=== PATIENT | male | born 1960 | race Caucasian/White ===

== ENCOUNTER 2017-02-12 08:51 | Inpatient (IN) | payer MEDICAID ==
[~2017-02-12] VITALS: Ht 175.3 cm; Wt 56.6 kg
[~2017-02-12 08:51] MED LIST: FOLI-49 PO; MAGN400T28 PO; METF-382 PO; MULTI PO; PANT40TA4 PO; PROP10TA6 PO; THIA100T56 PO
[2017-02-12] MEDS ORDERED: ONDANSETRON 4 MG INJ IV STA ×2 (09:42→11:31)
[2017-02-12] MEDS ORDERED: SOD CHLORIDE 0.9% 1,000 ML IV STA ×2 (09:42→11:31)
[2017-02-12] MEDS ORDERED: LORAZEPAM 2 MG INJ IV ONE (10:00)
[2017-02-12] MEDS ORDERED: morphine 4 MG/ML VIAL IV STA (11:31)
[2017-02-12 12:01] LABS: ADD SCAN DIFF NO
[2017-02-12 12:15] LABS: ABNORMAL IP MESSAGE 1; HEMATOCRIT 43.2 % (42.0-52.0); HEMOGLOBIN 15.9 g/dl (14.0-18.0); MEAN CORPUSCULAR HEMOGLOBIN 35.2 pg (29.0-33.0); MEAN CORPUSCULAR HGB CONC 36.8 g/dl (32.0-37.0); MEAN CORPUSCULAR VOLUME 95.6 fl (82.0-101.0); MEAN PLATELET VOLUME 9.8 fl (7.4-10.4); PLATELET COUNT 69 10^3/UL (140-415); RED BLOOD COUNT 4.52 10^6/ul (4.70-6.10); RED CELL DISTRIBUTION WIDTH 13.2 % (11.5-14.5)
[2017-02-12 12:19] LABS: ALBUMIN 4.8 g/dl (3.3-4.9)
[2017-02-12 12:20] LABS: POTASSIUM 4.5 mmol/L (3.5-5.1)
[2017-02-12 12:22] LABS: ALBUMIN/GLOBULIN RATIO 1.33; BILIRUBIN,INDIRECT 1.4 mg/dl (0-1.1); BILIRUBIN,TOTAL 1.4 mg/dl (0.2-1.3); CREATININE 0.48 mg/dl (0.61-1.24); TOTAL PROTEIN 8.4 g/dl (6.1-8.1)
[2017-02-12 12:23] LABS: CALCIUM 10.1 mg/dl (8.4-10.2)
[2017-02-12] MEDS ORDERED: SOD CHLORIDE 0.9% 100 ML ONE (12:58)
[2017-02-12] MEDS ORDERED: IODIXANOL LOCM 100 ML BTL ONE (12:58)
[2017-02-12 13:16] LABS: BASOPHIL # 0.1 10^3/ul (0.0-0.1); EOSINOPHILS # 0.1 10^3/ul (0.0-0.5); LYMPHOCYTES # 0.7 10^3/ul (0.8-2.9); MONOCYTE # 0.6 10^3/ul (0.3-0.9); NEUTROPHIL # 6.9 10^3/ul (1.6-7.5)
[2017-02-12 13:17] LABS: HYPOCHROMASIA 1+; PLATELET ESTIMATE PLT APPEAR DECREASED; POLYCHROMASIA RARE
--- NOTE | 2017-02-12 13:49 | RADRPT ---
PROCEDURE: CT Abdomen and pelvis with contrast. CLINICAL INDICATION: History of pancreatitis and abdominal pain. TECHNIQUE: CT scan of the abdomen and pelvis with contrast was performed on a multidetector high-r esolution CT scan. The patient was scanned following the uncomplicated intravenous administration o f 99 ml Visipaque 320. Coronal and sagittal reformatted images were obtained from the axial source images. Standard CT of the abdomen pelvis with contrast protocols were performed. The total exam CTDI equals 7.59 mGy and the total exam DLP equals 436.46 mGy-cm. One or more of the following dose reduction techniques were used: - Automated exposure control. - Adjustment of the mA and/or kV according to patient size. Use of iterative reconstruction technique. COMPARISON: CT abdomen and pelvis 09/22/2013 FINDINGS: There are multiple punctate calcifications involving the pancreatic head and uncinate process consis tent with chronic calcific pancreatitis. There are no other definite focal pancreatic lesions demon strated. There is moderate herminio pancreatic fluid extending into the left and right anterior pararen al spaces more so on the left consistent with pancreatitis. There is mild diffuse dilatation of the pancreatic duct. A stone within the proximal pancreatic duct cannot be excluded. There is no evid ence of cholelithiasis or gallbladder wall thickening. The extra panic biliary ductal system is poo rly demonstrated but does not appear dilated. The distal common bile duct stone cannot be excluded though not clearly demonstrated. A biliary ultrasound or MRCP is suggested if clinically indicated. Additional mild right perihepatic and pericolic ascites and mild free fluid in the pouch of Jorge . No localized fluid collection to suggest abscess. No intra-abdominal free air. There is hepatic fatty infiltration. There is a punctate calcification within the right lobe of the liver consistent with old granulomatous disease. There are no other focal hepatic lesions. The sp mahad is normal in size without evidence of focal splenic lesions. The adrenal glands and kidneys ar e normal in size configuration without focal lesions. Negative for hydronephrosis bilaterally. The u rinary bladder is unremarkable. The prostate gland is unremarkable. There is atherosclerotic vascular disease of the abdominal aorta but no evidence of aneurysm. There is minimal dependent atelectasis more so at the left base. No evidence of basilar pleural effusion s. There is degenerative changes lower thoracic and lumbar spine. There are no acute osseous findi ngs. No osteoblastic or osteolytic lesions. IMPRESSION: 1. Chronic calcific pancreatitis involving the pancreatic head and uncinate process as well as acut e pancreatitis with peripancreatic fluid as well as fluid extending into the right left anterior par arenal spaces. In addition there is mild dilatation of the pancreatic duct and a stone in the most proximal aspect of the pancreatic duct cannot be excluded. The extrahepatic biliary ductal system i s poorly demonstrated but does not appear dilated. The distal common bile duct stone cannot be excl uded. A biliary ultrasound or MRCP is suggested if clinically indicated. 2. Mild right perihepatic, pericolic and pouch of Jorge ascites. No intra-abdominal abscess or f ree air. 3. Hepatic fatty infiltration. No visceral masses demonstrated. RPTAT:AAJJ Physician Carter Date Time Electronically viewed and signed by Physician Carter on 02/12/2017 13:48 /
--- NOTE | 2017-02-12 14:25 | ERA ---
ER Documentation Chief Complaint Date/Time DATE: 02/12/17 TIME: 14:22 Chief Complaint ap with nausea since yesterday, last etoh yesterday HPI This is a 56-year-old alcoholic whose last drink was 2 days ago is here because of having epigastric pain radiating to his back. The patient's had similar episodes before after drinking but has not sought medical attention. He is having some nausea vomiting but nonbilious and nonbloody. No diarrhea no fever no chest pain or shortness of breath. No overt signs of withdrawal with shaking tremors or seizure. Pain is described as dull and constant with radiation to the back nothing makes the pain worse or better. ROS All systems reviewed and are negative except as per history of present illness. Medications Home Meds Discontinued Scripts Metformin Hcl* (Metformin Hcl*) 500 Mg Tablet, 500 MG PO WITH BREAKFAST, #30 TAB Prov:GAYATHRI HUNTER MD 09/03/16 Magnesium Oxide* (Magnesium Oxide*) 400 Mg Tablet, 400 MG PO DAILY for 30 Days, TAB Prov:GAYATHRI HUNTER MD 09/03/16 Thiamine* (Vitamin B-1*) 100 Mg Tablet, 100 MG PO DAILY for 30 Days, #30 TAB Prov:GAYATHRI HUNTER MD 09/03/16 Propranolol Hcl* (Propranolol Hcl*) 10 Mg Tablet, 10 MG PO TID for 30 Days, #90 TAB Prov:GAYATHRI HUNTER MD 09/03/16 Pantoprazole* (Pantoprazole*) 40 Mg Tablet.dr, 40 MG PO DAILY@06 for 30 Days, # 30 Prov:GAYATHRI HUNTER MD 09/03/16 Multivitamins* (Theragran*) 1 Tab Tab, 1 TAB PO DAILY for 30 Days, #30 TAB Prov:GAYATHRI HUNTER MD 09/03/16 Folic Acid* (Folic Acid*) 1 Mg Tablet, 1 MG PO DAILY for 30 Days, #30 TAB Prov:GAYATHRI HUNTER MD 09/03/16 Allergies Allergies: Coded Allergies: No Known Drug Allergy (Verified Allergy, Unknown, 02/12/17) PMhx/Soc Medical and Surgical Hx: pt denies Surgical Hx History of Surgery: Yes (see notes) Anesthesia Reaction: No Hx Neurological Disorder: No Hx Respiratory Disorders: No Hx Cardiac Disorders: Yes (HTN) Hx Psychiatric Problems: No Hx Miscellaneous Medical Probl: No Hx Alcohol Use: Yes (> 35 years.) Hx Substance Use: Yes (6 beers daily. last day of use was day before admission) Hx Tobacco Use: No Smoking Status: Former smoker FmHx Family History: No coronary disease Physical Exam Vitals Vital Signs Date Time Temp Pulse Resp B/P Pulse Ox O2 Delivery O2 Flow Rate FiO2 02/12/17 13:28 98.6 109 20 166/94 100 Room Air 02/12/17 08:55 98.1 124 20 194/95 99 Physical Exam Const: Well-developed, well-nourished Head: Atraumatic, normocephalic Eyes: Normal Conjunctiva, PERRLA, EOMI, normal sclera, no nystagmus ENT: Normal External Ears, Nose and Mouth, moist mucus membranes. Neck: Full range of motion. No meningismus, no lymphadenopathy. Resp: Clear to auscultation bilaterally, no wheezing, rhonchi, rales Cardio: Regular rate and rhythm, no murmurs, S1 S2 present Abd: Soft, mid abdominal tenderness that is moderate in nature, non distended. Normal bowel sounds, no guarding or rebound, no pulsitile abdominal masses or bruits Skin: No petechiae or rashes, no ecchymosis , no maculopapular rash Back: No midline or flank tenderness Ext: No cyanosis, or edema, FROM x 4, normal inspection, neurovascularly intact x 4 Neur: Awake and alert, STR 5/5 x 4, sensation intact x 4, no focal findings, cerebellum intact Psych: Normal Mood and Affect Result Diagram: 02/12/17 1130 02/12/17 1130 Results 24 hrs Laboratory Tests Test 02/12/17 11:30 White Blood Count 9.010^3/ul Red Blood Count 4.5210^6/ul Hemoglobin 15.9g/dl Hematocrit 43.2% Mean Corpuscular Volume 95.6fl Mean Corpuscular Hemoglobin 35.2pg Mean Corpuscular Hemoglobin Concent 36.8g/dl Red Cell Distribution Width 13.2% Platelet Count 6910^3/UL Mean Platelet Volume 9.8fl Neutrophils % 77.0% Band Neutrophils % 5.0% Lymphocytes % 8.0% Monocytes % 7.0% Eosinophils % 1.0% Basophils % 1.0% Metamyelocytes % 1.0% Neutrophils # 6.910^3/ul Lymphocytes # 0.710^3/ul Monocytes # 0.610^3/ul Eosinophils # 0.110^3/ul Basophils # 0.110^3/ul Metamyelocytes # 0.1 Differential Comment MANUAL DIFF Platelet Estimate PLT APPEAR DECREASED Polychromasia RARE Hypochromasia 1+ Macrocytosis 1+ Sodium Level 139mmol/L Potassium Level 4.5mmol/L Chloride Level 92mmol/L Carbon Dioxide Level 20mmol/L Anion Gap 32 Blood Urea Nitrogen 10mg/dl Creatinine 0.48mg/dl Glucose Level 362mg/dl Calcium Level 10.1mg/dl Total Bilirubin 1.4mg/dl Direct Bilirubin 0.00mg/dl Indirect Bilirubin 1.4mg/dl Aspartate Amino Transf (AST/SGOT) 102IU/L Alanine Aminotransferase (ALT/SGPT) 55IU/L Alkaline Phosphatase 298IU/L Total Protein 8.4g/dl Albumin 4.8g/dl Globulin 3.60g/dl Albumin/Globulin Ratio 1.33 Lipase 35612U/L Current Medications Medications (Trade) Dose Ordered Sig/Sariah Route PRN Reason Start Time Stop Time Status Last Admin Dose Admin Sodium Chloride (NS) 1,000 ml @ 1,000 mls/hr Q1H STAT IV 02/12/17 09:42 02/12/17 10:41 Cancel Ondansetron HCl (Zofran Inj) 4 mg ONCE STAT IV 02/12/17 09:42 02/12/17 09:43 Cancel Lorazepam 0.5 mg 0.5 mg ONCE ONCE IV 02/12/17 10:00 02/12/17 10:01 DC 02/12/17 11:50 Sodium Chloride (NS) 1,000 ml @ 1,000 mls/hr Q1H STAT IV 02/12/17 11:31 02/12/17 12:30 DC 02/12/17 11:58 Morphine Sulfate (morphine) 4 mg ONCE STAT IV 02/12/17 11:31 02/12/17 11:32 DC 02/12/17 11:50 Ondansetron HCl (Zofran Inj) 4 mg ONCE STAT IV 02/12/17 11:31 02/12/17 11:32 DC 02/12/17 11:50 IV Flush 10 ml 10 ml STK-MED ONCE .ROUTE 02/12/17 12:58 02/12/17 12:59 DC 02/12/17 13:16 Sodium Chloride (NS) 100 ml @ ud STK-MED ONCE .ROUTE 02/12/17 12:58 02/12/17 12:59 DC 02/12/17 13:16 Iodixanol 100 ml 100 ml STK-MED ONCE .ROUTE 02/12/17 12:58 02/12/17 12:59 DC 02/12/17 13:16 Sodium Chloride (NS) 1,000 ml @ 1,000 mls/hr Q1H ONCE IV 02/12/17 14:30 02/12/17 15:29 Procedures/MDM PROCEDURE: CT Abdomen and pelvis with contrast. CLINICAL INDICATION: History of pancreatitis and abdominal pain. TECHNIQUE: CT scan of the abdomen and pelvis with contrast was performed on a multidetector high-resolution CT scan. The patient was scanned following the uncomplicated intravenous administration of 99 ml Visipaque 320. Coronal and sagittal reformatted images were obtained from the axial source images. Standard CT of the abdomen pelvis with contrast protocols were performed. The total exam CTDI equals 7.59 mGy and the total exam DLP equals 436.46 mGy- cm. One or more of the following dose reduction techniques were used: - Automated exposure control. - Adjustment of the mA and/or kV according to patient size. Use of iterative reconstruction technique. COMPARISON: CT abdomen and pelvis 09/22/2013 FINDINGS: There are multiple punctate calcifications involving the pancreatic head and uncinate process consistent with chronic calcific pancreatitis. There are no other definite focal pancreatic lesions demonstrated. There is moderate herminio pancreatic fluid extending into the left and right anterior pararenal spaces more so on the left consistent with pancreatitis. There is mild diffuse dilatation of the pancreatic duct. A stone within the proximal pancreatic duct cannot be excluded. There is no evidence of cholelithiasis or gallbladder wall thickening. The extra panic biliary ductal system is poorly demonstrated but does not appear dilated. The distal common bile duct stone cannot be excluded though not clearly demonstrated. A biliary ultrasound or MRCP is suggested if clinically indicated. Additional mild right perihepatic and pericolic ascites and mild free fluid in the pouch of Jorge. No localized fluid collection to suggest abscess. No intra-abdominal free air. There is hepatic fatty infiltration. There is a punctate calcification within the right lobe of the liver consistent with old granulomatous disease. There are no other focal hepatic lesions. The spleen is normal in size without evidence of focal splenic lesions. The adrenal glands and kidneys are normal in size configuration without focal lesions. Negative for hydronephrosis bilaterally. The urinary bladder is unremarkable. The prostate gland is unremarkable. There is atherosclerotic vascular disease of the abdominal aorta but no evidence of aneurysm. There is minimal dependent atelectasis more so at the left base. No evidence of basilar pleural effusions. There is degenerative changes lower thoracic and lumbar spine. There are no acute osseous findings. No osteoblastic or osteolytic lesions. IMPRESSION: 1. Chronic calcific pancreatitis involving the pancreatic head and uncinate process as well as acute pancreatitis with peripancreatic fluid as well as fluid extending into the right left anterior pararenal spaces. In addition there is mild dilatation of the pancreatic duct and a stone in the most proximal aspect of the pancreatic duct cannot be excluded. The extrahepatic biliary ductal system is poorly demonstrated but does not appear dilated. The distal common bile duct stone cannot be excluded. A biliary ultrasound or MRCP is suggested if clinically indicated. 2. Mild right perihepatic, pericolic and pouch of Jorge ascites. No intra- abdominal abscess or free air. 3. Hepatic fatty infiltration. No visceral masses demonstrated. RPTAT:AAJJ Physician Carter Date Time Electronically viewed and signed by Physician Carter on 02/12/2017 13:48 BM/ CC: DINA PILLAI DO Patient has marked elevation of his lipase consistent with pancreatitis. There is a question of a stone in his pancreatic duct and will obtain an MRCP We will admit to hospital for bowel rest, pain medication and fluid resuscitation Departure Diagnosis: Primary Impression: Pancreatitis Qualified Code: K85.20 - Alcohol-induced acute pancreatitis, unspecified complication status Condition: Stable DINA PILLAI DO Feb 12, 2017 14:24
[2017-02-12] MEDS ORDERED: SOD CHLORIDE 0.9% 1,000 ML IV ONE (14:30)
[2017-02-12] MEDS ORDERED: SOD CHLORIDE 0.9% 1,000 ML IV SCH (15:02)
[2017-02-12] MEDS ORDERED: ACETAMINOPHEN 325 MG TAB PO PRN ×2 (15:30→18:00)
[2017-02-12] MEDS ORDERED: ONDANSETRON 4 MG INJ IV PRN ×2 (15:30→18:00)
[2017-02-12] MEDS ORDERED: DOCUSATE SODIUM 100 MG CAP PO PRN (18:00)
[2017-02-12] MEDS ORDERED: HYDROmorphONE 1 MG/ML SYG IV PRN (18:00)
[2017-02-12] MEDS ORDERED: NACL 0.9% 3 ML SYG IV SCH (18:00)
[2017-02-12 18:08] VITALS: TEMP 98.9
[2017-02-12] MEDS ORDERED: LORAZEPAM 2 MG INJ IV PRN (18:30)
[2017-02-12] MEDS ORDERED: GLUCOSE GEL 15 GRAM TUBE BUCCAL PRN (18:30)
[2017-02-12] MEDS ORDERED: GLUCAGON 1 MG INJ IM PRN (18:30)
[2017-02-12] MEDS ORDERED: DEXTROSE 50% 50 ML SYRINGE IV PRN ×2 (18:30)
[2017-02-12] MEDS ORDERED: GLUCOSE GEL 15 GRAM TUBE PO PRN ×2 (18:30)
--- NOTE | 2017-02-12 18:56 | HP ---
DATE OF ADMISSION: 02/12/2017 REASON FOR ADMISSION: Acute pancreatitis, abdominal pain. 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 The patient was in usual state of health up until 2 days prior to admission when he had been experiencing increasing abdominal consuelo n. Patient does admit to drinking alcohol regularly, despite being advised to stop. The patient pr esented to the ER for evaluation of his abdominal pain. Initial vital signs showed temperature 98.1 , pulse 124, respirations 20, blood pressure was elevated to 194/95, O2 saturation was 99%. The pat ient underwent laboratory workup. CBC shows a normal white count of 9 with bands of 5%. Chemistry unfortunately shows glucose of 362, alkaline phosphatase 298, AST 102, ALT 55, lipase of 18,049 acuna ggestive of pancreatitis. The patient had an imaging test of the abdomen and pelvis which shows chr onic calcific pancreatitis involving the pancreatic head and uncinate process as well as acute pancr eatitis with herminio pancreatic fluid as well as fluid extending to the left anterior pararenal spaces. In addition, there is mild dilatation of the pancreatic duct and a stone in the most proximal aspe ct of the pancreatic duct cannot be excluded. The extrahepatic biliary duct system is poorly demons trated but does not appear dilated. The distal common bile duct stones cannot be excluded. A bilia ry ultrasound or MRCP is suggested if clinically indicated. Mild right perihepatic pericolic and po uch of ____ascites. No intra-abdominal abscess or free air, hepatic fatty infiltration, no visceral masses are demonstrated. The patient received fluids, pain medications and is to be admitted to [facility] medical/surgical floor for further care. Upon evaluation, the patient states he has been experien cing increasing abdominal pain for 2 days with 1 episode of vomiting. Denies any confusion. The pa tieshruti is slightly tremulous in the ER. is present at bedside. PHYSICAL EXAMINATION: VITAL SIGNS: Temperature 98.9, pulse 88, respirations 16, blood pressure elevated at 177/80, satura tion is 100% on room air. GENERAL: The patient is in no acute distress, thin looking. HEENT: Temporal wasting. The patient is pale. NECK: No JVD. CARDIOVASCULAR: S1 and S2, regular rate. LUNGS: Clear. ABDOMEN: Soft, mild pain in the mid epigastric area. No guarding. The patient did receive pain me dication earlier. EXTREMITIES: There is no clubbing, cyanosis, or edema. The patient has slight tremor of the hands, not severe, just mild. LABORATORY DATA: White count is 9, hemoglobin 15.9, hematocrit 43, platelet count is low at 69, hernandez trophils 77%, bands 5%, lymphocytes 8%. Chemistry: Sodium is 139, potassium 4.5, chloride 92, bica rbonate 20, BUN is 10, creatinine 0.4, glucose is elevated at 362, total bilirubin 1.4, AST 102, ALT 55, alkaline phosphatase 298, total protein 8.4, globulin 3.6, lipase is high at 18,049. Urine alex dies were not obtained. CT scan of the abdomen and pelvis as above. ASSESSMENT AND PLAN: This is an unfortunate 56-year-old male who is alcoholic, likely salma y liver cirrhosis, diabetes mellitus, hypertension who presented with increased abdominal pain, was found to have acute pancreatitis. 1. Acute pancreatitis. The patient will be hydrated with IV fluids. Pain medications will be prov ided. We will follow up with lipase levels. The patient will be kept n.p.o. We will consult GI as well. 2. Possible pancreatic duct stone or biliary stone, as patient does have elevated alkaline phosphat ase. Would proceed with a liver biliary ultrasound and an MRCP. 3. Hold antibiotics unless there is evidence of infection. If there is worsening leukocytosis or f adry, we will follow. 4. The patient will be placed on Protonix for GI prophylaxis. 5. The patient with thrombocytopenia. Observe. No active bleeding. 6. Diabetes mellitus. 7. Accu-Cheks before meals and at bedtime will be checked. The patient will be placed on insulin sliding scale for now. 8. Tremor. Ativan p.r.n. for withdrawal will be provided. 9. Hypertension. May benefit from beta blockers such as propranolol as it was prescribed before. 10. Also may benefit from a banana bag as patient clinically appears to be malnourished. We can pl kelly him on multivitamin and folic acid. Case discussed with at bedside. 11. Alcohol cessation was discussed. We will follow. Dictated By: GAYATHRI ROBERT/BOBBI Conf#: [id number] [facility]#: [id number]
--- NOTE | 2017-02-12 19:01 | RADRPT ---
PROCEDURE: Right upper quadrant ultrasound. CLINICAL INDICATION: Pancreatitis, elevated liver enzymes. TECHNIQUE: Multiple real-time longitudinal and transverse images of the right upper quadrant of th e abdomen were acquired utilizing a curved array transducer. Images were reviewed on a high-resoluti on PACS workstation. COMPARISON: None. FINDINGS: The pancreas head and body are heterogeneous. The pancreas tail is not well seen. The hepatic echotexture is slightly coarsened. The liver measures 14.5 cm in length. No hepatic les ion or intrahepatic biliary ductal dilatation is seen. The portal vein is patent with hepatopetal f low. No gallstones or sludge are seen within the gallbladder lumen. The gallbladder wall is not thickene d. There is no pericholecystic fluid. The common bile duct measures 3 mm in diameter, not dilated. The right kidney measures 9.3 cm in length. Renal echogenicity is normal. There is no hydronephros is, urinary calculus, or renal mass. The visualized portions of the aorta and IVC are unremarkable. IMPRESSION: 1. Heterogeneous appearance of the pancreas head and body, nonspecific but possibly reflecting panc reatitis. 2. Slightly coarsened hepatic echotexture, nonspecific but possibly related to hepatitis or cirrhos is. 3. Normal appearance of the gallbladder and bile ducts. RPTAT: HTAR .Antoine Ozuna MD, MD Date Time Electronically viewed and signed by .Antoine Ozuna MD, on 02/12/2017 19:01 .R/
[2017-02-12 20:06] VITALS: Ht 175.3 cm; Wt 56.6 kg
[2017-02-12 20:26] VITALS: BP 164/82; RESP 17
[2017-02-12] MEDS: SOD CHLORIDE 0.9% 1,000 ML IV SCH (20:27)
[2017-02-12] MEDS: PROPRANOLOL 20 MG TAB PO SCH (20:58)
[2017-02-12] MEDS: INSULIN ASPART [NOVOLOG] 3 ML PEN SC SCH (21:00)
[2017-02-13 00:05] VITALS: BP 150/70
[2017-02-13] MEDS ORDERED: **FLU VACCINE PREVIOUSLY DISPENSED XX PRN (00:30)
[2017-02-13] MEDS: SOD CHLORIDE 0.9% 1,000 ML IV SCH ×3 (03:58→23:54)
[2017-02-13 05:05] LABS: ADD SCAN DIFF NO
[2017-02-13 05:14] LABS: ABNORMAL IP MESSAGE 1; BASOPHILS % 0.3 % (0.0-2.0); EOSINOPHILS # 0.1 10^3/ul (0.0-0.5); EOSINOPHILS % 1.8 % (0.0-7.0); HEMATOCRIT 38.8 % (42.0-52.0); HEMOGLOBIN 13.3 g/dl (14.0-18.0); LYMPHOCYTES # 1.8 10^3/ul (0.8-2.9); MEAN CORPUSCULAR HEMOGLOBIN 32.9 pg (29.0-33.0); MEAN CORPUSCULAR HGB CONC 34.3 g/dl (32.0-37.0); MONOCYTE # 1.1 10^3/ul (0.3-0.9); MONOCYTES % 14.3 % (0.0-11.0); NEUTROPHIL # 4.4 10^3/ul (1.6-7.5); NEUTROPHILS % 59.2 % (39.0-77.0); PLATELET COUNT 61 10^3/UL (140-415); RED BLOOD COUNT 4.04 10^6/ul (4.70-6.10); RED CELL DISTRIBUTION WIDTH 13.3 % (11.5-14.5); WHITE BLOOD COUNT 7.4 10^3/ul (4.8-10.8)
[2017-02-13] MEDS: PANTOPRAZOLE 40 MG INJ IV SCH (05:43)
[2017-02-13 05:45] LABS: ALBUMIN 3.5 g/dl (3.3-4.9); POTASSIUM 3.7 mmol/L (3.5-5.1)
[2017-02-13 05:47] LABS: CREATININE 0.43 mg/dl (0.61-1.24)
[2017-02-13 05:48] LABS: ALBUMIN/GLOBULIN RATIO 1.16; BILIRUBIN,INDIRECT 1.3 mg/dl (0-1.1); BILIRUBIN,TOTAL 1.3 mg/dl (0.2-1.3); CALCIUM 9.3 mg/dl (8.4-10.2); TOTAL PROTEIN 6.5 g/dl (6.1-8.1)
--- NOTE | 2017-02-13 06:31 | RADRPT ---
PROCEDURE: MR Abdomen. CLINICAL INDICATION: Acute on chronic pancreatitis. TECHNIQUE: Multiplanar multi sequence imaging of the abdomen without contrast. COMPARISON: CT from 02/12 FINDINGS: MRI Abdomen: No pleural effusion is seen. The gallbladder is mildly distended. No stones are seen. The spleen, adrenals, and kidneys are unremarkable in appearance. Again seen are changes of acute pancreatitis with most severe involvement of the pancreatic body and tail. Surrounding peripancreatic fluid is seen without focal loculated collection. Mild upper abdominal ascites is seen. The pancreatic duct is again seen to be top normal in diameter, measuring up to 3 mm in diameter. There is no evidence for pancreas divisum. The pancreatic duct is poorly seen in the area of the pancreatic head and un cinate were multiple calcifications were seen on CT. A small stone within the distal pancreatic kobi t cannot be excluded. There is no evidence for biliary ductal dilatation or choledocholithiasis. T iny cystic lesion of the distal pancreatic tail is seen and there is also a small 5 mm cystic lesion of the more proximal pancreatic tail (series 4 image 17). IMPRESSION: Acute on chronic pancreatitis. No definite focal loculated collection. Pancreatic necrosis and grissom creatic mass cannot be assessed without intravenous contrast. The distal pancreatic duct is not wel l seen and this is the area where multiple calcifications were evident on CT. A small stone within the distal pancreatic duct cannot be excluded. No choledocholithiasis, however. No biliary ductal dilatation. Pancreatic duct is top normal.. RPTAT: HLBE Physician Dario Date Time Electronically viewed and signed by Sylwia Morris Physician on 02/13/2017 06:31 LIBAN/
[2017-02-13 07:06] LABS: THYROID STIMULATING HORMONE 2.1 MIU/L (0.465-4.680)
[2017-02-13 07:10] VITALS: BP_SYST 123; BP_SYST 162; BP_DIAS 65; BP_DIAS 79; RESP 18
[2017-02-13] MEDS: PROPRANOLOL 20 MG TAB PO SCH ×3 (08:31→23:12)
[2017-02-13] MEDS: INSULIN ASPART [NOVOLOG] 3 ML PEN SC SCH ×4 (08:33→23:15)
[2017-02-13 08:54] LABS: INR 1.32; PROTIME 16.5 Sec (12.2-14.2); PT RATIO 1.3
[2017-02-13] MEDS: BENAZEPRIL 10 MG TAB PO SCH (19:02)
--- NOTE | 2017-02-13 19:29 | PN ---
DATE: 02/13/2017 SUBJECTIVE: The patient is seen. The patient is feeling much better today, currently denies any pa in. The patient has been n.p.o. since admission, and the patient is feeling better. The patient is not tachycardic anymore. Noted increase glucose level, as patient unfortunately his hemoglobin A1c is high at 11.7. Lipase also went down nicely. PHYSICAL EXAMINATION: VITAL SIGNS: Temperature is 98.9, pulse 75, respiration 18, blood pressure elevated at 162/79, satu ration 96%. GENERAL: The patient is in no acute distress, thin looking, pale. CARDIOVASCULAR: S1, S2, regular rate. LUNGS: Clear. ABDOMEN: Soft, nontender. EXTREMITIES: No clubbing, cyanosis, or edema. LABORATORY DATA: Sodium 140, potassium 3.7, chloride 99, bicarbonate 24, BUN is 11, creatinine 0.43 , glucose of 216, hemoglobin A1c is 11.7. AST 69; improved, ALT 47, alkaline phosphatase 175; much better too, albumin 3.5. TSH: 2.1. Alpha fetoprotein: 2.59. Lipase went down to 6750. Last glu cose levels 169, 202, and 208. INR was 1.3. MEDICATIONS: 1. Protonix 40 IV daily. 2. Insulin aspart per sliding scale. 3. Inderal 20 mg t.i.d. 4. Ativan 2 mg IV q.4h. p.r.n. 5. Hypoglycemia protocol as directed. 6. Zofran p.r.n. 7. Tylenol p.r.n. 8. Dilaudid p.r.n. 9. Colace p.r.n. 10. Normal saline at 100 mL an hour. ASSESSMENT AND PLAN: This is a 56-year-old male with alcoholic liver cirrhosis, diabetes m ellitus, hypertension, presenting with decreased abdominal pain, and was found to have acute pancrea titis. 1. Acute pancreatitis, likely related to alcohol. Much better with hydration, IV pain meds. The p atient is pain free. We will advance diet to clear liquid as tolerated. 2. Abnormal LFTs. Status post MRI and ultrasound. MRCP showed [id number] pancreatitis, no d efinite focal loculated collection. Pancreatic necrosis and pancreatic mass cannot be assessed with out intravenous contrast. The distal pancreatic duct is not well seen, and this is the area where kia howardtiple calcifications were evident on CT. A small stone within the distal pancreatic duct cannot b e excluded. No choledocholithiasis; however, no biliary ductal dilatation. Pancreatic duct is top normal, but overall clinically is doing well. Labs improved. I will just continue with the same ca re. Again, also ultrasound of the liver revealed heterogeneous appearance of the pancreas head and body, nonspecific or possibly reflecting pancreatitis, slightly coarse hepatic echotexture, nonspeci fic, but possibly related to hepatitis or cirrhosis. Normal appearance of the gallbladder and bile duct. Again, will continue with supportive care. 3. Diabetes mellitus. Start the patient on Lantus 8 units at night. Observe advanced diet and inc rease insulin as needed. 4. Start the patient on multivitamin, folic acid, thiamine. 5. Possible withdrawal. Continue p.r.n. Ativan, currently not withdrawing, and the patient is aler t and oriented x3; overall, improving. Advance diet again as noted. If able to tolerate and no consuelo n, the patient possibly can be discharged tomorrow. Dictated By: GAYATHRI ROBERT/BOBBI Conf#: [id number] DID#: [id number]
[2017-02-13 22:07] VITALS: BP 166/77; RESP 19
[2017-02-13 23:00] VITALS: BP 148/72; PULSE 69
[2017-02-13] MEDS: INSULIN GLARGINE [LANtus] 3 ML PEN SC SCH (23:14)
[2017-02-14] MEDS: PANTOPRAZOLE 40 MG INJ IV SCH (05:19)
[2017-02-14 07:14] LABS: ADD SCAN DIFF NO
[2017-02-14 07:22] LABS: ABNORMAL IP MESSAGE 1; BASOPHILS % 0.5 % (0.0-2.0); EOSINOPHILS # 0.2 10^3/ul (0.0-0.5); EOSINOPHILS % 3.1 % (0.0-7.0); HEMATOCRIT 40.5 % (42.0-52.0); HEMOGLOBIN 13.7 g/dl (14.0-18.0); LYMPHOCYTES # 2.3 10^3/ul (0.8-2.9); LYMPHOCYTES % 29.5 % (15.0-51.0); MEAN CORPUSCULAR HEMOGLOBIN 32.9 pg (29.0-33.0); MEAN CORPUSCULAR HGB CONC 33.8 g/dl (32.0-37.0); MEAN CORPUSCULAR VOLUME 97.1 fl (82.0-101.0); MEAN PLATELET VOLUME 10.5 fl (7.4-10.4); MONOCYTES % 13.3 % (0.0-11.0); NEUTROPHIL # 4.1 10^3/ul (1.6-7.5); NEUTROPHILS % 53.2 % (39.0-77.0); PLATELET COUNT 77 10^3/UL (140-415); RED BLOOD COUNT 4.17 10^6/ul (4.70-6.10); RED CELL DISTRIBUTION WIDTH 13.3 % (11.5-14.5); WHITE BLOOD COUNT 7.8 10^3/ul (4.8-10.8)
[2017-02-14 07:41] LABS: PHOSPHORUS 3.9 mg/dl (2.5-4.9)
[2017-02-14 07:42] LABS: ALBUMIN 3.4 g/dl (3.3-4.9); MAGNESIUM 1.3 mg/dl (1.7-2.5)
[2017-02-14 07:43] LABS: POTASSIUM 3.1 mmol/L (3.5-5.1)
[2017-02-14 07:45] LABS: CREATININE 0.43 mg/dl (0.61-1.24)
[2017-02-14 07:46] LABS: ALBUMIN/GLOBULIN RATIO 1.13; BILIRUBIN,INDIRECT 1.6 mg/dl (0-1.1); BILIRUBIN,TOTAL 1.6 mg/dl (0.2-1.3); TOTAL PROTEIN 6.4 g/dl (6.1-8.1)
[2017-02-14] MEDS: THIAMINE 100 MG TAB PO SCH (08:24)
[2017-02-14] MEDS: FOLIC ACID 1 MG TAB PO SCH (08:24)
[2017-02-14] MEDS: MULTIVITAMINS THERAPEUTIC TAB PO SCH (08:24)
[2017-02-14] MEDS: BENAZEPRIL 10 MG TAB PO SCH (08:25)
[2017-02-14] MEDS: PROPRANOLOL 20 MG TAB PO SCH ×3 (08:25→20:21)
[2017-02-14] MEDS: INSULIN ASPART [NOVOLOG] 3 ML PEN SC SCH ×4 (08:28→20:23)
[2017-02-14 08:37] VITALS: BP 153/76; RESP 16
[2017-02-14] MEDS ORDERED: POTASSIUM CHLORIDE (SR) 20 MEQ TAB PO STA (09:44)
[2017-02-14] MEDS: SOD CHLORIDE 0.9% 1,000 ML IV SCH ×2 (10:28→21:24)
[2017-02-14] MEDS ORDERED: MAGNESIUM SULFATE 3 GM in SOD CHLORIDE 0.9% 100 ML IVPB ONE (11:00)
--- NOTE | 2017-02-14 16:17 | PDOCDIS ---
Discharge Instructions CONDITION Patient Condition: Stable HOME CARE INSTRUCTIONS: Diet Instructions: Low Fat /CholesterolSpecial Diet: clear liquid ACTIVITY: Activity Restrictions: Slowly Increase Activity FOLLOW UP/APPOINTMENTS Appointments follow up with PMD within a week, NO ALCOHOL. see prescriptions GAYATHRI HUNTER MD Feb 14, 2017 16:16
[2017-02-14] MEDS ORDERED: Thiamine PO (16:22)
[2017-02-14] MEDS ORDERED: METF-382 PO (16:22)
[2017-02-14] MEDS ORDERED: MULTI PO (16:22)
[2017-02-14] MEDS ORDERED: BENA10TA48 PO (16:22)
[2017-02-14] MEDS ORDERED: FOLI-49 PO (16:22)
[2017-02-14] MEDS ORDERED: PROP20TA4 PO (16:22)
[2017-02-14] MEDS ORDERED: LANT3I SC (16:22)
[2017-02-14] MEDS ORDERED: OMEP40CA6 PO (16:25)
--- NOTE | 2017-02-14 17:10 | PN ---
DATE: SUBJECTIVE: I decided to keep him another day as I noted he had a low-grade temperature of 99.7. S till, he is on insulin, and he was not on insulin before. ____ still elevated. I definitely would like to keep him on it one more day. I also have been replacing his electrolytes. OBJECTIVE: VITAL SIGNS: Temperature 98.7, pulse 62, respirations 16, blood pressure 152/76, saturation 97%. GENERAL: No acute distress. The patient is pale and thin. CARDIOVASCULAR: S1, S2, regular rate. LUNGS: Clear. ABDOMEN: Soft, nontender. EXTREMITIES: No clubbing, cyanosis, or edema. LABORATORY DATA: All reviewed. Sodium 149, potassium 3.1, chloride 99, bicarbonate 27, BUN is 11, creatinine 0.53, glucose of 153. Last glucose level 214 and 150. Magnesium was low at 1.3. Lipase 5734. White count normal at 7.8. MEDICATIONS: Reviewed. ASSESSMENT AND PLAN: This is a 56-year-old male with history of alcoholic liver cirrhosis and chronic pancreatitis who continues to drink and presented with abdominal pain. He was found to have acute pancreatitis. 1. Acute pancreatitis, clinically better. We will continue with gentle hydration, pain medication as needed. Currently, he is pain-free. Monitor lipase. We will keep still on clear liquid diet an other day. 2. Diabetes mellitus. Continue insulin, increase it by 2 units. Observe. Upon discharge, we will add metformin. 3. Alcohol abuse. No evidence of withdrawal, but Ativan p.r.n. for withdrawals is given. 4. Hypertension. Continue propranolol and benazepril. Case discussed with family. The patient has moderate to severe protein malnutrition with a BMI of 1 8.4. The patient may benefit from Ensure at home. Again, alcohol cessation was discussed again. DISPOSITION: Soon. We will monitor fevers. He had a low-grade temperature of 99.7. Dictated By: GAYATHRI ROBERT/BOBBI Conf#: [id number] DID#: [id number]
--- NOTE | 2017-02-14 17:15 | DS ---
DATE OF ADMISSION: 02/12/2017 DATE OF DISCHARGE: 02/14/2017 REASON FOR ADMISSION: Acute pancreatitis. HOSPITAL COURSE: The patient is a 56-year-old male with history of alcohol abuse and diabe leroy mellitus and early liver cirrhosis. He presented with increased abdominal pain. Patient was fo und to have pancreatitis with increased lipase. The patient underwent a CT scan of the abdomen and pelvis which unfortunately shows a chronic calcific pancreatitis involving the pancreatic head and u ncinate process as well at the acute pancreatitis with pancreatic fluid as well as fluid extending i nto the right/left anterior pararenal spaces. In addition, there was mild dilatation of the pancre atic duct. Subsequently, the more proximal aspect of the pancreatic duct cannot be excluded. The l eft hepatic biliary duct system is poorly demonstrated but does not appear to be dilated. The dista l common bile duct stone cannot be excluded. The biliary ultrasound and MRCP suggested if clinicall y indicated. We will proceed with MRCP which showed acute on chronic pancreatitis, no definite foca l loculated collection. The pancreatic necrosis and pancreatic mass cannot be assessed without IV c ontrast. The distal pancreatic duct is not well seen in the area with multiple calcifications were evident on CT. Small stones within the distal pancreatic duct cannot be excluded. There is no chol edocholithiasis; however, no biliary duct dilatation and pancreatic duct is top normal. Liver ultra sound shows heterogeneous appearance of the pancreas head and body, nonspecific, but possibly reflec ting pancreatitis. There is slightly coarse hepatic echotexture, nonspecific, but possibly related to hepatitis or cirrhosis. Normal appearance of the gallbladder and bile duct. Because of these fi ndings, basically most likely the patient does have pancreatitis related to alcohol use. The patie nt was kept n.p.o. and received IV fluids and pain medication with good results. Lipase was trendin g down and the patient's pain resolved. Diet was advanced to clear liquid diet and he has been able to tolerate it well with no more pain. The patient has been afebrile. Temperature T-max 99.7 yest erday which may be related to his pancreatitis but currently I do not see the need for antibiotics. If the patient is doing well, he can be discharged. DISCHARGE MEDICATIONS: Patient will be discharged with the following medications: 1. Ativan 2 mg q.4 p.r.n. for withdrawal. 2. Lantus 8 units at bedtime. 3. Metformin 500 b.i.d. 4. Multivitamin 1 tab daily. 5. Folic acid 1 mg daily. 6. Benazepril 10 mg daily. 7. Propranolol 20 t.i.d. 8. Thiamine 100 mg daily. 9. Omeprazole 20 mg daily. FINAL DIAGNOSIS: 1. Acute pancreatitis. 2. Abdominal pain. 3. Alcoholic liver cirrhosis. 4. Thrombocytopenia. 5. Malnutrition secondary to alcohol use. 6. Case discussed with family. DIET: Continue with clear liquid diet for now for a few days and then advance slowly, but would chato id fatty foods, avoid alcohol at all costs. Dictated By: GAYATHRI ROBERT/BOBBI Conf#: [id number] DID#: [id number]
[2017-02-14] MEDS: INSULIN GLARGINE [LANtus] 3 ML PEN SC SCH (20:22)
[2017-02-14 20:39] VITALS: BP 155/72; RESP 18
[2017-02-15] MEDS: SOD CHLORIDE 0.9% 1,000 ML IV SCH (02:24)
[2017-02-15] MEDS: PANTOPRAZOLE 40 MG INJ IV SCH (05:18)
[2017-02-15 06:28] LABS: ADD SCAN DIFF NO
[2017-02-15 06:32] LABS: ABNORMAL IP MESSAGE 1; BASOPHILS % 0.6 % (0.0-2.0); EOSINOPHILS # 0.2 10^3/ul (0.0-0.5); EOSINOPHILS % 4.5 % (0.0-7.0); HEMATOCRIT 36.8 % (42.0-52.0); HEMOGLOBIN 12.9 g/dl (14.0-18.0); LYMPHOCYTES % 38.4 % (15.0-51.0); MEAN CORPUSCULAR HEMOGLOBIN 33.7 pg (29.0-33.0); MEAN CORPUSCULAR HGB CONC 35.1 g/dl (32.0-37.0); MEAN CORPUSCULAR VOLUME 96.1 fl (82.0-101.0); MEAN PLATELET VOLUME 10.2 fl (7.4-10.4); MONOCYTE # 0.7 10^3/ul (0.3-0.9); MONOCYTES % 13.4 % (0.0-11.0); NEUTROPHIL # 2.2 10^3/ul (1.6-7.5); NEUTROPHILS % 42.9 % (39.0-77.0); PLATELET COUNT 77 10^3/UL (140-415); RED BLOOD COUNT 3.83 10^6/ul (4.70-6.10); RED CELL DISTRIBUTION WIDTH 12.9 % (11.5-14.5); WHITE BLOOD COUNT 5.2 10^3/ul (4.8-10.8)
[2017-02-15 06:46] LABS: ALBUMIN 3.2 g/dl (3.3-4.9)
[2017-02-15 06:47] LABS: POTASSIUM 3.1 mmol/L (3.5-5.1)
[2017-02-15 06:49] LABS: CREATININE 0.43 mg/dl (0.61-1.24); MAGNESIUM 1.5 mg/dl (1.7-2.5)
[2017-02-15 06:50] LABS: ALBUMIN/GLOBULIN RATIO 1.03; BILIRUBIN,INDIRECT 1.9 mg/dl (0-1.1); BILIRUBIN,TOTAL 1.9 mg/dl (0.2-1.3); CALCIUM 8.7 mg/dl (8.4-10.2); TOTAL PROTEIN 6.3 g/dl (6.1-8.1)
[2017-02-15 07:26] VITALS: BP 152/82; RESP 16
[2017-02-15] MEDS: INSULIN ASPART [NOVOLOG] 3 ML PEN SC SCH ×3 (08:18→17:11)
[2017-02-15] MEDS: FOLIC ACID 1 MG TAB PO SCH (08:19)
[2017-02-15] MEDS: THIAMINE 100 MG TAB PO SCH (08:20)
[2017-02-15] MEDS: BENAZEPRIL 10 MG TAB PO SCH (08:20)
[2017-02-15] MEDS: MULTIVITAMINS THERAPEUTIC TAB PO SCH (08:20)
[2017-02-15] MEDS: PROPRANOLOL 20 MG TAB PO SCH ×2 (08:20→12:00)
[2017-02-15] MEDS ORDERED: POTASSIUM CHLORIDE (SR) 20 MEQ TAB PO STA (10:45)
[2017-02-15] MEDS ORDERED: MAGNESIUM SULFATE 3 GM in SOD CHLORIDE 0.9% 100 ML IVPB ONE (12:30)
--- NOTE | 2017-02-15 12:36 | DS ---
DATE OF ADMISSION: 02/12/2017 DATE OF DISCHARGE: 02/15/2017 REASON FOR ADMISSION: Acute pancreatitis. HOSPITAL COURSE: Patient is a 56-year-old man with history of alcohol abuse, diabetes dania itus secondary to chronic pancreatitis who previously admitted under my care for alcohol intoxicatio n, thrombocytopenia and pancreatitis. Now he presents to the ER complaining of 2 days of worsening abdominal pain. In the ER, patient was found to have elevated lipase at 18,000 and CAT scan suggest s acute on chronic pancreatitis, see report. During his stay, he initially was kept n.p.o., placed on pain medication and IV fluids. Patient clinically improved. Diet was advanced to clear liquid d iet and this morning to full liquid diet. Patient has been tolerating diet well and his pain is cur rently pain free. He also was started on insulin, his sugar levels were going to the 200s. The pat ient responded well. Patient's hemoglobin A1c is remarkably high at 11.7. Alpha fetoprotein 2.59. TSH 2.1. During his stay, he received potassium and magnesium supplements, and he appeared malnour ished. The patient was encouraged to stop drinking. I had a long conversation with him and his wif e about the need to stop drinking. If he does not, his prognosis is poor. During his stay, he unde rwent also an MRI or MRCP which showed acute on chronic pancreatitis, no definite loculated collecti on. Pancreatic necrosis or pancreatic mass cannot be assessed without IV contrast. Overall, his li benson enzymes improved as well. Clinically, he is much improved. He can be discharged with the [facility] medications: 1. Ativan 2 mg at bedtime p.r.n. for withdrawal. 2. Lantus 8 units at bedtime daily. 3. Metformin 500 b.i.d. 4. Multivitamin 1 tab daily. 5. Folic acid 1 mg daily. 6. Benazepril 10 mg daily. 7. Propranolol 20 mg t.i.d. 8. Thiamine 100 mg daily. 9. Omeprazole 40 mg daily. FINAL DIAGNOSES: 1. Acute pancreatitis secondary to alcohol use. 2. Alcohol abuse. 3. Abdominal pain. 4. Diabetes mellitus. 5. Thrombocytopenia. 6. Moderate protein malnutrition. 7. Hypokalemia. 8. Hypomagnesemia. 9. Transaminitis. 10. Hypertension. I started him on Inderal and benazepril. Long-term prognosis depends on if he continues to drink. Again, alcohol cessation was advised. Diet was advanced slowly, but avoid fatt y foods for now, as he has pancreatitis. If there are any worsening symptoms, to call 911 or go to nearest emergency department. I instructed him to come to my office within the next few days. Dictated By: GAYATHRI ROBERT/BOBBI Conf#: [id number] DID#: [id number]
== END 2017-02-15 17:21 | disposition home or self-care (01) | DRG 439 ==
LOC: E/R 08:51 → PP2 15:03
PROVIDERS: ADMIT Internal Medicine; ATTEND Internal Medicine
DX: K85.20 Alcohol induced acute pancreatitis without necrosis or infection (principal); F10.239 Alcohol dependence with withdrawal, unspecified; D69.6 Thrombocytopenia, unspecified; E44.0 Moderate protein-calorie malnutrition; E83.42 Hypomagnesemia; K70.30 Alcoholic cirrhosis of liver without ascites; Z68.1 Body mass index [BMI] 19.9 or less, adult; E87.6 Hypokalemia; E08.9 Diabetes mellitus due to underlying condition without complications; I10 Essential (primary) hypertension; K86.89 Other specified diseases of pancreas; K86.0 Alcohol-induced chronic pancreatitis; R74.0 Nonspecific elevation of levels of transaminase and lactic acid dehydrogenase [LDH]
CPT/HCPCS: 36415; 74177; 74181; 76705; 80053; 82105; 82962; 83036; 83690; 83735; 84100; 84443; 85025; 85610; 96374; 96375; C9113; J1815; J2060; J2270; J2405; J3475; J7030; Q9967

== ENCOUNTER 2018-02-15 06:45 | Inpatient (IN) | END 2018-02-18 18:48 | disposition home health service (06) | DRG 438 ==

== ENCOUNTER 2018-06-22 11:16 | Emergency (ER) | END 2018-06-22 13:51 | disposition home or self-care (01) ==

== ENCOUNTER 2018-11-13 22:30 | Inpatient (IN) | payer MEDICAID ==
[~2018-11-13] VITALS: Ht 175.3 cm; Wt 52.6 kg
[~2018-11-13 22:30] MED LIST changes: +FAMO-96 PO; -FOLI-49 PO; -MAGN400T28 PO; -METF-382 PO; -MULTI PO; -PANT40TA4 PO; -PROP10TA6 PO; -THIA100T56 PO
[2018-11-13] MEDS ORDERED: SOD CHLORIDE 0.9% 1,000 ML IV STA (22:47)
[2018-11-13] MEDS ORDERED: FAMOTIDINE 20 MG INJ IV STA (22:47)
[2018-11-13] MEDS ORDERED: BELLADONNA/PHENOBARBITAL TAB PO STA (22:47)
[2018-11-13] MEDS ORDERED: ONDANSETRON 4 MG INJ IV STA (22:47)
[2018-11-13] MEDS ORDERED: LIDOCAINE/MYLANTA 40 ML BTL PO STA (22:47)
--- NOTE | 2018-11-13 23:21 | ERD ---
ER Documentation Chief Complaint Chief Complaint epigastric pain w/vomiting x 2 days;hx ETOH&DM,uncompliant w/meds HPI This is a 58-year-old male with a past medical history of hypertension, hyperlipidemia, diabetes, alcohol abuse who is presenting with epigastric pain. The patient does have a history of chronic epigastric pain, exacerbated by his drinking. He describes it as a burning sensation that radiates into his throat. The patient also endorses a cough, nausea and a few episodes of nonbilious nonbloody vomiting. The patient denies any other abdominal pain. He denies any changes to bowel movements or urination. He denies any dysuria or hematuria or urgency or frequency. He denies any black or bloody or tarry stools. He denies any constipation or diarrhea. The patient does endorse an aching in his chest, mild to moderate, midsternal, nonradiating, present only when he coughs. He does endorse mild shortness of breath as well. Since the patient has not been feeling well, he has not had any alcohol in 2-3 days. The patient does endorse increased nausea, but he does not feel anxious. He denies any tremors. He denies diaphoresis. He does occasionally feel palpitations, but he does not have palpitations at this time. He does not feel like he is going through withdrawal. The patient denies fever or chills. The patient has had no headache or vision changes. The patient does not endorse neck or back pain. The patient denies lightheadedness or dizziness. The patient has had no focal deficits. The patient has had no weakness or numbness or tingling to the face or extremities. The patient's family reports that he drinks approximately five 24 ounce cans of beer daily. He also reports noncompliance with his blood pressure and diabetes medications. ROS All systems reviewed and are negative except as per history of present illness. Medications Home Meds Active Scripts Famotidine* (Pepcid*) 20 Mg Tablet, 20 MG PO BID for 14 Days, TAB Prov:STEPHON BROWN MD 06/22/18 Allergies Allergies: Coded Allergies: No Known Drug Allergy (Verified Allergy, Unknown, 06/22/18) PMhx/Soc History of Surgery: No Anesthesia Reaction: No Hx Neurological Disorder: No Hx Respiratory Disorders: No Hx Cardiac Disorders: Yes (Hypertension, hyperlipidemia, diabetes) Hx Psychiatric Problems: No Hx Miscellaneous Medical Probl: No Hx Alcohol Use: Yes Hx Substance Use: No Hx Tobacco Use: No FmHx Family History: diabetes Physical Exam Vitals Vital Signs Date Temp Pulse Resp B/P (MAP) Pulse Ox O2 O2 Flow FiO2 Time Delivery Rate 11/14/18 115 25 124/74 92 Nasal 5.0 03:18 (91) Cannula 11/14/18 98.0 113 17 110/70 93 Nasal 5.0 03:00 (83) Cannula 11/14/18 110 18 98/58 (71) 94 Nasal 5.0 01:15 Cannula 11/13/18 112 16 106/66 94 Nasal 5.0 22:50 (79) Cannula 11/13/18 99.1 140 22 118/76 86 22:32 (90) 11/13/18 99.1 140 22 118/76 86 22:32 (90) Physical Exam Const: No apparent distress, well-developed. Cachectic in appearance. Head: Normocephalic, Atraumatic Eyes: Normal Conjunctiva. Extraocular movements intact. Pupils equal, round and reactive to light ENT: Normal External Ears, Nose and Mouth. Neck: Full range of motion. No meningismus. Resp: Clear to auscultation bilaterally, No wheezes, rales or rhonchi Cardio: Regular rhythm. Tachycardia. No murmurs, rubs or gallops Abd: Soft, non tender, non distended. Normal bowel sounds Skin: No petechiae or rashes Back: No midline tenderness. No CVA tenderness Ext: No cyanosis, or edema Neur: Awake and alert, oriented 4. Cranial nerves intact. No facial droop. Normal strength, sensation and coordination. Psych: Normal Mood and Affect Result Diagram: 11/13/18234911/13/182349 Results 24 hrs Laboratory Tests Test 11/13/18 23:50 11/14/18 01:48 11/14/18 02:58 11/14/18 04:18 White Blood 3.8 10^3/ul Count Red Blood Count 4.05 10^6/ul Hemoglobin 13.2 g/dl Hematocrit 37.8 % Mean Corpuscular 93.3 fl Volume Mean Corpuscular 32.6 pg Hemoglobin Mean Corpuscular 34.9 g/dl Hemoglobin Navya nt Red Cell 13.0 % Distribution Width Platelet Count 54 10^3/UL Mean Platelet 10.3 fl Volume Immature 0.000 % Granulocytes % Neutrophils % % Segmented 21 % Neutrophils % (Manual) Band Neutrophils 35 % % (Manual) Lymphocytes % % Lymphocytes % 28 % (Manual) Monocytes % % Monocytes % 6 % (Manual) Eosinophils % % Basophils % % Basophils % 1 % (Manual) Metamyelocytes % 7 % (manual) Myelocytes % 1 % (Manual) Nucleated Red 1 % Blood Cells % Immature 0.000 10^3/ul Granulocytes # Neutrophils # 10^3/ul Neutrophils # 0.8 10^3/ul (Manual) Band Neutrophils 1.3 10^3/ul # Lymphocytes 1.0 10^3/ul (Manual) Lymphocytes # 10^3/ul Monocytes # 10^3/ul Monocytes # 0.2 10^3/ul (Manual) Eosinophils # 10^3/ul Basophils # 10^3/ul Basophils # 0.0 10^3/ul (Manual) Metamyelocytes # 0.2 10^3/ul Myelocytes # 0.0 10^3/ul Nucleated Red 10^3/ul Blood Cells # Platelet DECREASED Estimate Sodium Level 132 mmol/L Potassium Level 3.7 mmol/L Chloride Level 85 mmol/L Carbon Dioxide 31 mmol/L Level Anion Gap 16 Blood Urea 18 mg/dl Nitrogen Creatinine 0.67 mg/dl Est Glomerular > 60 mL/min Filtrat Rate mL/min Glucose Level 517 mg/dl Calcium Level 9.1 mg/dl Total Bilirubin 1.7 mg/dl Direct Bilirubin 0.50 mg/dl Indirect 1.2 mg/dl Bilirubin Aspartate Amino 151 IU/L Transf (AST/SGOT ) Alanine 75 IU/L Aminotransferase (ALT/SGPT) Alkaline 206 IU/L Phosphatase Total Protein 6.4 g/dl Albumin 3.8 g/dl Globulin 2.60 g/dl Albumin/Globulin 1.46 Ratio Lipase 227 U/L Urine Opiates Negative Screen Urine Negative Barbiturates Urine Negative Amphetamines Screen Urine Negative Benzodiazepines Screen Urine Cocaine Negative Screen Urine Negative Cannabinoids Ethyl Alcohol < 10.0 mg/dl Level Bedside Glucose 411 mg/dL 468 mg/dL 202 mg/dL Current Medications Medications Dose Sig/Sariah Start Time Status Last (Trade) Ordered Route PRN Stop Time Admin Dose Reason Admin Sodium 1,000 ml @ Q1H STAT 11/13/18 DC 11/13/18 Chloride 1,000 mls/hr IV 22:47 23:55 11/13/18 23:46 Ondansetron 4 mg ONCE STAT 11/13/18 DC 11/13/18 HCl (Zofran IV 22:47 23:55 Inj) 11/13/18 22:51 Famotidine 20 mg ONCE STAT 11/13/18 DC 11/13/18 (Pepcid Iv) IV 22:47 23:55 11/13/18 22:51 40 ml ONCE STAT 11/13/18 DC 11/13/18 Miscellaneous PO 22:47 23:55 Medication 11/13/18 (Gi Cocktail 22:51 (2)) Belladonna/ 2 tab ONCE STAT 11/13/18 DC 11/13/18 Phenobarbital PO 22:47 23:55 () 11/13/18 22:51 Lorazepam 0.5 mg ONCE ONCE 11/14/18 DC 11/14/18 (Ativan) IV 00:30 00:29 11/14/18 00:31 Sodium 1,000 ml @ Q1H ONCE 11/14/18 DC 11/14/18 Chloride 1,000 mls/hr IV 01:30 01:36 11/14/18 02:29 Insulin 10 unit ONCE ONCE 11/14/18 DC 11/14/18 Human SC 01:30 01:51 Regular 11/14/18 (Humulin R) 01:31 Sodium 1,000 ml @ Q1H ONCE 11/14/18 DC 11/14/18 Chloride 1,000 mls/hr IV 03:00 03:08 11/14/18 03:59 Insulin 10 unit ONCE ONCE 11/14/18 DC 11/14/18 Human SC 03:00 03:17 Regular 11/14/18 (Humulin R) 03:01 150 ml @ ONCE ONCE 11/14/18 Levofloxacin/ 100 mls/hr IVPB 05:00 Dextrose 11/14/18 06:29 Ondansetron 4 mg ER BRIDGE 11/14/18 HCl (Zofran PRN IV 05:00 Inj) NAUSEA AND/OR 11/15/18 VOMITING 04:59 650 mg ER BRIDGE 11/14/18 Acetaminophen PRN PO MILD 05:00 (Tylenol PAIN(1-3)OR 11/15/18 Tab) ELEVATED TEMP 04:59 Procedures/MDM MDM The patient's presentation warrants further investigation. Previous medical records, if available, were reviewed. LABS The patient's laboratory testing was obtained and reviewed. No emergent treatment was required unless described below. CBC: Leukopenia with bandemia, concerning for possible systemic infection. That said, the patient also has a mild normocytic anemia and thrombocytopenia. His pancytopenia is likely related to his chronic alcohol abuse. CMP: No E/o severe acidosis or alkalosis or renal failure. Severe h yperglycemia without evidence of DKA. Mild hyponatremia, nonemergent. Hyperbilirubinemia and transaminitis with an AST:ALT ratio of approximately 2:1, correlating with alcoholic liver disease. Lipase: No E/o pancreatitis Lactate: Pending Urine: Pending EKG EKG read by me: Rate/Rhythm: Sinus tachycardia at 125 bpm. Intervals: Normal [place]: Normal Impression: No evidence of acute ischemia. Sinus tachycardia. IMAGING Imaging and Radiology interpretation reviewed. CXR 1V Interpreted by me Soft Tissue: No acute abnormalities Bones: No acute abnormalities Mediastinum/Cardiac Silhouette: Unremarkable. No widened mediastinum. Lungs: No acute abnormalities. Normal pulmonary vasculature. No pneumothorax. No pulmonary edema. Clear costal diaphragmatic angles. No pleural effusions. No opacity or consolidations concerning for pneumonia. TREATMENT/DISPOSITION The patient primary complaint was epigastric burning with nausea and vomiting. The patient has a long-standing history of alcoholism and alcoholic gastritis per with symptoms concerning for gastritis versus PUD. He was given IV fluids, Zofran, Pepcid and a GI cocktail. This did seem to improve his epigastric discomfort and nausea. The patient does not have any evidence of peritonitis. The patient does not have clinical symptoms concerning for mesenteric ischemia or ischemic colitis. The patient does not have right upper quadrant tenderness, and I have low suspicion for gallstones, cholecystitis or biliary colic. The patient does not have any epigastric pain. I have low suspicion for gastritis, PUD or GERD. The patient does not have left upper quadrant tenderness. I have low suspicion for pancreatitis. The patient does not have any right lower quadrant tenderness, or periumbilical tenderness. I have low suspicion for appendicitis. The patient does not have suprapubic tenderness. I have decreased suspicion for cystitis. The patient does not have any left lower quadrant tenderness, and I have low suspicion for diverticulosis or diverticulitis. The patient does not have any flank tenderness. The patient does not have gross hematuria. I have decreased suspicion for nephrolithiasis or renal colic. The patient does not have any palpable pulsatile mass or severe abdominal pain radiating to the back. I have low suspicion for aortic aneurysm, dissection or rupture. Patient also reports intermittent waxing and waning chest aching and soreness with a cough. The patient was found to be hypoxic in triage. The patient's chest x-ray is concerning for multilobar pneumonia, which could also be the etiology of many of his symptoms including his hyperglycemia. The patient is tachycardic and leukopenic as well. A sepsis workup was ultimately ordered. The patient had already been given greater than a 30 mL/kg bolus. The patient's chest xray does not reveal pneumothorax or pleural effusions or pulmonary edema. She does not have a widened mediastinum and does not have signs or symptoms concerning for thoracic aortic aneurysm or dissection. The patient does not have pneumomediastinum or signs concerning for esophageal tear or rupture. The patient has no clinical or radiographic signs of pericardial effusion or tamponade. The patient does not have pneumoperitoneum and I have decreased suspicion of viscus perforation as possible referred pain. The patient does not have a history of heart failure and I have low suspicion for this. The patient does not have a diagnosis of COPD and is not wheezing today. The patient is not tachypneic or hypoxic. The patient is breathing comfortably and without pleuritic pain. The patient is not on hormonal therapy. The patient has no history of clotting or bleeding disorders. The patient has no calf tenderness. The patient has had no hemoptysis. I have decreased suspicion for PE. The patient's troponin and EKG are reassuring. I have low suspicion for acute coronary syndrome. The patient has not had alcohol in 2-3 days. He is tachycardic with occasional palpitations and nausea with vomiting. While the patient does not endorse sympt oms of withdrawal, I was concerned about this as a possible etiology of his symptoms today. The patient was given a dose of Ativan in the emergency department which also helped to improve his symptoms. The patient does have sequelae of liver disease including pancytopenia, obstructive cholestatic liver disease. The patient will require counseling for alcohol cessation and resources for rehabilitation in the hospital The patient does have significant hyperglycemia. I do not see evidence of DKA. The patient was given a total of 20 units of insulin in the emergency department in addition to 3 L of normal saline which ultimately did resolve his blood sugar. However, I do feel the patient would benefit from further management to allow for improved diabetes control. SEPSIS NOTE Sepsis Criteria: Tachycardia, leukopenia Infectious source: Pneumonia End organ damage indicated by: AHRF, Sat < 92% without oxygen, Plt < 100 SEPSIS MANAGEMENT Time of recognition of sepsis: 033 Time of recognition of severe sepsis: 033 Time of recognition of septic shock: Low suspicion for septic shock. 3 HOUR BUNDLE Blood cultures x 2 before broad-spectrum antibiotics: Yes 30 ml/kg NS bolus completed Initial lactate pending Repeat lactate pending SEPTIC SHOCK ASSESSMENT: Pending lactic acid > 4.0 NO persistent hypotension (SBP < 90 or 40 mmHg drop, MAP < 65) despite 30 L/kg IV fluid bolus CRITICAL CARE Critical care time 35 minutes Emergent fluid management while maintaining close respiratory support. Provision of immediate and broad-spectrum antibiotic therapy. Simultaneous assessment for possible sources in order to direct targeted therapy. Consideration for invasive and chemical support to prevent cardiopulmonary collapse. Critical care time is independent of procedures performed. The patient will be admitted to panel in accordance with the patient's insur [facility]. The patient was accepted by Dr. Wilkins at 0453AM. Disclaimer: Inadvertent spelling and grammatical errors are likely due to EHR/dictation software use and do not reflect on the overall quality of patient care. Note that the electronic time recorded on this note does not necessarily reflect the actual time of the patient encounter. Departure Diagnosis: Primary Impression: Epigastric pain Additional Impressions: Gastritis Gastritis type: alcoholic Chronicity: chronic Gastritis bleeding: without bleeding Qualified Codes: K29.20 - Alcoholic gastritis without bleeding Nausea and vomiting Vomiting type: unspecified Vomiting Intractability: non-intractable Qualified Codes: R11.2 - Nausea with vomiting, unspecified Alcohol abuse Alcohol withdrawal Complication of substance-induced condition: uncomplicated Qualified Codes: F10.230 - Alcohol dependence with withdrawal, uncomplicated Tachycardia Palpitations Severe sepsis Multifocal pneumonia Hypoxia Leukopenia Leukopenia type: unspecified Qualified Codes: D72.819 - Decreased white blood cell count, unspecified Normocytic anemia Thrombocytopenia Pancytopenia Hyponatremia Hyperglycemia Hyperbilirubinemia Alcoholic liver disease Obstructive cholestatic liver disease Bandemia Condition: Serious CAYLA OLSON MD Nov 13, 2018 23:20
[2018-11-14] VITALS (17 sets, daily range): BP systolic 93–153; BP diastolic 60–96; PULSE 92–161; RESP 19–39; Ht 175.3 cm; Wt 52.6 kg
[2018-11-14] MEDS ORDERED: LORAZEPAM 2 MG INJ IV ONE (00:30)
[2018-11-14] MEDS ORDERED: SOD CHLORIDE 0.9% 1,000 ML IV ONE ×2 (01:30→03:00)
[2018-11-14] MEDS ORDERED: INSULIN REGULAR, HUMAN 100 UNIT/1 ML 3ML VIAL SC ONE ×2 (01:30→03:00)
[2018-11-14] MEDS ORDERED: ONDANSETRON 4 MG INJ IV PRN ×2 (05:00→07:00)
[2018-11-14] MEDS ORDERED: ACETAMINOPHEN 325 MG TAB PO PRN (05:00)
[2018-11-14] MEDS ORDERED: LEVOFLOXACIN 750MG/D5W (PMX) 150 ML IVPB ONE (05:00)
--- NOTE | 2018-11-14 06:57 | HP ---
Date/Time of Note Date/Time of Note DATE: 11/14/18 TIME: 06:53 Assessment/Plan Assessment/Plan Assessment/Plan 1. Sepsis, as evidenced by fever and tachycardia, secondary to community- acquired pneumonia -IV antibiotic, IV fluid, supplemental oxygen -Chest CT -Follow-up culture results 2. Epigastric abdominal pain, likely secondary to gastritis/PUD versus possibly from chronic pancreatitis given history. Lipase not above the upper limit of normal -Trial of PPI 3. Diabetes with severe hyperglycemia: No sign of DKA -Better controlled now. Continue insulin, adjust as needed. Check A1c 4. Hypertension: BP was in acceptable range 5. Bicytopenia with thrombocytopenia and leukopenia: Likely related to alcohol -Monitor for now HPI/ROS Admit Date/Time Admit Date/Time Hx of Present Illness This is a 58-year-old male with history of hypertension, diabetes, dyslipidemia, alcohol abuse, pancreatitis who presented to ER complaining of abdominal pain and vomiting. Pain mainly localized in the epigastric area, emesis described as nonbloody nonbilious. He also reported generalized weakness. When he presented to ER, he is found to have blood glucose greater than 500 without any sign of DKA. Chest x-ray shows finding compatible with pneumonia. He did have a fever of 100.5 in the ER and he has also been tachycardic. WBC 3.8 and platelet 54. PMH/Family/Social Past Medical History Coded Allergies: No Known Drug Allergy (Verified Allergy, Unknown, 06/22/18) Past Surgical History Past Surgical Hx: no surgical history Family History Significant Family History: no pertinent family hx Social History Smoking Status: Never smoker Exam/Review of Systems Vital Signs Vitals Vital Signs Date Temp Pulse Resp B/P (MAP) Pulse Ox O2 O2 Flow FiO2 Time Delivery Rate 11/14/18 100.5 118 146/71 06:44 (96) 11/14/18 28 90 Mask 9.0 05:42 Medications Medications Current Medications Ondansetron HCl (Zofran Inj) 4 mg ER BRIDGE PRN IV NAUSEA AND/OR VOMITING; Start 11/14/18 at 05:00; Stop 11/15/18 at 04:59 Acetaminophen (Tylenol Tab) 650 mg ER BRIDGE PRN PO MILD PAIN(1-3)OR ELEVATED TEMP Last administered on 11/14/18at 06:49; Admin Dose 650 MG; Start 11/14/18 at 05:00; Stop 11/15/18 at 04:59 IV Flush (NS 3 ml) 3 ml PER PROTOCOL IV ; Start 11/14/18 at 07:00; Status UNV Ondansetron HCl (Zofran Inj) 4 mg Q6H PRN IV NAUSEA AND/OR VOMITING; Start 11/14/18 at 07:00; Status UNV Acetaminophen (Tylenol Tab) 650 mg Q6H PRN PO PAIN LEVEL 1-3 OR FEVER; Start 11/14/18 at 07:00; Status UNV Heparin Sodium (Porcine) (Heparin (5000 Units/1ml)) 5,000 unit Q12 SC ; Start 11/14/18 at 09:00; Status UNV Miscellaneous Information (* Miscellaneous Pharmacy Order) Discontinue current oral sulfonylur... ONCE ONCE XX ; Start 11/14/18 at 07:00; Stop 11/14/18 at 07:01; Status UNV Diagnostic Test (Pha) (Accu-Chek) 1 ea 02 XX ; Start 11/15/18 at 02:00; Status UNV Insulin Detemir (Levemir) 13 units DAILY@0800 SC ; Start 11/14/18 at 08:00; St atus UNV Miscellaneous Information (* Miscellaneous Pharmacy Order) HYPOGLYCEMIA PROTOCOL w... ONCE ONCE XX ; Start 11/14/18 at 07:00; Stop 11/14/18 at 07:01; Status UNV Insulin Aspart (Novolog Insulin Pen) NOVOLOG *MODERATE* ALGORITHM WITH MEALS BEDTIME SC ; Start 11/14/18 at 08:00; Status UNV Miscellaneous Information (* Miscellaneous Pharmacy Order) Discontinue all previ... ONCE ONCE XX ; Start 11/14/18 at 07:00; Stop 11/14/18 at 07:01; Status UNV Results Result Diagram: 11/13/18 2350 11/13/18 2350 Results 24 hrs Laboratory Tests Test 11/13/18 23:50 11/14/18 01:48 11/14/18 02:58 11/14/18 04:18 White Blood 3.8 #L Count Red Blood Count 4.05 L Hemoglobin 13.2 L Hematocrit 37.8 L Mean Corpuscular 93.3 Volume Mean Corpuscular 32.6 Hemoglobin Mean Corpuscular 34.9 Hemoglobin Navya nt Red Cell 13.0 Distribution Width Platelet Count 54 #L Mean Platelet 10.3 Volume Immature 0.000 L Granulocytes % Neutrophils % Segmented 21 L Neutrophils % (Manual) Band Neutrophils 35 H % (Manual) Lymphocytes % Lymphocytes % 28 (Manual) Monocytes % Monocytes % 6 (Manual) Eosinophils % Basophils % Basophils % 1 (Manual) Metamyelocytes % 7 H (manual) Myelocytes % 1 H (Manual) Nucleated Red 1 H Blood Cells % Immature 0.000 Granulocytes # Neutrophils # Neutrophils # 0.8 L (Manual) Band Neutrophils 1.3 H # Lymphocytes 1.0 (Manual) Lymphocytes # Monocytes # Monocytes # 0.2 L (Manual) Eosinophils # Basophils # Basophils # 0.0 (Manual) Metamyelocytes # 0.2 H Myelocytes # 0.0 Nucleated Red Blood Cells # Platelet DECREASED Estimate Sodium Level 132 L Potassium Level 3.7 Chloride Level 85 L Carbon Dioxide 31 Level Anion Gap 16 H Blood Urea 18 Nitrogen Creatinine 0.67 Est Glomerular > 60 Filtrat Rate mL/min Glucose Level 517 *H Calcium Level 9.1 Total Bilirubin 1.7 H Direct Bilirubin 0.50 H Indirect 1.2 H Bilirubin Aspartate Amino 151 H Transf (AST/SGOT ) Alanine 75 H Aminotransferase (ALT/SGPT) Alkaline 206 H Phosphatase Total Protein 6.4 Albumin 3.8 Globulin 2.60 Albumin/Globulin 1.46 Ratio Lipase 227 Urine Opiates Negative Screen Urine Negative Barbiturates Urine Negative Amphetamines Screen Urine Negative Benzodiazepines Screen Urine Cocaine Negative Screen Urine Negative Cannabinoids Ethyl Alcohol < 10.0 H Level Bedside Glucose 411 *H 468 *H 202 ANA CRISTINA HILL MD Nov 14, 2018 06:57
[2018-11-14] MEDS ORDERED: NACL 0.9% 3 ML SYG IV SCH (07:00)
[2018-11-14] MEDS ORDERED: DEXTROSE 50% 50 ML SYRINGE IV PRN ×2 (07:00)
[2018-11-14] MEDS ORDERED: GLUCOSE GEL 15 GRAM TUBE BUCCAL PRN (07:00)
[2018-11-14] MEDS ORDERED: GLUCAGON 1 MG INJ IM PRN (07:00)
[2018-11-14] MEDS ORDERED: GLUCOSE GEL 15 GRAM TUBE PO PRN ×2 (07:00)
[2018-11-14] MEDS ORDERED: SOD CHLORIDE 0.9% 100 ML ONE (07:33)
[2018-11-14] MEDS ORDERED: IOHEXOL 100 ML ONE (07:33)
--- NOTE | 2018-11-14 07:45 | NUR ---
Procedure Ordered: CTA CHEST ANGIO Reason for Exam Today: COUGH EPIGASTIC PAIN Previous Exams: Allergies: Current Medications Taken: Glucophage ( ) Metformin ( ) Previous reaction to contrast media: Yes ( ) No (X ) : Yes ( ) No (X ) Asthma: Yes ( ) No (X ) Diabetes: Yes (X ) No ( ) Myeloma: Yes ( ) No (X ) Heart Disease: Yes (X ) No ( ) Cardiac Disease: Yes ( X) No ( ) Kidney Disease: Yes ( ) No (X) Vascular Disease: Yes ( ) No ( X) Patient Teaching done: Yes ( X) No ( ) Coach Driver Used: Yes ( ) No (X ) Name of Coach Driver: Language Used: As part of the test requested by your doctor, contrast media may be injected into your vein while the x-rays are being taken. Occasionally, reactions from IV contrast may occur. The physician and staff of this hospital are trained to treat these reactions. Select the type of Contrast that will be given to patient: Omnipaque 300 ( ) Omnipaque 350 (X ) Visipaque 320 ( ) Cystografin ( ) Gastrographin ( ) Redi-cat ( ) Volumen ( ) Amount of contrast to be given: 100CC IV ( X) PO ( ) Date given: 11/14/18 Lab Values: BUN: 18 Creatinine: 0.67 eGFR: >60 Reason why contrast cannot be given: Location of patient pre-procedure: ER BED 7 Location of patient post procedure:ER BED 7 Patient tolerated exam well and returned to unit.
[2018-11-14] MEDS: INSULIN ASPART [NOVOLOG] 3 ML PEN SC SCH ×4 (08:00→20:46)
[2018-11-14] MEDS ORDERED: HEPARIN 5,000 UNIT/1 ML VIAL SC SCH (09:00)
[2018-11-14] MEDS ORDERED: LEVOFLOXACIN 500MG/D5W (PMX) 100 ML IVPB SCH (09:00)
[2018-11-14] MEDS: FAMOTIDINE 20 MG TAB PO SCH ×2 (11:25→20:41)
[2018-11-14] MEDS: INSULIN DETEMIR [LEVEMIR] (100 UNITS/ML) SYG SC SCH (13:30)
--- NOTE | 2018-11-14 14:01 | NUR ---
SS Note: SS Consult SWer met w/ pt at bedside to discuss admitting presentation, informal support, d/c plan and if needed linkage to [facility] services. SWer introduced self, clarified role and stated reason for visiting, pt acknowledged. Pt's a 58 by/o male presenting w/ PNA, Hypoxia, High BS and ETOH Gastritis. Pt's A/OX4, ambulates slowly, makes own medical decisions and contracts for safety. Pt resides w/ spouse in a 2nd floor Apt, climbs 15 steps to enter residence. Pt denies having an AD, DPOA, HH, IHSS/DME's. Pt's an insulin dependent Diabetic, drinks 3 twenty four oz beers per day over the past 10 yrs, denies having ABD pain or distended ABD. Pt does not attend AA Meetings or have a sponsor, plans to return home when medically stable. DCP pending status, SWer to remain available for f/u and assistance as needed. CM aware
[2018-11-14] MEDS: SOD CHLORIDE 0.9% 1,000 ML IV SCH (14:25)
[2018-11-14] MEDS: MULTIVITAMINS THERAPEUTIC TAB PO SCH (14:28)
[2018-11-14] MEDS: FOLIC ACID 1 MG TAB PO SCH (14:28)
[2018-11-14] MEDS: THIAMINE 100 MG TAB PO SCH (14:28)
[2018-11-14] MEDS ORDERED: LORAZEPAM 4 MG/ML VIAL IV PRN (14:30)
[2018-11-14] MEDS: CEFEPIME 1GM/50 ML (PMX) 50 ML IVPB SCH ×2 (14:31→22:38)
[2018-11-14] MEDS: PANTOPRAZOLE (EC) 40 MG TAB PO SCH (14:57)
[2018-11-14] MEDS: METOCLOPRAMIDE 10 MG INJ IV SCH (18:01)
[2018-11-14] MEDS: ACETAMINOPHEN 325 MG TAB PO PRN (19:31)
--- NOTE | 2018-11-14 20:15 | NUR ---
RECEIVED CALL FROM [facility] WHO STATED THAR ON BLOOD CULTURE GROWING GRAM POSITIVE COCCI IN PAIRS AND CHAIN. DR. Laurent HUNTER INFORMED, HE ORDERED 1 GM. LYDIA CASTRO AND PHARMACY TO DOSE, DO ORDER BLOOD CULTURE TOMMONATANAEL REDD.
[2018-11-14] MEDS ORDERED: VANCOMYCIN IV PER PHARMACY XX SCH (20:30)
[2018-11-14] MEDS ORDERED: VANCOMYCIN 1 GM (PMX) 250 ML IVPB SCH (20:30)
--- NOTE | 2018-11-14 20:43 | NUR ---
VANCOMYCIN PER RX 58 yo male Allergy: NKA 59 52.6kg CC: sepsis, epigastric abdominal pain, diabetes with hyperglycemia, HTN, bicytopenia with thrombocytopenia and leukopenia Other antibiotics: Cefepime, Levaquin Labs: WBC 3.8 BUN and creatinine 18/0.67 (11/13) A/P: Vancomcyn 1gm x 1 then 500mg q12h
--- NOTE | 2018-11-14 22:20 | NUR ---
RECEIVED 3RD CALL FROM [facility] ABOUT BLOOD CULTURE 2 BOTTLES GROWING GRAM POSITIVE COCCII IN PAIRS AND CHAIN, VANCOMYCIN 1 GM. IVPB. INFUSING, NO UNTOWARD REACTION NOTED SO FAR
[2018-11-15] VITALS (24 sets, daily range): BP systolic 86–143; BP diastolic 56–85; PULSE 91–182; RESP 18–46
[2018-11-15] MEDS: ACCU-CHEK XX SCH (02:00)
--- NOTE | 2018-11-15 02:00 | NUR ---
BLOOD SUGAR 51 MG/DL, REPEATED TO LT. SIDE RESULT 49/MG/DL. PT. AOX 3. 1/ AMPOULE D50 IVP. ADMINISTERED. 0230 BLOOD SUGAR RECHECKED BY Laurent RAMOS RN. RESULT 110 MG/DL. 0300 BLOOD SUGAR RECHECKED RESULT 130. PT. UPDATED.
[2018-11-15] MEDS: SOD CHLORIDE 0.9% 1,000 ML IV SCH ×2 (03:14→21:02)
[2018-11-15] MEDS ORDERED: PANTOPRAZOLE (EC) 40 MG TAB PO SCH (06:00)
[2018-11-15] MEDS: PANTOPRAZOLE (EC) 40 MG TAB PO SCH (06:03)
--- NOTE | 2018-11-15 06:15 | NUR ---
DR. DALE BLOCKED RE: POT. RESULT ,ORDERS RECEIVED.
[2018-11-15] MEDS ORDERED: POTASSIUM CHLORIDE (SR) 20 MEQ TAB PO ONE (06:28)
[2018-11-15] MEDS: POTASSIUM CHLORIDE 100 ML IVPB SCH ×2 (06:41→08:30)
[2018-11-15] MEDS: INSULIN ASPART [NOVOLOG] 3 ML PEN SC SCH ×4 (07:35→21:09)
[2018-11-15] MEDS ORDERED: CEFEPIME 1GM/50 ML (PMX) 50 ML IVPB SCH (08:00)
[2018-11-15] MEDS: METOCLOPRAMIDE 10 MG INJ IV SCH ×3 (08:48→17:36)
[2018-11-15] MEDS: FAMOTIDINE 20 MG TAB PO SCH ×2 (08:48→21:02)
[2018-11-15] MEDS: FOLIC ACID 1 MG TAB PO SCH (08:48)
[2018-11-15] MEDS: MULTIVITAMINS THERAPEUTIC TAB PO SCH (08:48)
[2018-11-15] MEDS: THIAMINE 100 MG TAB PO SCH (08:48)
[2018-11-15] MEDS ORDERED: VANCOMYCIN 500 MG (PMX) 100 ML IVPB SCH (09:00)
--- NOTE | 2018-11-15 09:30 | HP ---
DATE OF ADMISSION: 11/14/2018 I was just informed about this patient being in the hospital about an hour ago. REASON FOR ADMISSION: Sepsis, multifocal pneumonia. HISTORY OF PRESENT ILLNESS: The patient is an unfortunate 58-year-old male, very well known to me with history of alcohol abuse, alcoholic liver disease, diabetes mellitus, poorly controlled a s patient is noncompliant with his insulin. Also, history of pancreatitis, thrombocytopenia who is w ell known to me. The patient unfortunately continues to drink about 3 beers a day and does not take his medications including insulin. Patient has been losing weight and he also developed vitiligo rec ently. The patient is noncompliant with any of my recommendations. The patient was in usual state of health up until a few days prior to admission when the patient stopped drinking as he has not been f eeling well. He has been having episodes of nausea and vomiting, cough and progressive worsening cynthia rtness of breath. He presented to the emergency department due to his worsening symptoms. In the ER , he underwent extensive workup. He was found to be hyperglycemic with a glucose level of 517. LFTs were elevated. He underwent a chest x-ray which showed a finding most suggestive of bilateral lower lobe pneumonia, worse in the left lower lobe. CT pulmonary angiogram shows no evidence of pulmonary embolism, no thoracic aortic aneurysm or dissection. There is dense bilateral lower lobe consolidat ion with nodular infiltrates, right upper lobe and right middle lobe compatible with multifocal pneum onia and large fatty liver, pancreatic calcification compatible with chronic pancreatitis. The patie nt was noted to be hypoxic. Initial vital signs showed a temperature of 99.1, pulse up to 140, respi rations 22, blood pressure 118/76, saturation was 86%. He was placed on nasal cannula and later on h igh flow oxygen. Patient received fluids. He was found to have elevated lactic acid, all suggestive of sepsis. Lactic acid was 2.9. The patient was started on antibiotics, fluids, insulin, Zofran, P epcid and a GI cocktail and then transferred to the intensive care unit for further medical managemen t. The hospitalist saw the patient in consultation and later I was informed that the patient is in h ouse. I came to see him, as he is my office patient. The case discussed with family member mary woo. PAST MEDICAL HISTORY: Includes hypertension, diabetes mellitus, alcohol abuse, vitiligo, questionabl e early liver cirrhosis, thrombocytopenia, chronic pancreatitis. SURGICAL HISTORY: None. ALLERGIES: NO DRUG ALLERGIES. FAMILY HISTORY: Noncontributory. SOCIAL HISTORY: Continues to drink heavily beer every day. No history of tobacco, IV drug use. 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 He lives at home with his family. MEDICATIONS: He is supposed to be on Insulin but he is not compliant with medication recommendations . PHYSICAL EXAMINATION: VITAL SIGNS: Temperature 100.1, pulse 122, respirations 23, blood pressure 136/85, saturation 93% hi gh flow oxygen on 80% FIO2. GENERAL: The patient is frail, pale, in no distress. HEENT: No JVD. No lymphadenopathy. CARDIOVASCULAR: S1 and S2, tachycardic. LUNGS: Decreased bilaterally. ABDOMEN: Soft. Overall, nontender. EXTREMITIES: No clubbing, cyanosis, or edema. He has extensive vitiligo throughout his body patches , multiple patches. LABORATORY DATA: White count 3.8, hemoglobin 13.2, hematocrit 38, platelet count of 54, neutrophil c ount of 21, bands 35, lymphocytes 28. Chemistry: Sodium is 132, potassium 3.7, 5, bicarbonate 31, BUN is 18, creatinine 0.67, glucose of 517. Total bilirubin 1.7, direct 0.5. AST 151, ALT 75, a lkaline phosphatase 206. Albumin 3.8. Tox screen negative. Alcohol less than 10. IMAGING TESTS: As above. EKG: EKG shows sinus tachycardia, T-wave abnormality. at 125 beats per minute. ASSESSMENT AND PLAN: This is a very unfortunate 58-year-old male with history of alcoholic liver disease. Continues to drink, diabetes mellitus, poorly controlled, weight loss, cachexia, viti ligo, who presented with progressive worsening shortness of breath, was found to have multifocal pneu monia in an immunocompromised patient. 1. Respiratory. The patient with multifocal pneumonia. Continue O2 support. No evidence of pulmon samuel embolism. The patient was started on Levaquin. We will add cefepime. Check MRSA of the nares. Continue titrating oxygen down as needed to keep saturation greater than 90. Will consult pulmonary , as well. We will follow. 2. Cardiovascular. Cannot be placed on blood thinners due to thrombocytopenia. Blood pressure is s table, observe. May benefit from beta blockers if blood pressure can tolerate. 3. Diabetes mellitus. Check hemoglobin A1c. Titrate current insulin up as needed. Patient is not in diabetic ketoacidosis. 4. Alcohol intoxication. Ativan p.r.n. will be prescribed and will start him on multivitamin, thiami ne and folic acid due to his alcoholism. 5. Try to maximize nutritional support. May add Glucerna. 6. Keep him in ICU due to high requirement of oxygen, tachycardia and immunocompromised state and mu ltifocal pneumonia. We will follow. 7. The patient will be placed on gastrointestinal prophylaxis with Protonix. 8. The patient will be hydrated gently with fluids as patient is septic. No evidence of fluid overl oad state. 9. CONDITION: Guarded, but overall the most important thing is for him to stop drinking. 10. Vitiligo. Advised him to follow up with Dermatology. We will follow. Dictated By: GAYATHRI ROBERT/NTS Conf#: [id number] DID#: [id number] CC: NIGHAT ROSALES MD; ANA CRISTINA HILL MD;*[facility]*
[2018-11-15] MEDS ORDERED: LEVOFLOXACIN 500MG/D5W (PMX) 100 ML IVPB SCH (10:00)
[2018-11-15] MEDS: INSULIN DETEMIR [LEVEMIR] (100 UNITS/ML) SYG SC SCH (12:42)
--- NOTE | 2018-11-15 13:50 | PN ---
DATE: 11/15/2018 SUBJECTIVE: The patient was seen, remains in intensive care and slightly tachycardic, remains on hig h flow oxygen. The patient's p.o. intake is not very good. We tried to convince him to eat. Unfort unately, the patient was found to have bacteremia, organism strep pneumonia. The patient is already on broad spectrum and I added vancomycin because of the above. ID was consulted for further recommen dations. Repeat blood cultures were ordered as well for this morning. The patient also with signifi cant hypokalemia. We will monitor electrolytes and supplements will be given. Case was discussed wi th family at bedside regarding plan of care. PHYSICAL EXAMINATION: VITAL SIGNS: Temperature is 99, T-max is 101.8 yesterday, pulse is 114, respirations 21 to 46, blood pressure 121/76, saturation 92% on 50% FiO2. GENERAL: The patient is frail, cachectic, vitiligo patches throughout. CARDIOVASCULAR: S1, S2, tachycardic. LUNGS: Decreased bilaterally, poor effort. ABDOMEN: Soft, nontender. EXTREMITIES: No clubbing, cyanosis or edema. Severe muscle atrophy throughout. LABORATORY DATA: White count dropped to 1.6, hemoglobin 11.4, hematocrit 33, platelet count of 49, l ow, segmental 7, bands 47. Chemistry: Sodium 136, potassium is low at 2.6, chloride 96, bicarbonate 22, BUN is 12, creatinine 0.35, glucose is 83. Last glucose level is 200. Hemoglobin A1c is 10.6. T bilirubin 1.8, AST 169, ALT 58, alkaline phosphatase 125, albumin 2.5. Urine analysis shows +2 bi lirubin. Toxicology screen was negative. Again, blood culture shows strep pneumonia, 2/2 bottles. The patient's MRSA screening is in process. MEDICATIONS: 1. Levaquin 500 IV daily. 2. Vancomycin dose per pharmacy. 3. Cefepime dose per pharmacy. 4. Reglan 5 mg IV with meals. 5. Normal saline 80 mL an hour. 6. Thiamine 100 mg daily. 7. Folic acid 1 mg daily. 8. Multivitamin 1 tab daily. 9. Ativan 0.5 q.4 p.r.n. 10. Pepcid 20 p.o. b.i.d. 11. Levemir 13 units daily. 12. Insulin aspart per sliding scale. 13. Zofran p.r.n. 14. Tylenol p.r.n. 15. Hypoglycemia protocol as directed. ASSESSMENT AND PLAN: This is an unfortunate 58-year-old male with history of alcoholic live r disease, continues to drink, diabetes mellitus, poorly controlled, weight loss, cachexia, vitiligo, who presented with progressive worsening shortness of breath, was found to have multifocal pneumonia in an immunocompromised patient. 1. Respiratory: The patient with multifocal pneumonia. Continue O2 support and treatment for pneum onia. Check methicillin-resistant Staphylococcus aureus of the nares. 2. Cardiovascular: Continue hydration. Vitals remained otherwise stable. The patient is tachycard ic. 3. Not a candidate for blood thinners due to thrombocytopenia. 4. Diabetes mellitus. Continue current regimen. Glucose levels are in the 70s to low 200s. We keven l follow. 5. Alcohol intoxication. Ativan p.r.n. for withdrawals. 6. Moderate caloric-protein malnutrition. Try to maximize nutrition support with Glucerna. Encoura ge him to eat. May consider adding Megace. 7. Renal: The patient with significant electrolyte abnormalities. Replace potassium. Check magnes ium and repeat the labs later today. 8. Infectious disease: The patient with bacteremia and pneumonia. ID will be consulted. Continue cefepime, vancomycin, Levaquin. 9. Condition remains guarded. The patient is full code. 10. Vitiligo. Follow up with hematology is advised. We will follow. Dictated By: GAYATHRI ROBERT/BOBBI Conf#: [id number] DID#: [id number] CC: ANA CRISTINA HILL MD; NIGHAT ROSALES MD;*[facility]*
[2018-11-15] MEDS ORDERED: POTASSIUM CHLORIDE (SR) 20 MEQ TAB PO STA (14:59)
--- NOTE | 2018-11-15 15:29 | CONS ---
DATE OF ADMISSION: 11/14/2018 DATE OF CONSULTATION: 11/15/2018 TYPE OF CONSULTATION: Infectious disease. REASON FOR CONSULTATION: Antibiotic management. HISTORY OF PRESENT ILLNESS: Too Orellana is a 58-year-old male patient of danelle Barker o was brought in with sepsis and multifocal pneumonia. His past problems include: 1. History of alcohol abuse. 2. Alcoholic liver disease. 3. Diabetes mellitus, poorly controlled. 4. Noncompliance. 5. History of pancreatitis and thrombocytopenia. The patient continues to drink at least 3 beers a day. He does not take his medications including in sulin. He has been losing weight and developed vitiligo recently for some reason. Two days prior to admission, he stopped drinking because he was not feeling well. He had nausea and vomiting and prog ressive shortness of breath. The patient underwent extensive workup in the emergency room, was hyper glycemic with a glucose of 517 and elevated LFTs. His x-ray showed bilateral lower lobe pneumonia, w orse in the left lobe. CT pulmonary angiogram showed no evidence of pulmonary emboli, no thoracic an eurysm or dissection. There is dense bilateral lower lobe consolidation with nodular infiltrates, ri ght upper lobe and right middle lobe compatible with multifocal pneumonia. He also has a large fatty liver of pancreatic calcifications and this is compatible with chronic pancreatitis. The patient wa s noted to be hypoxic. He had a temperature of 99.1, pulse of 140, respirations 22 and blood pressur e 118/76 in the emergency room. His saturation was 86%. He had elevated lactic acid of 2.9. He was started on IV antibiotics, fluids, insulin and a number of other medications and transferred to the intensive care unit. PAST MEDICAL HISTORY: Operations: None. FAMILY HISTORY: Noncontributory. SOCIAL HISTORY: He is a heavy beer drinker. 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 He does not smoke or use drugs . ALLERGIES: NONE TO PENICILLIN, SULFA OR FOODS. MEDICATIONS: Per chart. REVIEW OF SYSTEMS: Noncontributory. PHYSICAL EXAMINATION: GENERAL: The patient is a frail individual who is in no acute distress. VITAL SIGNS: Stable, T-max 100.1, though he is quite tachycardic. SKIN: Without generalized rash. HEENT: Within normal limits. NECK: Supple. LYMPH NODES: None palpable. CHEST: Decreased breath sounds at the bases. HEART: Without murmur or gallop. He has tachycardia. ABDOMEN: Soft, nontender, without organosplenomegaly or masses. EXTREMITIES: Without cyanosis, clubbing or edema. RECTAL AND GENITAL: Deferred. NEUROLOGIC: No focal neurological abnormalities. SKIN: He has extensive vitiligo throughout his body with multiple patches. ANCILLARY LABORATORY DATA: On admission, his white count was 3.8, H and H of 13.2 and 38, platelet c ount 54,000 with 21 polys, 35 bands. His BUN and creatinine are 18/0.67. His glucose was 517. AST at 151, ALT 75, alkaline phosphatase 206, all of which are elevated. IMPRESSION AND PLAN: The patient comes in with a history of alcohol abuse and shortness of breath an d was found to have multifocal pneumonia. The patient was started on Levaquin and cefepime was added to the regimen. Methicillin-resistant Staphylococcus aureus of the nares was checked. He is on sup plemental oxygen. His blood cultures now are positive for streptococcal pneumonia. He is on cefepim e and now vancomycin. I am not sure if he needs the Levaquin at this point. I think vancomycin and cefepime should be quite adequate, so the patient has a pneumococcal pneumonia with bacteremia. He h as multifocal pneumonia which increases his risk of morbidity and mortality. His white count today i s 1.6 with 7 polys and 47, bands, so he is not absolutely neutropenic since his absolute white count was greater than 500, but he is at significant risk with his alcoholic liver disease and streptococca l pneumonia. I am going to discontinue his Levaquin and continue on vancomycin and cefepime. I will dictate my findings to Dr. Hunter and I want to thank him for asking us to see this patient in consul tation. Dictated By: KIRILL CARROLL MD, JD/BOBBI Conf#: [id number] DID#: [id number] CC: ANA CRISTINA HILL MD; NIGHAT ROSALES MD; GAYATHRI HUNTER MD;*End*
[2018-11-15] MEDS: MEGESTROL (40 MG/ML) 10ML CUP PO SCH ×2 (15:33→21:02)
[2018-11-15] MEDS: POTASSIUM CHLORIDE 50 ML IVPB SCH ×2 (15:34→16:35)
[2018-11-15] MEDS: ACETAMINOPHEN 325 MG TAB PO PRN (15:45)
[2018-11-15] MEDS ORDERED: MAGNESIUM SULFATE 2 GM/50 ML 50 ML IVPB ONE (16:00)
[2018-11-15] MEDS: AMPICILLIN/SULB 3 GM/NS (PMX) 100 ML IVPB SCH ×2 (17:41→23:37)
[2018-11-15] MEDS: VANCOMYCIN 500 MG (PMX) 100 ML IVPB SCH (23:37)
[2018-11-16] VITALS (23 sets, daily range): BP systolic 93–138; BP diastolic 53–79; PULSE 78–152; RESP 18–43
[2018-11-16] MEDS: ACCU-CHEK XX SCH (01:25)
[2018-11-16] MEDS: SOD CHLORIDE 0.9% 1,000 ML IV SCH ×2 (03:31→16:16)
[2018-11-16] MEDS: AMPICILLIN/SULB 3 GM/NS (PMX) 100 ML IVPB SCH ×3 (05:30→17:53)
--- NOTE | 2018-11-16 06:27 | NUR ---
EOSS: no significant change of condition last night, pt. denies any pain and discomfort,no headache, no nausea and vomiting . with mild grade fever T-99.3 , cooling measures provided. tolerating well on high flow 20L , 40%. had one BM. with ongoing IVF NS at 80cc/hr infusing well at left antecubital. all needs attended.
--- NOTE | 2018-11-16 06:43 | NUR ---
nurses notes: relayed to Dr. Crum the critical potassium results with new order.
[2018-11-16] MEDS ORDERED: MAGNESIUM SULFATE 2 GM/50 ML 50 ML IVPB ONE ×2 (07:00→07:30)
[2018-11-16] MEDS: POTASSIUM CHLORIDE 100 ML IVPB SCH ×2 (07:01→09:41)
[2018-11-16] MEDS: INSULIN ASPART [NOVOLOG] 3 ML PEN SC SCH ×4 (07:35→21:00)
[2018-11-16] MEDS ORDERED: POTASSIUM CHLORIDE 20 MEQ POWDER FOR ORAL SOLN PO ONE (08:00)
[2018-11-16] MEDS: MULTIVITAMINS THERAPEUTIC TAB PO SCH (08:13)
[2018-11-16] MEDS: FAMOTIDINE 20 MG TAB PO SCH ×2 (08:13→21:39)
[2018-11-16] MEDS: FOLIC ACID 1 MG TAB PO SCH (08:13)
[2018-11-16] MEDS: METOCLOPRAMIDE 10 MG INJ IV SCH ×3 (08:13→17:17)
[2018-11-16] MEDS: THIAMINE 100 MG TAB PO SCH (08:13)
[2018-11-16] MEDS: INSULIN DETEMIR [LEVEMIR] (100 UNITS/ML) SYG SC SCH (08:21)
[2018-11-16] MEDS: MEGESTROL (40 MG/ML) 10ML CUP PO SCH ×2 (08:30→21:39)
[2018-11-16] MEDS: ACETAMINOPHEN 325 MG TAB PO PRN (08:39)
[2018-11-16] MEDS: METOPROLOL 25 MG TAB PO SCH ×2 (11:13→21:39)
[2018-11-16] MEDS ORDERED: POTASSIUM PHOSPHATE 30 MM in SOD CHLORIDE 0.9% 250 ML IVPB ONE (11:30)
[2018-11-16] MEDS: VANCOMYCIN 500 MG (PMX) 100 ML IVPB SCH (12:25)
--- NOTE | 2018-11-16 13:33 | NUR ---
TRANSFER Provided Dr. Crum with update on patient's status. Order for transfer to Telemetry received and entered. metal organ pipe maker made aware. Addendum: 11/16/18 at 1357 by NORMA WHARTON RN 1353 Provided report to Ana Rosa Osman RN. 1356 Contacted transport. Addendum: 11/16/18 at 1540 by NORMA WHARTON RN PATIENT TRANSFERRED OFF UNIT BY COMPUTER NUMERICAL CONTROL GRINDER AND TRANSPORTER. --- Patient awake and alert, and able to follow commands. Provided Tylenol for fever, temperature resolved. Rhythm as charted. NC 3L. Carb controlled diet. One bowel movement. Urine output as charted. No new development of wounds. Patient self-turns/repositions. Comfort and safety measures/ fall precautions in place. Patient updated on status, and plan of care. All of patient's needs met, and no acute distress/events.
--- NOTE | 2018-11-16 14:07 | NUR ---
NURSES NOTES: RECEIVED PHONE CALL FROM SHOPFITTERNORMA. PT WITH ORDERS TO TRANSFER TO TELEMETRY, PT ENDORSED AT THIS TIME. AWAITING FOR PATIENT TO ARRIVE UP TO [facility] TELEMETRY UNIT AT THIS TIME.
--- NOTE | 2018-11-16 14:12 | NUR ---
NURSES NOTES: PT ARRIVED BACK TO UNIT AT THIS TIME. RECEIVED BEDSIDE REPORT FROM EVI FERREIRA. PT HAD 1L REMOVED FROM RIGHT SIDE, CYTOLOGY SAMPLES SENT TO LAB. NO S/S OF RESPIRATORY DISTRESS. PT STATED "I FEEL SO MUCH BETTER NOW". WILL CONTINUE TO MONITOR AND ASSESS PT THROUGHOUT THE SHIFT. Addendum: 11/16/18 at 1414 by LINDSEY PRINGLE RN NURSE ERROR, INCORRECT PATIENT
--- NOTE | 2018-11-16 14:18 | CONS ---
Date/Time of Note Date/Time of Note DATE: 11/16/18 TIME: 14:17 Assessment/Plan Assessment/Plan Chief Complaint/Hosp Course Patient is awake in no distress on 3.5 L nasal cannula, breathing comfortably no fevers, family at bedside Temperature 98.2 pulse 100 respirations 27 blood pressure 110/73 saturation 100 BUN 10 creatinine 0.40 WBC 7.1 H&H 11.5 and 32.5 platelets 53 Microbiology: blood culture on admission grew strep pneumonia, repeat blood cultures negative, urine culture negative Chest x-ray this morning revealed bilateral basilar interstitial opacities increased compared to the prior examination Antimicrobials: Vancomycin Unasyn Physical examination: Well-developed middle-aged man who is lying comfortably in bed head atraumatic normocephalic neck is supple chest rise symmetrical breath sounds with scattered rhonchi diminished bases. Heart: S1- S2. Abdomen soft bowel sounds present. Extremities without cyanosis edema. Assessment: 1. Sepsis with bacteremia on admission 2. Strep pneumonia 3. Acute hypoxemic respiratory failure 4. Diabetes 5. Hypertension Plan: Patient is doing better, downgraded to nasal cannula, repeat blood cultures negative, we will will order 2D echo to rule out vegetations, dc Nava Hooks Consultation Date/Type/Reason Admit Date/Time Nov 14, 2018 at 04:59 Initial Consult Date Type of Consult id Exam/Review of Systems Vital Signs Vitals Vital Signs Date Temp Pulse Resp B/P (MAP) Pulse Ox O2 O2 Flow FiO2 Time Delivery Rate 11/16/18 78 37 101/71 100 Nasal 3.0 14:00 (81) Cannula 11/16/18 98.2 12:00 11/16/18 40 04:50 Intake and Output 11/15/18 11/15/18 11/16/18 1515:00 23:00 07:00 IntakeIntake Total 1040 ml 840 ml 1040 ml OutputOutput Total 600 ml 420 ml 1300 ml BalanceBalance 440 ml 420 ml -260 ml Medications Medications Current Medications IV Flush (NS 3 ml) 3 ml PER PROTOCOL IV ; Start 11/14/18 at 07:00 Ondansetron HCl (Zofran Inj) 4 mg Q6H PRN IV NAUSEA AND/OR VOMITING; Start 11/14/18 at 07:00 Acetaminophen (Tylenol Tab) 650 mg Q6H PRN PO PAIN LEVEL 1-3 OR FEVER Last administered on 11/16/18at 08:39; Admin Dose 650 MG; Start 11/14/18 at 07:00 Diagnostic Test (Pha) (Accu-Chek) 1 ea 02 XX ; Start 11/15/18 at 02:00 Insulin Detemir (Levemir) 13 units DAILY@0800 SC Last administered on 11/16/18at 08:21; Admin Dose 13 UNITS; Start 11/14/18 at 08:00 Insulin Aspart (Novolog Insulin Pen) NOVOLOG *MODERATE* ALGORITHM WITH MEALS BEDTIME SC Last administered on 11/16/18at 12:26; Admin Dose 4 UNIT; Start 11/14/18 at 08:00 Miscellaneous Information 1 ea NOTE XX ; Start 11/14/18 at 07:00 Glucose (Glutose) 15 gm Q15M PRN PO DECREASED GLUCOSE; Start 11/14/18 at 07:00 Glucose (Glutose) 22.5 gm Q15M PRN PO DECREASED GLUCOSE; Start 11/14/18 at 07:00 Dextrose (D50w Syringe) 25 ml Q15M PRN IV DECREASED GLUCOSE Last administered on 11/15/18at 02:12; Admin Dose 25 ML; Start 11/14/18 at 07:00 Dextrose (D50w Syringe) 50 ml Q15M PRN IV DECREASED GLUCOSE; Start 11/14/18 at 07:00 Glucagon (Glucagen) 1 mg Q15M PRN IM DECREASED GLUCOSE; Start 11/14/18 at 07:00 Glucose (Glutose) 15 gm Q15M PRN BUCCAL DECREASED GLUCOSE; Start 11/14/18 at 07:00 Famotidine (Pepcid) 20 mg BID PO Last administered on 11/16/18at 08:13; Admin Dose 20 MG; Start 11/14/18 at 09:00 Sodium Chloride 1,000 ml @ 80 mls/hr [id number] IV Last administered on 11/16/18at 03:31; Admin Dose 80 MLS/HR; Start 11/14/18 at 14:30 Thiamine HCl (Vitamin B1) 100 mg DAILY PO Last administered on 11/16/18at 08:13; Admin Dose 100 MG; Start 11/14/18 at 14:30 Folic Acid (Folic Acid) 1 mg DAILY PO Last administered on 11/16/18at 08:13; Admin Dose 1 MG; Start 11/14/18 at 14:30 Multivitamins Therapeutic (Theragran) 1 tab DAILY PO Last administered on 11/16/18at 08:13; Admin Dose 1 TAB; Start 11/14/18 at 14:30 Metoclopramide HCl (Reglan) 5 mg WITH MEALS IV Last administered on 11/16/18 11:13; Admin Dose 5 MG; Start 11/14/18 at 17:35 Lorazepam (Ativan) 0.5 mg Q4H PRN IV anxiety, withdrawals; Start 11/14/18 at 14:30 Vancomycin HCl (Vanco Iv Per Pharmacy) VANCOMYCIN PER PHARMACY PER PROTOCOL XX ; Start 11/14/18 at 20:30 Megestrol Acetate (Megace Susp) 400 mg BID PO Last administered on 11/16/18at 08:30; Admin Dose 400 MG; Start 11/15/18 at 13:30 Ampicillin Sodium/ Sulbactam Sodium 100 ml @ 100 mls/hr Q6 IVPB Last administered on 11/16/18at 11:13; Admin Dose 100 MLS/HR; Start 11/15/18 at 18:00 Vancomycin HCl 100 ml @ 100 mls/hr Q12H IVPB Last administered on 11/16/18 12:25; Admin Dose 100 MLS/HR; Start 11/16/18 at 00:00 Potassium Phosphate 30 mm/ Sodium Chloride 260 ml @ 65 mls/hr ONCE ONCE IVPB Last administered on 11/16/18 12:30; Admin Dose 65 MLS/HR; Start 11/16/18 at 11:30; Stop 11/16/18 at 15:29 Metoprolol Tartrate (Lopressor) 25 mg BID PO Last administered on 11/16/18at 11:13; Admin Dose 25 MG; Start 11/16/18 at 10:30 RONAK MCCULLOUGH NP Nov 16, 2018 14:18
--- NOTE | 2018-11-16 14:51 | NUR ---
TRANSFER NOTES: RECEIVED PT AT THIS TIME. PT A/OX4. PT ON 4L VIA NC SATURATING 96%. NO S/S OF RESPIRATORY DISTRESS. DENIES PAIN OR DISCOMFORT AT THIS TIME. PT WITH ALL PERSONAL BELONGINGS. PT CLEAN AND DRY. ORIENTED PT TO UNIT. FALL AND SAFETY PRECAUTIONS IMPLEMENTED CALL LIGHT WITHIN REACH ABLE TO MAKE NEEDS KNOWN BED IN LOWEST POSITION BRAKES LOCKED ROOM FREE OF CLUTTER. WILL CONTINUE TO MONITOR AND ASSESS PT THROUGHOUT THE SHIFT
--- NOTE | 2018-11-16 18:20 | PN ---
DATE: 11/16/2018 SUBJECTIVE: The patient was transferred to telemetry and is doing better. White count is 7.1. The patient also is afebrile and tachycardia has resolved. Clinically better, but chest x-ray does show worsening pneumonia, but I think the chest x-ray is lagging the patient's clinical improvement. The patient is also noted to have significant electrolyte imbalance with hypokalemia, hypomagnesemia, and hypophosphatemia. Supplements were prescribed. PHYSICAL EXAMINATION: VITAL SIGNS: Temperature 98, pulse 79, respirations 18, blood pressure 130/70, saturation 98% curren tly on about 3 liters nasal cannula. GENERAL: No acute distress. The patient is frail and cachectic. CARDIOVASCULAR: S1, S2, regular rate. LUNGS: Clear. ABDOMEN: Soft. EXTREMITIES: No clubbing, cyanosis, or edema. The patient with scattered vitiligo throughout his miko dy. LABORATORY DATA: White count 7.1, hemoglobin 11.5, hematocrit 33, platelet counts of 53, neutrophils 75, lymphocytes 19%. Chemistry: Sodium 137, potassium 2.9, chloride 100, bicarbonate 29, BUN is 10 , creatinine 0.4, glucose of 114. Last glucose level of 198. Phosphorus low 1.3. Magnesium 1.5. B lood culture did show Strep pneumoniae sensitive to vancomycin, , and cefotaxime, also to clinda mycin and erythromycin. MEDICATIONS: 1. Lopressor 25 b.i.d. 2. Vancomycin, dose per pharmacy. 3. Ampicillin sulbactam IV q.6. 4. Megace 400 b.i.d. 5. Accu-Cheks as directed. 6. Normal saline 80 mL an hour. 7. Vitamin B1 100 daily. 8. Folic acid 1 daily. 9. Multivitamin 1 tab daily. 10. Ativan p.r.n. 11. Pepcid 20 b.i.d. 12. Levemir as directed. 13. Insulin aspart as directed. 14. Hyperglycemia protocol as directed. Echocardiogram was ordered by the ID specialist. ASSESSMENT AND PLAN: This is a 58-year-old male with history of alcoholic liver disease, st ill drinks alcohol diabetes mellitus poorly controlled, weight loss, cachexia, vitiligo, who presente d with progressive worsening shortness of breath, who was found to have multifocal pneumonia. 1. Multifocal pneumonia. Continue antibiotics with Unasyn. Follow up chest x-ray. Clinically much better. 2. Cardiovascular. Continue beta blockers. 3. Generalized weakness status post pneumonia and overall cachexia. Physical therapy as tolerated. 4. Diabetes mellitus. Continue current insulin regimen. 5. Alcohol abuse. No evidence of withdrawal. 6. Moderate caloric-protein malnutrition. Continue Glucerna and current diet. Encourage him to eat . 7. Renal. Replace potassium, phosphorus, and magnesium. Monitor electrolytes. 8. ID. Continue treatment for bacteremia, Strep pneumoniae. Further antibiotic regimen per Dr. Filiberto capps. 9. Vitiligo. Follow up with Dermatology. We will follow closely. Clinically improving on telemetr y unit. Case discussed with family. Dictated By: GAYATHRI ROBERT/BOBBI Conf#: [id number] DID#: [id number]
--- NOTE | 2018-11-16 18:39 | NUR ---
EOSS: PT LAYING IN BED. NO S/S OF RESPIRATORY DISTRESS. PT DENIES PAIN OR DISCOMFORT AT THIS TIME. PT CLEAN AND DRY. REMAINS AFEBRILE. FALL AND SAFETY PRECAUTIONS IMPLEMENTED. BED ALARM ON. CALL LIGHT WITHIN REACH ABLE TO MAKE NEEDS KNOWN. BED IN LOWEST POSITION BRAKES LOCKED ROOM FREE OF CLUTTER. WILL ENDORSE PT TO PROGRAM MANAGEMENT ANALYST RN ACCORDINGLY
--- NOTE | 2018-11-16 20:45 | NUR ---
PT DESALTING O2 78% WITH SOB NOTIFIED NEW ORDERS GOPI OUT
--- NOTE | 2018-11-16 21:00 | NUR ---
CXR AND ABG DON MD ORDERS
--- NOTE | 2018-11-16 22:00 | NUR ---
ABG REPORT RESULT GIVEN TO NEW ORDER START HIGH FLOW O2 MD ORDER PT TOLERATED WELL PT O2 SAT 94%
[2018-11-17] VITALS (11 sets, daily range): BP systolic 93–110; BP diastolic 56–66; PULSE 78–110; RESP 18–22
[2018-11-17] MEDS: AMPICILLIN/SULB 3 GM/NS (PMX) 100 ML IVPB SCH ×3 (01:46→12:21)
[2018-11-17] MEDS: ACCU-CHEK XX SCH (02:00)
--- NOTE | 2018-11-17 07:15 | NUR ---
NURSES NOTES: PAGED DR. HUNTER REGARDING PTS K+ 3.0 AND MAG 1.6- SEE PHYSICIAN ORDER SHEET FOR TELEPHONE ORDERS. RECEIVED PATIENT ON HIGH FLOW 35 LPM PT WAS DESATURATING ON MANAGER BEAUTY. NO S/S OF RESPIRATORY DISTRESS. MADE DR. HUNTER AWARE OF PATIENT STATUS AT THIS TIME. WILL CONTINUE TO MONITOR AND ASSESS PT THROUGHOUT THE SHIFT
[2018-11-17] MEDS ORDERED: POTASSIUM CHLORIDE (SR) 20 MEQ TAB PO STA (07:21)
--- NOTE | 2018-11-17 07:36 | NUR ---
NURSES NOTES: NOTIFIED BY WANDA LAL PT SATURATING AT 88% ON HIGH FLOW 35 LPM. PLACED PT ON CONTINUOUS PULSE OXIMETER AND NOTIFIED RT SAVANA AT THIS TIME. ASSESSED PT- NO S/S OF RESPIRATORY DISTRESS. RT SAVANA INCREASED O2 TO 40 LMP WITH 100%. PT NOW SATURATING AT 92%. WILL CONTINUE TO MONITOR AND ASSESS PT THROUGHOUT THE SHIFT
[2018-11-17] MEDS: INSULIN ASPART [NOVOLOG] 3 ML PEN SC SCH ×4 (07:40→21:19)
[2018-11-17] MEDS: METOCLOPRAMIDE 10 MG INJ IV SCH ×3 (07:45→17:21)
[2018-11-17] MEDS: INSULIN DETEMIR [LEVEMIR] (100 UNITS/ML) SYG SC SCH (07:58)
[2018-11-17] MEDS ORDERED: MAGNESIUM SULFATE 2 GM/50 ML 50 ML IVPB ONE (08:00)
--- NOTE | 2018-11-17 08:53 | NUR ---
NURSES NOTES: CALLED PHARMACY SPOKE WITH BOBBY AND STATED THAT MAGNESIUM AND POTASSIUM ORDERS ARE COMING UP TO UNIT AT THIS TIME.
[2018-11-17] MEDS: FOLIC ACID 1 MG TAB PO SCH (09:11)
[2018-11-17] MEDS: MULTIVITAMINS THERAPEUTIC TAB PO SCH (09:11)
[2018-11-17] MEDS: THIAMINE 100 MG TAB PO SCH (09:12)
[2018-11-17] MEDS: METOPROLOL 25 MG TAB PO SCH ×2 (09:12→21:16)
[2018-11-17] MEDS: FAMOTIDINE 20 MG TAB PO SCH (09:12)
[2018-11-17] MEDS: MEGESTROL (40 MG/ML) 10ML CUP PO SCH ×2 (09:12→21:16)
--- NOTE | 2018-11-17 11:08 | RADRPT ---
Echocardiogram Report Patient Name: JAYLEEN PINK Gender: Male Date: 1960 Study Date: 17-Nov-2018 Drilling Machine Runner: Quan Valentin [facility] Location: [id number] Ref. Physician: RONAK MCCULLOUGH Quality: Technically Difficult Study Procedures: Transthoracic echocardiogram with complete 2D, M-Mode, and doppler examination. Indications: rule out vegetation. 2D/M Mode Doppler Measurement Value Normal Ranges Measurement Value Normal Ranges LVIDd 2D 4.6 3.5 - 5.6 cm AV Peak Gautam 1.3 m/sec LVIDs 2D 2.5 2.1 - 4.1 cm AV Peak PG 7.0 mmHg LVPWd 2D 1.1 0.6 - 1.1 cm LVOT Peak Gautam 1.1 m/sec IVSd 2D 1.0 0.6 - 1.1 cm LVOT Peak PG 5.0 mmHg AoR Diam 2D 2.6 2.0 - 3.7 cm MV E Peak Gautam 0.5 m/sec LA/Ao 2D 1 0 - 1 MV A Peak Gautam 0.7 m/sec LA Dimen 2D 2.5 2.3 - 4.0 cm MV E/A 0.8 MV Decel Time 151 msec Lat E` Gautam 0.1 m/sec Lateral E/E` 5.5 MV E/A 0.8 Findings Left Ventricle: Normal left ventricular systolic function. Normal left ventricular cavity size. Mild concentric left ventricular hypertrophy. Ejection fraction is visually estimated at 65 %. Right Ventricle: Normal right ventricular size. Normal right ventricular systolic function. Left Atrium: The left atrium is normal in size. Right Atrium: The right atrium is normal in size. Mitral Valve: Mitral valve is not well visualized. Mitral valve leaflets appear mildly thickened. Trace mitral regurgitation. Aortic Valve: No significant aortic stenosis or insufficiency. Aortic valve not well visualized. Tricuspid Valve: Tricuspid valve not well visualized. Unable to obtain RVSP due to minimal presence of tricuspid regurgitation. No evidence of tricuspid regurgitation. Pulmonic Valve: Pulmonic valve not well visualized. Pericardium: Normal pericardium with no significant pericardial effusion. Aorta: Normal aortic root. IVC: Normal size and normal respiratory collapse consistent with normal right atrial pressure. Conclusions Normal left ventricular systolic function. Normal left ventricular cavity size. Mild concentric left ventricular hypertrophy. Ejection fraction is visually estimated at 65 %. Mitral valve is not well visualized. Mitral valve leaflets appear mildly thickened. Trace mitral regurgitation. No significant aortic stenosis or insufficiency. Aortic valve not well visualized. Tricuspid valve not well visualized. Unable to obtain RVSP due to minimal presence of tricuspid regurgitation. No evidence of tricuspid regurgitation. Electronically Signed By: Durga Penny 17-Nov-2018 11:08:17 -0800 Patient Name: JAYLEEN PINK Study Date: 17-Nov-2018 [id number]
[2018-11-17] MEDS: POTASSIUM CHLORIDE 100 ML IVPB SCH ×2 (11:13→13:26)
--- NOTE | 2018-11-17 13:08 | PN ---
DATE: 11/17/2018 SUBJECTIVE: The patient was seen. Unfortunately chest x-ray did show persistent pneumonia. We will obtain sputum culture. The patient unfortunately was placed on high flow oxygen. Differential diag nosis for the pneumonia may be also possible PCP pneumonia. The patient is very immunocompromise. W e will check HIV status, but patient is immunocompromised. We will discuss this with ID. Again, blo od culture did show strep pneumonia. The patient is also having fever, temperature of 100. We will also add antifungal. Again, we will discuss with ID. PHYSICAL EXAMINATION: VITAL SIGNS: Temperature is 99, pulse 107, respirations 22, blood pressure 110/66, saturation 98% on 100%. HEENT: The patient is pale. CARDIOVASCULAR: S1, S2. Distant heart sounds. LUNGS: Decreased bilaterally. ABDOMEN: Soft, nontender. EXTREMITIES: No clubbing, cyanosis or edema. DIAGNOSTIC DATA: EKG done yesterday shows bilateral mid and lower lung zone for pneumonia, pulmonary edema. MEDICATIONS: 1. Lopressor 25 b.i.d. 2. Unasyn q.6. 3. Megace 400 b.i.d. 4. Reglan 5 mg IV before meals. 5. Thiamine 100 mg daily. 6. Folic acid 1 mg daily. 7. Multivitamin 1 tab daily. 8. Ativan 0.5 q.4 p.r.n. 9. Pepcid 20 mg b.i.d. 10. Levemir as directed. 11. Aspirin as directed. 12. Zofran as directed. 13. Tylenol as directed. 14. Hypoglycemia protocol as directed. ASSESSMENT AND PLAN: This is a 58-year-old male with history of alcoholic liver disease, st ill drinks alcohol, diabetes mellitus, poorly controlled, weight loss, cachexia and vitiligo, who pre sented with progressive worsening shortness of breath and found to have multifocal pneumonia. 1. Multifocal pneumonia in a patient who was hypoxic and immunocompromised. I am concerned about Pn eumocystis pneumonia. We will consult with ID. We will switch Unasyn to Zosyn and add Diflucan. We may consider again IV Bactrim. 2. Cardiovascular: Continue beta blockers If blood pressure can tolerate. 3. Generalized weakness due to pneumonia and overall cachexia. 4. Diabetes mellitus, controlled. 5. Alcohol abuse. No evidence of withdrawal. 6. Moderate caloric-protein malnutrition. Continue Glucerna. 7. Renal. Replace potassium, magnesium, phosphorus. 8. Vitiligo. Needs supportive care. Again, pulmonary consultation was requested. We will follow. Dictated By: GAYATHRI ROBERT/BOBBI Conf#: [id number] DID#: [id number] CC: ANA CRISTINA HILL MD; NIGHAT ROSALES MD;*EndCC*
[2018-11-17] MEDS: PIPER-TAZO 3.375 GM IV (PMX) 100 ML IVPB SCH ×2 (13:26→17:21)
[2018-11-17] MEDS: METHYLPREDNISOLONE 40 MG INJ IV SCH ×2 (14:01→21:15)
[2018-11-17] MEDS: FLUCONAZOLE 100 MG/50 ML (PMX) 50 ML IVPB SCH (14:30)
--- NOTE | 2018-11-17 14:35 | CONS ---
Date/Time of Note Date/Time of Note DATE: 11/17/18 TIME: 14:30 Assessment/Plan Assessment/Plan Chief Complaint/Hosp Course Patient was transferred to telemetry he is alert and looks comfortable, she is back on high flow oxygen with a T-max last night 101.60 current 99.2 pulse 82 respirations 20 blood pressure 93/56 saturation 98% WBC 12.1 H&H 11.8 and 33.7 platelets 70 bands 34 BUN 13 creatinine 0.35 Microbiology: Blood culture on admission grew strep pneumonia, repeat blood cultures negative, urine culture negative, MRSA swab negative Antimicrobials: IV Bactrim, fluconazole, Zosyn Physical examination: Well-developed middle-aged man who is lying comfortably in bed head atraumatic normocephalic neck is supple chest rise symmetrical breath sounds with scattered rhonchi diminished bases. Heart: S1- S2. Abdomen soft bowel sounds present. Extremities without cyanosis edema. Assessment: 1. Sepsis with strep bacteremia on admission==> 2D echo revealed no vegetations 2. Multifocal pneumonia 3. Acute hypoxemic respiratory failure 4. Diabetes 5. Hypertension 6. Immunocompromised 7. History of chronic alcohol abuse Plan: Patient is back on high flow oxygen status post high fever yesterday, he was started on IV Bactrim and steroids for possible PCP, we will will try to obtain sputum culture and sputum for PCP, order LDH, follow chest x-ray, consider pulmonary eval. Consultation Date/Type/Reason Admit Date/Time Nov 14, 2018 at 04:59 Initial Consult Date Type of Consult id Exam/Review of Systems Vital Signs Vitals Vital Signs Date Temp Pulse Resp B/P (MAP) Pulse Ox O2 O2 Flow FiO2 Time Delivery Rate 11/17/18 95 100 12:33 11/17/18 82 12:01 11/17/18 99.2 22 93/56 (68) High Flow 11:20 11/16/18 3.0 20:38 Intake and Output 11/16/18 11/16/18 11/17/18 1515:00 23:00 07:00 IntakeIntake Total 2572.50 ml 600 ml 300 ml OutputOutput Total 550 ml 750 ml 850 ml BalanceBalance 2021.50 ml -150 ml -550 ml Medications Medications Current Medications IV Flush (NS 3 ml) 3 ml PER PROTOCOL IV ; Start 11/14/18 at 07:00 Ondansetron HCl (Zofran Inj) 4 mg Q6H PRN IV NAUSEA AND/OR VOMITING; Start 11/14/18 at 07:00 Acetaminophen (Tylenol Tab) 650 mg Q6H PRN PO PAIN LEVEL 1-3 OR FEVER Last administered on 11/16/18at 08:39; Admin Dose 650 MG; Start 11/14/18 at 07:00 Diagnostic Test (Pha) (Accu-Chek) 1 ea 02 XX ; Start 11/15/18 at 02:00 Insulin Detemir (Levemir) 13 units DAILY@0800 SC Last administered on 11/17/18at 07:58; Admin Dose 13 UNITS; Start 11/14/18 at 08:00 Insulin Aspart (Novolog Insulin Pen) NOVOLOG *MODERATE* ALGORITHM WITH MEALS BEDTIME SC Last administered on 11/17/18at 07:40; Admin Dose 4 UNIT; Start 11/14/18 at 08:00 Miscellaneous Information 1 ea NOTE XX ; Start 11/14/18 at 07:00 Glucose (Glutose) 15 gm Q15M PRN PO DECREASED GLUCOSE; Start 11/14/18 at 07:00 Glucose (Glutose) 22.5 gm Q15M PRN PO DECREASED GLUCOSE; Start 11/14/18 at 07:00 Dextrose (D50w Syringe) 25 ml Q15M PRN IV DECREASED GLUCOSE Last administered on 11/15/18at 02:12; Admin Dose 25 ML; Start 11/14/18 at 07:00 Dextrose (D50w Syringe) 50 ml Q15M PRN IV DECREASED GLUCOSE; Start 11/14/18 at 07:00 Glucagon (Glucagen) 1 mg Q15M PRN IM DECREASED GLUCOSE; Start 11/14/18 at 07:00 Glucose (Glutose) 15 gm Q15M PRN BUCCAL DECREASED GLUCOSE; Start 11/14/18 at 07:00 Thiamine HCl (Vitamin B1) 100 mg DAILY PO Last administered on 11/17/18at 09:12; Admin Dose 100 MG; Start 11/14/18 at 14:30 Folic Acid (Folic Acid) 1 mg DAILY PO Last administered on 11/17/18at 09:11; Admin Dose 1 MG; Start 11/14/18 at 14:30 Multivitamins Therapeutic (Theragran) 1 tab DAILY PO Last administered on 1 01/18/18at 09:11; Admin Dose 1 TAB; Start 11/14/18 at 14:30 Metoclopramide HCl (Reglan) 5 mg WITH MEALS IV Last administered on 11/17/18at 12:21; Admin Dose 5 MG; Start 11/14/18 at 17:35 Lorazepam (Ativan) 0.5 mg Q4H PRN IV anxiety, withdrawals; Start 11/14/18 at 14:30 Megestrol Acetate (Megace Susp) 400 mg BID PO Last administered on 11/17/18at 09:12; Admin Dose 400 MG; Start 11/15/18 at 13:30 Metoprolol Tartrate (Lopressor) 25 mg BID PO Last administered on 11/17/18at 09:12; Admin Dose 25 MG; Start 11/16/18 at 10:30 Fluconazole/ Sodium Chloride 50 ml @ 50 mls/hr Q24H IVPB ; Start 11/17/18 at 14:00 Piperacillin Sod/ Tazobactam Sod 100 ml @ 200 mls/hr Q6 IVPB Last administered on 11/17/18at 13:26; Admin Dose 200 MLS/HR; Start 11/17/18 at 13:00 Trimethoprim/ Sulfamethoxazole 20 ml/Dextrose 520 ml @ 343.333 mls/hr Q8 IVPB ; Start 11/17/18 at 14:00 Pantoprazole (Protonix Tab) 40 mg DAILY@06 PO ; Start 11/18/18 at 06:00 Methylprednisolone Sodium Succinate (Solu-Medrol) 30 mg Q12 IV Last administe red on 11/17/18at 14:01; Admin Dose 30 MG; Start 11/17/18 at 14:00 RONAK MCCULLOUGH NP Nov 17, 2018 14:35
[2018-11-17] MEDS: TRIMETHOPRIM/SULFAMETHOXAZOLE 20 ML in DEXTROSE 5% 500 ML IVPB SCH ×2 (15:45→22:52)
--- NOTE | 2018-11-17 19:40 | NUR ---
EOSS: PT LAYING IN BED. NO S/S OF RESPIRATORY DISTRESS PT ON 90% FIO2 HIGH FLOW. PT DENIES PAIN OR DISCOMFORT AT THIS TIME. FAMILY AT BEDSIDE. PT CLEAN AND DRY. REMAINS AFEBRILE. FALL AND SAFETY PRECAUTIONS IMPLEMENTED. BED ALARM ON. CALL LIGHT WITHIN REACH ABLE TO MAKE NEEDS KNOWN. BED IN LOWEST POSITION BRAKES LOCKED ROOM FREE OF CLUTTER. WILL ENDORSE PT TO HAT MEASURER RN ACCORDINGLY
[2018-11-18] VITALS (11 sets, daily range): BP systolic 90–112; BP diastolic 52–65; PULSE 70–88; RESP 20–22
[2018-11-18] MEDS: PIPER-TAZO 3.375 GM IV (PMX) 100 ML IVPB SCH ×4 (00:58→17:39)
[2018-11-18] MEDS: ACCU-CHEK XX SCH (02:00)
[2018-11-18] MEDS: PANTOPRAZOLE (EC) 40 MG TAB PO SCH (05:54)
[2018-11-18] MEDS: TRIMETHOPRIM/SULFAMETHOXAZOLE 20 ML in DEXTROSE 5% 500 ML IVPB SCH ×3 (05:54→22:50)
[2018-11-18] MEDS: MULTIVITAMINS THERAPEUTIC TAB PO SCH (08:12)
[2018-11-18] MEDS: THIAMINE 100 MG TAB PO SCH (08:12)
[2018-11-18] MEDS: FOLIC ACID 1 MG TAB PO SCH (08:12)
[2018-11-18] MEDS: MEGESTROL (40 MG/ML) 10ML CUP PO SCH ×2 (08:13→20:28)
[2018-11-18] MEDS: METHYLPREDNISOLONE 40 MG INJ IV SCH ×2 (08:13→20:27)
[2018-11-18] MEDS: METOCLOPRAMIDE 10 MG INJ IV SCH ×3 (08:13→17:39)
[2018-11-18] MEDS: METOPROLOL 25 MG TAB PO SCH ×2 (08:14→20:25)
[2018-11-18] MEDS: INSULIN ASPART [NOVOLOG] 3 ML PEN SC SCH ×4 (08:23→22:32)
[2018-11-18] MEDS: INSULIN DETEMIR [LEVEMIR] (100 UNITS/ML) SYG SC SCH ×2 (08:28→22:32)
--- NOTE | 2018-11-18 09:40 | NUR ---
PT Note: PT orders received, chart reviewed. Pt is currently on high flow oxygen, however his saturation rate is in the mid 80s at rest. Pt is not appropriate for a physical therapy evaluation today. Will re-attempt tomorrow as medically appropriate. Respiratory therapist, RN, and pt are all in agreement.
[2018-11-18] MEDS ORDERED: POTASSIUM CHLORIDE (SR) 20 MEQ TAB PO STA (09:41)
--- NOTE | 2018-11-18 10:46 | CONS ---
Date/Time of Note Date/Time of Note DATE: 11/18/18 TIME: 10:43 Assessment/Plan Assessment/Plan Assessment/Plan CT of the chest is negative for pulmonary more than. However bilateral lower lobe consolidations are present. Chest x-ray from the of this month showing bilateral lower lobe infiltrates with significant worsening compared to admission chest x-ray. Assessment recommendations; 1. Patient admitted bilateral lower lobe community acquired pneumonia. 2. History of hypertension or diabetes. 3. Hypoxemia due to bilateral pneumonia. 4. CTA chest negative for pulmonary percent. Continue current supportive care. Add vancomycin to current antimicrobial regimen. Add Levaquin as well. Obtain follow-up chest x-ray. Result Diagram: 11/18/18 0450 11/18/18 0450 Results 24hrs Laboratory Tests Test 11/17/18 12:12 11/17/18 17:14 11/17/18 20:51 11/18/18 02:42 Bedside Glucose 129 202 335 H 354 H Test 11/18/18 04:50 11/18/18 08:09 White Blood 6.2 # Count Red Blood Count 3.44 L Hemoglobin 11.2 L Hematocrit 31.3 L Mean Corpuscular 91.0 Volume Mean Corpuscular 32.6 Hemoglobin Mean Corpuscular 35.8 Hemoglobin Navya nt Red Cell 13.0 Distribution Width Platelet Count 85 #L Mean Platelet 10.2 Volume Immature 1.800 H Granulocytes % Neutrophils % Segmented 84 H Neutrophils % (Manual) Lymphocytes % Lymphocytes % 9 L (Manual) Monocytes % Monocytes % 7 (Manual) Eosinophils % Basophils % Nucleated Red 0.0 Blood Cells % Immature 0.110 H Granulocytes # Neutrophils # Lymphocytes 0.5 L (Manual) Lymphocytes # Monocytes # Monocytes # 0.4 (Manual) Eosinophils # Basophils # Nucleated Red Blood Cells # Platelet DECREASED Estimate Giant Platelets 1 H Polychromasia 1+ Anisocytosis 1+ Macrocytosis 1+ Sodium Level 135 Potassium Level 3.1 L Chloride Level 96 L Carbon Dioxide 29 Level Anion Gap 10 Blood Urea 16 Nitrogen Creatinine 0.35 L Est Glomerular > 60 Filtrat Rate mL/min Glucose Level 292 #H Calcium Level 7.8 L Phosphorus Level 4.0 Magnesium Level 2.0 Bedside Glucose 345 H Consultation Date/Type/Reason Admit Date/Time Nov 14, 2018 at 04:59 Date of Consultation: Nov 18, 2018 Type of Consult Pulmonary Pulmonary consult requested for evaluation of pneumonia and hypoxemia. History of presenting illness; patient is a pleasant 58-year-old male who came into the hospital with a few days history of increasing shortness of breath. Patient has been diagnosed with bilateral pneumonia with strep pneumonia cultured from blood. Patient feeling somewhat better but still requiring high flow nasal cannula at 100% FiO2. Patient denies any recent high fever, chills, any body aches or myalgias to suggest any viral infection. According to him he was fine until a few days ago when the symptoms started. Past medical history; 1. History of diabetes. 2. Hypertension. Medications; reviewed. Allergies; none. Social history; never smoked. Family history; patient is , has supportive family. 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 Review of systems; denies any headache, seizures, sinus symptoms. Any chest pain. Denies any shortness of breath at rest. Denies any wheezing, complains of scant cough without any sputum production. Denies any high fever, chills, body aches myalgias. Any abdominal pain, nausea vomiting. Any edema. Any urinary symptoms. Any weight loss. General exam; middle-aged male, awake alert, currently in no distress. On high flow nasal cannula. Past Medical History Medications Current Medications IV Flush (NS 3 ml) 3 ml PER PROTOCOL IV ; Start 11/14/18 at 07:00 Ondansetron HCl (Zofran Inj) 4 mg Q6H PRN IV NAUSEA AND/OR VOMITING; Start 11/14/18 at 07:00 Acetaminophen (Tylenol Tab) 650 mg Q6H PRN PO PAIN LEVEL 1-3 OR FEVER Last administered on 11/16/18at 08:39; Admin Dose 650 MG; Start 11/14/18 at 07:00 Diagnostic Test (Pha) (Accu-Chek) 1 ea 02 XX Last administered on 11/18/18at 02:00; Admin Dose 1 EA; Start 11/15/18 at 02:00 Insulin Aspart (Novolog Insulin Pen) NOVOLOG *MODERATE* ALGORITHM WITH MEALS BEDTIME SC Last administered on 11/18/18at 08:23; Admin Dose 10 UNIT; Start 11/14/18 at 08:00 Miscellaneous Information 1 ea NOTE XX ; Start 11/14/18 at 07:00 Glucose (Glutose) 15 gm Q15M PRN PO DECREASED GLUCOSE; Start 11/14/18 at 07:00 Glucose (Glutose) 22.5 gm Q15M PRN PO DECREASED GLUCOSE; Start 11/14/18 at 07:00 Dextrose (D50w Syringe) 25 ml Q15M PRN IV DECREASED GLUCOSE Last administered on 11/15/18at 02:12; Admin Dose 25 ML; Start 11/14/18 at 07:00 Dextrose (D50w Syringe) 50 ml Q15M PRN IV DECREASED GLUCOSE; Start 11/14/18 at 07:00 Glucagon (Glucagen) 1 mg Q15M PRN IM DECREASED GLUCOSE; Start 11/14/18 at 07:00 Glucose (Glutose) 15 gm Q15M PRN BUCCAL DECREASED GLUCOSE; Start 11/14/18 at 07:00 Thiamine HCl (Vitamin B1) 100 mg DAILY PO Last administered on 11/18/18at 08:12; Admin Dose 100 MG; Start 11/14/18 at 14:30 Folic Acid (Folic Acid) 1 mg DAILY PO Last administered on 11/18/18at 08:12; Admin Dose 1 MG; Start 11/14/18 at 14:30 Multivitamins Therapeutic (Theragran) 1 tab DAILY PO Last administered on 11/18/18at 08:12; Admin Dose 1 TAB; Start 11/14/18 at 14:30 Metoclopramide HCl (Reglan) 5 mg WITH MEALS IV Last administered on 11/18/18at 08:13; Admin Dose 5 MG; Start 11/14/18 at 17:35 Lorazepam (Ativan) 0.5 mg Q4H PRN IV anxiety, withdrawals; Start 11/14/18 at 14:30 Megestrol Acetate (Megace Susp) 400 mg BID PO Last administered on 11/18/18at 08:13; Admin Dose 400 MG; Start 11/15/18 at 13:30 Metoprolol Tartrate (Lopressor) 25 mg BID PO Last administered on 11/17/18at 21:16; Admin Dose 25 MG; Start 11/16/18 at 10:30 Fluconazole/ Sodium Chloride 50 ml @ 50 mls/hr Q24H IVPB Last administered on 11/17/18at 14:30; Admin Dose 50 MLS/HR; Start 11/17/18 at 14:00 Trimethoprim/ Sulfamethoxazole 20 ml/Dextrose 520 ml @ 343.333 mls/hr Q8 IVPB Last administered on 11/18/18at 05:54; Admin Dose 343.333 MLS/HR; Start 11/17/18 at 14:00 Pantoprazole (Protonix Tab) 40 mg DAILY@06 PO Last administered on 11/18/18at 05:54; Admin Dose 40 MG; Start 11/18/18 at 06:00 Methylprednisolone Sodium Succinate (Solu-Medrol) 30 mg Q12 IV Last administered on 11/18/18at 08:13; Admin Dose 30 MG; Start 11/17/18 at 14:00 Piperacillin Sod/ Tazobactam Sod 100 ml @ 200 mls/hr Q6 IVPB Last administered on 11/18/18at 05:18; Admin Dose 200 MLS/HR; Start 11/18/18 at 00:00 Insulin Detemir (Levemir) 13 units BID SC ; Start 11/18/18 at 21:00 Allergies: Coded Allergies: No Known Drug Allergy (Verified Allergy, Unknown, 06/22/18) Past Surgical History Past Surgical Hx: no surgical history Social History Smoking Status: Never smoker Exam/Review of Systems Vital Signs Vitals Vital Signs Date Temp Pulse Resp B/P (MAP) Pulse Ox O2 O2 Flow FiO2 Time Delivery Rate 11/18/18 86 100 09:31 11/18/18 82 08:39 11/18/18 98.4 22 105/64 High Flow 07:19 (78) 11/16/18 3.0 20:38 Intake and Output 11/17/18 11/17/18 11/18/18 1414:59 22:59 06:59 IntakeIntake Total 350 ml 150 ml 300 ml OutputOutput Total 1500 ml BalanceBalance 350 ml 150 ml -1200 ml Exam HEENT exam; supple neck, no JVD. No lymphadenopathy. Midline trachea. No thyromegaly. Pharynx is clear. No neck bruits. Patient is edentulous and wears dentures. Chest exam; diminished but clear breath sounds. S1-S2 audible, no murmurs. Regular rhythm. Abdomen exam; soft, no organomegaly. Bowel sounds audible. Extremity exam; no edema or clubbing. BILLING SPECIALIST exam; no focal deficit. Medications Medications Current Medications IV Flush (NS 3 ml) 3 ml PER PROTOCOL IV ; Start 11/14/18 at 07:00 Ondansetron HCl (Zofran Inj) 4 mg Q6H PRN IV NAUSEA AND/OR VOMITING; Start 11/14/18 at 07:00 Acetaminophen (Tylenol Tab) 650 mg Q6H PRN PO PAIN LEVEL 1-3 OR FEVER Last administered on 11/16/18at 08:39; Admin Dose 650 MG; Start 11/14/18 at 07:00 Diagnostic Test (Pha) (Accu-Chek) 1 ea 02 XX Last administered on 11/18/18at 02:00; Admin Dose 1 EA; Start 11/15/18 at 02:00 Insulin Aspart (Novolog Insulin Pen) NOVOLOG *MODERATE* ALGORITHM WITH MEALS BEDTIME SC Last administered on 11/18/18at 08:23; Admin Dose 10 UNIT; Start 11/14/18 at 08:00 Miscellaneous Information 1 ea NOTE XX ; Start 11/14/18 at 07:00 Glucose (Glutose) 15 gm Q15M PRN PO DECREASED GLUCOSE; Start 11/14/18 at 07:00 Glucose (Glutose) 22.5 gm Q15M PRN PO DECREASED GLUCOSE; Start 11/14/18 at 07:00 Dextrose (D50w Syringe) 25 ml Q15M PRN IV DECREASED GLUCOSE Last administered on 11/15/18at 02:12; Admin Dose 25 ML; Start 11/14/18 at 07:00 Dextrose (D50w Syringe) 50 ml Q15M PRN IV DECREASED GLUCOSE; Start 11/14/18 at 07:00 Glucagon (Glucagen) 1 mg Q15M PRN IM DECREASED GLUCOSE; Start 11/14/18 at 07:00 Glucose (Glutose) 15 gm Q15M PRN BUCCAL DECREASED GLUCOSE; Start 11/14/18 at 07:00 Thiamine HCl (Vitamin B1) 100 mg DAILY PO Last administered on 11/18/18at 08:12; Admin Dose 100 MG; Start 11/14/18 at 14:30 Folic Acid (Folic Acid) 1 mg DAILY PO Last administered on 11/18/18at 08:12; Admin Dose 1 MG; Start 11/14/18 at 14:30 Multivitamins Therapeutic (Theragran) 1 tab DAILY PO Last administered on 11/18/18at 08:12; Admin Dose 1 TAB; Start 11/14/18 at 14:30 Metoclopramide HCl (Reglan) 5 mg WITH MEALS IV Last administered on 11/18/18 08:13; Admin Dose 5 MG; Start 11/14/18 at 17:35 Lorazepam (Ativan) 0.5 mg Q4H PRN IV anxiety, withdrawals; Start 11/14/18 at 14:30 Megestrol Acetate (Megace Susp) 400 mg BID PO Last administered on 11/18/18at 08:13; Admin Dose 400 MG; Start 11/15/18 at 13:30 Metoprolol Tartrate (Lopressor) 25 mg BID PO Last administered on 11/17/18at 21:16; Admin Dose 25 MG; Start 11/16/18 at 10:30 Fluconazole/ Sodium Chloride 50 ml @ 50 mls/hr Q24H IVPB Last administered on 11/17/18at 14:30; Admin Dose 50 MLS/HR; Start 11/17/18 at 14:00 Trimethoprim/ Sulfamethoxazole 20 ml/Dextrose 520 ml @ 343.333 mls/hr Q8 IVPB Last administered on 11/18/18at 05:54; Admin Dose 343.333 MLS/HR; Start 11/17/18 at 14:00 Pantoprazole (Protonix Tab) 40 mg DAILY@06 PO Last administered on 11/18/18at 05:54; Admin Dose 40 MG; Start 11/18/18 at 06:00 Methylprednisolone Sodium Succinate (Solu-Medrol) 30 mg Q12 IV Last administered on 11/18/18at 08:13; Admin Dose 30 MG; Start 11/17/18 at 14:00 Piperacillin Sod/ Tazobactam Sod 100 ml @ 200 mls/hr Q6 IVPB Last administered on 11/18/18at 05:18; Admin Dose 200 MLS/HR; Start 11/18/18 at 00:00 Insulin Detemir (Levemir) 13 units BID SC ; Start 11/18/18 at 21:00 NIGHAT ROSALES Nov 18, 2018 10:46
[2018-11-18] MEDS ORDERED: VANCOMYCIN IV PER PHARMACY XX SCH (11:00)
--- NOTE | 2018-11-18 11:33 | NUR ---
Notify dr. Crum for BS [id number]. Ordered to give sliding scale. Md adjusted levemir. Addendum: 11/18/18 at 1827 by BAKARI PETERS RN notify Dr. Crum for BS [id number]. Ordered 8 units extra once.
--- NOTE | 2018-11-18 13:07 | PN ---
DATE: 11/18/2018 SUBJECTIVE: Unfortunately, the patient requires more oxygen, is on 100% high flow and only saturatin g about 90 to 91% when I checked it myself. The patient overall is in no distress, lying comfortably in bed. I did request pulmonary consultation with Dr. Nam. He will see him shortly. PHYSICAL EXAMINATION: VITAL SIGNS: Temperature 98.4, pulse 82, respirations 22, blood pressure 105/64, saturation 90 to 91 % on 100% high flow oxygen. GENERAL: The patient is in no acute distress, frail, cachectic, pale, temporal wasting. CARDIOVASCULAR: S1 and S2. Distant heart sounds. LUNGS: Clear. ABDOMEN: Soft. EXTREMITIES: No clubbing, cyanosis, or edema. LABORATORY DATA: White count is 6.2, hemoglobin 11.2, hematocrit 31, platelet counts of 85%, neutrop hils 89%. Chemistry: Sodium 135, potassium 3.9, chloride 96, bicarbonate 29, BUN is 16, creatinine 0.35 and glucose of 292. Sugar went up because I started him on Solu-Medrol. Last glucose level 345 . HIV was negative. Respiratory culture preliminary shows normal respiratory culture, Gram stain is pending. MEDICATIONS: Include: 1. Levimir 13 units doubled it to b.i.d. 2. Protonix 40 mg daily. 3. Zosyn . 4. Diflucan 100 mg daily. 5. Bactrim IV q.8h. 6. Solu-Medrol 10 mg IV q. 7. Lopressor 25 b.i.d. 8. Megace 400 b.i.d. 9. Accu-Chek is with meals. 10. Thiamine 100 mg daily. 11. Folic acid 1 mg daily. 12. Multivitamin 2 daily. 13. Ativan 0.5 q.4h p.r.n. 14. Zofran p.r.n. 15. Tylenol p.r.n. 16. Hypoglycemia protocol as directed. ASSESSMENT AND PLAN: This is a 58-year-old male with history of alcoholic liver disease. S till drinks alcohol, diabetes mellitus, poorly controlled. Weight loss, cachexia with vitiligo, who presented with progressive worsening shortness of breath, was found to have multifocal pneumonia. 1. Multifocal pneumonia in the medial compartment. The patient currently being treated for pneumoni a and PCP pneumonia. I appreciate ID input. Pulmonary to follow. Continue high flow oxygen. Repea t chest x-ray. I am concerned patient will go into ARDs. 2. Cardiovascular. Beta blockers if blood pressure can tolerate. 3. Generalized weakness. 4. Diabetes mellitus increased Levimir, now on steroids, causing hyperglycemia. 5. Alcohol abuse. No evidence of withdrawals p.r.n. Ativan. 6. Moderate caloric-protein malnutrition. Continue Glucerna. 7. Renal. Monitor electrolytes. 8. Vitiligo; outpatient rheumatology consultation. 9. Replace potassium and we will follow. 10. LDH was within normal limits. We will follow. Dictated By: GAYATHRI ROBERT/BOBBI Conf#: [id number] DID#: [id number] CC: ANA CRISTINA HILL MD;*End*
[2018-11-18] MEDS: LEVOFLOXACIN 750MG/D5W (PMX) 150 ML IVPB SCH (13:23)
--- NOTE | 2018-11-18 13:40 | CONS ---
Date/Time of Note Date/Time of Note DATE: 11/18/18 TIME: 13:38 Assessment/Plan Assessment/Plan Hospital Course No acute events overnight patient remains on high flow oxygen he desaturates easily per report. He is alert awake in no distress highest temperature was yesterday morning at 100 current temperature 98.3 WBC 6.2 H&H 11.2 and 31.3 platelets 85 neutrophils 84 BUN 16 creatinine 0.3 LDH 478 Microbiology: Sputum culture growing normal respiratory anyi, blood culture on admission grew strep pneumonia Chest x-ray this morning revealed multifocal bibasilar infiltrates mildly improved Antimicrobials: IV Bactrim, fluconazole, Zosyn Physical examination: Well-developed middle-aged man who is lying comfortably in bed head atraumatic normocephalic neck is supple chest rise symmetrical breath sounds with scattered rhonchi diminished bases. Heart: S1- S2. Abdomen soft bowel sounds present. Extremities without cyanosis edema. Assessment: 1. Sepsis with strep bacteremia on admission==> 2D echo revealed no vegetations 2. Multifocal pneumonia 3. Acute hypoxemic respiratory failure 4. Diabetes 5. Hypertension 6. Immunocompromised 7. History of chronic alcohol abuse Plan: Clinically unchanged with radiographic improvement, continue present care, steroids and antibiotics Result Diagram: 11/18/18 0450 11/18/18 0450 Results 24hrs Laboratory Tests Test 11/17/18 17:14 11/17/18 20:51 11/18/18 02:42 11/18/18 04:50 Bedside Glucose 202 335 H 354 H White Blood 6.2 # Count Red Blood Count 3.44 L Hemoglobin 11.2 L Hematocrit 31.3 L Mean Corpuscular 91.0 Volume Mean Corpuscular 32.6 Hemoglobin Mean Corpuscular 35.8 Hemoglobin Navya nt Red Cell 13.0 Distribution Width Platelet Count 85 #L Mean Platelet 10.2 Volume Immature 1.800 H Granulocytes % Neutrophils % Segmented 84 H Neutrophils % (Manual) Lymphocytes % Lymphocytes % 9 L (Manual) Monocytes % Monocytes % 7 (Manual) Eosinophils % Basophils % Nucleated Red 0.0 Blood Cells % Immature 0.110 H Granulocytes # Neutrophils # Lymphocytes 0.5 L (Manual) Lymphocytes # Monocytes # Monocytes # 0.4 (Manual) Eosinophils # Basophils # Nucleated Red Blood Cells # Platelet DECREASED Estimate Giant Platelets 1 H Polychromasia 1+ Anisocytosis 1+ Macrocytosis 1+ Sodium Level 135 Potassium Level 3.1 L Chloride Level 96 L Carbon Dioxide 29 Level Anion Gap 10 Blood Urea 16 Nitrogen Creatinine 0.35 L Est Glomerular > 60 Filtrat Rate mL/min Glucose Level 292 #H Calcium Level 7.8 L Phosphorus Level 4.0 Magnesium Level 2.0 Test 11/18/18 08:09 11/18/18 11:16 Bedside Glucose 345 H 355 H Consultation Date/Type/Reason Admit Date/Time Nov 14, 2018 at 04:59 Initial Consult Date Type of Consult id Exam/Review of Systems Vital Signs Vitals Vital Signs Date Temp Pulse Resp B/P (MAP) Pulse Ox O2 O2 Flow FiO2 Time Delivery Rate 11/18/18 72 12:09 11/18/18 98.3 22 90/52 (65) 94 High Flow 11:30 11/18/18 100 09:31 11/16/18 3.0 20:38 Intake and Output 11/17/18 11/17/18 11/18/18 1515:00 23:00 07:00 IntakeIntake Total 350 ml 150 ml 300 ml OutputOutput Total 1500 ml BalanceBalance 350 ml 150 ml -1200 ml Medications Medications Current Medications IV Flush (NS 3 ml) 3 ml PER PROTOCOL IV ; Start 11/14/18 at 07:00 Ondansetron HCl (Zofran Inj) 4 mg Q6H PRN IV NAUSEA AND/OR VOMITING; Start 11/14/18 at 07:00 Acetaminophen (Tylenol Tab) 650 mg Q6H PRN PO PAIN LEVEL 1-3 OR FEVER Last a dministered on 11/16/18at 08:39; Admin Dose 650 MG; Start 11/14/18 at 07:00 Diagnostic Test (Pha) (Accu-Chek) 1 ea 02 XX Last administered on 11/18/18at 02:00; Admin Dose 1 EA; Start 11/15/18 at 02:00 Insulin Aspart (Novolog Insulin Pen) NOVOLOG *MODERATE* ALGORITHM WITH MEALS BEDTIME SC Last administered on 11/18/18at 11:25; Admin Dose 10 UNIT; Start 11/14/18 at 08:00 Miscellaneous Information 1 ea NOTE XX ; Start 11/14/18 at 07:00 Glucose (Glutose) 15 gm Q15M PRN PO DECREASED GLUCOSE; Start 11/14/18 at 07:00 Glucose (Glutose) 22.5 gm Q15M PRN PO DECREASED GLUCOSE; Start 11/14/18 at 07:00 Dextrose (D50w Syringe) 25 ml Q15M PRN IV DECREASED GLUCOSE Last administered on 11/15/18at 02:12; Admin Dose 25 ML; Start 11/14/18 at 07:00 Dextrose (D50w Syringe) 50 ml Q15M PRN IV DECREASED GLUCOSE; Start 11/14/18 at 07:00 Glucagon (Glucagen) 1 mg Q15M PRN IM DECREASED GLUCOSE; Start 11/14/18 at 07:00 Glucose (Glutose) 15 gm Q15M PRN BUCCAL DECREASED GLUCOSE; Start 11/14/18 at 0 7:00 Thiamine HCl (Vitamin B1) 100 mg DAILY PO Last administered on 11/18/18at 08:12; Admin Dose 100 MG; Start 11/14/18 at 14:30 Folic Acid (Folic Acid) 1 mg DAILY PO Last administered on 11/18/18at 08:12; Admin Dose 1 MG; Start 11/14/18 at 14:30 Multivitamins Therapeutic (Theragran) 1 tab DAILY PO Last administered on 11/18/18at 08:12; Admin Dose 1 TAB; Start 11/14/18 at 14:30 Metoclopramide HCl (Reglan) 5 mg WITH MEALS IV Last administered on 11/18/18at 11:10; Admin Dose 5 MG; Start 11/14/18 at 17:35 Lorazepam (Ativan) 0.5 mg Q4H PRN IV anxiety, withdrawals; Start 11/14/18 at 14:30 Megestrol Acetate (Megace Susp) 400 mg BID PO Last administered on 11/18/18at 08:13; Admin Dose 400 MG; Start 11/15/18 at 13:30 Metoprolol Tartrate (Lopressor) 25 mg BID PO Last administered on 11/17/18at 21:16; Admin Dose 25 MG; Start 11/16/18 at 10:30 Fluconazole/ Sodium Chloride 50 ml @ 50 mls/hr Q24H IVPB Last administered on 11/17/18at 14:30; Admin Dose 50 MLS/HR; Start 11/17/18 at 14:00 Trimethoprim/ Sulfamethoxazole 20 ml/Dextrose 520 ml @ 343.333 mls/hr Q8 IVPB Last administered on 11/18/18at 05:54; Admin Dose 343.333 MLS/HR; Start 11/17/18 at 14:00 Pantoprazole (Protonix Tab) 40 mg DAILY@06 PO Last administered on 11/18/18at 05:54; Admin Dose 40 MG; Start 11/18/18 at 06:00 Methylprednisolone Sodium Succinate (Solu-Medrol) 30 mg Q12 IV Last administered on 11/18/18at 08:13; Admin Dose 30 MG; Start 11/17/18 at 14:00 Piperacillin Sod/ Tazobactam Sod 100 ml @ 200 mls/hr Q6 IVPB Last administered on 11/18/18at 11:10; Admin Dose 200 MLS/HR; Start 11/18/18 at 00:00 Insulin Detemir (Levemir) 13 units BID SC ; Start 11/18/18 at 21:00 Levofloxacin/ Dextrose 150 ml @ 100 mls/hr Q24H IVPB Last administered on 11/18/18at 13:23; Admin Dose 100 MLS/HR; Start 11/18/18 at 12:00 RONAK MCCULLOUGH NP Nov 18, 2018 13:40
[2018-11-18] MEDS: FLUCONAZOLE 100 MG/50 ML (PMX) 50 ML IVPB SCH (15:10)
[2018-11-18] MEDS ORDERED: INSULIN ASPART [NOVOLOG] 3 ML PEN SC ONE ×2 (18:30)
--- NOTE | 2018-11-18 23:31 | NUR ---
Patient is currently on HFNC. RT at bedside. Last ABG shows pH 7.497 and elevated pO2. Per RT, titrating down FiO2. Currently know on FiO2 80%, saturating high 90%, no dyspnea or SOB noted at this time.
--- NOTE | 2018-11-18 23:33 | NUR ---
BG 336 at 2100 check. 4 units Novolog & 13 units Levemir administered per orders. MD is already aware of elevated BG, has been elevated mid 300s-400s throughout last shift. Will check at 0200 if and will notify MD if remains elevated for additional coverage. Addendum: 11/19/18 at 0256 by CARLOS MACHADO RN 0200 BG 256, sliding scale dose [address] Crum request
[2018-11-19] VITALS (10 sets, daily range): BP systolic 99–116; BP diastolic 57–63; PULSE 66–88; RESP 16–21
[2018-11-19] MEDS: PIPER-TAZO 3.375 GM IV (PMX) 100 ML IVPB SCH ×4 (00:43→17:21)
[2018-11-19] MEDS: ACCU-CHEK XX SCH (02:35)
[2018-11-19] MEDS: PANTOPRAZOLE (EC) 40 MG TAB PO SCH (05:17)
[2018-11-19] MEDS: TRIMETHOPRIM/SULFAMETHOXAZOLE 20 ML in DEXTROSE 5% 500 ML IVPB SCH ×3 (06:50→23:33)
--- NOTE | 2018-11-19 07:26 | NUR ---
EOSS N: A&Ox4 R: HFNC 40 LPM, titrated down from 100% to 80% due to alkalotic ABG. CV: NSR, ST GI: BG 336, 256, covered with Novolog sliding scale & Levemir. POC: Antibiotics continued for PNA All of patient's needs attended to. Hourly rounding. Will endorse care to oncoming nurse.
--- NOTE | 2018-11-19 08:11 | PN ---
DATE: 11/19/2018 SUBJECTIVE: The patient seen now on 80% of FIO2 from 100%. Patient overall complaining of insomnia. I appreciate ID and pulmonary consultation recommendations. Patient remains on broad spectrum anti biotics due to multifocal pneumonia and severe hypoxia. Empirically also being treated for PCP pneum onia. PHYSICAL EXAMINATION: VITAL SIGNS: Temperature 98.7, pulse 71, respirations 18, blood pressure 114/66, saturation was docu mented 100% on 80% FIO2 via high-flow oxygen. GENERAL: The patient is frail, pale. CARDIOVASCULAR: S1, S2. LUNGS: Faint rhonchi at the bases. ABDOMEN: Soft, nontender. EXTREMITIES: No clubbing, cyanosis, or edema. Patient with severe muscle atrophy, severe cachexia a nd patches of vitiligo throughout his body. LABORATORY DATA: This morning white count is 8, hemoglobin 10.4, hematocrit 29, platelet counts of 1 30, much improved, neutrophils 68, bands neutrophils 14%, lymphocytes 10%. Chemistry: Sodium 133, p otassium 3.6, chloride 97, bicarbonate 26, BUN is 17, creatinine 0.41, glucose is 155, calcium 7.9, A ST 99, ALT 48, alkaline phosphatase is high at 462, albumin is low at 2.2. HIV negative. Arterial b lood gas done yesterday shows a pH of 7.49, pCO2 of 33, bicarbonate of 25, pO2 of 108. This is on 10 0% FIO2, saturation was 98%, this is much improved. Yesterday 100% FIO2. Chest x-ray done yesterday reveals the following: multifocal bibasilar infiltrate, mildly improved. MEDICATIONS: Reviewed. 1. Levimir 13 units twice a day. 2. Levaquin 500 IV daily. 3. Protonix 40 mg daily. 4. Zosyn 3.375 IV q. 5. Diflucan IV q.24h. 6. Bactrim IV q. 7. Solu-Medrol 40 mg IV q. 8. Lopressor 25 b.i.d. 9. Megace 400 b.i.d. 10. Accu-Chek as directed. 11. Reglan 5 mg IV with meals. 12. Thiamine 100 mg daily. 13. Folic acid 1 mg daily. 14. Multivitamin 1 tablet daily. 15. Ativan p.r.n. 16. . 17. Zofran as directed. 18. Tylenol as directed. ASSESSMENT AND PLAN: This is a very unfortunate 58-year-old male with history of alcoholic liver disease. Still drinks alcohol, diabetes mellitus, poorly controlled, noncompliant with medicat ions at home. Weight loss, cachexia and vitiligo, who presented with progressive worsening shortness of breath, was found to have multifocal pneumonia. 1. Multifocal pneumonia in immunocompromised patient. 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 Continue above treatment. ID and pulmonary are following. Chest x-ray actually shows imp rovement. Titrate FIO2 further down to keep saturation greater than 90%. 2. Cardiovascular. Beta blockers if blood pressure can tolerate. 3. Diabetes mellitus on IV Solu-Medrol. Sugars are a bit high. Titrate insulin up, place him on in sulin prior to meals, routine. 4. Alcohol abuse with elevated alkaline phosphatase. Will obtain a liver ultrasound. 5. Alcohol abuse. Consultation important; delinquency prevention social worker to be consulted. 6. Renal. Monitor electrolytes and replace accordingly. 7. Vitiligo outpatient dermatology consultation is advised. 8. We currently cannot get physical therapy due to being on high flow. We will follow. 9. Anemia. No need for transfusion, monitor. This is likely due to his liver disease. 10. Moderate caloric-protein malnutrition with an albumin of 2.2. Maximum nutrition support. The kendy baca given protein supplements. Will continue to follow. Dictated By: GAYATHRI ROBERT/BOBBI Conf#: [id number] DID#: [id number] CC: ANA CRISTINA HILL MD;*EndCC*
[2018-11-19] MEDS: INSULIN ASPART [NOVOLOG] 3 ML PEN SC SCH ×7 (08:13→20:55)
[2018-11-19] MEDS: METOPROLOL 25 MG TAB PO SCH ×2 (09:00→20:48)
[2018-11-19] MEDS: INSULIN DETEMIR [LEVEMIR] (100 UNITS/ML) SYG SC SCH ×2 (09:06→20:56)
[2018-11-19] MEDS: MEGESTROL (40 MG/ML) 10ML CUP PO SCH ×2 (09:10→20:47)
[2018-11-19] MEDS: METHYLPREDNISOLONE 40 MG INJ IV SCH ×2 (09:11→20:47)
[2018-11-19] MEDS: METOCLOPRAMIDE 10 MG INJ IV SCH ×3 (09:11→17:21)
[2018-11-19] MEDS: MULTIVITAMINS THERAPEUTIC TAB PO SCH (09:11)
[2018-11-19] MEDS: THIAMINE 100 MG TAB PO SCH (09:11)
[2018-11-19] MEDS: FOLIC ACID 1 MG TAB PO SCH (09:11)
--- NOTE | 2018-11-19 10:36 | NUR ---
PT EVALUATION , Therapy day number 1 Evaluation Start Time 10:05 Evaluation Total Time 0 min Subjective Denies pain Pain Scale NUMERIC Pain Intensity 0 (0-10) Patient Stated Goal for Pain Relief 0 (0-10) Pain Level Comment N/A Pre Treatment Vital Signs Stable Yes - BP:139/80 HR:70 02 SAT N40LPM , 80% O2 , TEM.37C Exercise Assessment Label Bilat Lower Extremity Exercise Type Active ROM Additional Exercise Comments AP, KNEE FLEX, EXT, SAQ . Supine to Sit Contact Guard Assist Transfer Sit to Stand Ability Contact Guard Assist Bed Mobility Sit to Supine Contact Guard Assist Sitting Tolerance 15 min Patient uses wheelchair Not Applicable Gait Assist Levels Contact Guard Assist Assistive Devices Front Wheel Walker Additional Gait Comments 5 STEPS C3 , INCLUDING SIDE STEPS . Weight Bearing Assessment Label Bilat Lower Extremity Weight Bearing Status Full Weight Bearing Static Sitting Balance Good Dynamic Sitting Balance Good Standing Static Balance Good Dynamic Standing Balance Fair plus Additional Balance Assessments Comments W/FWW Safety Judgement Good Equipment Present A pump Alvarado Catheter IV pump Additional Equipment Present ON 80% FIO2 FROM 100%. Post Treatment Pain Intensity 0 0-10 Quality Indicators Weak Cough Additional Post Treatment Comment P/S SEE PT NOTE . PT Technical Record Comment PT EVALUATION , S: RN CLEARED , PATIENT AGREEABLE .PATIENT IS [place] SPEAKING , STAFF PRESENT TO ASSIST WITH TRANSLATION , ALSO PATIENT ABLE TO FOLLOW ONE STEP COMMAND IN DANISH . O: PATIENT IS A 58 Y/O MALE WITH PMH: ALCOHOLIC LIVER DISEASE, DM , WEIGHT LOSS , CACHEXIA AND VITILIGO ADMITTED TO [facility] WITH PROGRESSIVE WORSENING SOB FOUND TO HAVE MULTIFOCAL PNEUMONIA . PATIENT FOUND IN BED COOPERATIVE AND MOTIVATED , INSTRUCTED HIM IN SAFETY FALL PRECAUTION , AND A/KENA BLE'S , P/S SEE PT NOTE FOR PATIENT'S FUNCTIONAL STATUS , GAIT TR W/FWW PERFORMED 5 STEPS X3 WITH CGA , REQUIRES VC'S FOR SEQUENCING , NO C/O SOB OR DIZZINESS DURING PT SESSION , RETURNED BACK TO BED WITH CGA , BP: 139/80 HR: 70 , NOW AFTER PT SESSION 80% OF FIO2 FROM 100%.RN NOTIFIED PATIENT'S FUNCTIONAL STATUS . A: PATIENT LIVES WITH IN A SECOND FLOOR APARTMENT WITH NO ELEVATOR ACCESS , PLAN TO RETURN HOME ONCE CLEARED BY MD .MAY NEED AD. P: PT DAILY X6 , ( THERA EXE'S BLE'S / ROM BLE'S , TRANSFER TR, GAIT TR WITH AD AND PROGRESS TO SUAD, PATIENT EDUCATION , TRAINING .
--- NOTE | 2018-11-19 11:11 | CONS ---
Date/Time of Note Date/Time of Note DATE: 11/19/18 TIME: 11:08 Assessment/Plan Assessment/Plan Assessment/Plan Chest x-ray was reviewed from yesterday afternoon which is showing significant improvement in bilateral basilar pneumonia. Assessment recommendations; 1. Patient admitted with bilateral lower lobe community acquired pneumonia with significant clinical and radiological improvement. 2. Negative HIV test. 3. Leukopenia on admission possibly related to pneumonia. 4. Currently there is no indication to suggest PCP pneumonia. Continue current supportive care. Consider stopping Bactrim. Result Diagram: 11/19/18 0505 11/19/18 0505 Results 24hrs Laboratory Tests Test 11/18/18 11:16 11/18/18 17:26 11/18/18 20:23 11/18/18 21:40 Bedside Glucose 355 H 474 *H 336 H Blood Gas Blood arterial Specimen Source Arterial Blood 11/18/2018 9:40 Date Drawn :37 PM Arterial Blood 7.497 H pH (Temp corrected ) Arterial Blood 32.9 L pCO2 (Temp correct) Arterial Blood 107.8 H pO2 (Temp corrected ) Arterial Blood 24.9 HCO3 Arterial Blood 2.0 Base Excess Arterial Blood 97.7 Oxygen Saturati on Abhijit Test ACCEPTAB Arterial Blood Right Radial Gas Puncture Site Arterial 0.4 Blood Carboxyhe moglobin Arterial Blood 0.3 Methemoglobin Blood Gas A-a 572.3 H O2 Differential Oxyhemoglobin 97.0 Percent Blood Gas 37.0 Temperature Blood Gas 22 Actual Respiration Rat e Blood Gas HFNC Modality FiO2 100.0 Blood Gas [place] Notified Whom Blood Gas 11/18/2018 9:53 Notified Time :12 PM Test 11/19/18 02:11 11/19/18 05:05 11/19/18 08:09 Bedside Glucose 256 H 226 H White Blood 8.0 # Count Red Blood Count 3.19 L Hemoglobin 10.4 L Hematocrit 29.3 L Mean 91.8 Corpuscular Volume Mean 32.6 Corpuscular Hemoglobin Mean 35.5 Corpuscular Hemoglobin Conc ent Red Cell 12.8 Distribution Width Platelet Count 130 #L Mean Platelet 10.1 Volume Immature 1.700 H Granulocytes % Neutrophils % Segmented 68 Neutrophils % (Manual) Band 14 H Neutrophils % (Manual) Lymphocytes % Lymphocytes % 10 L (Manual) Reactive 1 H Lymphocytes % (Manual) Monocytes % Monocytes % 6 (Manual) Eosinophils % Basophils % Basophils % 1 (Manual) Nucleated Red 0.0 Blood Cells % Immature 0.140 H Granulocytes # Neutrophils # Neutrophils # 5.5 (Manual) Band 1.1 H Neutrophils # Lymphocytes 0.8 (Manual) Lymphocytes # Reactive 0.0 Lymphocytes # Monocytes # Monocytes # 0.4 (Manual) Eosinophils # Basophils # Basophils # 0.0 (Manual) Nucleated Red Blood Cells # Toxic 1+ Granulation Platelet DECREASED Estimate Giant Platelets 1 H Polychromasia 1+ Anisocytosis 2+ Macrocytosis 2+ Target Cells 1+ Sodium Level 133 L Potassium Level 3.6 Chloride Level 97 Carbon Dioxide 26 Level Anion Gap 10 Blood Urea 17 Nitrogen Creatinine 0.41 L Est Glomerular > 60 Filtrat Rate mL/min Glucose Level 155 # Calcium Level 7.9 L Phosphorus 2.9 Level Magnesium Level 2.0 Total Bilirubin 0.7 Direct 0.00 Bilirubin Indirect 0.7 Bilirubin Aspartate Amino 99 H Transf (AST/SGO T) Alanine 48 Aminotransferas e (ALT/SGPT) Alkaline 462 H Phosphatase Total Protein 4.6 L Albumin 2.2 L Globulin 2.40 Albumin/Globuli 0.91 n Ratio Consultation Date/Type/Reason Admit Date/Time Nov 14, 2018 at 04:59 Initial Consult Date 11/18/18 Type of Consult Pulmonary Pulmonary consult requested for evaluation of pneumonia and hypoxemia. History of presenting illness; patient is a pleasant 58-year-old male who came into the hospital with a few days history of increasing shortness of breath. Patient has been diagnosed with bilateral pneumonia with strep pneumonia cultured from blood. Patient feeling somewhat better but still requiring high flow nasal cannula at 100% FiO2. Patient denies any recent high fever, chills, any body aches or myalgias to suggest any viral infection. According to him he was fine until a few days ago when the symptoms started. Past medical history; 1. History of diabetes. 2. Hypertension. Medications; reviewed. Allergies; none. Social history; never smoked. Family history; patient is , has supportive family. 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 Review of systems; denies any headache, seizures, sinus symptoms. Any chest pain. Denies any shortness of breath at rest. Denies any wheezing, complains of scant cough without any sputum production. Denies any high fever, chills, b warren aches myalgias. Any abdominal pain, nausea vomiting. Any edema. Any urinary symptoms. Any weight loss. General exam; middle-aged male, awake alert, currently in no distress. On high flow nasal cannula. 24 HR Interval Summary Free Text/Dictation Patient's condition is gradually improving. Denies any shortness of breath at rest. Any fever or chills. Any wheezing or sputum production. General exam; middle-aged male, awake alert, currently no distress. Exam/Review of Systems Vital Signs Vitals Vital Signs Date Temp Pulse Resp B/P (MAP) Pulse Ox O2 O2 Flow FiO2 Time Delivery Rate 11/19/18 89 80 08:55 11/19/18 68 08:31 11/19/18 98.6 16 101/58 Room Air 07:43 (72) 11/16/18 3.0 20:38 Intake and Output 11/18/18 11/18/18 11/19/18 1515:00 23:00 07:00 IntakeIntake Total 720 ml 720 ml OutputOutput Total 1100 ml BalanceBalance -380 ml 720 ml Exam H HEENT exam; supple neck, no JVD. No lymphadenopathy. Midline trachea. No thyromegaly. Pharynx is clear. Patient has fair dentition. No neck masses. Chest exam; diminished but clear breath sounds. S1-S2 audible, no murmurs. Regular rhythm. Abdomen exam; soft, no organomegaly. Bowel sounds audible. Extremity exam; no peripheral edema or clubbing. VP & GENERAL COUNSEL exam; no focal deficit. Medications Medications Current Medications IV Flush (NS 3 ml) 3 ml PER PROTOCOL IV ; Start 11/14/18 at 07:00 Ondansetron HCl (Zofran Inj) 4 mg Q6H PRN IV NAUSEA AND/OR VOMITING; Start 11/14/18 at 07:00 Acetaminophen (Tylenol Tab) 650 mg Q6H PRN PO PAIN LEVEL 1-3 OR FEVER Last administered on 11/16/18at 08:39; Admin Dose 650 MG; Start 11/14/18 at 07:00 Diagnostic Test (Pha) (Accu-Chek) 1 ea 02 XX Last administered on 11/19/18at 02:35; Admin Dose 1 EA; Start 11/15/18 at 02:00 Insulin Aspart (Novolog Insulin Pen) NOVOLOG *MODERATE* ALGORITHM WITH MEALS BEDTIME SC Last administered on 11/19/18at 08:13; Admin Dose 6 UNIT; Start 11/14/18 at 08:00 Miscellaneous Information 1 ea NOTE XX ; Start 11/14/18 at 07:00 Glucose (Glutose) 15 gm Q15M PRN PO DECREASED GLUCOSE; Start 11/14/18 at 07:00 Glucose (Glutose) 22.5 gm Q15M PRN PO DECREASED GLUCOSE; Start 11/14/18 at 07:00 Dextrose (D50w Syringe) 25 ml Q15M PRN IV DECREASED GLUCOSE Last administered on 11/15/18at 02:12; Admin Dose 25 ML; Start 11/14/18 at 07:00 Dextrose (D50w Syringe) 50 ml Q15M PRN IV DECREASED GLUCOSE; Start 11/14/18 at 07:00 Glucagon (Glucagen) 1 mg Q15M PRN IM DECREASED GLUCOSE; Start 11/14/18 at 07:00 Glucose (Glutose) 15 gm Q15M PRN BUCCAL DECREASED GLUCOSE; Start 11/14/18 at 07:00 Thiamine HCl (Vitamin B1) 100 mg DAILY PO Last administered on 11/19/18at 09:11; Admin Dose 100 MG; Start 11/14/18 at 14:30 Folic Acid (Folic Acid) 1 mg DAILY PO Last administered on 11/19/18at 09:11; Admin Dose 1 MG; Start 11/14/18 at 14:30 Multivitamins Therapeutic (Theragran) 1 tab DAILY PO Last administered on 10/25 06/10at 09:11; Admin Dose 1 TAB; Start 11/14/18 at 14:30 Metoclopramide HCl (Reglan) 5 mg WITH MEALS IV Last administered on 11/19/18at 09:11; Admin Dose 5 MG; Start 11/14/18 at 17:35 Lorazepam (Ativan) 0.5 mg Q4H PRN IV anxiety, withdrawals; Start 11/14/18 at 14:30 Megestrol Acetate (Megace Susp) 400 mg BID PO Last administered on 11/19/18at 09:10; Admin Dose 400 MG; Start 11/15/18 at 13:30 Metoprolol Tartrate (Lopressor) 25 mg BID PO Last administered on 11/17/18at 21:16; Admin Dose 25 MG; Start 11/16/18 at 10:30 Fluconazole/ Sodium Chloride 50 ml @ 50 mls/hr Q24H IVPB Last administered on 11/18/18 15:10; Admin Dose 50 MLS/HR; Start 11/17/18 at 14:00 Trimethoprim/ Sulfamethoxazole 20 ml/Dextrose 520 ml @ 343.333 mls/hr Q8 IVPB Last administered on 11/19/18 06:50; Admin Dose 343.333 MLS/HR; Start 11/17/18 at 14:00 Pantoprazole (Protonix Tab) 40 mg DAILY@06 PO Last administered on 11/19/18 05:17; Admin Dose 40 MG; Start 11/18/18 at 06:00 Methylprednisolone Sodium Succinate (Solu-Medrol) 30 mg Q12 IV Last administered on 11/19/18 09:11; Admin Dose 30 MG; Start 11/17/18 at 14:00 Piperacillin Sod/ Tazobactam Sod 100 ml @ 200 mls/hr Q6 IVPB Last administered on 11/19/18at 05:18; Admin Dose 200 MLS/HR; Start 11/18/18 at 00:00 Insulin Detemir (Levemir) 13 units BID SC Last administered on 11/19/18 09:06; Admin Dose 13 UNITS; Start 11/18/18 at 21:00 Levofloxacin/ Dextrose 150 ml @ 100 mls/hr Q24H IVPB Last administered on 11/18/18at 13:23; Admin Dose 100 MLS/HR; Start 11/18/18 at 12:00 Zolpidem Tartrate (Ambien) 5 mg HS PRN PO INSOMNIA; Start 11/19/18 at 21:00 Insulin Aspart (Novolog Insulin Pen) 6 unit WITH MEALS SC Last administered on 11/19/18at 09:07; Admin Dose 6 UNIT; Start 11/19/18 at 09:30 NIGHAT ROSALES Nov 19, 2018 11:11
[2018-11-19] MEDS: LEVOFLOXACIN 750MG/D5W (PMX) 150 ML IVPB SCH (12:22)
--- NOTE | 2018-11-19 14:12 | NUR ---
SW: ETOH CONSULT SW was consulted to meet with this patient regarding alcohol abuse. Patient states he currently lives at home with his and adult children [address], [place] [address]. 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 States he is . States he is Jehovahs witness, and states no blood. Patient denied having an AHCD, and he verbally designated his daughter Rae Orellana ([phone]) as his surrogate spokesperson, and his son Yash Orellana ([phone]) as secondary surrogate spokesperson. Substance use: Patient states he currently drinks about 3 beers daily. States that he used to drink a lot more, but he cut it down two three beers a day, about 15 days ago. States he has gone to rehab in the past, but states he did not like it. Patient declined any/ all resources, stating that he does not want to go to rehab. Patient states that he does not plan to drink again because he promised his that he would stay sober. States he has been studying the bible and plans to stay sober. Patient denies any questions/ concerns at this time. Declined any/ all resources at this time. SW remains available as needed throughout patient's treatment process.
--- NOTE | 2018-11-19 14:40 | CONS ---
Date/Time of Note Date/Time of Note DATE: 11/19/18 TIME: 14:39 Assessment/Plan Assessment/Plan Hospital Course No acute changes overnight patient remains on high flow oxygen looks comfortable no fevers WBC 8 platelets 130 neutrophils 68 bands 14 BUN 17 creatinine 0.41 Antimicrobials: Levaquin Zosyn fluconazole Bactrim Physical examination: Well-developed middle-aged man who is lying comfortably in bed head atraumatic normocephalic neck is supple chest rise symmetrical breath sounds with scattered rhonchi diminished bases. Heart: S1- S2. Abdomen soft bowel sounds present. Extremities without cyanosis edema. Assessment: 1. Sepsis with strep bacteremia on admission==> 2D echo revealed no vegetations 2. Multifocal pneumonia 3. Acute hypoxemic respiratory failure 4. Diabetes 5. Hypertension 6. Immunocompromised 7. History of chronic alcohol abuse Plan: Clinically unchanged, continue present care, steroids and antibiotics, pulmonary recommendations noted patient was started on Levaquin Result Diagram: 11/19/18 0505 11/19/18 0505 Results 24hrs Laboratory Tests Test 11/18/18 17:26 11/18/18 20:23 11/18/18 21:40 11/19/18 02:11 Bedside Glucose 474 *H 336 H 256 H Blood Gas Blood arterial Specimen Source Arterial Blood 11/18/2018 9:40 Date Drawn :37 PM Arterial Blood 7.497 H pH (Temp corrected ) Arterial Blood 32.9 L pCO2 (Temp correct) Arterial Blood 107.8 H pO2 (Temp corrected ) Arterial Blood 24.9 HCO3 Arterial Blood 2.0 Base Excess Arterial Blood 97.7 Oxygen Saturati on Abhijit Test ACCEPTAB Arterial Blood Right Radial Gas Puncture Site Arterial 0.4 Blood Carboxyhe moglobin Arterial Blood 0.3 Methemoglobin Blood Gas A-a 572.3 H O2 Differential Oxyhemoglobin 97.0 Percent Blood Gas 37.0 Temperature Blood Gas 22 Actual Respiration Rat e Blood Gas HFNC Modality FiO2 100.0 Blood Gas [place] Notified Whom Blood Gas 11/18/2018 9:53 Notified Time :12 PM Test 11/19/18 05:05 11/19/18 08:09 11/19/18 12:18 White Blood 8.0 # Count Red Blood Count 3.19 L Hemoglobin 10.4 L Hematocrit 29.3 L Mean 91.8 Corpuscular Volume Mean 32.6 Corpuscular Hemoglobin Mean 35.5 Corpuscular Hemoglobin Conc ent Red Cell 12.8 Distribution Width Platelet Count 130 #L Mean Platelet 10.1 Volume Immature 1.700 H Granulocytes % Neutrophils % Segmented 68 Neutrophils % (Manual) Band 14 H Neutrophils % (Manual) Lymphocytes % Lymphocytes % 10 L (Manual) Reactive 1 H Lymphocytes % (Manual) Monocytes % Monocytes % 6 (Manual) Eosinophils % Basophils % Basophils % 1 (Manual) Nucleated Red 0.0 Blood Cells % Immature 0.140 H Granulocytes # Neutrophils # Neutrophils # 5.5 (Manual) Band 1.1 H Neutrophils # Lymphocytes 0.8 (Manual) Lymphocytes # Reactive 0.0 Lymphocytes # Monocytes # Monocytes # 0.4 (Manual) Eosinophils # Basophils # Basophils # 0.0 (Manual) Nucleated Red Blood Cells # Toxic 1+ Granulation Platelet DECREASED Estimate Giant Platelets 1 H Polychromasia 1+ Anisocytosis 2+ Macrocytosis 2+ Target Cells 1+ Sodium Level 133 L Potassium Level 3.6 Chloride Level 97 Carbon Dioxide 26 Level Anion Gap 10 Blood Urea 17 Nitrogen Creatinine 0.41 L Est Glomerular > 60 Filtrat Rate mL/min Glucose Level 155 # Calcium Level 7.9 L Phosphorus 2.9 Level Magnesium Level 2.0 Total Bilirubin 0.7 Direct 0.00 Bilirubin Indirect 0.7 Bilirubin Aspartate Amino 99 H Transf (AST/SGO T) Alanine 48 Aminotransferas e (ALT/SGPT) Alkaline 462 H Phosphatase Total Protein 4.6 L Albumin 2.2 L Globulin 2.40 Albumin/Globuli 0.91 n Ratio Bedside Glucose 226 H 283 H Consultation Date/Type/Reason Admit Date/Time Nov 14, 2018 at 04:59 Initial Consult Date Type of Consult id Exam/Review of Systems Vital Signs Vitals Vital Signs Date Temp Pulse Resp B/P (MAP) Pulse Ox O2 O2 Flow FiO2 Time Delivery Rate 11/19/18 68 13:31 11/19/18 98.4 21 107/62 92 11:36 (77) 11/19/18 80 11:08 11/19/18 Room Air 07:43 11/16/18 3.0 20:38 Intake and Output 11/18/18 11/18/18 11/19/18 1515:00 23:00 07:00 IntakeIntake Total 720 ml 720 ml OutputOutput Total 1100 ml BalanceBalance -380 ml 720 ml Medications Medications Current Medications IV Flush (NS 3 ml) 3 ml PER PROTOCOL IV ; Start 11/14/18 at 07:00 Ondansetron HCl (Zofran Inj) 4 mg Q6H PRN IV NAUSEA AND/OR VOMITING; Start 11/14/18 at 07:00 Acetaminophen (Tylenol Tab) 650 mg Q6H PRN PO PAIN LEVEL 1-3 OR FEVER Last administered on 11/16/18at 08:39; Admin Dose 650 MG; Start 11/14/18 at 07:00 Diagnostic Test (Pha) (Accu-Chek) 1 ea 02 XX Last administered on 11/19/18at 02:35; Admin Dose 1 EA; Start 11/15/18 at 02:00 Insulin Aspart (Novolog Insulin Pen) NOVOLOG *MODERATE* ALGORITHM WITH MEALS BEDTIME SC Last administered on 11/19/18at 12:26; Admin Dose 8 UNIT; Start 11/14/18 at 08:00 Miscellaneous Information 1 ea NOTE XX ; Start 11/14/18 at 07:00 Glucose (Glutose) 15 gm Q15M PRN PO DECREASED GLUCOSE; Start 11/14/18 at 07:00 Glucose (Glutose) 22.5 gm Q15M PRN PO DECREASED GLUCOSE; Start 11/14/18 at 07:00 Dextrose (D50w Syringe) 25 ml Q15M PRN IV DECREASED GLUCOSE Last administered on 11/15/18at 02:12; Admin Dose 25 ML; Start 11/14/18 at 07:00 Dextrose (D50w Syringe) 50 ml Q15M PRN IV DECREASED GLUCOSE; Start 11/14/18 at 07:00 Glucagon (Glucagen) 1 mg Q15M PRN IM DECREASED GLUCOSE; Start 11/14/18 at 07:00 Glucose (Glutose) 15 gm Q15M PRN BUCCAL DECREASED GLUCOSE; Start 11/14/18 at 07:00 Thiamine HCl (Vitamin B1) 100 mg DAILY PO Last administered on 11/19/18at 09:11; Admin Dose 100 MG; Start 11/14/18 at 14:30 Folic Acid (Folic Acid) 1 mg DAILY PO Last administered on 11/19/18at 09:11; Admin Dose 1 MG; Start 11/14/18 at 14:30 Multivitamins Therapeutic (Theragran) 1 tab DAILY PO Last administered on 11/19/18at 09:11; Admin Dose 1 TAB; Start 11/14/18 at 14:30 Metoclopramide HCl (Reglan) 5 mg WITH MEALS IV Last administered on 11/19/18 12:22; Admin Dose 5 MG; Start 11/14/18 at 17:35 Lorazepam (Ativan) 0.5 mg Q4H PRN IV anxiety, withdrawals; Start 11/14/18 at 14:30 Megestrol Acetate (Megace Susp) 400 mg BID PO Last administered on 11/19/18at 09:10; Admin Dose 400 MG; Start 11/15/18 at 13:30 Metoprolol Tartrate (Lopressor) 25 mg BID PO Last administered on 11/17/18 21:16; Admin Dose 25 MG; Start 11/16/18 at 10:30 Fluconazole/ Sodium Chloride 50 ml @ 50 mls/hr Q24H IVPB Last administered on 11/18/18at 15:10; Admin Dose 50 MLS/HR; Start 11/17/18 at 14:00 Trimethoprim/ Sulfamethoxazole 20 ml/Dextrose 520 ml @ 343.333 mls/hr Q8 IVPB Last administered on 11/19/18at 06:50; Admin Dose 343.333 MLS/HR; Start 11/17/18 at 14:00 Pantoprazole (Protonix Tab) 40 mg DAILY@06 PO Last administered on 11/19/18at 05:17; Admin Dose 40 MG; Start 11/18/18 at 06:00 Methylprednisolone Sodium Succinate (Solu-Medrol) 30 mg Q12 IV Last administered on 11/19/18at 09:11; Admin Dose 30 MG; Start 11/17/18 at 14:00 Piperacillin Sod/ Tazobactam Sod 100 ml @ 200 mls/hr Q6 IVPB Last administered on 11/19/18 12:22; Admin Dose 200 MLS/HR; Start 11/18/18 at 00:00 Insulin Detemir (Levemir) 13 units BID SC Last administered on 11/19/18 09:06; Admin Dose 13 UNITS; Start 11/18/18 at 21:00 Levofloxacin/ Dextrose 150 ml @ 100 mls/hr Q24H IVPB Last administered on 11/19/18at 12:22; Admin Dose 100 MLS/HR; Start 11/18/18 at 12:00 Zolpidem Tartrate (Ambien) 5 mg HS PRN PO INSOMNIA; Start 11/19/18 at 21:00 Insulin Aspart (Novolog Insulin Pen) 6 unit WITH MEALS SC Last administered on 11/19/18at 12:25; Admin Dose 6 UNIT; Start 11/19/18 at 09:30 RONAK MCCULLOUGH NP Nov 19, 2018 14:40
[2018-11-19] MEDS: FLUCONAZOLE 100 MG/50 ML (PMX) 50 ML IVPB SCH (14:59)
[2018-11-19] MEDS ORDERED: ZOLPIDEM 5 MG TAB PO PRN (21:00)
[2018-11-20] VITALS (10 sets, daily range): BP systolic 93–132; BP diastolic 53–72; PULSE 60–89; RESP 18–20
[2018-11-20] MEDS: PIPER-TAZO 3.375 GM IV (PMX) 100 ML IVPB SCH ×4 (00:38→17:37)
[2018-11-20] MEDS: ACCU-CHEK XX SCH (01:24)
[2018-11-20] MEDS: TRIMETHOPRIM/SULFAMETHOXAZOLE 20 ML in DEXTROSE 5% 500 ML IVPB SCH ×3 (06:57→22:51)
[2018-11-20] MEDS: PANTOPRAZOLE (EC) 40 MG TAB PO SCH (06:57)
[2018-11-20] MEDS: MEGESTROL (40 MG/ML) 10ML CUP PO SCH ×2 (08:20→20:17)
[2018-11-20] MEDS: MULTIVITAMINS THERAPEUTIC TAB PO SCH (08:20)
[2018-11-20] MEDS: METOCLOPRAMIDE 10 MG INJ IV SCH ×3 (08:20→17:37)
[2018-11-20] MEDS: FOLIC ACID 1 MG TAB PO SCH (08:20)
[2018-11-20] MEDS: METHYLPREDNISOLONE 40 MG INJ IV SCH ×2 (08:20→20:17)
[2018-11-20] MEDS: THIAMINE 100 MG TAB PO SCH (08:21)
[2018-11-20] MEDS: INSULIN DETEMIR [LEVEMIR] (100 UNITS/ML) SYG SC SCH ×2 (08:24→20:59)
[2018-11-20] MEDS: INSULIN ASPART [NOVOLOG] 3 ML PEN SC SCH ×7 (08:25→20:59)
[2018-11-20] MEDS: METOPROLOL 25 MG TAB PO SCH ×2 (09:00→20:18)
--- NOTE | 2018-11-20 10:29 | NUR ---
PT NOTE , Therapy day number 2 Subjective Denies pain Pain Scale NUMERIC Pain Intensity 0 (0-10) Patient Stated Goal for Pain Relief 0 (0-10) Pain Level Comment N/A Pre Treatment Vital Signs Stable Yes Exercise Assessment Label Bilat Lower Extremity Exercise Type Active ROM Additional Exercise Comments AP, KNEE FLEX, EXT, SAQ , ISOMETRIC EXE'S BLE'S , Exercise Start Time 09:00 Exercise End Time 09:28 Total Exercise Time 28 min (8-127) Supine to Sit Stand by Assist Transfer Sit to Stand Ability Stand by Assist Bed Mobility Sit to Supine Stand by Assist Sitting Tolerance 20 min Patient uses wheelchair Not Applicable Gait Training Start Time 09:28 Gait Assist Levels Contact Guard Assist Assistive Devices Front Wheel Walker Additional Gait Comments 5 STEPS X4 WITH 02 . Gait Training End Time 09:40 Total Gait Training Treatment Time 12 min (8-127) Weight Bearing Assessment Label Bilat Lower Extremity Weight Bearing Status Full Weight Bearing Static Sitting Balance Good Dynamic Sitting Balance Fair minus Standing Static Balance Good Dynamic Standing Balance Fair plus Additional Balance Assessments Comments W/FWW Safety Judgement Good Activity Tolerance Poor Equipment Present A pump IV pump Additional Equipment Present ON HIGH FLOW OW 40 LPM, 100% TEM.37 DEGREE Post Treatment Pain Intensity 0 0-10 Quality Indicators Weak Cough Additional Post Treatment Comment P/S SEE PT NOTE . Total Treament Time 40 min (8-127) Total Minutes 40 Total Units 3 PT Technical Record Comment PT EVALUATION , RN CLEARED , PATIENT AGREEABLE , RN IN ROOM DURING PT SESSION , PATIENT SEEN WITH HIGH FLOW 02 40LPM , 100% TEM.37 DEGREE, 02 SAT IN SUPINE POSITION 95%, AT EOB 92% , DURING STANDING AND GAIT TR 02 SAT FLUCTUATES BETWEEN 89% TO 94% , NO C/O DIZZINESS AND NO SON NOTED DURING LIGHT ACTIVITIES , GAIT TR W/FWW PERFORMED 5 STEPS X4 ( WITH 4 SITTING RESTING PERIODS), VS STABLE BP:100/55 HR:75 POST PT SESSION , PATIENT RETURNED BACK TO BED BED ALARM ACTIVATED . A: DC PLANNING PENDING PATIENT'S PROGRESS . P: CONTINUE WITH POC , WILL MONITOR O2 SAT WHILE IN BED / EOB AND GAIT TR . PER MD RECOMMENDATION WOULD LIKE TO KEEP O2 SAT ABOVE 90%..
--- NOTE | 2018-11-20 11:04 | NUR ---
EOSS: PATIENT A/O X3-4, SR ON MONITOR, VSS, ON HIGH FLOW, NO C/O CP OR SOB, NO ACUTE EVENTS OVER NIGHT. PATIENT IS CLEAN AND DRY, HAS CALL LIGHT IN REACH, BED IN LOWEST POSITION, BED ALARM ON, ROOM IS CLUTTER FREE. CONTINUE POC; WILL ENDORSE TO RN.
--- NOTE | 2018-11-20 12:19 | PN ---
DATE: 11/20/2018 SUBJECTIVE: The patient was stable overnight, currently on high flow oxygen. No hemoptysis, hematem esis or hematochezia. OBJECTIVE: VITAL SIGNS: Blood pressure is 99/58, respiration 18, pulse 75, temperature 98.1. HEENT: Head is normocephalic. NECK: Supple. HEART: Regular rate. LUNGS: Show diminished breath sounds at the base. ABDOMEN: Soft, nontender to palpation without rebound or guarding. EXTREMITIES: Negative for clubbing, cyanosis, no edema. DERMATOLOGIC: The patient is noted. NEUROLOGIC: No focal deficits. MEDICATIONS: Reviewed. LABORATORY DATA: Shows white count 7.3, hemoglobin 9.8, platelet count is 162. Sodium 137, potassiu m 3.6, BUN 15, creatinine 0.42, glucose is 287. ASSESSMENT AND PLAN: 1. Acute hypoxemic respiratory failure secondary to multifocal pneumonia. Continue high flow oxygen . Continue antibiotic therapy. Will follow up with pulmonary for further recommendations. 2. Sepsis secondary to multifocal pneumonia in immunocompromised patient. The patient is currently on broad spectrum antibiotics, antifungal therapy. The patient is also being treated for possible PC P with Bactrim. Continue current medical management. Follow up infectious disease. 3. Diabetes. Continue current insulin regimen, adjust as needed. 4. History of ETOH abuse. Continue to monitor. 5. Anemia. Monitor hemoglobin and hematocrit levels. 6. History of hypertension. Continue to monitor. 7. Vitiligo. Continue to monitor. 8. Gastrointestinal and deep vein thrombosis prophylaxis. 9. General debility. Dictated By: JIM SCHULTE/BOBBI Conf#: [id number] DID#: [id number] CC: ANA CRISTINA HILL MD;*EndCC*
--- NOTE | 2018-11-20 13:05 | CONS ---
Date/Time of Note Date/Time of Note DATE: 11/20/18 TIME: 13:03 Assessment/Plan Assessment/Plan Hospital Course Patient is alert eating lunch, comfortable on high flow, no fevers overnight WBC 7.3 H&H 9.8 and 27 platelet count 162 BUN 15 creatinine 0.42 Microbiology: Sputum culture growing Margarita albicans Antimicrobials: Levaquin Zosyn fluconazole Bactrim Physical examination: Well-developed middle-aged man who is lying comfortably in bed head atraumatic normocephalic neck is supple chest rise symmetrical breath sounds with scattered rhonchi diminished bases. Heart: S1- S2. Abdomen soft bowel sounds present. Extremities without cyanosis edema. Assessment: 1. Sepsis with strep bacteremia on admission==> 2D echo revealed no vegetations 2. Multifocal pneumonia 3. Acute hypoxemic respiratory failure 4. Diabetes 5. Hypertension 6. Immunocompromised 7. History of chronic alcohol abuse Plan: Clinically stable, continue present care, steroids and antibiotics, f/u pulmonary recommendations Result Diagram: 11/20/18 0447 11/20/18 0447 Results 24hrs Laboratory Tests Test 11/19/18 17:04 11/19/18 20:45 11/20/18 01:23 11/20/18 04:47 Bedside Glucose 275 H 191 274 H White Blood 7.3 Count Red Blood Count 3.02 L Hemoglobin 9.8 L Hematocrit 27.8 L Mean Corpuscular 92.1 Volume Mean Corpuscular 32.5 Hemoglobin Mean Corpuscular 35.3 Hemoglobin Navya nt Red Cell 13.0 Distribution Width Platelet Count 162 # Mean Platelet 9.9 Volume Immature 1.800 H Granulocytes % Neutrophils % Segmented 90 H Neutrophils % (Manual) Lymphocytes % Lymphocytes % 4 L (Manual) Reactive 3 H Lymphocytes % (Manual) Monocytes % Monocytes % 3 (Manual) Eosinophils % Basophils % Nucleated Red 1 H Blood Cells % Immature 0.130 H Granulocytes # Neutrophils # Lymphocytes 0.2 L (Manual) Lymphocytes # Reactive 0.2 H Lymphocytes # Monocytes # Monocytes # 0.2 L (Manual) Eosinophils # Basophils # Nucleated Red Blood Cells # Platelet NORMAL Estimate Giant Platelets 2 H Polychromasia 1+ Anisocytosis 1+ Macrocytosis 1+ Target Cells 1+ Sodium Level 137 Potassium Level 3.6 Chloride Level 99 Carbon Dioxide 27 Level Anion Gap 11 Blood Urea 15 Nitrogen Creatinine 0.42 L Est Glomerular > 60 Filtrat Rate mL/min Glucose Level 220 Calcium Level 8.2 L Phosphorus Level 3.6 Magnesium Level 1.9 Total Bilirubin 0.6 Direct Bilirubin 0.00 Indirect 0.6 Bilirubin Aspartate Amino 69 H Transf (AST/SGOT ) Alanine 47 Aminotransferase (ALT/SGPT) Alkaline 376 H Phosphatase Total Protein 4.8 L Albumin 2.2 L Globulin 2.60 Albumin/Globulin 0.84 Ratio Test 11/20/18 08:18 11/20/18 12:29 Bedside Glucose 287 H 272 H Consultation Date/Type/Reason Admit Date/Time Nov 14, 2018 at 04:59 Initial Consult Date Type of Consult id Exam/Review of Systems Vital Signs Vitals Vital Signs Date Temp Pulse Resp B/P (MAP) Pulse Ox O2 O2 Flow FiO2 Time Delivery Rate 11/20/18 89 12:00 11/20/18 98.5 18 100/55 94 11:18 (70) 11/20/18 70 09:05 11/19/18 Nasal 20:23 Cannula 11/16/18 3.0 20:38 Intake and Output 11/19/18 11/19/18 11/20/18 1515:00 23:00 07:00 IntakeIntake Total 200 ml 1300 ml 1120 ml OutputOutput Total 500 ml 1600 ml 2500 ml BalanceBalance -300 ml -300 ml -1380 ml Medications Medications Current Medications IV Flush (NS 3 ml) 3 ml PER PROTOCOL IV ; Start 11/14/18 at 07:00 Ondansetron HCl (Zofran Inj) 4 mg Q6H PRN IV NAUSEA AND/OR VOMITING; Start 11/14/18 at 07:00 Acetaminophen (Tylenol Tab) 650 mg Q6H PRN PO PAIN LEVEL 1-3 OR FEVER Last administered on 11/16/18at 08:39; Admin Dose 650 MG; Start 11/14/18 at 07:00 Diagnostic Test (Pha) (Accu-Chek) 1 ea 02 XX Last administered on 11/20/18at 01:24; Admin Dose 1 EA; Start 11/15/18 at 02:00 Insulin Aspart (Novolog Insulin Pen) NOVOLOG *MODERATE* ALGORITHM WITH MEALS BEDTIME SC Last administered on 11/20/18at 12:34; Admin Dose 8 UNIT; Start 11/14/18 at 08:00 Miscellaneous Information 1 ea NOTE XX ; Start 11/14/18 at 07:00 Glucose (Glutose) 15 gm Q15M PRN PO DECREASED GLUCOSE; Start 11/14/18 at 07:00 Glucose (Glutose) 22.5 gm Q15M PRN PO DECREASED GLUCOSE; Start 11/14/18 at 07:00 Dextrose (D50w Syringe) 25 ml Q15M PRN IV DECREASED GLUCOSE Last administered on 11/15/18at 02:12; Admin Dose 25 ML; Start 11/14/18 at 07:00 Dextrose (D50w Syringe) 50 ml Q15M PRN IV DECREASED GLUCOSE; Start 11/14/18 at 07:00 Glucagon (Glucagen) 1 mg Q15M PRN IM DECREASED GLUCOSE; Start 11/14/18 at 07:00 Glucose (Glutose) 15 gm Q15M PRN BUCCAL DECREASED GLUCOSE; Start 11/14/18 at 07:00 Thiamine HCl (Vitamin B1) 100 mg DAILY PO Last administered on 11/20/18at 08:21; Admin Dose 100 MG; Start 11/14/18 at 14:30 Folic Acid (Folic Acid) 1 mg DAILY PO Last administered on 11/20/18at 08:20; Admin Dose 1 MG; Start 11/14/18 at 14:30 Multivitamins Therapeutic (Theragran) 1 tab DAILY PO Last administered on 11/20/18at 08:20; Admin Dose 1 TAB; Start 11/14/18 at 14:30 Metoclopramide HCl (Reglan) 5 mg WITH MEALS IV Last administered on 11/20/18at 08:20; Admin Dose 5 MG; Start 11/14/18 at 17:35 Lorazepam (Ativan) 0.5 mg Q4H PRN IV anxiety, withdrawals; Start 11/14/18 at 14:30 Megestrol Acetate (Megace Susp) 400 mg BID PO Last administered on 11/20/18at 08:20; Admin Dose 400 MG; Start 11/15/18 at 13:30 Metoprolol Tartrate (Lopressor) 25 mg BID PO Last administered on 11/19/18at 20:48; Admin Dose 25 MG; Start 11/16/18 at 10:30 Fluconazole/ Sodium Chloride 50 ml @ 50 mls/hr Q24H IVPB Last administered on 11/19/18at 14:59; Admin Dose 50 MLS/HR; Start 11/17/18 at 14:00 Trimethoprim/ Sulfamethoxazole 20 ml/Dextrose 520 ml @ 343.333 mls/hr Q8 IVPB Last administered on 11/20/18 06:57; Admin Dose 343.333 MLS/HR; Start 11/17/18 at 14:00 Pantoprazole (Protonix Tab) 40 mg DAILY@06 PO Last administered on 11/20/18at 06:57; Admin Dose 40 MG; Start 11/18/18 at 06:00 Methylprednisolone Sodium Succinate (Solu-Medrol) 30 mg Q12 IV Last administered on 11/20/18at 08:20; Admin Dose 30 MG; Start 11/17/18 at 14:00 Piperacillin Sod/ Tazobactam Sod 100 ml @ 200 mls/hr Q6 IVPB Last administered on 11/20/18at 05:10; Admin Dose 200 MLS/HR; Start 11/18/18 at 00:00 Insulin Detemir (Levemir) 13 units BID SC Last administered on 11/20/18 08:24; Admin Dose 13 UNITS; Start 11/18/18 at 21:00 Levofloxacin/ Dextrose 150 ml @ 100 mls/hr Q24H IVPB Last administered on 11/19/18at 12:22; Admin Dose 100 MLS/HR; Start 11/18/18 at 12:00 Zolpidem Tartrate (Ambien) 5 mg HS PRN PO INSOMNIA; Start 11/19/18 at 21:00 Insulin Aspart (Novolog Insulin Pen) 6 unit WITH MEALS SC Last administered on 11/20/18at 12:34; Admin Dose 6 UNIT; Start 11/19/18 at 09:30 RONAK MCCULLOUGH NP Nov 20, 2018 13:05
--- NOTE | 2018-11-20 13:19 | CONS ---
Date/Time of Note Date/Time of Note DATE: 11/20/18 TIME: 13:17 Consult Date/Type/Reason Admit Date/Time Nov 14, 2018 at 04:59 Initial Consult Date 11/18/18 Type of Consultation: Pulmonary ICU Subjective continues high flow O2 at 40 L/min 100% FiO2. Awake alert and oriented. Objective Vital Signs Date Temp Pulse Resp B/P (MAP) Pulse Ox O2 O2 Flow FiO2 Time Delivery Rate 11/20/18 92 100 12:50 11/20/18 89 12:00 11/20/18 98.5 18 100/55 11:18 (70) 11/19/18 Nasal 20:23 Cannula 11/16/18 3.0 20:38 Intake and Output 11/19/18 11/19/18 11/20/18 1515:00 23:00 07:00 IntakeIntake Total 200 ml 1300 ml 1120 ml OutputOutput Total 500 ml 1600 ml 2500 ml BalanceBalance -300 ml -300 ml -1380 ml Exam GENERAL: Frail older than age appearing gentleman VITAL SIGNS: per chart NECK: Supple. No JVD or lymphadenopathy. CARDIAC EXAM: S1, S2. No added sounds or murmurs. CHEST: Diminished air entry bilaterally ABDOMEN: Soft, nontender. No guarding or rebound. EXTREMITIES: No cyanosis, clubbing or edema. NEUROLOGIC: Generalized weakness. No focal deficits. Results/Medications Result Diagram: 11/20/18 0447 11/20/18 0447 Results 24 hrs Laboratory Tests Test 11/19/18 17:04 11/19/18 20:45 11/20/18 01:23 11/20/18 04:47 Bedside Glucose 275 H 191 274 H White Blood 7.3 Count Red Blood Count 3.02 L Hemoglobin 9.8 L Hematocrit 27.8 L Mean Corpuscular 92.1 Volume Mean Corpuscular 32.5 Hemoglobin Mean Corpuscular 35.3 Hemoglobin Navya nt Red Cell 13.0 Distribution Width Platelet Count 162 # Mean Platelet 9.9 Volume Immature 1.800 H Granulocytes % Neutrophils % Segmented 90 H Neutrophils % (Manual) Lymphocytes % Lymphocytes % 4 L (Manual) Reactive 3 H Lymphocytes % (Manual) Monocytes % Monocytes % 3 (Manual) Eosinophils % Basophils % Nucleated Red 1 H Blood Cells % Immature 0.130 H Granulocytes # Neutrophils # Lymphocytes 0.2 L (Manual) Lymphocytes # Reactive 0.2 H Lymphocytes # Monocytes # Monocytes # 0.2 L (Manual) Eosinophils # Basophils # Nucleated Red Blood Cells # Platelet NORMAL Estimate Giant Platelets 2 H Polychromasia 1+ Anisocytosis 1+ Macrocytosis 1+ Target Cells 1+ Sodium Level 137 Potassium Level 3.6 Chloride Level 99 Carbon Dioxide 27 Level Anion Gap 11 Blood Urea 15 Nitrogen Creatinine 0.42 L Est Glomerular > 60 Filtrat Rate mL/min Glucose Level 220 Calcium Level 8.2 L Phosphorus Level 3.6 Magnesium Level 1.9 Total Bilirubin 0.6 Direct Bilirubin 0.00 Indirect 0.6 Bilirubin Aspartate Amino 69 H Transf (AST/SGOT ) Alanine 47 Aminotransferase (ALT/SGPT) Alkaline 376 H Phosphatase Total Protein 4.8 L Albumin 2.2 L Globulin 2.60 Albumin/Globulin 0.84 Ratio Test 11/20/18 08:18 11/20/18 12:29 Bedside Glucose 287 H 272 H Medications Current Medications IV Flush (NS 3 ml) 3 ml PER PROTOCOL IV ; Start 11/14/18 at 07:00 Ondansetron HCl (Zofran Inj) 4 mg Q6H PRN IV NAUSEA AND/OR VOMITING; Start 11/14/18 at 07:00 Acetaminophen (Tylenol Tab) 650 mg Q6H PRN PO PAIN LEVEL 1-3 OR FEVER Last administered on 11/16/18at 08:39; Admin Dose 650 MG; Start 11/14/18 at 07:00 Diagnostic Test (Pha) (Accu-Chek) 1 ea 02 XX Last administered on 11/20/18at 01:24; Admin Dose 1 EA; Start 11/15/18 at 02:00 Insulin Aspart (Novolog Insulin Pen) NOVOLOG *MODERATE* ALGORITHM WITH MEALS BEDTIME SC Last administered on 11/20/18at 12:34; Admin Dose 8 UNIT; Start 11/14/18 at 08:00 Miscellaneous Information 1 ea NOTE XX ; Start 11/14/18 at 07:00 Glucose (Glutose) 15 gm Q15M PRN PO DECREASED GLUCOSE; Start 11/14/18 at 07:00 Glucose (Glutose) 22.5 gm Q15M PRN PO DECREASED GLUCOSE; Start 11/14/18 at 07:00 Dextrose (D50w Syringe) 25 ml Q15M PRN IV DECREASED GLUCOSE Last administered on 11/15/18at 02:12; Admin Dose 25 ML; Start 11/14/18 at 07:00 Dextrose (D50w Syringe) 50 ml Q15M PRN IV DECREASED GLUCOSE; Start 11/14/18 at 07:00 Glucagon (Glucagen) 1 mg Q15M PRN IM DECREASED GLUCOSE; Start 11/14/18 at 07:00 Glucose (Glutose) 15 gm Q15M PRN BUCCAL DECREASED GLUCOSE; Start 11/14/18 at 07:00 Thiamine HCl (Vitamin B1) 100 mg DAILY PO Last administered on 11/20/18at 08:21; Admin Dose 100 MG; Start 11/14/18 at 14:30 Folic Acid (Folic Acid) 1 mg DAILY PO Last administered on 11/20/18 08:20; Admin Dose 1 MG; Start 11/14/18 at 14:30 Multivitamins Therapeutic (Theragran) 1 tab DAILY PO Last administered on 11/20/18 08:20; Admin Dose 1 TAB; Start 11/14/18 at 14:30 Metoclopramide HCl (Reglan) 5 mg WITH MEALS IV Last administered on 11/20/18at 08:20; Admin Dose 5 MG; Start 11/14/18 at 17:35 Lorazepam (Ativan) 0.5 mg Q4H PRN IV anxiety, withdrawals; Start 11/14/18 at 14:30 Megestrol Acetate (Megace Susp) 400 mg BID PO Last administered on 11/20/18at 08:20; Admin Dose 400 MG; Start 11/15/18 at 13:30 Metoprolol Tartrate (Lopressor) 25 mg BID PO Last administered on 11/19/18at 20:48; Admin Dose 25 MG; Start 11/16/18 at 10:30 Fluconazole/ Sodium Chloride 50 ml @ 50 mls/hr Q24H IVPB Last administered on 11/19/18at 14:59; Admin Dose 50 MLS/HR; Start 11/17/18 at 14:00 Trimethoprim/ Sulfamethoxazole 20 ml/Dextrose 520 ml @ 343.333 mls/hr Q8 IVPB Last administered on 11/20/18at 06:57; Admin Dose 343.333 MLS/HR; Start 11/17/18 at 14:00 Pantoprazole (Protonix Tab) 40 mg DAILY@06 PO Last administered on 11/20/18at 06:57; Admin Dose 40 MG; Start 11/18/18 at 06:00 Methylprednisolone Sodium Succinate (Solu-Medrol) 30 mg Q12 IV Last administered on 11/20/18at 08:20; Admin Dose 30 MG; Start 11/17/18 at 14:00 Piperacillin Sod/ Tazobactam Sod 100 ml @ 200 mls/hr Q6 IVPB Last administered on 11/20/18at 05:10; Admin Dose 200 MLS/HR; Start 11/18/18 at 00:00 Insulin Detemir (Levemir) 13 units BID SC Last administered on 11/20/18at 08:24; Admin Dose 13 UNITS; Start 11/18/18 at 21:00 Levofloxacin/ Dextrose 150 ml @ 100 mls/hr Q24H IVPB Last administered on 11/19/18at 12:22; Admin Dose 100 MLS/HR; Start 11/18/18 at 12:00 Zolpidem Tartrate (Ambien) 5 mg HS PRN PO INSOMNIA; Start 11/19/18 at 21:00 Insulin Aspart (Novolog Insulin Pen) 6 unit WITH MEALS SC Last administered on 11/20/18at 12:34; Admin Dose 6 UNIT; Start 11/19/18 at 09:30 Assessment/Plan Chief Complaint/Hosp Course Assessment 1. Acute hypoxemic respiratory failure with significant bibasilar infiltrates 2. Negative HIV test 3. Significant cachexia and failure to thrive Plan 1. Repeat chest x-ray and ABG 2. Continues broad-spectrum antibiotics 3. Currently not stable for bronchoscopy this would require intubation and mechanical ventilation. SANDY CATALAN MD, [facility] Nov 20, 2018 13:19
[2018-11-20] MEDS: LEVOFLOXACIN 750MG/D5W (PMX) 150 ML IVPB SCH (13:36)
[2018-11-20] MEDS: FLUCONAZOLE 100 MG/50 ML (PMX) 50 ML IVPB SCH (14:38)
--- NOTE | 2018-11-20 18:00 | NUR ---
At 1100- Took over care from Kayla STEVE. Denies shortness of breath. On high flow O2 40 L, FIO2 100%. Continue with plan of care. Needs attended.
[2018-11-20 21:28] LABS: PNEUMOCYSTIS JIROVECCI DFA NOT DETECTED
[2018-11-21] VITALS (14 sets, daily range): BP systolic 88–117; BP diastolic 52–63; PULSE 61–89; RESP 18–19
[2018-11-21] MEDS: PIPER-TAZO 3.375 GM IV (PMX) 100 ML IVPB SCH ×5 (00:21→23:27)
[2018-11-21] MEDS: ACCU-CHEK XX SCH (01:46)
[2018-11-21] MEDS: PANTOPRAZOLE (EC) 40 MG TAB PO SCH (05:47)
--- NOTE | 2018-11-21 06:37 | NUR ---
end of shift note: pt status unchanged, still on high flow with 40 LPM with 80 Fi02, blood sugar in the 200s, VS stable overnight, no acute distress, continue to monitor pt
[2018-11-21] MEDS: TRIMETHOPRIM/SULFAMETHOXAZOLE 20 ML in DEXTROSE 5% 500 ML IVPB SCH ×3 (06:49→22:03)
[2018-11-21] MEDS: INSULIN ASPART [NOVOLOG] 3 ML PEN SC SCH ×7 (07:56→21:04)
[2018-11-21] MEDS: METHYLPREDNISOLONE 40 MG INJ IV SCH ×2 (08:06→20:51)
[2018-11-21] MEDS: MULTIVITAMINS THERAPEUTIC TAB PO SCH (08:06)
[2018-11-21] MEDS: MEGESTROL (40 MG/ML) 10ML CUP PO SCH ×2 (08:06→20:51)
[2018-11-21] MEDS: METOCLOPRAMIDE 10 MG INJ IV SCH ×3 (08:06→17:34)
[2018-11-21] MEDS: FOLIC ACID 1 MG TAB PO SCH (08:06)
[2018-11-21] MEDS: THIAMINE 100 MG TAB PO SCH (08:06)
[2018-11-21] MEDS: INSULIN DETEMIR [LEVEMIR] (100 UNITS/ML) SYG SC SCH ×2 (08:10→21:05)
--- NOTE | 2018-11-21 08:18 | PN ---
Date/Time of Note Date/Time of Note DATE: 11/21/18 TIME: 08:10 Assessment/Plan VTE Prophylaxis Risk score (from Nsg)>0 risk: 3 SCD applied (from Nsg): Yes Pharmacological prophylaxis: other Lines/Catheters IV Catheter Type (from Nrsg): Peripheral IV Urinary Cath still in place: No Assessment/Plan Hospital Course SUBJECTIVE: The patient was stable overnight, currently on high flow oxygen. No hemoptysis, hematemesis or hematochezia. OBJECTIVE: HEENT: Head is normocephalic. NECK: Supple. HEART: Regular rate. LUNGS: Show diminished breath sounds at the base. ABDOMEN: Soft, nontender to palpation without rebound or guarding. EXTREMITIES: Negative for clubbing, cyanosis, no edema. DERMATOLOGIC: The patient is noted. NEUROLOGIC: No focal deficits. MEDICATIONS: Reviewed. ASSESSMENT AND PLAN: 1. Acute hypoxemic respiratory failure secondary to multifocal pneumonia. Continue high flow oxygen. Continue antibiotic therapy. Will follow up with pulmonary for further recommendations. 2. Sepsis secondary to multifocal pneumonia in immunocompromised patient. The patient is currently on broad spectrum antibiotics, antifungal therapy. The patient is also being treated for possible PCP with Bactrim. Continue current medical management. Follow up infectious disease. 3. Diabetes. Continue current insulin regimen, adjust as needed. 4. History of ETOH abuse. Continue to monitor. 5. Anemia. Monitor hemoglobin and hematocrit levels. 6. History of hypertension. Continue to monitor. 7. Vitiligo. Continue to monitor. 8. Gastrointestinal and deep vein thrombosis prophylaxis. 9. General debility. Result Diagram: 11/21/18 0509 11/21/18 0509 Results 24hrs Laboratory Tests Test 11/20/18 08:18 11/20/18 12:29 11/20/18 17:35 11/20/18 20:14 Bedside Glucose 287 H 272 H 393 H 259 H Test 11/21/18 01:42 11/21/18 01:45 11/21/18 05:09 11/21/18 07:48 Bedside Glucose 323 H 252 H 329 H White Blood 8.9 # Count Red Blood Count 3.05 L Hemoglobin 9.8 L Hematocrit 27.8 L Mean Corpuscular 91.1 Volume Mean Corpuscular 32.1 Hemoglobin Mean Corpuscular 35.3 Hemoglobin Navya nt Red Cell 13.0 Distribution Width Platelet Count 214 # Mean Platelet 9.9 Volume Immature 1.600 H Granulocytes % Neutrophils % Lymphocytes % Monocytes % Eosinophils % Basophils % Nucleated Red 0.0 Blood Cells % Immature 0.140 H Granulocytes # Neutrophils # Lymphocytes # Monocytes # Eosinophils # Basophils # Nucleated Red Blood Cells # Sodium Level 134 L Potassium Level 3.9 Chloride Level 99 Carbon Dioxide 26 Level Anion Gap 9 Blood Urea 16 Nitrogen Creatinine 0.45 L Est Glomerular > 60 Filtrat Rate mL/min Glucose Level 232 H Calcium Level 8.4 Phosphorus Level 4.2 Magnesium Level 1.9 Exam/Review of Systems Vital Signs Vitals Vital Signs Date Temp Pulse Resp B/P (MAP) Pulse Ox O2 O2 Flow FiO2 Time Delivery Rate 11/21/18 98.8 62 18 99/57 (71) 95 Nasal 07:29 Cannula 11/21/18 80 05:35 Intake and Output 11/20/18 11/20/18 11/21/18 1515:00 23:00 07:00 IntakeIntake Total 920 ml 1700 ml 1220 ml OutputOutput Total 750 ml 1350 ml 1500 ml BalanceBalance 170 ml 350 ml -280 ml Medications Medications Current Medications IV Flush (NS 3 ml) 3 ml PER PROTOCOL IV ; Start 11/14/18 at 07:00 Ondansetron HCl (Zofran Inj) 4 mg Q6H PRN IV NAUSEA AND/OR VOMITING; Start 11/14/18 at 07:00 Acetaminophen (Tylenol Tab) 650 mg Q6H PRN PO PAIN LEVEL 1-3 OR FEVER Last administered on 11/16/18at 08:39; Admin Dose 650 MG; Start 11/14/18 at 07:00 Diagnostic Test (Pha) (Accu-Chek) 1 ea 02 XX Last administered on 11/21/18at 01:46; Admin Dose 1 EA; Start 11/15/18 at 02:00 Insulin Aspart (Novolog Insulin Pen) NOVOLOG *MODERATE* ALGORITHM WITH MEALS BEDTIME SC Last administered on 11/21/18at 07:56; Admin Dose 10 UNIT; Start 11/14/18 at 08:00 Miscellaneous Information 1 ea NOTE XX ; Start 11/14/18 at 07:00 Glucose (Glutose) 15 gm Q15M PRN PO DECREASED GLUCOSE; Start 11/14/18 at 07:00 Glucose (Glutose) 22.5 gm Q15M PRN PO DECREASED GLUCOSE; Start 11/14/18 at 07:00 Dextrose (D50w Syringe) 25 ml Q15M PRN IV DECREASED GLUCOSE Last administered on 11/15/18at 02:12; Admin Dose 25 ML; Start 11/14/18 at 07:00 Dextrose (D50w Syringe) 50 ml Q15M PRN IV DECREASED GLUCOSE; Start 11/14/18 at 07:00 Glucagon (Glucagen) 1 mg Q15M PRN IM DECREASED GLUCOSE; Start 11/14/18 at 07:00 Glucose (Glutose) 15 gm Q15M PRN BUCCAL DECREASED GLUCOSE; Start 11/14/18 at 07:00 Thiamine HCl (Vitamin B1) 100 mg DAILY PO Last administered on 11/20/18 08:21; Admin Dose 100 MG; Start 11/14/18 at 14:30 Folic Acid (Folic Acid) 1 mg DAILY PO Last administered on 11/20/18 08:20; Admin Dose 1 MG; Start 11/14/18 at 14:30 Multivitamins Therapeutic (Theragran) 1 tab DAILY PO Last administered on 11/20/18 08:20; Admin Dose 1 TAB; Start 11/14/18 at 14:30 Metoclopramide HCl (Reglan) 5 mg WITH MEALS IV Last administered on 11/20/18 17:37; Admin Dose 5 MG; Start 11/14/18 at 17:35 Lorazepam (Ativan) 0.5 mg Q4H PRN IV anxiety, withdrawals; Start 11/14/18 at 14:30 Megestrol Acetate (Megace Susp) 400 mg BID PO Last administered on 11/20/18at 20:17; Admin Dose 400 MG; Start 11/15/18 at 13:30 Metoprolol Tartrate (Lopressor) 25 mg BID PO Last administered on 11/20/18 20:18; Admin Dose 25 MG; Start 11/16/18 at 10:30 Fluconazole/ Sodium Chloride 50 ml @ 50 mls/hr Q24H IVPB Last administered on 11/20/18at 14:38; Admin Dose 50 MLS/HR; Start 11/17/18 at 14:00 Trimethoprim/ Sulfamethoxazole 20 ml/Dextrose 520 ml @ 343.333 mls/hr Q8 IVPB Last administered on 11/21/18at 06:49; Admin Dose 343.333 MLS/HR; Start 11/17/18 at 14:00 Pantoprazole (Protonix Tab) 40 mg DAILY@06 PO Last administered on 11/21/18 05:47; Admin Dose 40 MG; Start 11/18/18 at 06:00 Methylprednisolone Sodium Succinate (Solu-Medrol) 30 mg Q12 IV Last administered on 11/20/18at 20:17; Admin Dose 30 MG; Start 11/17/18 at 14:00 Piperacillin Sod/ Tazobactam Sod 100 ml @ 200 mls/hr Q6 IVPB Last administered on 11/21/18 05:47; Admin Dose 200 MLS/HR; Start 11/18/18 at 00:00 Insulin Detemir (Levemir) 13 units BID SC Last administered on 11/20/18at 20:59; Admin Dose 13 UNITS; Start 11/18/18 at 21:00 Levofloxacin/ Dextrose 150 ml @ 100 mls/hr Q24H IVPB Last administered on 11/20/18at 13:36; Admin Dose 100 MLS/HR; Start 11/18/18 at 12:00 Zolpidem Tartrate (Ambien) 5 mg HS PRN PO INSOMNIA; Start 11/19/18 at 21:00 Insulin Aspart (Novolog Insulin Pen) 6 unit WITH MEALS SC Last administered on 11/21/18 07:56; Admin Dose 6 UNIT; Start 11/19/18 at 09:30 JOSE LAWRENCE DO Nov 21, 2018 08:18
[2018-11-21] MEDS: METOPROLOL 25 MG TAB PO SCH ×2 (08:51→20:51)
--- NOTE | 2018-11-21 09:10 | NUR ---
PT NOTE [facility] Patient: Too Orellana : 1960 Age/Sex: 58/M Unit#: [id number] Room/Bed: 6/A User: Anne Marie Rodgers PTA Date: 11/21/18 08:45 Type: PT Technical Record Therapy day number 3 Subjective Denies pain Pain Scale NUMERIC Pain Intensity 0 (0-10) Patient Stated Goal for Pain Relief 0 (0-10) Pain Level Comment denied pain Pre Treatment Vital Signs Stable Yes - 117/63 mmhg, 76 bpm, 94% o2 sat on 40L/min high flow Exercise Assessment Label Bilat Lower Extremity Exercise Type Active ROM Additional Exercise Comments seated HRs, SAQs, marching; standing HRs, marching Exercise Start Time 08:45 Exercise End Time 09:00 Total Exercise Time 15 min (8-127) Supine to Sit Supervised Transfer Sit to Stand Ability Stand by Assist Bed Mobility Sit to Supine Supervised Patient uses wheelchair Not Applicable Gait Training Start Time 09:01 Gait Assist Levels Stand by Assist Assistive Devices Front Wheel Walker Ambulation Distance 4 feet Additional Gait Comments 4' fwd/bkwd x4 with FWW, no sitting break, reciprocal, poor posture Gait Training End Time 09:10 Total Gait Training Treatment Time 9 min (8-127) Weight Bearing Assessment Label Bilat Lower Extremity Weight Bearing Status Full Weight Bearing Static Sitting Balance Good Dynamic Sitting Balance Good Standing Static Balance Fair plus Dynamic Standing Balance Fair plus Additional Balance Assessments Comments with FWW Safety Judgement Good Activity Tolerance Fair Equipment Present A pump IV pump Additional Equipment Present High Flow 40L/min, 80% O2, 37 deg C Post Treatment Pain Intensity 0 0-10 Additional Post Treatment Comment see PT note Total Treament Time 24 min (8-127) Total Minutes 24 Total Units 2 PT Technical Record Comment PT NOTE S: Pt denied any pain. Agreed to skilled PT. Cleared by EVI Cantu. O: Received awake in semi-sweeney with RN at bedside. Pre tx vitals WNLs. O2 sat 94%. See tech record for assist levels. Transfered to EOB. Performed seated theres. STS with FWW. Gait training with FWW, reciprocal gait, poor posture with downward gaze, steady, no LOB. Ambulated 4' x4 fwd/bkwd. Seated break following gait training. Then completed standing exercises. Returned back to supine d/t fatigue. Positioned in semi-sweeney, call light and all necessities within reach, SCDs on, [employer] at bedside. A: Pt alistair tx well. O2 sat ranged from 90%-95% throughout tx. P: Continue with POC. MD ORDERS: O2 SAT MUST STAY ABOVE 90%.
--- NOTE | 2018-11-21 11:21 | CONS ---
Date/Time of Note Date/Time of Note DATE: 11/21/18 TIME: 11:20 Assessment/Plan Assessment/Plan Hospital Course ID PROGRESS NOTE CURRENT ABX: DAY # 7=>Bactrim + Zosyn + Levaquin + Diflucan 11/21/18 0509 11/21/18 0509 24H INTERVAL SUMMARY * Awake, alert, watching TV, tells me his breathing is getting better, he is on supplemental O2 via NC * Spouse present, no new issues, no complaints * Microbiology: Sputum culture growing Margarita albicans * 11/21/18 CXR: IMPRESSION: Persistent to slightly improved multifocal bibasilar infiltrates. MICRO * (+)BLood Cx: BLOOD CULTURE Final Organism 1 STREPTOCOCCUS PNEUMONIAE PHYSICAL EXAMINATION: GENERAL: Afebrile, VSS, cachectic M VSS, NAD HEENT: AT, NC, anicteric = NECK: Supple, trach CHEST: Equal chest rise bilaterally -- supplemental O2 HEART: Pulse RRR ABDOMEN: Soft / NT EXTREMITIES: Warm, dry, SKIN: No rash, no diaphoresis ID ASSESSMENT 58 yo M admit with: 1. Sepsis with strep bacteremia on admission==> 2D echo revealed no vegetations 2. Multifocal pneumonia 3. Acute hypoxemic respiratory failure 4. Diabetes 5. Hypertension 6. Immunocompromised 7. History of chronic alcohol abuse (-)MRSA Nares ABX ALLERGIES: NKDA INVASIVES: PI CURRENT ABX: DAY #7 =Bactrim + Zosyn + Levaquin + Diflucan ID RECOMMENDATIONS/PLAN: Continue current ABX == CXR has improved = anticipate 14 days total ABX * Zosyn for Step Bacteremia/Strep PNA * Levaquin for atypical PNA coverage * Bactrim due to immunocompromised host status * Diflucan due to oral candidiasis opportunistic yeast . . Result Diagram: 11/21/18 0509 11/21/18 0509 Results 24hrs Laboratory Tests Test 11/20/18 12:29 11/20/18 17:35 11/20/18 20:14 11/21/18 01:42 Bedside Glucose 272 H 393 H 259 H 323 H Test 11/21/18 01:45 11/21/18 05:09 11/21/18 07:00 11/21/18 07:48 Bedside Glucose 252 H 329 H White Blood 8.9 # Count Red Blood Count 3.05 L Hemoglobin 9.8 L Hematocrit 27.8 L Mean 91.1 Corpuscular Volume Mean 32.1 Corpuscular Hemoglobin Mean 35.3 Corpuscular Hemoglobin Conc ent Red Cell 13.0 Distribution Width Platelet Count 214 # Mean Platelet 9.9 Volume Immature 1.600 H Granulocytes % Neutrophils % Segmented 84 H Neutrophils % (Manual) Lymphocytes % Lymphocytes % 8 L (Manual) Reactive 2 H Lymphocytes % (Manual) Monocytes % Monocytes % 4 (Manual) Eosinophils % Basophils % Basophils % 1 (Manual) Plasma Cells % 2 (manual) Nucleated Red 0.0 Blood Cells % Immature 0.140 H Granulocytes # Neutrophils # Lymphocytes 0.7 L (Manual) Lymphocytes # Reactive 0.1 H Lymphocytes # Monocytes # Monocytes # 0.3 (Manual) Eosinophils # Basophils # Basophils # 0.0 (Manual) Plasma Cells # 0.1 H (manual) Nucleated Red Blood Cells # Platelet NORMAL Estimate Polychromasia 1+ Anisocytosis 1+ Target Cells 1+ Sodium Level 134 L Potassium Level 3.9 Chloride Level 99 Carbon Dioxide 26 Level Anion Gap 9 Blood Urea 16 Nitrogen Creatinine 0.45 L Est Glomerular > 60 Filtrat Rate mL/min Glucose Level 232 H Calcium Level 8.4 Phosphorus 4.2 Level Magnesium Level 1.9 Blood Gas Blood arterial Specimen Source Arterial Blood 11/21/2018 10:3 Date Drawn 0:35 AM Arterial Blood 7.481 H pH (Temp corrected ) Arterial Blood 28.3 L pCO2 (Temp correct) Arterial Blood 103.4 H pO2 (Temp corrected ) Arterial Blood 20.7 L HCO3 Arterial Blood -1.9 Base Excess Arterial Blood 96.5 Oxygen Saturati on Abhijit Test ACCEPTAB Arterial Blood Right Radial Gas Puncture Site Arterial 0.6 Blood Carboxyhe moglobin Arterial Blood 0.3 Methemoglobin Blood Gas A-a 437.3 H O2 Differential Oxyhemoglobin 95.6 Percent Blood Gas 37.0 Temperature Blood Gas HFNC Modality FiO2 80.0 Blood Gas dt Notified Whom Blood Gas 11/21/2018 10:4 Notified Time 6:49 AM Consultation Date/Type/Reason Admit Date/Time Nov 14, 2018 at 04:59 Initial Consult Date 11/18/18 Exam/Review of Systems Vital Signs Vitals Vital Signs Date Temp Pulse Resp B/P (MAP) Pulse Ox O2 O2 Flow FiO2 Time Delivery Rate 11/21/18 81 09:00 11/21/18 117/63 08:50 (81) 11/21/18 Vapotherm 08:15 11/21/18 98.8 18 95 07:29 11/21/18 80 05:35 Intake and Output 11/20/18 11/20/18 11/21/18 1515:00 23:00 07:00 IntakeIntake Total 920 ml 1700 ml 1220 ml OutputOutput Total 750 ml 1350 ml 1500 ml BalanceBalance 170 ml 350 ml -280 ml Medications Medications Current Medications IV Flush (NS 3 ml) 3 ml PER PROTOCOL IV ; Start 11/14/18 at 07:00 Ondansetron HCl (Zofran Inj) 4 mg Q6H PRN IV NAUSEA AND/OR VOMITING; Start 11/14/18 at 07:00 Acetaminophen (Tylenol Tab) 650 mg Q6H PRN PO PAIN LEVEL 1-3 OR FEVER Last administered on 11/16/18at 08:39; Admin Dose 650 MG; Start 11/14/18 at 07:00 Diagnostic Test (Pha) (Accu-Chek) 1 ea 02 XX Last administered on 11/21/18at 01:46; Admin Dose 1 EA; Start 11/15/18 at 02:00 Insulin Aspart (Novolog Insulin Pen) NOVOLOG *MODERATE* ALGORITHM WITH MEALS BEDTIME SC Last administered on 11/21/18at 07:56; Admin Dose 10 UNIT; Start 11/14/18 at 08:00 Miscellaneous Information 1 ea NOTE XX ; Start 11/14/18 at 07:00 Glucose (Glutose) 15 gm Q15M PRN PO DECREASED GLUCOSE; Start 11/14/18 at 07:00 Glucose (Glutose) 22.5 gm Q15M PRN PO DECREASED GLUCOSE; Start 11/14/18 at 07:00 Dextrose (D50w Syringe) 25 ml Q15M PRN IV DECREASED GLUCOSE Last administered on 11/15/18at 02:12; Admin Dose 25 ML; Start 11/14/18 at 07:00 Dextrose (D50w Syringe) 50 ml Q15M PRN IV DECREASED GLUCOSE; Start 11/14/18 at 07:00 Glucagon (Glucagen) 1 mg Q15M PRN IM DECREASED GLUCOSE; Start 11/14/18 at 07:00 Glucose (Glutose) 15 gm Q15M PRN BUCCAL DECREASED GLUCOSE; Start 11/14/18 at 07:00 Thiamine HCl (Vitamin B1) 100 mg DAILY PO Last administered on 11/21/18 08:06; Admin Dose 100 MG; Start 11/14/18 at 14:30 Folic Acid (Folic Acid) 1 mg DAILY PO Last administered on 11/21/18 08:06; Admin Dose 1 MG; Start 11/14/18 at 14:30 Multivitamins Therapeutic (Theragran) 1 tab DAILY PO Last administered on 11/21/18 08:06; Admin Dose 1 TAB; Start 11/14/18 at 14:30 Metoclopramide HCl (Reglan) 5 mg WITH MEALS IV Last administered on 11/21/18 08:06; Admin Dose 5 MG; Start 11/14/18 at 17:35 Lorazepam (Ativan) 0.5 mg Q4H PRN IV anxiety, withdrawals; Start 11/14/18 at 14:30 Megestrol Acetate (Megace Susp) 400 mg BID PO Last administered on 11/21/18 08:06; Admin Dose 400 MG; Start 11/15/18 at 13:30 Metoprolol Tartrate (Lopressor) 25 mg BID PO Last administered on 11/21/18 08:51; Admin Dose 25 MG; Start 11/16/18 at 10:30 Fluconazole/ Sodium Chloride 50 ml @ 50 mls/hr Q24H IVPB Last administered on 11/20/18 14:38; Admin Dose 50 MLS/HR; Start 11/17/18 at 14:00 Trimethoprim/ Sulfamethoxazole 20 ml/Dextrose 520 ml @ 343.333 mls/hr Q8 IVPB Last administered on 11/21/18 06:49; Admin Dose 343.333 MLS/HR; Start 11/17/18 at 14:00 Pantoprazole (Protonix Tab) 40 mg DAILY@06 PO Last administered on 11/21/18 05:47; Admin Dose 40 MG; Start 11/18/18 at 06:00 Methylprednisolone Sodium Succinate (Solu-Medrol) 30 mg Q12 IV Last administered on 11/21/18 08:06; Admin Dose 30 MG; Start 11/17/18 at 14:00 Piperacillin Sod/ Tazobactam Sod 100 ml @ 200 mls/hr Q6 IVPB Last administered on 11/21/18 05:47; Admin Dose 200 MLS/HR; Start 11/18/18 at 00:00 Insulin Detemir (Levemir) 13 units BID SC Last administered on 11/21/18at 08:10; Admin Dose 13 UNITS; Start 11/18/18 at 21:00 Levofloxacin/ Dextrose 150 ml @ 100 mls/hr Q24H IVPB Last administered on 11/20/18at 13:36; Admin Dose 100 MLS/HR; Start 11/18/18 at 12:00 Zolpidem Tartrate (Ambien) 5 mg HS PRN PO INSOMNIA; Start 11/19/18 at 21:00 Insulin Aspart (Novolog Insulin Pen) 6 unit WITH MEALS SC Last administered on 11/21/18at 07:56; Admin Dose 6 UNIT; Start 11/19/18 at 09:30 BRENNA IBARRA NP Nov 21, 2018 11:21
[2018-11-21] MEDS: LEVOFLOXACIN 750MG/D5W (PMX) 150 ML IVPB SCH (12:05)
[2018-11-21] MEDS: FLUCONAZOLE 100 MG/50 ML (PMX) 50 ML IVPB SCH (14:04)
--- NOTE | 2018-11-21 15:07 | CONS ---
Date/Time of Note Date/Time of Note DATE: 11/21/18 TIME: 15:05 Consult Date/Type/Reason Admit Date/Time Nov 14, 2018 at 04:59 Initial Consult Date 11/18/18 Type of Consultation: Pulmonary ICU Subjective Remains on high-flow NC. Objective Vital Signs Date Temp Pulse Resp B/P (MAP) Pulse Ox O2 O2 Flow FiO2 Time Delivery Rate 11/21/18 76 12:56 11/21/18 98.9 18 97/55 (69) 96 Nasal 11:33 Cannula 11/21/18 80 11:20 Intake and Output 11/20/18 11/20/18 11/21/18 1515:00 23:00 07:00 IntakeIntake Total 920 ml 1700 ml 1220 ml OutputOutput Total 750 ml 1350 ml 1500 ml BalanceBalance 170 ml 350 ml -280 ml Exam HEENT: Neck supple; no JVD; no LAD CVS: RRR, S1 and S2 CHEST: Bibasilar rales ABD: Soft, NT, + BS EXT: No c/c/e Results/Medications Result Diagram: 11/21/18 0509 11/21/18 0509 Results 24 hrs Laboratory Tests Test 11/20/18 17:35 11/20/18 20:14 11/21/18 01:42 11/21/18 01:45 Bedside Glucose 393 H 259 H 323 H 252 H Test 11/21/18 05:09 11/21/18 07:00 11/21/18 07:48 11/21/18 11:51 White Blood 8.9 # Count Red Blood Count 3.05 L Hemoglobin 9.8 L Hematocrit 27.8 L Mean 91.1 Corpuscular Volume Mean 32.1 Corpuscular Hemoglobin Mean 35.3 Corpuscular Hemoglobin Conc ent Red Cell 13.0 Distribution Width Platelet Count 214 # Mean Platelet 9.9 Volume Immature 1.600 H Granulocytes % Neutrophils % Segmented 84 H Neutrophils % (Manual) Lymphocytes % Lymphocytes % 8 L (Manual) Reactive 2 H Lymphocytes % (Manual) Monocytes % Monocytes % 4 (Manual) Eosinophils % Basophils % Basophils % 1 (Manual) Plasma Cells % 2 (manual) Nucleated Red 0.0 Blood Cells % Immature 0.140 H Granulocytes # Neutrophils # Lymphocytes 0.7 L (Manual) Lymphocytes # Reactive 0.1 H Lymphocytes # Monocytes # Monocytes # 0.3 (Manual) Eosinophils # Basophils # Basophils # 0.0 (Manual) Plasma Cells # 0.1 H (manual) Nucleated Red Blood Cells # Platelet NORMAL Estimate Polychromasia 1+ Anisocytosis 1+ Target Cells 1+ Sodium Level 134 L Potassium Level 3.9 Chloride Level 99 Carbon Dioxide 26 Level Anion Gap 9 Blood Urea 16 Nitrogen Creatinine 0.45 L Est Glomerular > 60 Filtrat Rate mL/min Glucose Level 232 H Calcium Level 8.4 Phosphorus 4.2 Level Magnesium Level 1.9 Blood Gas Blood arterial Specimen Source Arterial Blood 11/21/2018 10:3 Date Drawn 0:35 AM Arterial Blood 7.481 H pH (Temp corrected ) Arterial Blood 28.3 L pCO2 (Temp correct) Arterial Blood 103.4 H pO2 (Temp corrected ) Arterial Blood 20.7 L HCO3 Arterial Blood -1.9 Base Excess Arterial Blood 96.5 Oxygen Saturati on Abhijit Test ACCEPTAB Arterial Blood Right Radial Gas Puncture Site Arterial 0.6 Blood Carboxyhe moglobin Arterial Blood 0.3 Methemoglobin Blood Gas A-a 437.3 H O2 Differential Oxyhemoglobin 95.6 Percent Blood Gas 37.0 Temperature Blood Gas HFNC Modality FiO2 80.0 Blood Gas dt Notified Whom Blood Gas 11/21/2018 10:4 Notified Time 6:49 AM Bedside Glucose 329 H 257 H Medications Current Medications IV Flush (NS 3 ml) 3 ml PER PROTOCOL IV ; Start 11/14/18 at 07:00 Ondansetron HCl (Zofran Inj) 4 mg Q6H PRN IV NAUSEA AND/OR VOMITING; Start at 07:00 Acetaminophen (Tylenol Tab) 650 mg Q6H PRN PO PAIN LEVEL 1-3 OR FEVER Last administered on 11/16/18at 08:39; Admin Dose 650 MG; Start 11/14/18 at 07:00 Diagnostic Test (Pha) (Accu-Chek) 1 ea 02 XX Last administered on 11/21/18at 01:46; Admin Dose 1 EA; Start 11/15/18 at 02:00 Insulin Aspart (Novolog Insulin Pen) NOVOLOG *MODERATE* ALGORITHM WITH MEALS BEDTIME SC Last administered on 11/21/18at 11:58; Admin Dose 6 UNIT; Start 11/14/18 at 08:00 Miscellaneous Information 1 ea NOTE XX ; Start 11/14/18 at 07:00 Glucose (Glutose) 15 gm Q15M PRN PO DECREASED GLUCOSE; Start 11/14/18 at 07:00 Glucose (Glutose) 22.5 gm Q15M PRN PO DECREASED GLUCOSE; Start 11/14/18 at 07:00 Dextrose (D50w Syringe) 25 ml Q15M PRN IV DECREASED GLUCOSE Last administered on 11/15/18at 02:12; Admin Dose 25 ML; Start 11/14/18 at 07:00 Dextrose (D50w Syringe) 50 ml Q15M PRN IV DECREASED GLUCOSE; Start 11/14/18 at 07:00 Glucagon (Glucagen) 1 mg Q15M PRN IM DECREASED GLUCOSE; Start 11/14/18 at 07:00 Glucose (Glutose) 15 gm Q15M PRN BUCCAL DECREASED GLUCOSE; Start 11/14/18 at 07:00 Thiamine HCl (Vitamin B1) 100 mg DAILY PO Last administered on 11/21/18at 08:06; Admin Dose 100 MG; Start 11/14/18 at 14:30 Folic Acid (Folic Acid) 1 mg DAILY PO Last administered on 11/21/18at 08:06; Admin Dose 1 MG; Start 11/14/18 at 14:30 Multivitamins Therapeutic (Theragran) 1 tab DAILY PO Last administered on 11/21/18at 08:06; Admin Dose 1 TAB; Start 11/14/18 at 14:30 Metoclopramide HCl (Reglan) 5 mg WITH MEALS IV Last administered on 11/21/18at 12:05; Admin Dose 5 MG; Start 11/14/18 at 17:35 Lorazepam (Ativan) 0.5 mg Q4H PRN IV anxiety, withdrawals; Start 11/14/18 at 14:30 Megestrol Acetate (Megace Susp) 400 mg BID PO Last administered on 11/21/18at 08:06; Admin Dose 400 MG; Start 11/15/18 at 13:30 Metoprolol Tartrate (Lopressor) 25 mg BID PO Last administered on 11/21/18at 08:51; Admin Dose 25 MG; Start 11/16/18 at 10:30 Fluconazole/ Sodium Chloride 50 ml @ 50 mls/hr Q24H IVPB Last administered on 11/21/18at 14:04; Admin Dose 50 MLS/HR; Start 11/17/18 at 14:00 Trimethoprim/ Sulfamethoxazole 20 ml/Dextrose 520 ml @ 343.333 mls/hr Q8 IVPB Last administered on 11/21/18at 14:04; Admin Dose 343.333 MLS/HR; Start 11/17/18 at 14:00 Pantoprazole (Protonix Tab) 40 mg DAILY@06 PO Last administered on 11/21/18at 05:47; Admin Dose 40 MG; Start 11/18/18 at 06:00 Methylprednisolone Sodium Succinate (Solu-Medrol) 30 mg Q12 IV Last administered on 11/21/18at 08:06; Admin Dose 30 MG; Start 11/17/18 at 14:00 Piperacillin Sod/ Tazobactam Sod 100 ml @ 200 mls/hr Q6 IVPB Last administered on 11/21/18at 12:05; Admin Dose 200 MLS/HR; Start 11/18/18 at 00:00 Insulin Detemir (Levemir) 13 units BID SC Last administered on 11/21/18at 08:10; Admin Dose 13 UNITS; Start 11/18/18 at 21:00 Levofloxacin/ Dextrose 150 ml @ 100 mls/hr Q24H IVPB Last administered on 11/21/18at 12:05; Admin Dose 100 MLS/HR; Start 11/18/18 at 12:00 Zolpidem Tartrate (Ambien) 5 mg HS PRN PO INSOMNIA; Start 11/19/18 at 21:00 Insulin Aspart (Novolog Insulin Pen) 6 unit WITH MEALS SC Last administered on 11/21/18at 11:57; Admin Dose 6 UNIT; Start 11/19/18 at 09:30 Assessment/Plan Additional Assessment/Plan IMP: 1. Acute hypoxemic respiratory failure 2. Pneumococcal pneumonia 3. Anemia RECS: 1. Abx per ID 2. Continue high-flow NC 3. CXR in 2-3 days TRESA BLANCA MD Nov 21, 2018 15:07
--- NOTE | 2018-11-21 18:30 | NUR ---
Pt remains on high flow oxygen 40 L , FiO2 80% sats 96%. Out of bed with PT, tolerated fairly. Continue with plan of care. Needs attended.
--- NOTE | 2018-11-21 21:20 | NUR ---
Nurse Note Pt BG elevated, Dr Manish Crum's office called, transferred to Dr Salcedo, message left, awaiting call back.
[2018-11-22] VITALS (9 sets, daily range): BP systolic 94–114; BP diastolic 53–59; PULSE 60–90; RESP 17–18
[2018-11-22] MEDS: ACCU-CHEK XX SCH (01:49)
--- NOTE | 2018-11-22 01:56 | NUR ---
Nurse Note No call back received for 2100 BG level. O200 BG 313. applications engineering manager Dr Perez notified. States "thats fine, don't call for blood sugars."
[2018-11-22] MEDS: PIPER-TAZO 3.375 GM IV (PMX) 100 ML IVPB SCH ×3 (05:54→17:50)
[2018-11-22] MEDS: PANTOPRAZOLE (EC) 40 MG TAB PO SCH (05:54)
[2018-11-22] MEDS: TRIMETHOPRIM/SULFAMETHOXAZOLE 20 ML in DEXTROSE 5% 500 ML IVPB SCH ×3 (06:38→22:26)
--- NOTE | 2018-11-22 06:50 | NUR ---
EOSS Hourly rounding performed, vitals remained stable through night, no complaints of pain, antibiotics administered, pt currently resting in bed, bed alarm on, call light within reach. Addendum: 11/22/18 at 0716 by MAXIMO MANDEL RN Pt with elevated BG through night, aware.
--- NOTE | 2018-11-22 07:22 | PN ---
Date/Time of Note Date/Time of Note DATE: 11/22/18 TIME: 07:21 Assessment/Plan VTE Prophylaxis Risk score (from Nsg)>0 risk: 3 SCD applied (from Nsg): Yes Pharmacological prophylaxis: other Lines/Catheters IV Catheter Type (from Nrsg): Peripheral IV Urinary Cath still in place: No Assessment/Plan Hospital Course SUBJECTIVE: The patient was stable overnight, currently on high flow oxygen. No hemoptysis, hematemesis or hematochezia. OBJECTIVE: HEENT: Head is normocephalic. NECK: Supple. HEART: Regular rate. LUNGS: Show diminished breath sounds at the base. ABDOMEN: Soft, nontender to palpation without rebound or guarding. EXTREMITIES: Negative for clubbing, cyanosis, no edema. DERMATOLOGIC: The patient is noted. NEUROLOGIC: No focal deficits. MEDICATIONS: Reviewed. ASSESSMENT AND PLAN: 1. Acute hypoxemic respiratory failure secondary to multifocal pneumonia. Continue high flow oxygen. Continue antibiotic therapy. Will follow up with pulmonary for further recommendations. 2. Sepsis secondary to multifocal pneumonia in immunocompromised patient. The patient is currently on broad spectrum antibiotics, antifungal therapy. The patient is also being treated for possible PCP with Bactrim. Continue current medical management. Follow up infectious disease. 3. Diabetes. Continue current insulin regimen, adjust as needed. 4. History of ETOH abuse. Continue to monitor. 5. Anemia. Monitor hemoglobin and hematocrit levels. 6. History of hypertension. Continue to monitor. 7. Vitiligo. Continue to monitor. 8. Gastrointestinal and deep vein thrombosis prophylaxis. 9. General debility. Result Diagram: 11/21/18 0509 11/21/18 0509 Results 24hrs Laboratory Tests Test 11/21/18 07:48 11/21/18 11:51 11/21/18 17:10 11/21/18 20:18 Bedside Glucose 329 H 257 H 332 H 303 H Test 11/22/18 01:42 Bedside Glucose 313 H Exam/Review of Systems Vital Signs Vitals Vital Signs Date Temp Pulse Resp B/P (MAP) Pulse Ox O2 O2 Flow FiO2 Time Delivery Rate 11/22/18 97 75 06:17 11/22/18 98.9 70 18 94/56 (69) 04:39 11/21/18 Vapotherm 20:00 Intake and Output 11/21/18 11/21/18 11/22/18 1515:00 23:00 07:00 IntakeIntake Total 100 ml 1620 ml 1120 ml OutputOutput Total 2350 ml 3500 ml BalanceBalance 100 ml -730 ml -2380 ml Medications Medications Current Medications IV Flush (NS 3 ml) 3 ml PER PROTOCOL IV ; Start 11/14/18 at 07:00 Ondansetron HCl (Zofran Inj) 4 mg Q6H PRN IV NAUSEA AND/OR VOMITING; Start 11/14/18 at 07:00 Acetaminophen (Tylenol Tab) 650 mg Q6H PRN PO PAIN LEVEL 1-3 OR FEVER Last administered on 11/16/18at 08:39; Admin Dose 650 MG; Start 11/14/18 at 07:00 Diagnostic Test (Pha) (Accu-Chek) 1 ea 02 XX Last administered on 11/22/18at 01:49; Admin Dose 1 EA; Start 11/15/18 at 02:00 Insulin Aspart (Novolog Insulin Pen) NOVOLOG *MODERATE* ALGORITHM WITH MEALS BEDTIME SC Last administered on 11/21/18at 21:04; Admin Dose 4 UNIT; Start 11/14/18 at 08:00 Miscellaneous Information 1 ea NOTE XX ; Start 11/14/18 at 07:00 Glucose (Glutose) 15 gm Q15M PRN PO DECREASED GLUCOSE; Start 11/14/18 at 07:00 Glucose (Glutose) 22.5 gm Q15M PRN PO DECREASED GLUCOSE; Start 11/14/18 at 07:00 Dextrose (D50w Syringe) 25 ml Q15M PRN IV DECREASED GLUCOSE Last administered on 11/15/18at 02:12; Admin Dose 25 ML; Start 11/14/18 at 07:00 Dextrose (D50w Syringe) 50 ml Q15M PRN IV DECREASED GLUCOSE; Start 11/14/18 at 07:00 Glucagon (Glucagen) 1 mg Q15M PRN IM DECREASED GLUCOSE; Start 11/14/18 at 07:00 Glucose (Glutose) 15 gm Q15M PRN BUCCAL DECREASED GLUCOSE; Start 11/14/18 at 07:00 Thiamine HCl (Vitamin B1) 100 mg DAILY PO Last administered on 11/21/18at 08:06; Admin Dose 100 MG; Start 11/14/18 at 14:30 Folic Acid (Folic Acid) 1 mg DAILY PO Last administered on 11/21/18at 08:06; Admin Dose 1 MG; Start 11/14/18 at 14:30 Multivitamins Therapeutic (Theragran) 1 tab DAILY PO Last administered on 11/21/18 08:06; Admin Dose 1 TAB; Start 11/14/18 at 14:30 Metoclopramide HCl (Reglan) 5 mg WITH MEALS IV Last administered on 11/21/18 17:34; Admin Dose 5 MG; Start 11/14/18 at 17:35 Lorazepam (Ativan) 0.5 mg Q4H PRN IV anxiety, withdrawals; Start 11/14/18 at 14:30 Megestrol Acetate (Megace Susp) 400 mg BID PO Last administered on 11/21/18 20:51; Admin Dose 400 MG; Start 11/15/18 at 13:30 Metoprolol Tartrate (Lopressor) 25 mg BID PO Last administered on 11/21/18 08:51; Admin Dose 25 MG; Start 11/16/18 at 10:30 Fluconazole/ Sodium Chloride 50 ml @ 50 mls/hr Q24H IVPB Last administered on 11/21/18 14:04; Admin Dose 50 MLS/HR; Start 11/17/18 at 14:00 Trimethoprim/ Sulfamethoxazole 20 ml/Dextrose 520 ml @ 343.333 mls/hr Q8 IVPB Last administered on 11/22/18 06:38; Admin Dose 343.333 MLS/HR; Start 11/17/18 at 14:00 Pantoprazole (Protonix Tab) 40 mg DAILY@06 PO Last administered on 11/22/18 05:54; Admin Dose 40 MG; Start 11/18/18 at 06:00 Methylprednisolone Sodium Succinate (Solu-Medrol) 30 mg Q12 IV Last administered on 11/21/18 20:51; Admin Dose 30 MG; Start 11/17/18 at 14:00 Piperacillin Sod/ Tazobactam Sod 100 ml @ 200 mls/hr Q6 IVPB Last administered on 11/22/18 05:54; Admin Dose 200 MLS/HR; Start 11/18/18 at 00:00 Insulin Detemir (Levemir) 13 units BID SC Last administered on 11/21/18 21:05; Admin Dose 13 UNITS; Start 11/18/18 at 21:00 Levofloxacin/ Dextrose 150 ml @ 100 mls/hr Q24H IVPB Last administered on at 12:05; Admin Dose 100 MLS/HR; Start 11/18/18 at 12:00 Zolpidem Tartrate (Ambien) 5 mg HS PRN PO INSOMNIA; Start 11/19/18 at 21:00 Insulin Aspart (Novolog Insulin Pen) 6 unit WITH MEALS SC Last administered on 11/21/18at 17:15; Admin Dose 6 UNIT; Start 11/19/18 at 09:30 JOSE LAWRENCE DO Nov 22, 2018 07:22
[2018-11-22] MEDS: INSULIN ASPART [NOVOLOG] 3 ML PEN SC SCH ×7 (08:18→21:25)
[2018-11-22] MEDS: METOPROLOL 25 MG TAB PO SCH ×2 (09:00→21:00)
[2018-11-22] MEDS: FOLIC ACID 1 MG TAB PO SCH (09:34)
[2018-11-22] MEDS: MULTIVITAMINS THERAPEUTIC TAB PO SCH (09:34)
[2018-11-22] MEDS: MEGESTROL (40 MG/ML) 10ML CUP PO SCH ×2 (09:34→21:03)
[2018-11-22] MEDS: THIAMINE 100 MG TAB PO SCH (09:34)
[2018-11-22] MEDS: METOCLOPRAMIDE 10 MG INJ IV SCH ×3 (09:35→17:50)
[2018-11-22] MEDS: METHYLPREDNISOLONE 40 MG INJ IV SCH ×2 (09:35→21:03)
[2018-11-22] MEDS: INSULIN DETEMIR [LEVEMIR] (100 UNITS/ML) SYG SC SCH ×2 (09:51→21:25)
[2018-11-22] MEDS: LEVOFLOXACIN 750MG/D5W (PMX) 150 ML IVPB SCH (12:26)
--- NOTE | 2018-11-22 13:53 | CONS ---
Date/Time of Note Date/Time of Note DATE: 11/22/18 TIME: 13:52 Consult Date/Type/Reason Admit Date/Time Nov 14, 2018 at 04:59 Initial Consult Date 11/18/18 Type of Consultation: Pulmonary ICU Subjective No events. No c/o. Remains on high flow fiO2. Objective Vital Signs Date Temp Pulse Resp B/P (MAP) Pulse Ox O2 O2 Flow FiO2 Time Delivery Rate 11/22/18 104 20 93 70 12:30 11/22/18 98.2 95/53 (67) 11:35 11/22/18 Vapotherm 08:14 Intake and Output 11/21/18 11/21/18 11/22/18 1515:00 23:00 07:00 IntakeIntake Total 100 ml 1620 ml 1120 ml OutputOutput Total 2350 ml 3500 ml BalanceBalance 100 ml -730 ml -2380 ml Exam HEENT: Neck supple; no JVD; no LAD CVS: RRR, S1 and S2 CHEST: Bibasilar rales ABD: Soft, NT, + BS EXT: No c/c/e Results/Medications Result Diagram: 11/21/18 0509 11/21/18 0509 Results 24 hrs Laboratory Tests Test 11/21/18 17:10 11/21/18 20:18 11/22/18 01:42 11/22/18 08:07 Bedside Glucose 332 H 303 H 313 H 356 H Test 11/22/18 08:40 11/22/18 12:13 Lab Scanned REFERENCE LAB Report Bedside Glucose 352 H Medications Current Medications IV Flush (NS 3 ml) 3 ml PER PROTOCOL IV ; Start 11/14/18 at 07:00 Ondansetron HCl (Zofran Inj) 4 mg Q6H PRN IV NAUSEA AND/OR VOMITING; Start 11/14/18 at 07:00 Acetaminophen (Tylenol Tab) 650 mg Q6H PRN PO PAIN LEVEL 1-3 OR FEVER Last administered on 11/16/18at 08:39; Admin Dose 650 MG; Start 11/14/18 at 07:00 Diagnostic Test (Pha) (Accu-Chek) 1 ea 02 XX Last administered on 11/22/18at 01:49; Admin Dose 1 EA; Start 11/15/18 at 02:00 Insulin Aspart (Novolog Insulin Pen) NOVOLOG *MODERATE* ALGORITHM WITH MEALS BEDTIME SC Last administered on 11/22/18at 12:23; Admin Dose 10 UNIT; Start 11/14/18 at 08:00 Miscellaneous Information 1 ea NOTE XX ; Start 11/14/18 at 07:00 Glucose (Glutose) 15 gm Q15M PRN PO DECREASED GLUCOSE; Start 11/14/18 at 07:00 Glucose (Glutose) 22.5 gm Q15M PRN PO DECREASED GLUCOSE; Start 11/14/18 at 07:00 Dextrose (D50w Syringe) 25 ml Q15M PRN IV DECREASED GLUCOSE Last administered on 11/15/18at 02:12; Admin Dose 25 ML; Start 11/14/18 at 07:00 Dextrose (D50w Syringe) 50 ml Q15M PRN IV DECREASED GLUCOSE; Start 11/14/18 at 07:00 Glucagon (Glucagen) 1 mg Q15M PRN IM DECREASED GLUCOSE; Start 11/14/18 at 07:00 Glucose (Glutose) 15 gm Q15M PRN BUCCAL DECREASED GLUCOSE; Start 11/14/18 at 07:00 Thiamine HCl (Vitamin B1) 100 mg DAILY PO Last administered on 11/22/18at 09:34; Admin Dose 100 MG; Start 11/14/18 at 14:30 Folic Acid (Folic Acid) 1 mg DAILY PO Last administered on 11/22/18at 09:34; Admin Dose 1 MG; Start 11/14/18 at 14:30 Multivitamins Therapeutic (Theragran) 1 tab DAILY PO Last administered on 11/22/18at 09:34; Admin Dose 1 TAB; Start 11/14/18 at 14:30 Metoclopramide HCl (Reglan) 5 mg WITH MEALS IV Last administered on 11/22/18at 12:26; Admin Dose 5 MG; Start 11/14/18 at 17:35 Lorazepam (Ativan) 0.5 mg Q4H PRN IV anxiety, withdrawals; Start 11/14/18 at 14:30 Megestrol Acetate (Megace Susp) 400 mg BID PO Last administered on 11/22/18at 09:34; Admin Dose 400 MG; Start 11/15/18 at 13:30 Metoprolol Tartrate (Lopressor) 25 mg BID PO Last administered on 11/21/18at 08:51; Admin Dose 25 MG; Start 11/16/18 at 10:30 Fluconazole/ Sodium Chloride 50 ml @ 50 mls/hr Q24H IVPB Last administered on 11/21/18 14:04; Admin Dose 50 MLS/HR; Start 11/17/18 at 14:00 Trimethoprim/ Sulfamethoxazole 20 ml/Dextrose 520 ml @ 343.333 mls/hr Q8 IVPB Last administered on 11/22/18 06:38; Admin Dose 343.333 MLS/HR; Start 11/17/18 at 14:00 Pantoprazole (Protonix Tab) 40 mg DAILY@06 PO Last administered on 11/22/18 05:54; Admin Dose 40 MG; Start 11/18/18 at 06:00 Methylprednisolone Sodium Succinate (Solu-Medrol) 30 mg Q12 IV Last administered on 11/22/18 09:35; Admin Dose 30 MG; Start 11/17/18 at 14:00 Piperacillin Sod/ Tazobactam Sod 100 ml @ 200 mls/hr Q6 IVPB Last administered on 11/22/18 12:26; Admin Dose 200 MLS/HR; Start 11/18/18 at 00:00 Insulin Detemir (Levemir) 13 units BID SC Last administered on 11/22/18 09:51; Admin Dose 13 UNITS; Start 11/18/18 at 21:00 Levofloxacin/ Dextrose 150 ml @ 100 mls/hr Q24H IVPB Last administered on 11/22/18 12:26; Admin Dose 100 MLS/HR; Start 11/18/18 at 12:00 Zolpidem Tartrate (Ambien) 5 mg HS PRN PO INSOMNIA; Start 11/19/18 at 21:00 Insulin Aspart (Novolog Insulin Pen) 6 unit WITH MEALS SC Last administered on 11/22/18 12:24; Admin Dose 6 UNIT; Start 11/19/18 at 09:30 Assessment/Plan Additional Assessment/Plan IMP: 1. Acute hypoxemic respiratory failure 2. Pneumococcal pneumonia 3. Anemia RECS: 1. Abx per ID 2. Continue high-flow NC 3. CXR in TRESA Short MD Nov 22, 2018 13:53
[2018-11-22] MEDS: FLUCONAZOLE 100 MG/50 ML (PMX) 50 ML IVPB SCH (14:55)
[2018-11-22] MEDS ORDERED: INSULIN ASPART [NOVOLOG] 3 ML PEN SC ONE ×2 (18:30→23:30)
--- NOTE | 2018-11-22 19:35 | NUR ---
EOSS Pt remained A/O x 4, denied pain all shift. No respiratory distress, on High Flow Oxygen, Titrate by resp therapist. Blood sugars remained elevated, highest 595mg/dl. Dr. Crum made aware. Extra 14 units of Novolog ordered. Report Given to EVI Garza to recheck Blood sugars. Glucose lab draw also ordered.
--- NOTE | 2018-11-22 20:18 | CONS ---
Date/Time of Note Date/Time of Note DATE: 11/22/18 TIME: 20:16 Assessment/Plan Assessment/Plan Hospital Course ID PROGRESS NOTE CURRENT ABX: DAY # 8=>Bactrim + Zosyn + Levaquin + Diflucan 24H INTERVAL SUMMARY * Still requiring high flow fiO2 -- awake, responsive, no fevers, VSS, offers no complaints * Spouse present, no new issues, no complaints * Microbiology: Sputum culture growing Margarita albicans * 11/21/18 CXR: IMPRESSION: Persistent to slightly improved multifocal bibasilar infiltrates. MICRO * (+)BLood Cx: BLOOD CULTURE Final Organism 1 STREPTOCOCCUS PNEUMONIAE PHYSICAL EXAMINATION: GENERAL: Afebrile, VSS, cachectic M VSS, NAD HEENT: AT, NC, anicteric = NECK: Supple, trach CHEST: Equal chest rise bilaterally -- supplemental O2 HEART: Pulse RRR ABDOMEN: Soft / NT EXTREMITIES: Warm, dry, SKIN: No rash, no diaphoresis ID ASSESSMENT 58 yo M admit with: 1. Sepsis with strep bacteremia on admission==> 2D echo revealed no vegetations 2. Multifocal pneumonia 3. Acute hypoxemic respiratory failure 4. Diabetes 5. Hypertension 6. Immunocompromised 7. History of chronic alcohol abuse (-)MRSA Nares ABX ALLERGIES: NKDA INVASIVES: PI CURRENT ABX: DAY #8 =Bactrim + Zosyn + Levaquin + Diflucan ID RECOMMENDATIONS/PLAN: Continue current ABX == CXR has improved = anticipate 14 days total ABX * Zosyn for Step Bacteremia/Strep PNA * Levaquin for atypical PNA coverage * Bactrim due to immunocompromised host status * Diflucan due to oral candidiasis opportunistic yeast . . Result Diagram: 11/21/18 0509 11/22/18 1857 Results 24hrs Laboratory Tests Test 11/21/18 20:18 11/22/18 01:42 11/22/18 08:07 11/22/18 08:40 Bedside Glucose 303 H 313 H 356 H Lab Scanned REFERENCE LAB Report Test 11/22/18 12:13 11/22/18 17:54 11/22/18 18:57 Bedside Glucose 352 H > 595 *H Glucose Level 597 #*H Consultation Date/Type/Reason Admit Date/Time Nov 14, 2018 at 04:59 Initial Consult Date 11/18/18 Exam/Review of Systems Vital Signs Vitals Vital Signs Date Temp Pulse Resp B/P (MAP) Pulse Ox O2 O2 Flow FiO2 Time Delivery Rate 11/22/18 101 16 99 65 17:15 11/22/18 98.5 114/59 15:29 (77) 11/22/18 Vapotherm 08:14 Intake and Output 11/21/18 11/21/18 11/22/18 1515:00 23:00 07:00 IntakeIntake Total 100 ml 1620 ml 1120 ml OutputOutput Total 2350 ml 3500 ml BalanceBalance 100 ml -730 ml -2380 ml Medications Medications Current Medications IV Flush (NS 3 ml) 3 ml PER PROTOCOL IV ; Start 11/14/18 at 07:00 Ondansetron HCl (Zofran Inj) 4 mg Q6H PRN IV NAUSEA AND/OR VOMITING; Start 11/14/18 at 07:00 Acetaminophen (Tylenol Tab) 650 mg Q6H PRN PO PAIN LEVEL 1-3 OR FEVER Last administered on 11/16/18at 08:39; Admin Dose 650 MG; Start 11/14/18 at 07:00 Diagnostic Test (Pha) (Accu-Chek) 1 ea 02 XX Last administered on 11/22/18at 01:49; Admin Dose 1 EA; Start 11/15/18 at 02:00 Insulin Aspart (Novolog Insulin Pen) NOVOLOG *MODERATE* ALGORITHM WITH MEALS BEDTIME SC Last administered on 11/22/18at 18:12; Admin Dose 10 UNIT; Start 11/14/18 at 08:00 Miscellaneous Information 1 ea NOTE XX ; Start 11/14/18 at 07:00 Glucose (Glutose) 15 gm Q15M PRN PO DECREASED GLUCOSE; Start 11/14/18 at 07:00 Glucose (Glutose) 22.5 gm Q15M PRN PO DECREASED GLUCOSE; Start 11/14/18 at 07:00 Dextrose (D50w Syringe) 25 ml Q15M PRN IV DECREASED GLUCOSE Last administered on 11/15/18at 02:12; Admin Dose 25 ML; Start 11/14/18 at 07:00 Dextrose (D50w Syringe) 50 ml Q15M PRN IV DECREASED GLUCOSE; Start 11/14/18 at 07:00 Glucagon (Glucagen) 1 mg Q15M PRN IM DECREASED GLUCOSE; Start 11/14/18 at 07:00 Glucose (Glutose) 15 gm Q15M PRN BUCCAL DECREASED GLUCOSE; Start 11/14/18 at 07:00 Thiamine HCl (Vitamin B1) 100 mg DAILY PO Last administered on 11/22/18 09:34; Admin Dose 100 MG; Start 11/14/18 at 14:30 Folic Acid (Folic Acid) 1 mg DAILY PO Last administered on 11/22/18 09:34; Admin Dose 1 MG; Start 11/14/18 at 14:30 Multivitamins Therapeutic (Theragran) 1 tab DAILY PO Last administered on 1 09:34; Admin Dose 1 TAB; Start 11/14/18 at 14:30 Metoclopramide HCl (Reglan) 5 mg WITH MEALS IV Last administered on 11/22/18 17:50; Admin Dose 5 MG; Start 11/14/18 at 17:35 Lorazepam (Ativan) 0.5 mg Q4H PRN IV anxiety, withdrawals; Start 11/14/18 at 14:30 Megestrol Acetate (Megace Susp) 400 mg BID PO Last administered on 11/22/18 09:34; Admin Dose 400 MG; Start 11/15/18 at 13:30 Metoprolol Tartrate (Lopressor) 25 mg BID PO Last administered on 11/21/18 08:51; Admin Dose 25 MG; Start 11/16/18 at 10:30 Fluconazole/ Sodium Chloride 50 ml @ 50 mls/hr Q24H IVPB Last administered on 11/22/18 14:55; Admin Dose 50 MLS/HR; Start 11/17/18 at 14:00 Trimethoprim/ Sulfamethoxazole 20 ml/Dextrose 520 ml @ 343.333 mls/hr Q8 IVPB Last administered on 11/22/18 14:55; Admin Dose 343.333 MLS/HR; Start 11/17/18 at 14:00 Pantoprazole (Protonix Tab) 40 mg DAILY@06 PO Last administered on 11/22/18 05:54; Admin Dose 40 MG; Start 11/18/18 at 06:00 Methylprednisolone Sodium Succinate (Solu-Medrol) 30 mg Q12 IV Last administered on 11/22/18 09:35; Admin Dose 30 MG; Start 11/17/18 at 14:00 Piperacillin Sod/ Tazobactam Sod 100 ml @ 200 mls/hr Q6 IVPB Last administered on 11/22/18 17:50; Admin Dose 200 MLS/HR; Start 11/18/18 at 00:00 Insulin Detemir (Levemir) 13 units BID SC Last administered on 11/22/18 09:51; Admin Dose 13 UNITS; Start 11/18/18 at 21:00 Levofloxacin/ Dextrose 150 ml @ 100 mls/hr Q24H IVPB Last administered on 11/22/18 12:26; Admin Dose 100 MLS/HR; Start 11/18/18 at 12:00 Zolpidem Tartrate (Ambien) 5 mg HS PRN PO INSOMNIA; Start 11/19/18 at 21:00 Insulin Aspart (Novolog Insulin Pen) 6 unit WITH MEALS SC Last administered on 11/22/18 18:11; Admin Dose 6 UNIT; Start 11/19/18 at 09:30 BRENNA IBARRA NP Nov 22, 2018 20:18
[2018-11-22] MEDS ORDERED: INSULIN GLARGINE [LANTus] (100 UNITS/ML) SYG SC ONE (23:30)
[2018-11-23] VITALS (13 sets, daily range): BP systolic 86–139; BP diastolic 51–74; PULSE 67–192; RESP 15–19
[2018-11-23] MEDS: PIPER-TAZO 3.375 GM IV (PMX) 100 ML IVPB SCH ×4 (00:14→17:25)
--- NOTE | 2018-11-23 00:50 | NUR ---
NURSES NOTE: PATIENT CRITICAL BS 597 @2000, CALLED Brandon LITTLEJOHN FOR CRITICAL RESULTS. BS 424 BEDSIDE GLUCOSE CHECK @ [address] LAWRENCE AGAIN WITHOUT CALL BACK. STAT RANDOM GLUCOSE DRAWN PER PROTOCOL WITH BS RESULT OF 465 AFTER ADMINISTRATION OF KOURTNEY MEDICATIONS. CALLED DR. LAWRENCE @ 2319 WITH CALL BACK @ 2321 AND RECEIVED NEW ORDERS FOR INSULIN, 10 UNITS OF LANTUS AND 10 UNITS OF NOVOLOG, MD ALSO INFOMED RN THAT HE SHOULD NOT BE CALLED BACK FOR BS RESULTS LESS THAN 700, ONLY TO BE CALLED IF RESULTS ARE ABOVE 700; ORDERS READ BACK AND VERIFIED WITH MD. WILL CONTINUE TO MONITOR PATIENT
[2018-11-23] MEDS: ACCU-CHEK XX SCH (02:29)
[2018-11-23] MEDS: PANTOPRAZOLE (EC) 40 MG TAB PO SCH (05:20)
[2018-11-23] MEDS: TRIMETHOPRIM/SULFAMETHOXAZOLE 20 ML in DEXTROSE 5% 500 ML IVPB SCH ×3 (05:20→20:44)
--- NOTE | 2018-11-23 07:24 | NUR ---
EOSS: PATIENT IS A/O X3, ON HIGH FLOW 40/60%, SR ON THE MONITOR, NO C/O SOB OR CP, NO ACUTE EVENTS OVER NIGHT. PATIENT IS CLEAN AND DRY, HAS CALL LIGHT IN REACH, BED IN LOWEST POSITION, BED ALARM ON, ROOM IS CLUTTER FREE. CONTINUE POC; WILL ENDORSE TO DAY SHIFT RN.
[2018-11-23] MEDS: INSULIN ASPART [NOVOLOG] 3 ML PEN SC SCH ×7 (07:43→20:43)
[2018-11-23] MEDS: METOCLOPRAMIDE 10 MG INJ IV SCH ×3 (07:50→17:24)
[2018-11-23] MEDS: MULTIVITAMINS THERAPEUTIC TAB PO SCH (08:26)
[2018-11-23] MEDS: FOLIC ACID 1 MG TAB PO SCH (08:26)
[2018-11-23] MEDS: THIAMINE 100 MG TAB PO SCH (08:27)
[2018-11-23] MEDS: METOPROLOL 25 MG TAB PO SCH ×2 (08:27→20:43)
[2018-11-23] MEDS: MEGESTROL (40 MG/ML) 10ML CUP PO SCH ×2 (08:27→20:24)
[2018-11-23] MEDS: INSULIN DETEMIR [LEVEMIR] (100 UNITS/ML) SYG SC SCH ×2 (08:31→20:42)
[2018-11-23] MEDS: METHYLPREDNISOLONE 40 MG INJ IV SCH (08:50)
--- NOTE | 2018-11-23 10:25 | PN ---
DATE: 11/14/2018 Thank you for the coverage from Dr. Egdar Perez and Dr. Addi Salcedo. The patient is seen. Overa ll the patient is improving on a 60% FIO2. The patient is feeling comfortable with no specific compl aints. The patient's appetite also is improving. PHYSICAL EXAMINATION: VITAL SIGNS: Blood pressure is 108/62, pulse 74, respirations 16, temperature 98.2, saturations 100% and 60% FIO2. GENERAL: The patient is in no acute distress, cachectic, frail. CARDIOVASCULAR: S1, S2, regular rate. LUNGS: Clear. ABDOMEN: Soft, nontender. EXTREMITIES: No clubbing, cyanosis, or edema. There is scattered vitiligo throughout. LABORATORY DATA: White count 8.9, hemoglobin 9.8. No new labs today. This is from 11/21/2018. Las t glucose levels 322, 236, and 321. Respiratory culture did show normal respiratory anyi and Candid a albicans and blood cultures on admission did show strep pneumonia on 11/14/2018 and repeat blood cu ltures on 11/15/2018 were negative. The patient is clinically improving. MEDICATIONS: 1. Ambien 5 mg at bedtime p.r.n. 2. Aspart 6 units with meals. 3. Levemir 13 units twice a day. 4. Levaquin daily. 5. Protonix 20 mg daily. 6. Zosyn 3.375 IV every 6 hours. 7. Diflucan q.24h. 8. Bactrim IV every 8 hours. 9. Solu-Medrol 30 mg IV every 12 hours. 10. Lopressor 25mg b.i.d. 11. Megace 400 mg b.i.d. 12. Accu-Chek q.a.c. and at bedtime. 13. Reglan 5 mg IV t.i.d. meals. 14. Thiamine 100 mg daily. 15. Folic acid 1 mg daily. 16. Multivitamin 1 tablet daily. 17. Ativan p.r.n. 18. Zofran p.r.n. 19. Tylenol p.r.n. 20. Hypoglycemia protocol as directed. ASSESSMENT AND PLAN: This is an unfortunate 58-year-old male with history of alcoholic live r disease, active drinker, diabetes mellitus, poorly controlled. This patient is noncompliant with m edications. Also, weight loss, cachexia and vitiligo presented with worsening shortness of breath, w as found to have multifocal pneumonia and pneumococcal bacteremia. 1. Multifocal pneumonia due to strep pneumonia also positive contreras. Continue antibacterial and an tifungal. Chest x-ray done today this morning shows the following; similar right middle and lower elissa ng zone airspace interstitial opacification, mild improvement in the left lower lung zone airspace di sease. Overall, there is improvement. The patient is requiring less oxygen. Continue titrating it down to keep saturation greater than 90%. I appreciate pulmonary input. 2. Infectious disease. The patient remains on broad spectrum antibiotics due to patient's immunocom promised state and extensive multifocal pneumonia, may deescalate antibiotics soon and taper down toby roids. 3. Diabetes mellitus. Titrate down steroids and continue with an insulin regimen. 4. Alcohol abuse, abdominal ultrasound shows fatty metamorphosis of the liver. Again, alcohol cessa tion is a must. If he continues to drink then his prognosis is poor. 5. Moderate caloric-protein malnutrition. Try to maximize patient nutritional support. Serology fo r PCP was negative. 6. Generalized weakness in bed due to her being on high flow oxygen. Physical therapy hopefully can be initiated soon as he will be on less oxygen. 7. Renal. Monitor electrolytes and replace accordingly. 8. Vitiligo outpatient Dermatology consultation. 9. Anemia, stable. No need for transfusion. Follow up labs in the morning. Overall, clinically im proving. We will follow. Dictated By: GAYATHRI ROBERT/BOBBI Conf#: [id number] DID#: [id number] CC: GAYATHRI HUNTER MD; NIGHAT ROSALES MD; ANA CRISTINA HILL MD;*[facility]*
--- NOTE | 2018-11-23 11:05 | NUR ---
PT NOTE Therapy day number 4 Subjective Denies pain Pain Scale NUMERIC Pain Intensity 0 (0-10) Patient Stated Goal for Pain Relief 0 (0-10) Pain Level Comment denies Pre Treatment Vital Signs Stable No - cleared for PT in bed only 2/2 low BP per RN Jovan Exercise Assessment Label Bilat Lower Extremity Exercise Type Active ROM Additional Exercise Comments semifowl: SLR, SAQ, Hip ab/ad, AP, mini-bridg; BUE GHJ flex, tricep ext Exercise Start Time 11:05 Exercise End Time 11:28 Total Exercise Time 23 min (8-127) Additional Mobility Comments Cleared for PT in bed only per RN 2/2 decreased BP Post Treatment Pain Intensity 0 0-10 Additional Post Treatment Comment See Below Total Treament Time 23 min (8-127) Total Minutes 23 Total Units 2 PT Technical Record Comment PT NOTE S: Pt has no c/o pain or dizziness pre-tx, agreeable to PT. Cleared for PT in bed only per Pritesh Aldana O: Pt received semifolwer in bed in no apparent distress, on HiFlow O2. Performed thera ex per tech record above. Pt positioned for comfort post-tx with call ight and need sin reach, bed alarm armed, Pt in no apparent distress, RN informed re Pt status A: Pt alistair limited tx well with no SOB or c/o fatigue, SpO2 and HR monitored and stable throughout tx P: Cont POC, monitor vitals
--- NOTE | 2018-11-23 11:48 | CONS ---
Date/Time of Note Date/Time of Note DATE: 11/23/18 TIME: 11:47 Consult Date/Type/Reason Admit Date/Time Nov 14, 2018 at 04:59 Initial Consult Date 11/18/18 Type of Consultation: Pulmonary ICU Subjective Patient continues high flow O2. Remains on 40 L/min 60% FiO2 chest x-ray shows ongoing pulmonary edema versus infiltrates Objective Vital Signs Date Temp Pulse Resp B/P (MAP) Pulse Ox O2 O2 Flow FiO2 Time Delivery Rate 11/23/18 69 90/51 (64) 11:41 11/23/18 98.7 15 99 11:15 11/23/18 60 08:19 11/23/18 Vapotherm 07:50 Intake and Output 11/22/18 11/22/18 11/23/18 1515:00 23:00 07:00 IntakeIntake Total 1000 ml 1240 ml OutputOutput Total 2700 ml BalanceBalance -1700 ml 1240 ml Exam GENERAL: Frail gentleman comfortable at rest no acute distress VITAL SIGNS: per chart NECK: Supple. No JVD or lymphadenopathy. CARDIAC EXAM: S1, S2. No added sounds or murmurs. CHEST: clear bilaterally, No added sounds, rales or wheezes ABDOMEN: Soft, nontender. No guarding or rebound. EXTREMITIES: No cyanosis, clubbing or edema. NEUROLOGIC: Generalized weakness. No focal deficits. Results/Medications Result Diagram: 11/21/18 0509 11/23/18 0104 Results 24 hrs Laboratory Tests Test 11/22/18 12:13 11/22/18 17:54 11/22/18 18:57 11/22/18 21:01 Bedside Glucose 352 H > 595 *H 424 *H Glucose Level 597 #*H Test 11/22/18 21:56 11/23/18 01:04 11/23/18 02:21 11/23/18 07:39 Glucose Level 465 *H 321 H Bedside Glucose 236 H 322 H Medications Current Medications IV Flush (NS 3 ml) 3 ml PER PROTOCOL IV ; Start 11/14/18 at 07:00 Ondansetron HCl (Zofran Inj) 4 mg Q6H PRN IV NAUSEA AND/OR VOMITING; Start 1 01/15/18 at 07:00 Acetaminophen (Tylenol Tab) 650 mg Q6H PRN PO PAIN LEVEL 1-3 OR FEVER Last administered on 11/16/18at 08:39; Admin Dose 650 MG; Start 11/14/18 at 07:00 Diagnostic Test (Pha) (Accu-Chek) 1 ea 02 XX Last administered on 11/23/18at 02:29; Admin Dose 1 EA; Start 11/15/18 at 02:00 Insulin Aspart (Novolog Insulin Pen) NOVOLOG *MODERATE* ALGORITHM WITH MEALS BEDTIME SC Last administered on 11/23/18at 11:39; Admin Dose 6 UNIT; Start 11/14/18 at 08:00 Miscellaneous Information 1 ea NOTE XX ; Start 11/14/18 at 07:00 Glucose (Glutose) 15 gm Q15M PRN PO DECREASED GLUCOSE; Start 11/14/18 at 07:00 Glucose (Glutose) 22.5 gm Q15M PRN PO DECREASED GLUCOSE; Start 11/14/18 at 07:00 Dextrose (D50w Syringe) 25 ml Q15M PRN IV DECREASED GLUCOSE Last administered on 11/15/18at 02:12; Admin Dose 25 ML; Start 11/14/18 at 07:00 Dextrose (D50w Syringe) 50 ml Q15M PRN IV DECREASED GLUCOSE; Start 11/14/18 at 07:00 Glucagon (Glucagen) 1 mg Q15M PRN IM DECREASED GLUCOSE; Start 11/14/18 at 07:00 Glucose (Glutose) 15 gm Q15M PRN BUCCAL DECREASED GLUCOSE; Start 11/14/18 at 07:00 Thiamine HCl (Vitamin B1) 100 mg DAILY PO Last administered on 11/23/18at 08:27; Admin Dose 100 MG; Start 11/14/18 at 14:30 Folic Acid (Folic Acid) 1 mg DAILY PO Last administered on 11/23/18at 08:26; Admin Dose 1 MG; Start 11/14/18 at 14:30 Multivitamins Therapeutic (Theragran) 1 tab DAILY PO Last administered on 11/23/18 08:26; Admin Dose 1 TAB; Start 11/14/18 at 14:30 Metoclopramide HCl (Reglan) 5 mg WITH MEALS IV Last administered on 11/23/18at 07:50; Admin Dose 5 MG; Start 11/14/18 at 17:35 Lorazepam (Ativan) 0.5 mg Q4H PRN IV anxiety, withdrawals; Start 11/14/18 at 14:30 Megestrol Acetate (Megace Susp) 400 mg BID PO Last administered on 11/23/18at 08:27; Admin Dose 400 MG; Start 11/15/18 at 13:30 Metoprolol Tartrate (Lopressor) 25 mg BID PO Last administered on 11/23/18at 08:27; Admin Dose 25 MG; Start 11/16/18 at 10:30 Fluconazole/ Sodium Chloride 50 ml @ 50 mls/hr Q24H IVPB Last administered on 11/22/18at 14:55; Admin Dose 50 MLS/HR; Start 11/17/18 at 14:00 Trimethoprim/ Sulfamethoxazole 20 ml/Dextrose 520 ml @ 343.333 mls/hr Q8 IVPB Last administered on 11/23/18at 05:20; Admin Dose 343.333 MLS/HR; Start 11/17/18 at 14:00 Pantoprazole (Protonix Tab) 40 mg DAILY@06 PO Last administered on 11/23/18at 05:20; Admin Dose 40 MG; Start 11/18/18 at 06:00 Piperacillin Sod/ Tazobactam Sod 100 ml @ 200 mls/hr Q6 IVPB Last administered on 11/23/18at 05:20; Admin Dose 200 MLS/HR; Start 11/18/18 at 00:00 Insulin Detemir (Levemir) 13 units BID SC Last administered on 11/23/18at 08:31; Admin Dose 13 UNITS; Start 11/18/18 at 21:00 Levofloxacin/ Dextrose 150 ml @ 100 mls/hr Q24H IVPB Last administered on 11/22/18at 12:26; Admin Dose 100 MLS/HR; Start 11/18/18 at 12:00 Zolpidem Tartrate (Ambien) 5 mg HS PRN PO INSOMNIA; Start 11/19/18 at 21:00 Insulin Aspart (Novolog Insulin Pen) 6 unit WITH MEALS SC Last administered on 11/23/18at 11:41; Admin Dose 6 UNIT; Start 11/19/18 at 09:30 Methylprednisolone Sodium Succinate (Solu-Medrol) 30 mg DAILY IV ; Start 11/23/18 at 09:00 Assessment/Plan Chief Complaint/Hosp Course IMP: 1. Acute hypoxemic respiratory failure 2. Pneumococcal pneumonia 3. Anemia RECS: 1. Abx per ID 2. Continue high-flow NC 3. CXR noted Consider SANDY Quan MD, [facility] Nov 23, 2018 11:48
[2018-11-23] MEDS: LEVOFLOXACIN 750MG/D5W (PMX) 150 ML IVPB SCH (11:52)
[2018-11-23] MEDS: FLUCONAZOLE 100 MG/50 ML (PMX) 50 ML IVPB SCH (14:00)
[2018-11-23] MEDS ORDERED: INSULIN ASPART [NOVOLOG] 3 ML PEN SC ONE (18:00)
--- NOTE | 2018-11-23 18:28 | NUR ---
EOSS: PT ON O2 HIGH FLOW 60%. ON SOLUMEDROL.DR CATALAN VISITED.ACCUCHECK [address] HUNTER ORDERED EXTRA 10 UNITS NOVOLOG INSULIN . PT AND FAMILY EDUCATED ON MED SIDE EFFECT AND NEED ON INSULIN. ALL NEEDS MET.CONTINUE POC.
[2018-11-24] VITALS (10 sets, daily range): BP systolic 85–110; BP diastolic 52–63; PULSE 66–97; RESP 16–22
[2018-11-24] MEDS: ACCU-CHEK XX SCH (02:00)
[2018-11-24] MEDS: PIPER-TAZO 3.375 GM IV (PMX) 100 ML IVPB SCH ×4 (06:26→17:20)
[2018-11-24] MEDS: PANTOPRAZOLE (EC) 40 MG TAB PO SCH (06:26)
[2018-11-24] MEDS: TRIMETHOPRIM/SULFAMETHOXAZOLE 20 ML in DEXTROSE 5% 500 ML IVPB SCH ×2 (06:26→13:51)
--- NOTE | 2018-11-24 07:32 | NUR ---
NURSE'S NOTES: Pt resting comfortably with stable VS; assisted to BSC as needed. Denies any discomfort. IV ATB ongoing with no adverse effects noted. No s/sx of hypo/hyperglycemia. Kept clean and comfortable. Call light in reach. Bed alarm on. Instructed on TCDB. All needs anticipated and attended promptly.
[2018-11-24] MEDS: INSULIN ASPART [NOVOLOG] 3 ML PEN SC SCH ×7 (07:40→21:53)
--- NOTE | 2018-11-24 07:47 | NUR ---
PT ACCUCHECK 354. DR HILL NOTIFIED. NO NEW ORDERS GIVEN
[2018-11-24] MEDS: METOCLOPRAMIDE 10 MG INJ IV SCH ×3 (07:49→17:19)
[2018-11-24] MEDS: METOPROLOL 25 MG TAB PO SCH ×2 (08:33→21:38)
[2018-11-24] MEDS: MEGESTROL (40 MG/ML) 10ML CUP PO SCH ×2 (08:33→21:39)
[2018-11-24] MEDS: THIAMINE 100 MG TAB PO SCH (08:33)
[2018-11-24] MEDS: MULTIVITAMINS THERAPEUTIC TAB PO SCH (08:34)
[2018-11-24] MEDS: FOLIC ACID 1 MG TAB PO SCH (08:34)
[2018-11-24] MEDS: METHYLPREDNISOLONE 40 MG INJ IV SCH (08:36)
--- NOTE | 2018-11-24 10:57 | CONS ---
Date/Time of Note Date/Time of Note DATE: 11/24/18 TIME: 10:56 Consult Date/Type/Reason Admit Date/Time Nov 14, 2018 at 04:59 Initial Consult Date 11/18/18 Type of Consultation: Pulmonary ICU Subjective Off vapotherm Comfortable on nasal cannula. Objective Vital Signs Date Temp Pulse Resp B/P (MAP) Pulse Ox O2 O2 Flow FiO2 Time Delivery Rate 11/24/18 73 08:00 11/24/18 97.0 22 99/56 (70) 96 Nasal 2.0 07:45 Cannula 11/24/18 30 02:23 Intake and Output 11/23/18 11/23/18 11/24/18 1515:00 23:00 07:00 IntakeIntake Total 550 ml 1570 ml 1240 ml OutputOutput Total 2250 ml 1500 ml BalanceBalance -1700 ml 70 ml 1240 ml Exam GENERAL: Frail gentleman comfortable at rest no acute distress VITAL SIGNS: per chart NECK: Supple. No JVD or lymphadenopathy. CARDIAC EXAM: S1, S2. No added sounds or murmurs. CHEST: clear bilaterally, No added sounds, rales or wheezes ABDOMEN: Soft, nontender. No guarding or rebound. EXTREMITIES: No cyanosis, clubbing or edema. NEUROLOGIC: Generalized weakness. No focal deficits. Results/Medications Result Diagram: 11/24/18 0451 11/24/18 0451 Results 24 hrs Laboratory Tests Test 11/23/18 11:31 11/23/18 17:22 11/23/18 20:23 11/24/18 04:51 Bedside Glucose 243 H 520 *H 389 H White Blood Count 9.0 Red Blood Count 2.78 L Hemoglobin 9.1 L Hematocrit 26.3 L Mean Corpuscular 94.6 Volume Mean Corpuscular 32.7 Hemoglobin Mean Corpuscular 34.6 Hemoglobin Concent Red Cell 13.2 Distribution Width Platelet Count 323 # Mean Platelet 9.6 Volume Immature 2.800 H Granulocytes % Neutrophils % 66.5 Lymphocytes % 23.3 Monocytes % 6.2 Eosinophils % 1.0 Basophils % 0.2 Nucleated Red 0.0 Blood Cells % Immature 0.250 H Granulocytes # Neutrophils # 6.0 Lymphocytes # 2.1 Monocytes # 0.6 Eosinophils # 0.1 Basophils # 0.0 Nucleated Red 0.0 Blood Cells # Sodium Level 132 L Potassium Level 4.2 Chloride Level 101 Carbon Dioxide 23 Level Anion Gap 8 Blood Urea 22 H Nitrogen Creatinine 0.59 L Est Glomerular > 60 Filtrat Rate mL/min Glucose Level 270 H Calcium Level 8.3 L Phosphorus Level 3.6 Magnesium Level 1.7 Total Bilirubin 0.5 Direct Bilirubin 0.00 Indirect Bilirubin 0.5 Aspartate Amino 35 Transf (AST/SGOT) Alanine 38 Aminotransferase ( ALT/SGPT) Alkaline 314 H Phosphatase Total Protein 5.2 L Albumin 2.3 L Globulin 2.90 Albumin/Globulin 0.79 Ratio Alpha Fetoprotein 1.92 Test 11/24/18 07:30 Bedside Glucose 354 H Medications Current Medications IV Flush (NS 3 ml) 3 ml PER PROTOCOL IV ; Start 11/14/18 at 07:00 Ondansetron HCl (Zofran Inj) 4 mg Q6H PRN IV NAUSEA AND/OR VOMITING; Start 11/14/18 at 07:00 Acetaminophen (Tylenol Tab) 650 mg Q6H PRN PO PAIN LEVEL 1-3 OR FEVER Last administered on 11/16/18at 08:39; Admin Dose 650 MG; Start 11/14/18 at 07:00 Diagnostic Test (Pha) (Accu-Chek) 1 ea 02 XX Last administered on 11/23/18at 02:29; Admin Dose 1 EA; Start 11/15/18 at 02:00 Insulin Aspart (Novolog Insulin Pen) NOVOLOG *MODERATE* ALGORITHM WITH MEALS BEDTIME SC Last administered on 11/24/18at 07:41; Admin Dose 12 UNIT; Start 11/14/18 at 08:00 Miscellaneous Information 1 ea NOTE XX ; Start 11/14/18 at 07:00 Glucose (Glutose) 15 gm Q15M PRN PO DECREASED GLUCOSE; Start 11/14/18 at 07:00 Glucose (Glutose) 22.5 gm Q15M PRN PO DECREASED GLUCOSE; Start 11/14/18 at 07:00 Dextrose (D50w Syringe) 25 ml Q15M PRN IV DECREASED GLUCOSE Last administered on 11/15/18at 02:12; Admin Dose 25 ML; Start 11/14/18 at 07:00 Dextrose (D50w Syringe) 50 ml Q15M PRN IV DECREASED GLUCOSE; Start 11/14/18 at 07:00 Glucagon (Glucagen) 1 mg Q15M PRN IM DECREASED GLUCOSE; Start 11/14/18 at 07:00 Glucose (Glutose) 15 gm Q15M PRN BUCCAL DECREASED GLUCOSE; Start 11/14/18 at 07:00 Thiamine HCl (Vitamin B1) 100 mg DAILY PO Last administered on 11/24/18 08:33; Admin Dose 100 MG; Start 11/14/18 at 14:30 Folic Acid (Folic Acid) 1 mg DAILY PO Last administered on 11/24/18 08:34; Admin Dose 1 MG; Start 11/14/18 at 14:30 Multivitamins Therapeutic (Theragran) 1 tab DAILY PO Last administered on 11/24/18 08:34; Admin Dose 1 TAB; Start 11/14/18 at 14:30 Metoclopramide HCl (Reglan) 5 mg WITH MEALS IV Last administered on 11/24/18 07:49; Admin Dose 5 MG; Start 11/14/18 at 17:35 Lorazepam (Ativan) 0.5 mg Q4H PRN IV anxiety, withdrawals; Start 11/14/18 at 14:30 Megestrol Acetate (Megace Susp) 400 mg BID PO Last administered on 11/24/18 08:33; Admin Dose 400 MG; Start 11/15/18 at 13:30 Metoprolol Tartrate (Lopressor) 25 mg BID PO Last administered on 11/23/18 08:27; Admin Dose 25 MG; Start 11/16/18 at 10:30 Fluconazole/ Sodium Chloride 50 ml @ 50 mls/hr Q24H IVPB Last administered on 11/23/18at 14:00; Admin Dose 50 MLS/HR; Start 11/17/18 at 14:00 Trimethoprim/ Sulfamethoxazole 20 ml/Dextrose 520 ml @ 343.333 mls/hr Q8 IVPB Last administered on 11/24/18 06:26; Admin Dose 343.333 MLS/HR; Start 11/17/18 at 14:00 Pantoprazole (Protonix Tab) 40 mg DAILY@06 PO Last administered on 11/24/18 06:26; Admin Dose 40 MG; Start 11/18/18 at 06:00 Piperacillin Sod/ Tazobactam Sod 100 ml @ 200 mls/hr Q6 IVPB Last administered on 11/24/18 06:26; Admin Dose 200 MLS/HR; Start 12/26/18 at 00:00 Insulin Detemir (Levemir) 13 units BID SC Last administered on 11/23/18at 20:42; Admin Dose 13 UNITS; Start 11/18/18 at 21:00 Levofloxacin/ Dextrose 150 ml @ 100 mls/hr Q24H IVPB Last administered on 11/23/18at 11:52; Admin Dose 100 MLS/HR; Start 11/18/18 at 12:00 Zolpidem Tartrate (Ambien) 5 mg HS PRN PO INSOMNIA; Start 11/19/18 at 21:00 Insulin Aspart (Novolog Insulin Pen) 6 unit WITH MEALS SC Last administered on 11/24/18at 07:40; Admin Dose 6 UNIT; Start 11/19/18 at 09:30 Methylprednisolone Sodium Succinate (Solu-Medrol) 30 mg DAILY IV Last administered on 11/24/18at 08:36; Admin Dose 30 MG; Start 11/23/18 at 09:00 Assessment/Plan Chief Complaint/Hosp Course IMP: 1. Acute hypoxemic respiratory failure 2. Pneumococcal pneumonia 3. Anemia RECS: 1. Abx per ID 2. Decrease 02 as tolerated. 3. CXR noted Consider [facility] Quan MD, [facility] Nov 24, 2018 10:56
[2018-11-24] MEDS: INSULIN DETEMIR [LEVEMIR] (100 UNITS/ML) SYG SC SCH ×2 (11:44→21:53)
[2018-11-24] MEDS: LEVOFLOXACIN 750MG/D5W (PMX) 150 ML IVPB SCH (12:19)
[2018-11-24] MEDS: FLUCONAZOLE 100 MG/50 ML (PMX) 50 ML IVPB SCH (13:51)
--- NOTE | 2018-11-24 17:20 | CONS ---
Date/Time of Note Date/Time of Note DATE: 11/24/18 TIME: 17:17 Assessment/Plan Assessment/Plan Hospital Course ID PROGRESS NOTE CURRENT ABX: DAY # 9=>Bactrim + Zosyn + Levaquin + Diflucan 11/24/1845011/24/18450 24H INTERVAL SUMMARY * No new issues -- still on high flow O2 -- patient is smiling, no complaints offered * Renal Fx stable on Bactrim & Zosyn * Microbiology: Sputum culture growing Margarita albicans MICRO * (+)BLood Cx: BLOOD CULTURE Final Organism 1 STREPTOCOCCUS PNEUMONIAE PHYSICAL EXAMINATION: GENERAL: Afebrile, VSS, cachectic M VSS, NAD HEENT: AT, NC, anicteric = NECK: Supple, trach CHEST: Equal chest rise bilaterally -- supplemental O2 HEART: Pulse RRR ABDOMEN: Soft / NT EXTREMITIES: Warm, dry, SKIN: No rash, no diaphoresis ID ASSESSMENT 58 yo M admit with: 1. Sepsis with strep bacteremia on admission==> 2D echo revealed no vegetations 2. Multifocal pneumonia 3. Acute hypoxemic respiratory failure 4. Diabetes 5. Hypertension 6. Immunocompromised 7. History of chronic alcohol abuse (-)MRSA Nares ABX ALLERGIES: NKDA INVASIVES: PI CURRENT ABX: DAY #9 =Bactrim + Zosyn + Levaquin + Diflucan ID RECOMMENDATIONS/PLAN: Continue current ABX == anticipate minimum 14 days total ABX Monitor renal fx closely on Bactrim + Zosyn * Zosyn for Step Bacteremia/Strep PNA * Levaquin for atypical PNA coverage * Bactrim due to immunocompromised host status * Diflucan due to oral candidiasis opportunistic yeast . . Result Diagram: 11/24/1845011/24/181 Results 24hrs Laboratory Tests Test 11/23/18 17:22 11/23/18 20:23 11/24/18 04:51 11/24/18 07:30 Bedside Glucose 520 *H 389 H 354 H White Blood Count 9.0 Red Blood Count 2.78 L Hemoglobin 9.1 L Hematocrit 26.3 L Mean Corpuscular 94.6 Volume Mean Corpuscular 32.7 Hemoglobin Mean Corpuscular 34.6 Hemoglobin Concent Red Cell 13.2 Distribution Width Platelet Count 323 # Mean Platelet Volume 9.6 Immature 2.800 H Granulocytes % Neutrophils % 66.5 Lymphocytes % 23.3 Monocytes % 6.2 Eosinophils % 1.0 Basophils % 0.2 Nucleated Red Blood 0.0 Cells % Immature 0.250 H Granulocytes # Neutrophils # 6.0 Lymphocytes # 2.1 Monocytes # 0.6 Eosinophils # 0.1 Basophils # 0.0 Nucleated Red Blood 0.0 Cells # Sodium Level 132 L Potassium Level 4.2 Chloride Level 101 Carbon Dioxide Level 23 Anion Gap 8 Blood Urea Nitrogen 22 H Creatinine 0.59 L Est Glomerular > 60 Filtrat Rate mL/min Glucose Level 270 H Calcium Level 8.3 L Phosphorus Level 3.6 Magnesium Level 1.7 Total Bilirubin 0.5 Direct Bilirubin 0.00 Indirect Bilirubin 0.5 Aspartate Amino 35 Transf (AST/SGOT) Alanine 38 Aminotransferase (AL T/SGPT) Alkaline Phosphatase 314 H Total Protein 5.2 L Albumin 2.3 L Globulin 2.90 Albumin/Globulin 0.79 Ratio Alpha Fetoprotein 1.92 Test 11/24/18 11:37 Bedside Glucose 378 H Consultation Date/Type/Reason Admit Date/Time Nov 14, 2018 at 04:59 Initial Consult Date 11/18/18 Exam/Review of Systems Vital Signs Vitals Vital Signs Date Temp Pulse Resp B/P (MAP) Pulse Ox O2 O2 Flow FiO2 Time Delivery Rate 11/24/18 4.0 16:09 11/24/18 96 16:00 11/24/18 97.0 22 101/55 96 Room Air 15:53 (70) 11/24/18 30 02:23 Intake and Output 11/23/18 11/23/18 11/24/18 1515:00 23:00 07:00 IntakeIntake Total 550 ml 1570 ml 1240 ml OutputOutput Total 2250 ml 1500 ml BalanceBalance -1700 ml 70 ml 1240 ml Medications Medications Current Medications IV Flush (NS 3 ml) 3 ml PER PROTOCOL IV ; Start 11/14/18 at 07:00 Ondansetron HCl (Zofran Inj) 4 mg Q6H PRN IV NAUSEA AND/OR VOMITING; Start 11/14/18 at 07:00 Acetaminophen (Tylenol Tab) 650 mg Q6H PRN PO PAIN LEVEL 1-3 OR FEVER Last administered on 11/16/18at 08:39; Admin Dose 650 MG; Start 11/14/18 at 07:00 Diagnostic Test (Pha) (Accu-Chek) 1 XX Last administered on 11/23/18at 02:29; Admin Dose 1 EA; Start 11/15/18 at 02:00 Insulin Aspart (Novolog Insulin Pen) NOVOLOG *MODERATE* ALGORITHM WITH MEALS BEDTIME SC Last administered on 11/24/18 11:44; Admin Dose 12 UNIT; Start 11/14/18 at 08:00 Miscellaneous Information 1 ea NOTE XX ; Start 11/14/18 at 07:00 Glucose (Glutose) 15 gm Q15M PRN PO DECREASED GLUCOSE; Start 11/14/18 at 07:00 Glucose (Glutose) 22.5 gm Q15M PRN PO DECREASED GLUCOSE; Start 11/14/18 at 07:00 Dextrose (D50w Syringe) 25 ml Q15M PRN IV DECREASED GLUCOSE Last administered on 11/15/18at 02:12; Admin Dose 25 ML; Start 11/14/18 at 07:00 Dextrose (D50w Syringe) 50 ml Q15M PRN IV DECREASED GLUCOSE; Start 11/14/18 at 07:00 Glucagon (Glucagen) 1 mg Q15M PRN IM DECREASED GLUCOSE; Start 11/14/18 at 07:00 Glucose (Glutose) 15 gm Q15M PRN BUCCAL DECREASED GLUCOSE; Start 11/14/18 at 07:00 Thiamine HCl (Vitamin B1) 100 mg DAILY PO Last administered on 11/24/18 08:33; Admin Dose 100 MG; Start 11/14/18 at 14:30 Folic Acid (Folic Acid) 1 mg DAILY PO Last administered on 11/24/18 08:34; Admin Dose 1 MG; Start 11/14/18 at 14:30 Multivitamins Therapeutic (Theragran) 1 tab DAILY PO Last administered on 11/24/18 08:34; Admin Dose 1 TAB; Start 11/14/18 at 14:30 Metoclopramide HCl (Reglan) 5 mg WITH MEALS IV Last administered on 11/24/18 11:32; Admin Dose 5 MG; Start 11/14/18 at 17:35 Lorazepam (Ativan) 0.5 mg Q4H PRN IV anxiety, withdrawals; Start 11/14/18 at 14:30 Megestrol Acetate (Megace Susp) 400 mg BID PO Last administered on 11/24/18 08:33; Admin Dose 400 MG; Start 11/15/18 at 13:30 Metoprolol Tartrate (Lopressor) 25 mg BID PO Last administered on 11/23/18at 08:27; Admin Dose 25 MG; Start 11/16/18 at 10:30 Fluconazole/ Sodium Chloride 50 ml @ 50 mls/hr Q24H IVPB Last administered on 11/24/18 13:51; Admin Dose 50 MLS/HR; Start 11/17/18 at 14:00 Trimethoprim/ Sulfamethoxazole 20 ml/Dextrose 520 ml @ 343.333 mls/hr Q8 IVPB Last administered on 11/24/18 13:51; Admin Dose 343.333 MLS/HR; Start 11/17/18 at 14:00 Pantoprazole (Protonix Tab) 40 mg DAILY@06 PO Last administered on 11/24/18 06:26; Admin Dose 40 MG; Start 11/18/18 at 06:00 Piperacillin Sod/ Tazobactam Sod 100 ml @ 200 mls/hr Q6 IVPB Last administered on 11/24/18 11:35; Admin Dose 200 MLS/HR; Start 11/18/18 at 00:00 Insulin Detemir (Levemir) 13 units BID SC Last administered on 11/24/18 11:44; Admin Dose 13 UNITS; Start 11/18/18 at 21:00 Levofloxacin/ Dextrose 150 ml @ 100 mls/hr Q24H IVPB Last administered on 11/24/18 12:19; Admin Dose 100 MLS/HR; Start 11/18/18 at 12:00 Zolpidem Tartrate (Ambien) 5 mg HS PRN PO INSOMNIA; Start 11/19/18 at 21:00 Insulin Aspart (Novolog Insulin Pen) 6 unit WITH MEALS SC Last administered on 11/24/18 11:44; Admin Dose 6 UNIT; Start 11/19/18 at 09:30 Methylprednisolone Sodium Succinate (Solu-Medrol) 30 mg DAILY IV Last administered on 11/24/18 08:36; Admin Dose 30 MG; Start 11/23/18 at 09:00 BRENNA IBARRA NP Nov 24, 2018 17:20
--- NOTE | 2018-11-24 17:41 | PN ---
DATE: 11/24/2018 SUBJECTIVE: The patient overall clinically improving, now is only nasal cannula 4 liters, saturation is 96%, blood pressure noted to be borderline this morning at 85/52. Will continue to monitor. PHYSICAL EXAMINATION: VITAL SIGNS: Temperature 97.6, pulse 88, respirations 22, blood pressure, again was 85/52, saturatio n 96% on 4 liters. GENERAL: No acute distress. Patient is cachectic, frail. CARDIOVASCULAR: S1, S2. LUNGS: Decreased bilaterally. ABDOMEN: Soft, nontender. EXTREMITIES: No clubbing, cyanosis, or edema. LABORATORY DATA: White count is normal at 9, hemoglobin 9.1, hematocrit 26, platelet count of 223, n eutrophils 67%, lymphocytes 23%. Chemistry: Sodium is 132, potassium 4.2, chloride 101, bicarbonate 23, BUN is 22, creatinine 0.59, glucose of 270. Last glucose level was quite high at 378. Case dis cussed with RN. Alpha fetoprotein 1.9 to normal. Alkaline phosphatase was high at 314. The patient 's urinalysis did show otherwise negative. Sputum culture shows Margarita albicans and blood cultures on admission shows strep pneumonia. Repeat blood cultures are negative. MEDICATIONS: Reviewed, include: 1. Solu-Medrol 30 mg IV daily. 2. Ambien 5 mg at bedtime p.r.n. 3. Insulin aspart 6 units q.a.c. meals. 4. Levemir 13 units twice a day. 5. Levaquin IV daily. 6. Protonix 40 mg daily. 7. Zosyn 3.375 IV q.6. 8. Diflucan daily. 9. Bactrim IV q.8. 10. Metoprolol tartrate 25 b.i.d. 11. Megace 400 b.i.d. 12. Reglan 5 mg IV t.i.d. meals, we can discontinue that. 13. Thiamine 100 mg daily. 14. Folic acid 1 mg daily. 15. Multivitamin 1 tab daily. 16. Ativan p.r.n. 17. Insulin aspart per sliding scale. 18. Zofran. 19. Tylenol. 20. Hypoglycemia as directed. ASSESSMENT AND PLAN: This is a 58-year-old male with history of alcoholic liver disease, ac tive drinker; diabetes mellitus, poorly controlled; history of noncompliance with medications. Also, history of weight loss, cachexia, vitiligo, presented with worsening shortness of breath, was found to have multifocal pneumonia and pneumococcal bacteremia. 1. Multifocal pneumonia due to strep pneumonia. Responding to the above treatment plan. Also, on a ntifungals, on Diflucan. Appreciate ID input. Continue to titrate O2 down to see if we can titrate O2 to room air for discharge planning. 2. Infectious disease. Continue IV antibiotics for 14 days. 3. Diabetes mellitus. Titrate down steroids. Continue insulin regimen. 4. Moderate caloric-protein malnutrition. We will try to maximize nutritional support. The patient remains on Megace. Continue Glucerna. 5. We will request physical therapy as patient has been in the hospital for prolonged period of time . Now is off high flow oxygen. 6. Renal. Monitor electrolytes and replace accordingly. 7. Vitiligo. Outpatient dermatology consultation is advised. 8. Anemia. No need for transfusion. 9. Case discussed with his as well. At that time, overall, clinically improving. We will foll ow. Dictated By: GAYATHRI ROBERT/BOBBI Conf#: [id number] DID#: [id number]
--- NOTE | 2018-11-24 18:54 | NUR ---
EOSS: PT ON O2 4L NC.TOLERATING WELL.HAD PHYS TX, AMBULATED ON HALLWAY. SAT FOR DINNER.ACCUCHECK STILL HIGH THIS EVENING.DR HUNTER NOTIFIED,BUT NO NEW ORDERS GIVEN, ALL NEEDS MET. CONTINUE POC.
[2018-11-24] MEDS ORDERED: INSULIN ASPART [NOVOLOG] 3 ML PEN SC ONE (22:30)
[2018-11-25] VITALS (10 sets, daily range): BP systolic 99–137; BP diastolic 53–72; PULSE 74–96; RESP 18–20
[2018-11-25] MEDS: TRIMETHOPRIM/SULFAMETHOXAZOLE 20 ML in DEXTROSE 5% 500 ML IVPB SCH ×4 (00:25→22:00)
[2018-11-25] MEDS ORDERED: INSULIN ASPART [NOVOLOG] 3 ML PEN SC ONE (00:30)
[2018-11-25] MEDS: PIPER-TAZO 3.375 GM IV (PMX) 100 ML IVPB SCH ×5 (00:47→23:29)
[2018-11-25] MEDS: ACCU-CHEK XX SCH (02:00)
[2018-11-25] MEDS: PANTOPRAZOLE (EC) 40 MG TAB PO SCH (05:46)
--- NOTE | 2018-11-25 07:27 | NUR ---
Around 2150 blood sugar 421, give 4 units, ordered glucose serum level resulted around 2200 BG 447, Dr Skyla dent, order received, 12 units novolog insulin given, dr Crum order to recheck BG in 1 hour and if greater than 300 to give 10 units of novolog insulin, BG checked after 1 hour 350, novolog 10 units given, rechecked bg around 0200, BG 195, snack, sand wish given, at the start of shift, patient was on 4 liters 0xygen, checked 02 sat 98%, reduced 02 to 2 liters, 02 sat 96% on 2 liters, fall and safety precautions maintained, hourly rounds done. Patient instable condition at this time, calmed, alert and oriented x 4,
[2018-11-25] MEDS: METOCLOPRAMIDE 10 MG INJ IV SCH ×2 (07:44→11:46)
[2018-11-25] MEDS: INSULIN DETEMIR [LEVEMIR] (100 UNITS/ML) SYG SC SCH ×2 (07:55→21:03)
[2018-11-25] MEDS: INSULIN ASPART [NOVOLOG] 3 ML PEN SC SCH ×7 (07:55→21:03)
[2018-11-25] MEDS: MEGESTROL (40 MG/ML) 10ML CUP PO SCH ×2 (08:40→20:11)
[2018-11-25] MEDS: THIAMINE 100 MG TAB PO SCH (08:41)
[2018-11-25] MEDS: FOLIC ACID 1 MG TAB PO SCH (08:41)
[2018-11-25] MEDS: MULTIVITAMINS THERAPEUTIC TAB PO SCH (08:41)
[2018-11-25] MEDS: METOPROLOL 25 MG TAB PO SCH ×2 (08:42→20:12)
[2018-11-25] MEDS: METHYLPREDNISOLONE 40 MG INJ IV SCH (08:45)
--- NOTE | 2018-11-25 11:26 | CONS ---
Date/Time of Note Date/Time of Note DATE: 11/25/18 TIME: 11:26 Consult Date/Type/Reason Admit Date/Time Nov 14, 2018 at 04:59 Initial Consult Date 11/18/18 Type of Consultation: Pulmonary ICU Subjective Continues to improve no nasal cannula, ambulating with some assistance. No respiratory distress. Objective Vital Signs Date Temp Pulse Resp B/P (MAP) Pulse Ox O2 O2 Flow FiO2 Time Delivery Rate 11/25/18 76 08:00 11/25/18 Nasal 3.0 07:40 Cannula 11/25/18 96.6 20 102/57 96 07:36 (72) 11/24/18 30 02:23 Intake and Output 11/24/18 11/24/18 11/25/18 1515:00 23:00 07:00 IntakeIntake Total 250 ml 990 ml 720 ml BalanceBalance 250 ml 990 ml 720 ml Exam GENERAL: Frail gentleman comfortable at rest no acute distress VITAL SIGNS: per chart NECK: Supple. No JVD or lymphadenopathy. CARDIAC EXAM: S1, S2. No added sounds or murmurs. CHEST: clear bilaterally, No added sounds, rales or wheezes ABDOMEN: Soft, nontender. No guarding or rebound. EXTREMITIES: No cyanosis, clubbing or edema. NEUROLOGIC: Generalized weakness. No focal deficits. Results/Medications Result Diagram: 11/24/18 0451 11/24/18 2212 Results 24 hrs Laboratory Tests Test 11/24/18 11:37 11/24/18 17:17 11/24/18 21:34 11/24/18 22:12 Bedside Glucose 378 H 486 *H 421 *H Glucose Level 447 #*H Test 11/24/18 23:54 11/25/18 02:15 11/25/18 07:24 Bedside Glucose 350 H 195 398 H Medications Current Medications IV Flush (NS 3 ml) 3 ml PER PROTOCOL IV ; Start 11/14/18 at 07:00 Ondansetron HCl (Zofran Inj) 4 mg Q6H PRN IV NAUSEA AND/OR VOMITING; Start 11/14/18 at 07:00 Acetaminophen (Tylenol Tab) 650 mg Q6H PRN PO PAIN LEVEL 1-3 OR FEVER Last administered on 11/16/18at 08:39; Admin Dose 650 MG; Start 11/14/18 at 07:00 Diagnostic Test (Pha) (Accu-Chek) 1 ea 02 XX Last administered on 11/25/18 02:00; Admin Dose 1 EA; Start 11/15/18 at 02:00 Insulin Aspart (Novolog Insulin Pen) NOVOLOG *MODERATE* ALGORITHM WITH MEALS BEDTIME SC Last administered on 11/25/18 07:56; Admin Dose 12 UNIT; Start 11/14/18 at 08:00 Miscellaneous Information 1 ea NOTE XX ; Start 11/14/18 at 07:00 Glucose (Glutose) 15 gm Q15M PRN PO DECREASED GLUCOSE; Start 11/14/18 at 07:00 Glucose (Glutose) 22.5 gm Q15M PRN PO DECREASED GLUCOSE; Start 11/14/18 at 07:00 Dextrose (D50w Syringe) 25 ml Q15M PRN IV DECREASED GLUCOSE Last administered on 11/15/18at 02:12; Admin Dose 25 ML; Start 11/14/18 at 07:00 Dextrose (D50w Syringe) 50 ml Q15M PRN IV DECREASED GLUCOSE; Start 11/14/18 at 07:00 Glucagon (Glucagen) 1 mg Q15M PRN IM DECREASED GLUCOSE; Start 11/14/18 at 07:00 Glucose (Glutose) 15 gm Q15M PRN BUCCAL DECREASED GLUCOSE; Start 11/14/18 at 07:00 Thiamine HCl (Vitamin B1) 100 mg DAILY PO Last administered on 11/25/18 08:41; Admin Dose 100 MG; Start 11/14/18 at 14:30 Folic Acid (Folic Acid) 1 mg DAILY PO Last administered on 11/25/18 08:41; Admin Dose 1 MG; Start 11/14/18 at 14:30 Multivitamins Therapeutic (Theragran) 1 tab DAILY PO Last administered on 11/25/18 08:41; Admin Dose 1 TAB; Start 11/14/18 at 14:30 Metoclopramide HCl (Reglan) 5 mg WITH MEALS IV Last administered on 11/25/18 07:44; Admin Dose 5 MG; Start 11/14/18 at 17:35 Lorazepam (Ativan) 0.5 mg Q4H PRN IV anxiety, withdrawals; Start 11/14/18 at 14:30 Megestrol Acetate (Megace Susp) 400 mg BID PO Last administered on 11/25/18 08:40; Admin Dose 400 MG; Start 11/15/18 at 13:30 Metoprolol Tartrate (Lopressor) 25 mg BID PO Last administered on 11/24/18 21:38; Admin Dose 25 MG; Start 11/16/18 at 10:30 Fluconazole/ Sodium Chloride 50 ml @ 50 mls/hr Q24H IVPB Last administered on 11/24/18 13:51; Admin Dose 50 MLS/HR; Start 11/17/18 at 14:00 Trimethoprim/ Sulfamethoxazole 20 ml/Dextrose 520 ml @ 343.333 mls/hr Q8 IVPB Last administered on 11/25/18 05:46; Admin Dose 343.333 MLS/HR; Start 11/17/18 at 14:00 Pantoprazole (Protonix Tab) 40 mg DAILY@06 PO Last administered on 11/25/18 05:46; Admin Dose 40 MG; Start 11/18/18 at 06:00 Piperacillin Sod/ Tazobactam Sod 100 ml @ 200 mls/hr Q6 IVPB Last administered on 11/25/18 05:46; Admin Dose 200 MLS/HR; Start 11/18/18 at 00:00 Insulin Detemir (Levemir) 13 units BID SC Last administered on 11/25/18 07:55; Admin Dose 13 UNITS; Start 11/18/18 at 21:00 Levofloxacin/ Dextrose 150 ml @ 100 mls/hr Q24H IVPB Last administered on 11/24/18 12:19; Admin Dose 100 MLS/HR; Start 11/18/18 at 12:00 Zolpidem Tartrate (Ambien) 5 mg HS PRN PO INSOMNIA; Start 11/19/18 at 21:00 Insulin Aspart (Novolog Insulin Pen) 6 unit WITH MEALS SC Last administered on 11/25/18 07:55; Admin Dose 6 UNIT; Start 11/19/18 at 09:30 Methylprednisolone Sodium Succinate (Solu-Medrol) 30 mg DAILY IV Last administered on 11/25/18 08:45; Admin Dose 30 MG; Start 11/23/18 at 09:00 Assessment/Plan Chief Complaint/Hosp Course IMP: 1. Acute hypoxemic respiratory failure 2. Pneumococcal pneumonia 3. Anemia RECS: 1. Abx per ID 2. Decrease 02 as tolerated. 3. CXR noted Consider camara eval DC planning okay from pulmonary standpoint S[facility] CATALAN MD, [facility] Nov 25, 2018 11:26
[2018-11-25] MEDS: LEVOFLOXACIN 750MG/D5W (PMX) 150 ML IVPB SCH (11:46)
--- NOTE | 2018-11-25 12:01 | NUR ---
PT NOTE Therapy day number 6 Subjective Denies pain Pain Scale NUMERIC Pain Intensity 0 (0-10) Patient Stated Goal for Pain Relief 0 (0-10) Pain Level Comment denies Pre Treatment Vital Signs Stable Yes Exercise Assessment Label Bilat Lower Extremity Exercise Type Active ROM Additional Exercise Comments seated AP Transfer Training Start Time 10:26 Supine to Sit Supervised Transfer Sit to Stand Ability Supervised Bed Mobility Sit to Supine Supervised Bed Transfer Ability Supervised Sitting Tolerance 20 min Additional Mobility Comments left sitting in chair at EOB, no apparent distr, RN informed, needs in reac Transfer Training End Time 10:40 Total Transfer Training Time 14 min (8-127) Gait Training Start Time 10:40 Gait Assist Levels Supervised Assistive Devices Front Wheel Walker Ambulation Distance 400 feet Additional Gait Comments 400'FWW supervised, steady, NBOS; + 50' no AD, CGA, unsteady Gait Training End Time 11:04 Total Gait Training Treatment Time 24 min (8-127) Weight Bearing Assessment Label Bilat Lower Extremity Weight Bearing Status Full Weight Bearing Static Sitting Balance Good Dynamic Sitting Balance Good Standing Static Balance Good Dynamic Standing Balance Fair plus Additional Balance Assessments Comments with FWW Safety Judgement Good Activity Tolerance Fair Equipment Present A pump IV pump Additional Equipment Present 2 L O2 via NC Post Treatment Pain Intensity 0 0-10 Additional Post Treatment Comment See Below Total Treament Time 38 min (8-127) Total Minutes 38 Total Units 3 PT Technical Record Comment PT NOTE S: Pt denies pain, agreeable to PT. Cleared for PT per EVI Aldana. O: Pt received semifowler in bed, alert and appropriate. Performed bed mobility, thera ex, transfer tr and gait training per tech record above with Supervised to CGA using FWW, 2L O2 via NC. Pt with reciprocal gait, decreased hayley, NBOS, no LOB, benefitting from FWW due to unsteady gait with no AD. Pt positioned for comfort sitting in chair at bedside post-tx with call light and needs in reach, pt in no apparent distress, RN informed. A: Pt alistair tx well, continues to benefit from FWW with gait P: Cont POC Addendum: 11/25/18 at 1203 by LEA ORR PTA Incorrect time entered. Correct time of tx is 10:26AM.
--- NOTE | 2018-11-25 13:36 | PN ---
DATE: 11/25/2018 SUBJECTIVE: Patient seen, appears to be doing better now, sitting in a chair comfortably on 2 liter nasal cannula, eating well. Sugar remains high. The patient remains on IV Solu-Medrol. PHYSICAL EXAMINATION: VITAL SIGNS: Temperature 98.1, pulse 77, respirations 20, blood pressure 101/58, saturation 96% on 3 liter nasal cannula. GENERAL: No acute distress. The patient is pale, frail, temporal wasting. CARDIOVASCULAR: S1, S2, slightly tachycardic. LUNGS: Clear. ABDOMEN: Soft, nontender. EXTREMITIES: No clubbing, cyanosis, or edema. LABORATORY DATA: White count is 9, hemoglobin 9.1. This was yesterday, hematocrit 26, platelet count 323. Chemistry: Sodium 102, potassium 4.2, chloride 101, bicarbonate 23, BUN is 22, creatinine 0.5 and 0.59, glucose elevated 270. Last glucose level 338, 398, 195. Patient PCP was not detected in the sputum. HIV was negative. MEDICATIONS: 1. Solu-Medrol 20 mg IV daily. 2. Ambien p.r.n. 3. Insulin Aspart 6 units q.a.c. meals. 4. Levimir 30 units twice a day. 5. Levaquin daily. 6. Protonix 40 mg daily. 7. Zosyn 3.25 IV q.6h. 8. Diflucan q.24h. 9. Bactrim IV q.8h. 10. Metoprolol tartrate 25 daily. 11. Megace 400 b.i.d. 12. Accu-Chek. 13. Reglan 5 mg IV t.i.d. 14. Thiamine 100 mg daily. 15. Folic acid 1 mg daily. 16. Multivitamin 1 tab daily. 17. Ativan p.r.n. 18. Zofran p.r.n. 19. Tylenol p.r.n. 20. protocol as directed. ASSESSMENT AND PLAN: This is a 58-year-old male with history of alcoholic liver disease and active drinker, diabetes mellitus, poorly controlled, history of noncompliance with medication, also recent history of weight loss, cachexia, vitiligo, presented with worsening shortness of breath, was found to have multifocal pneumonia and pneumococcal bacteremia. 1. Multifocal pneumonia due to strep pneumonia, may be able to discontinue the Bactrim and steroids as this is not PCP pneumonia. Responded to above treatment plan. Continue O2 support titrated down as needed. Continue antifungals and Zosyn. 2. Infectious disease. Again, will need 2 weeks of IV antibiotics for bacteremia. 3. Diabetes mellitus. Taper down steroids. 4. Moderate caloric-protein malnutrition. Eating better now. Continue Megace and protein supplements. 5. Physical therapy as tolerated. Now on minimal oxygen. 6. Renal. Monitor electrolytes. 7. Vitiligo, outpatient dermatology consultation. 8. Anemia. No need for transfusion. 9. Diabetes mellitus. Taper down steroids and adjust insulin as directed. Clinically improved. Case discussed with family. We will follow. 10. Must stop alcohol use. Dictated By: GAYATHRI ROBERT/BOBBI Conf#: [id number] DID#: [id number] CC: ANA CRISTINA HILL MD;*EndCC* MTDD
[2018-11-25] MEDS: FLUCONAZOLE 100 MG/50 ML (PMX) 50 ML IVPB SCH (14:28)
--- NOTE | 2018-11-25 14:48 | CONS ---
Date/Time of Note Date/Time of Note DATE: 11/25/18 TIME: 14:47 Assessment/Plan Assessment/Plan Hospital Course Patient is alert comfortable on nasal cannula no fevers overnight she is sitting in a chair denies pain Microbiology: Sputum culture growing Margarita albicans Antimicrobials: Levaquin Zosyn fluconazole Bactrim Physical examination: Well-developed middle-aged man who is lying comfortably in bed head atraumatic normocephalic neck is supple chest rise symmetrical breath sounds with scattered rhonchi diminished bases. Heart: S1- S2. Abdomen soft bowel sounds present. Extremities without cyanosis edema. Assessment: 1. Sepsis with strep bacteremia on admission==> 2D echo revealed no vegetations 2. Multifocal pneumonia 3. Acute hypoxemic respiratory failure 4. Diabetes 5. Hypertension 6. Immunocompromised 7. History of chronic alcohol abuse Plan: Clinically stable and overall doing much better, completing abx. Change fluconazole and Levaquin to PO. Pulmonary rec-s noted Result Diagram: 11/24/18 0451 11/24/18 2212 Results 24hrs Laboratory Tests Test 11/24/18 17:17 11/24/18 21:34 11/24/18 22:12 11/24/18 23:54 Bedside Glucose 486 *H 421 *H 350 H Glucose Level 447 #*H Test 11/25/18 02:15 11/25/18 07:24 11/25/18 11:37 Bedside Glucose 195 398 H 338 H Consultation Date/Type/Reason Admit Date/Time Nov 14, 2018 at 04:59 Initial Consult Date Type of Consult id Exam/Review of Systems Vital Signs Vitals Vital Signs Date Temp Pulse Resp B/P (MAP) Pulse Ox O2 O2 Flow FiO2 Time Delivery Rate 11/25/18 98.1 77 20 101/58 96 12:05 (72) 11/25/18 Nasal 3.0 07:40 Cannula 11/24/18 30 02:23 Intake and Output 11/24/18 11/24/18 11/25/18 1414:59 22:59 06:59 IntakeIntake Total 250 ml 990 ml 720 ml BalanceBalance 250 ml 990 ml 720 ml Medications Medications Current Medications IV Flush (NS 3 ml) 3 ml PER PROTOCOL IV ; Start 11/14/18 at 07:00 Ondansetron HCl (Zofran Inj) 4 mg Q6H PRN IV NAUSEA AND/OR VOMITING; Start 11/14/18 at 07:00 Acetaminophen (Tylenol Tab) 650 mg Q6H PRN PO PAIN LEVEL 1-3 OR FEVER Last administered on 11/16/18at 08:39; Admin Dose 650 MG; Start 11/14/18 at 07:00 Diagnostic Test (Pha) (Accu-Chek) 1 ea 02 XX Last administered on 11/25/18 02:00; Admin Dose 1 EA; Start 11/15/18 at 02:00 Insulin Aspart (Novolog Insulin Pen) NOVOLOG *MODERATE* ALGORITHM WITH MEALS BEDTIME SC Last administered on 11/25/18 11:43; Admin Dose 10 UNIT; Start 11/14/18 at 08:00 Miscellaneous Information 1 ea NOTE XX ; Start 11/14/18 at 07:00 Glucose (Glutose) 15 gm Q15M PRN PO DECREASED GLUCOSE; Start 11/14/18 at 07:00 Glucose (Glutose) 22.5 gm Q15M PRN PO DECREASED GLUCOSE; Start 11/14/18 at 07:00 Dextrose (D50w Syringe) 25 ml Q15M PRN IV DECREASED GLUCOSE Last administered on 11/15/18at 02:12; Admin Dose 25 ML; Start 11/14/18 at 07:00 Dextrose (D50w Syringe) 50 ml Q15M PRN IV DECREASED GLUCOSE; Start 11/14/18 at 07:00 Glucagon (Glucagen) 1 mg Q15M PRN IM DECREASED GLUCOSE; Start 11/14/18 at 07:00 Glucose (Glutose) 15 gm Q15M PRN BUCCAL DECREASED GLUCOSE; Start 11/14/18 at 07:00 Thiamine HCl (Vitamin B1) 100 mg DAILY PO Last administered on 11/25/18 08:41; Admin Dose 100 MG; Start 11/14/18 at 14:30 Folic Acid (Folic Acid) 1 mg DAILY PO Last administered on 11/25/18 08:41; Admin Dose 1 MG; Start 11/14/18 at 14:30 Multivitamins Therapeutic (Theragran) 1 tab DAILY PO Last administered on 11/25/18 08:41; Admin Dose 1 TAB; Start 11/14/18 at 14:30 Lorazepam (Ativan) 0.5 mg Q4H PRN IV anxiety, withdrawals; Start 11/14/18 at 14:30 Megestrol Acetate (Megace Susp) 400 mg BID PO Last administered on 11/25/18 08:40; Admin Dose 400 MG; Start 11/15/18 at 13:30 Metoprolol Tartrate (Lopressor) 25 mg BID PO Last administered on 11/24/18 21:38; Admin Dose 25 MG; Start 11/16/18 at 10:30 Fluconazole/ Sodium Chloride 50 ml @ 50 mls/hr Q24H IVPB Last administered on 11/25/18 14:28; Admin Dose 50 MLS/HR; Start 11/17/18 at 14:00 Trimethoprim/ Sulfamethoxazole 20 ml/Dextrose 520 ml @ 343.333 mls/hr Q8 IVPB Last administered on 11/25/18 14:29; Admin Dose 343.333 MLS/HR; Start 11/17/18 at 14:00 Pantoprazole (Protonix Tab) 40 mg DAILY@06 PO Last administered on 11/25/18 05:46; Admin Dose 40 MG; Start 11/18/18 at 06:00 Piperacillin Sod/ Tazobactam Sod 100 ml @ 200 mls/hr Q6 IVPB Last administered on 11/25/18 11:47; Admin Dose 200 MLS/HR; Start 11/18/18 at 00:00 Insulin Detemir (Levemir) 13 units BID SC Last administered on 11/25/18 07:55; Admin Dose 13 UNITS; Start 11/18/18 at 21:00 Levofloxacin/ Dextrose 150 ml @ 100 mls/hr Q24H IVPB Last administered on 11/25/18 11:46; Admin Dose 100 MLS/HR; Start 11/18/18 at 12:00 Zolpidem Tartrate (Ambien) 5 mg HS PRN PO INSOMNIA; Start 11/19/18 at 21:00 Insulin Aspart (Novolog Insulin Pen) 6 unit WITH MEALS SC Last administered on 11/25/18 11:42; Admin Dose 6 UNIT; Start 11/19/18 at 09:30 RONAK MCCULLOUGH NP Nov 25, 2018 14:48
[2018-11-26] VITALS (10 sets, daily range): BP systolic 77–130; BP diastolic 53–103; PULSE 66–87; RESP 18–20
[2018-11-26] MEDS: ACCU-CHEK XX SCH (02:00)
[2018-11-26] MEDS: LEVOFLOXACIN 750 MG TABLET PO SCH (05:29)
[2018-11-26] MEDS: PIPER-TAZO 3.375 GM IV (PMX) 100 ML IVPB SCH ×2 (05:29→12:00)
[2018-11-26] MEDS: PANTOPRAZOLE (EC) 40 MG TAB PO SCH (05:29)
[2018-11-26] MEDS: TRIMETHOPRIM/SULFAMETHOXAZOLE 20 ML in DEXTROSE 5% 500 ML IVPB SCH ×2 (06:54→13:31)
[2018-11-26] MEDS: INSULIN ASPART [NOVOLOG] 3 ML PEN SC SCH ×7 (08:00→21:00)
[2018-11-26] MEDS: MEGESTROL (40 MG/ML) 10ML CUP PO SCH ×2 (08:17→21:18)
[2018-11-26] MEDS: THIAMINE 100 MG TAB PO SCH (08:18)
[2018-11-26] MEDS: METOPROLOL 25 MG TAB PO SCH (08:18)
[2018-11-26] MEDS: MULTIVITAMINS THERAPEUTIC TAB PO SCH (08:18)
[2018-11-26] MEDS: FOLIC ACID 1 MG TAB PO SCH (08:18)
[2018-11-26] MEDS: FLUCONAZOLE 100 MG TAB PO SCH (08:18)
[2018-11-26] MEDS: INSULIN DETEMIR [LEVEMIR] (100 UNITS/ML) SYG SC SCH ×2 (08:31→22:07)
--- NOTE | 2018-11-26 10:20 | CONS ---
Date/Time of Note Date/Time of Note DATE: 11/26/18 TIME: 10:19 Assessment/Plan Assessment/Plan Assessment/Plan Chest x-ray from today showing significant and marked improvement in bilateral lower lobe pneumonia. Assessment and recommendations; 1. Patient admitted with bilateral lower lobe community acquired pneumonia due to strep pneumonia with marked clinical and radiological improvement. 2. History of diabetes. Continue current supportive care. Consider discharge Off antibiotics. Result Diagram: 11/26/18 0501 11/26/18 0501 Results 24hrs Laboratory Tests Test 11/25/18 11:37 11/25/18 17:16 11/25/18 20:11 11/26/18 05:01 Bedside Glucose 338 H 431 *H 317 H White Blood Count 8.6 Red Blood Count 2.64 L Hemoglobin 8.8 L Hematocrit 24.9 L Mean Corpuscular Volume 94.3 Mean Corpuscular 33.3 H Hemoglobin Mean Corpuscular 35.3 Hemoglobin Concent Red Cell Distribution 13.7 Width Platelet Count 333 Mean Platelet Volume 9.2 Immature Granulocytes % 4.200 H Neutrophils % 60.2 Lymphocytes % 27.1 Monocytes % 7.7 Eosinophils % 0.6 Basophils % 0.2 Nucleated Red Blood 0.0 Cells % Immature Granulocytes # 0.360 H Neutrophils # 5.2 Lymphocytes # 2.3 Monocytes # 0.7 Eosinophils # 0.1 Basophils # 0.0 Nucleated Red Blood 0.0 Cells # Sodium Level 132 L Potassium Level 3.7 Chloride Level 101 Carbon Dioxide Level 24 Anion Gap 7 Blood Urea Nitrogen 20 Creatinine 0.46 L Est Glomerular Filtrat > 60 Rate mL/min Glucose Level 247 #H Calcium Level 8.5 Phosphorus Level 3.6 Magnesium Level 1.6 L Total Bilirubin 0.3 Direct Bilirubin 0.00 Indirect Bilirubin 0.3 Aspartate Amino 32 Transf (AST/SGOT) Alanine 37 Aminotransferase (ALT/SG PT) Alkaline Phosphatase 264 H Total Protein 5.5 L Albumin 2.5 L Globulin 3.00 Albumin/Globulin Ratio 0.83 Test 11/26/18 07:48 Bedside Glucose 368 H Consultation Date/Type/Reason Admit Date/Time Nov 14, 2018 at 04:59 Initial Consult Date 11/18/18 Type of Consult Pulmonary Pulmonary consult requested for evaluation of pneumonia and hypoxemia. History of presenting illness; patient is a pleasant 58-year-old male who came into the hospital with a few days history of increasing shortness of breath. Patient has been diagnosed with bilateral pneumonia with strep pneumonia cultured from blood. Patient feeling somewhat better but still requiring high flow nasal cannula at 100% FiO2. Patient denies any recent high fever, chills, any body aches or myalgias to suggest any viral infection. According to him he was fine until a few days ago when the symptoms started. Past medical history; 1. History of diabetes. 2. Hypertension. Medications; reviewed. Allergies; none. Social history; never smoked. Family history; patient is , has supportive family. 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 Review of systems; denies any headache, seizures, sinus symptoms. Any chest pain. Denies any shortness of breath at rest. Denies any wheezing, complains of scant cough without any sputum production. Denies any high fever, chills, body aches myalgias. Any abdominal pain, nausea vomiting. Any edema. Any urinary symptoms. Any weight loss. General exam; middle-aged male, awake alert, currently in no distress. On high flow nasal cannula. 24 HR Interval Summary Free Text/Dictation Patient condition is stable. Remains awake and alert. Denies any shortness breath, chest pain, coughing or wheezing. General exam; middle-aged male, awake alert, currently in no distress. Exam/Review of Systems Vital Signs Vitals Vital Signs Date Temp Pulse Resp B/P (MAP) Pulse Ox O2 O2 Flow FiO2 Time Delivery Rate 11/26/18 66 08:01 11/26/18 97.8 18 111/61 98 Nasal 07:30 (78) Cannula 11/26/18 2.0 01:27 11/24/18 30 02:23 Intake and Output 11/25/18 11/25/18 11/26/18 1515:00 23:00 07:00 IntakeIntake Total 1050 ml 650 ml 2040 ml OutputOutput Total 1300 ml 1200 ml 4200 ml BalanceBalance -250 ml -550 ml -2160 ml Exam HEENT exam; supple neck, no JVD. No lymphadenopathy. Midline trachea. No thyromegaly. Pharynx is clear. No neck masses. Chest exam; diminished but clear breath sounds. S1-S2 audible, no murmurs. Regular rhythm. Abdomen exam; soft, no organomegaly. Nontender. Bowel sounds audible. Extremity exam; no peripheral edema or clubbing. DIRECTOR ERP exam; no focal deficit. Medications Medications Current Medications IV Flush (NS 3 ml) 3 ml PER PROTOCOL IV ; Start 11/14/18 at 07:00 Ondansetron HCl (Zofran Inj) 4 mg Q6H PRN IV NAUSEA AND/OR VOMITING; Start 11/14/18 at 07:00 Acetaminophen (Tylenol Tab) 650 mg Q6H PRN PO PAIN LEVEL 1-3 OR FEVER Last administered on 11/16/18at 08:39; Admin Dose 650 MG; Start 11/14/18 at 07:00 Diagnostic Test (Pha) (Accu-Chek) 1 ea 02 XX Last administered on 11/25/18 02:00; Admin Dose 1 EA; Start 11/15/18 at 02:00 Insulin Aspart (Novolog Insulin Pen) NOVOLOG *MODERATE* ALGORITHM WITH MEALS BEDTIME SC Last administered on 11/26/18 08:00; Admin Dose 12 UNIT; Start 11/14/18 at 08:00 Miscellaneous Information 1 ea NOTE XX ; Start 11/14/18 at 07:00 Glucose (Glutose) 15 gm Q15M PRN PO DECREASED GLUCOSE; Start 11/14/18 at 07:00 Glucose (Glutose) 22.5 gm Q15M PRN PO DECREASED GLUCOSE; Start 11/14/18 at 07:00 Dextrose (D50w Syringe) 25 ml Q15M PRN IV DECREASED GLUCOSE Last administered on 11/15/18at 02:12; Admin Dose 25 ML; Start 11/14/18 at 07:00 Dextrose (D50w Syringe) 50 ml Q15M PRN IV DECREASED GLUCOSE; Start 11/14/18 at 07:00 Glucagon (Glucagen) 1 mg Q15M PRN IM DECREASED GLUCOSE; Start 11/14/18 at 07:00 Glucose (Glutose) 15 gm Q15M PRN BUCCAL DECREASED GLUCOSE; Start 11/14/18 at 07:00 Thiamine HCl (Vitamin B1) 100 mg DAILY PO Last administered on 11/26/18 08:18; Admin Dose 100 MG; Start 11/14/18 at 14:30 Folic Acid (Folic Acid) 1 mg DAILY PO Last administered on 11/26/18 08:18; Admin Dose 1 MG; Start 11/14/18 at 14:30 Multivitamins Therapeutic (Theragran) 1 tab DAILY PO Last administered on 11/26/18 08:18; Admin Dose 1 TAB; Start 11/14/18 at 14:30 Lorazepam (Ativan) 0.5 mg Q4H PRN IV anxiety, withdrawals; Start 11/14/18 at 14:30 Megestrol Acetate (Megace Susp) 400 mg BID PO Last administered on 11/26/18 08:17; Admin Dose 400 MG; Start 11/15/18 at 13:30 Metoprolol Tartrate (Lopressor) 25 mg BID PO Last administered on 11/26/18 08:18; Admin Dose 25 MG; Start 11/16/18 at 10:30 Trimethoprim/ Sulfamethoxazole 20 ml/Dextrose 520 ml @ 343.333 mls/hr Q8 IVPB Last administered on 11/26/18 06:54; Admin Dose 343.333 MLS/HR; Start 11/17/18 at 14:00 Pantoprazole (Protonix Tab) 40 mg DAILY@06 PO Last administered on 11/26/18 05:29; Admin Dose 40 MG; Start 11/18/18 at 06:00 Piperacillin Sod/ Tazobactam Sod 100 ml @ 200 mls/hr Q6 IVPB Last administered on 11/26/18 05:29; Admin Dose 200 MLS/HR; Start 11/18/18 at 00:00 Insulin Detemir (Levemir) 13 units BID SC Last administered on 11/26/18 08:31; Admin Dose 13 UNITS; Start 11/18/18 at 21:00 Zolpidem Tartrate (Ambien) 5 mg HS PRN PO INSOMNIA; Start 11/19/18 at 21:00 Insulin Aspart (Novolog Insulin Pen) 6 unit WITH MEALS SC Last administered on 11/26/18 08:00; Admin Dose 6 UNIT; Start 11/19/18 at 09:30 Fluconazole (Diflucan) 100 mg DAILY PO Last administered on 11/26/18 08:18; Admin Dose 100 MG; Start 11/26/18 at 09:00 Levofloxacin (Levaquin) 750 mg DAILY@06 PO Last administered on 11/26/18 05:29; Admin Dose 750 MG; Start 11/26/18 at 06:00 NIGHAT ROSALES Nov 26, 2018 10:20
--- NOTE | 2018-11-26 10:20 | NUR ---
PT NOTE Therapy day number 7 Subjective Denies pain Pain Scale NUMERIC Pain Intensity 0 (0-10) Patient Stated Goal for Pain Relief 0 (0-10) Pain Level Comment denies Pre Treatment Vital Signs Stable Yes Transfer Training Start Time 10:20 Supine to Sit Supervised Transfer Sit to Stand Ability Supervised Bed Mobility Sit to Supine Supervised Bed Transfer Ability Supervised Sitting Tolerance 20 min Additional Mobility Comments left sitting in chair at bedsid, no apparent distr, RN aware, needs in reac Transfer Training End Time 10:35 Total Transfer Training Time 15 min (8-127) Gait Training Start Time 10:35 Gait Assist Levels Supervised Assistive Devices Front Wheel Walker Ambulation Distance 350 feet Additional Gait Comments recipr, VC for diaphragmatic breathing, on RA, SpO2 92-94% Gait Training End Time 10:58 Total Gait Training Treatment Time 23 min (8-127) Weight Bearing Assessment Label Bilat Lower Extremity Weight Bearing Status Full Weight Bearing Static Sitting Balance Good Dynamic Sitting Balance Good Standing Static Balance Good Dynamic Standing Balance Fair plus Additional Balance Assessments Comments with FWW Safety Judgement Good Activity Tolerance Good Equipment Present A pump IV pump Additional Equipment Present 2L O2 pre-tx, on RA post-tx, RN aware Post Treatment Pain Intensity 0 0-10 Additional Post Treatment Comment See below Total Treament Time 38 min (8-127) Total Minutes 38 Total Units 3 PT Technical Record Comment PT NOTE S: Pt denies pain, agreeable to PT. Cleared for PT per EVI Kapadia. O: Pt received semifowler in bed, alert and appropriate, EVI Kapadia present in room. Performed bed mobility, thera ex, transfer tr and gait training per tech record above, Supervised using FWW, on RA, SpO2 monitored and stable throughout. Pt with reciprocal gait, decreased hayley, NBOS, no LOB, continues to benefit from FWW due to unsteady gait with no AD. Pt positioned for comfort sitting in chair at bedside post-tx with call light and needs in reach, pt in no apparent distress, RN informed. A: Pt alistair tx well, continues to benefit from FWW with gait, able to progress to gait on RA P: Cont POC
--- NOTE | 2018-11-26 14:56 | NUR ---
Nutrition Notes BG levels are running very high. Please notify ZAHRAA Mandel or an condenser tube tender. DM medications/insulin need to be changed as soon as possible. Pt is on a carbohydrate control diet but that alone is not managing the BG levels. Thank you!
--- NOTE | 2018-11-26 16:11 | NUR ---
RN NOTES: Report given to Darcy STEVE in 2E. Transport notified.
--- NOTE | 2018-11-26 16:36 | CONS ---
Date/Time of Note Date/Time of Note DATE: 11/26/18 TIME: 16:34 Assessment/Plan Assessment/Plan Hospital Course Patient is alert comfortable on RA, no fevers overnight Microbiology: Sputum culture growing Margarita albicans Antimicrobials: Levaquin Zosyn fluconazole Bactrim Physical examination: Well-developed middle-aged man who is lying comfortably in bed head atraumatic normocephalic neck is supple chest rise symmetrical breath sounds with scattered rhonchi diminished bases. Heart: S1- S2. Abdomen soft bowel sounds present. Extremities without cyanosis edema. Assessment: 1. S/p sepsis with strep bacteremia on admission==> 2D echo revealed no vegetations 2. Multifocal pneumonia, resolving 3. S/p acute hypoxemic respiratory failure 4. Diabetes 5. Hypertension 6. Immunocompromised 7. History of chronic alcohol abuse Plan: Continues to improve, on antibiotics day #12, change Zosyn to Rocephin. Anticipate discharge on oral Augmentin for 4 more days when medically clear Result Diagram: 11/26/18 0501 11/26/18 0501 Results 24hrs Laboratory Tests Test 11/25/18 17:16 11/25/18 20:11 11/26/18 05:01 11/26/18 07:48 Bedside Glucose 431 *H 317 H 368 H White Blood Count 8.6 Red Blood Count 2.64 L Hemoglobin 8.8 L Hematocrit 24.9 L Mean Corpuscular Volume 94.3 Mean Corpuscular 33.3 H Hemoglobin Mean Corpuscular 35.3 Hemoglobin Concent Red Cell Distribution 13.7 Width Platelet Count 333 Mean Platelet Volume 9.2 Immature Granulocytes % 4.200 H Neutrophils % 60.2 Lymphocytes % 27.1 Monocytes % 7.7 Eosinophils % 0.6 Basophils % 0.2 Nucleated Red Blood 0.0 Cells % Immature Granulocytes # 0.360 H Neutrophils # 5.2 Lymphocytes # 2.3 Monocytes # 0.7 Eosinophils # 0.1 Basophils # 0.0 Nucleated Red Blood 0.0 Cells # Sodium Level 132 L Potassium Level 3.7 Chloride Level 101 Carbon Dioxide Level 24 Anion Gap 7 Blood Urea Nitrogen 20 Creatinine 0.46 L Est Glomerular Filtrat > 60 Rate mL/min Glucose Level 247 #H Calcium Level 8.5 Phosphorus Level 3.6 Magnesium Level 1.6 L Total Bilirubin 0.3 Direct Bilirubin 0.00 Indirect Bilirubin 0.3 Aspartate Amino 32 Transf (AST/SGOT) Alanine 37 Aminotransferase (ALT/SG PT) Alkaline Phosphatase 264 H Total Protein 5.5 L Albumin 2.5 L Globulin 3.00 Albumin/Globulin Ratio 0.83 Test 11/26/18 11:24 Bedside Glucose 264 H Consultation Date/Type/Reason Admit Date/Time Nov 14, 2018 at 04:59 Initial Consult Date Type of Consult id Exam/Review of Systems Vital Signs Vitals Vital Signs Date Temp Pulse Resp B/P (MAP) Pulse Ox O2 O2 Flow FiO2 Time Delivery Rate 11/26/18 21 16:11 11/26/18 98.0 77 18 90/53 (65) 95 Room Air 15:10 11/26/18 2.0 08:30 Intake and Output 11/25/18 11/25/18 11/26/18 1515:00 23:00 07:00 IntakeIntake Total 1050 ml 650 ml 2040 ml OutputOutput Total 1300 ml 1200 ml 4200 ml BalanceBalance -250 ml -550 ml -2160 ml Medications Medications Current Medications IV Flush (NS 3 ml) 3 ml PER PROTOCOL IV ; Start 11/14/18 at 07:00 Ondansetron HCl (Zofran Inj) 4 mg Q6H PRN IV NAUSEA AND/OR VOMITING; Start 11/14/18 at 07:00 Acetaminophen (Tylenol Tab) 650 mg Q6H PRN PO PAIN LEVEL 1-3 OR FEVER Last administered on 11/16/18at 08:39; Admin Dose 650 MG; Start 11/14/18 at 07:00 Diagnostic Test (Pha) (Accu-Chek) 1 ea 02 XX Last administered on 11/25/18at 02:00; Admin Dose 1 EA; Start 11/15/18 at 02:00 Insulin Aspart (Novolog Insulin Pen) NOVOLOG *MODERATE* ALGORITHM WITH MEALS BEDTIME SC Last administered on 11/26/18at 11:35; Admin Dose 8 UNIT; Start 11/14/18 at 08:00 Miscellaneous Information 1 ea NOTE XX ; Start 11/14/18 at 07:00 Glucose (Glutose) 15 gm Q15M PRN PO DECREASED GLUCOSE; Start 11/14/18 at 07:00 Glucose (Glutose) 22.5 gm Q15M PRN PO DECREASED GLUCOSE; Start 11/14/18 at 07:00 Dextrose (D50w Syringe) 25 ml Q15M PRN IV DECREASED GLUCOSE Last administered on 11/15/18at 02:12; Admin Dose 25 ML; Start 11/14/18 at 07:00 Dextrose (D50w Syringe) 50 ml Q15M PRN IV DECREASED GLUCOSE; Start 11/14/18 at 07:00 Glucagon (Glucagen) 1 mg Q15M PRN IM DECREASED GLUCOSE; Start 11/14/18 at 07 :00 Glucose (Glutose) 15 gm Q15M PRN BUCCAL DECREASED GLUCOSE; Start 11/14/18 at 07:00 Thiamine HCl (Vitamin B1) 100 mg DAILY PO Last administered on 11/26/18 08:18; Admin Dose 100 MG; Start 11/14/18 at 14:30 Folic Acid (Folic Acid) 1 mg DAILY PO Last administered on 11/26/18 08:18; Admin Dose 1 MG; Start 11/14/18 at 14:30 Multivitamins Therapeutic (Theragran) 1 tab DAILY PO Last administered on 11/26/18 08:18; Admin Dose 1 TAB; Start 11/14/18 at 14:30 Lorazepam (Ativan) 0.5 mg Q4H PRN IV anxiety, withdrawals; Start 11/14/18 at 14:30 Megestrol Acetate (Megace Susp) 400 mg BID PO Last administered on 11/26/18 08:17; Admin Dose 400 MG; Start 11/15/18 at 13:30 Trimethoprim/ Sulfamethoxazole 20 ml/Dextrose 520 ml @ 343.333 mls/hr Q8 IVPB Last administered on 11/26/18 13:31; Admin Dose 343.333 MLS/HR; Start 11/17/18 at 14:00 Pantoprazole (Protonix Tab) 40 mg DAILY@06 PO Last administered on 11/26/18 05:29; Admin Dose 40 MG; Start 11/18/18 at 06:00 Piperacillin Sod/ Tazobactam Sod 100 ml @ 200 mls/hr Q6 IVPB Last administered on 11/26/18 12:00; Admin Dose 200 MLS/HR; Start 11/18/18 at 00:00 Insulin Detemir (Levemir) 13 units BID SC Last administered on 11/26/18 08:31; Admin Dose 13 UNITS; Start 11/18/18 at 21:00 Zolpidem Tartrate (Ambien) 5 mg HS PRN PO INSOMNIA; Start 11/19/18 at 21:00 Insulin Aspart (Novolog Insulin Pen) 6 unit WITH MEALS SC Last administered on 11/26/18at 11:35; Admin Dose 6 UNIT; Start 11/19/18 at 09:30 Fluconazole (Diflucan) 100 mg DAILY PO Last administered on 11/26/18at 08:18; Admin Dose 100 MG; Start 11/26/18 at 09:00 Levofloxacin (Levaquin) 750 mg DAILY@06 PO Last administered on 11/26/18at 05:29; Admin Dose 750 MG; Start 11/26/18 at 06:00 RONAK MCCULLOUGH NP Nov 26, 2018 16:36
--- NOTE | 2018-11-26 16:50 | NUR ---
RN NOTES: Pt transferred to 2E via bed w/all personal belongings.
--- NOTE | 2018-11-26 17:20 | NUR ---
Received patient from tele at 4:50pm. IV pump and room set up. care board updated, hourly roundings, and precautions educated. call light within reach, bed alarm activated.
[2018-11-26] MEDS: CEFTRIAXONE 1 GM/50 ML (PMX) 50 ML IVPB SCH (17:46)
--- NOTE | 2018-11-26 18:53 | NUR ---
patient alert and oriented x4. patient is icelandic speaking and family is at bedside. patient denies pain at this time, and no shortness of breath noted. patient's vital signs within normal limits, however still setting his blood glucose reading at 429. coverage given and contacted MD. made corrections to medication orders per MD. fall precaution is in place, call light within reach. will endorse to night nurse.
--- NOTE | 2018-11-26 21:10 | PN ---
DATE: 11/26/2018 The patient clinically doing much better now off oxygen. Saturation is adequate. Blood pressures no maria c slightly to be low this morning. Otherwise, the patient is feeling well. PHYSICAL EXAMINATION: VITAL SIGNS: Temperature 98.4, pulse 72, respirations 18, blood pressure 85/54, saturation 96%. I d iscontinued patient's metoprolol. GENERAL: No acute distress. The patient is frail, pale, to cachectic. CARDIOVASCULAR: S1, S2, regular rate. LUNGS: Clear. ABDOMEN: Soft, nontender. EXTREMITIES: No clubbing, cyanosis, or edema. LABORATORY DATA: White count 8.6, hemoglobin is low at 8.8, hematocrit 25, platelet count of 333, no rmal differential. Sodium is 132, potassium 3.7, chloride 101, bicarbonate 24, BUN is 20, creatinine 0.46, glucose of 247. Last glucose level 264 and 268. Magnesium is low at 1.6. Alkaline phosphata se 264, elevated. Total protein 5.5, albumin 2.5. Sputum culture was negative for PCP. HIV was neg ative. PCP in the sputum was not effective. MEDICATIONS: 1. Diflucan 100 mg daily. 2. Levaquin 750 daily. 3. Ambien 5 mg at bedtime p.r.n. 4. Aspart 6 units before meals. 5. Levemir 13 units twice a day. 6. Protonix 40 mg daily. 7. Zosyn 3.375 IV q.6 hours. 8. Bactrim IV q.8 hours. 9. Megace 400 b.i.d. 10. Accu-Cheks. 11. Thiamine 100 mg daily. 12. Folic acid 1 mg daily. 11. Multivitamin 1 tab daily. 13. Ativan p.r.n. 14. Hypoglycemia protocol. ASSESSMENT AND PLAN: This is a 58-year-old male with history of alcoholic liver disease, ac tive drinker, diabetes mellitus, poorly controlled, history of noncompliance with medication. Recent history of weight loss, cachexia, vitiligo, presented with worsening shortness of breath, was found to have multifocal pneumonia and pneumococcal bacteremia. 1. Multifocal pneumonia due to Strep pneumonia. Responding to the above treatment plan. Due to the bacteremia, he needs 2 weeks of IV antibiotics. May deescalate antibiotics. ID to follow. Continu e antifungals as well with Diflucan. 2. Infectious disease. See above. 3. Diabetes mellitus. Steroids are now off. Will monitor glucose levels, should improve. 4. Moderate caloric-protein malnutrition. Appetite has improved as well. 5. Alcohol cessation was discussed again. 6. Physical therapy as tolerated. 7. Renal. Monitor electrolytes. 8. Hypomagnesemia. Magnesium supplements will be provided. 9. Anemia. Transfuse p.r.n. 10. Diabetes mellitus. Again, see above. We will follow clinically improving. DISPOSITION: Once cleared by ID as patient still on IV antibiotics. Dictated By: GAYATHRI HUNTER MD JL/NTS Conf#: [id number] DID#: [id number] CC: ANA CRISTINA HILL MD;*EndCC*
[2018-11-26] MEDS: TRIMETHOPRIM/SULFAMETHOX (DS) TAB PO SCH (21:18)
[2018-11-27 01:52] VITALS: BP 98/66; PULSE 77; RESP 18
[2018-11-27] MEDS: ACCU-CHEK XX SCH (02:00)
--- NOTE | 2018-11-27 04:33 | NUR ---
Received report from Samantha STEVE for continuity of care at this time. Patient in room asleep with no signs of distress. Safety precautions and hourly rounding currently in place until change of shift.
--- NOTE | 2018-11-27 04:35 | NUR ---
Pt sleeping at this time with no distress noted. Breathing even & unlabored. Safety measures in place. Endorsed patient to EVI Nevarez for continuity of care.
[2018-11-27] MEDS: PANTOPRAZOLE (EC) 40 MG TAB PO SCH (05:19)
[2018-11-27] MEDS: LEVOFLOXACIN 750 MG TABLET PO SCH (05:19)
--- NOTE | 2018-11-27 06:14 | NUR ---
Patient in room asleep with no signs of distress. Patient denied pain upon assessment. No abdominal pain, fatigue, headache, or distress indicating signs of hypoglycemia/hyperglycemia noted. All needs met and medications administered per MD order. Patient turned every 2 hours with heels elevated. Safety precautions and hourly rounding currently in place until change of shift.
[2018-11-27] MEDS: INSULIN ASPART [NOVOLOG] 3 ML PEN SC SCH ×7 (08:00→21:18)
[2018-11-27 08:07] VITALS: BP 111/64; PULSE 57; RESP 18
[2018-11-27] MEDS: THIAMINE 100 MG TAB PO SCH (08:50)
[2018-11-27] MEDS: INSULIN DETEMIR [LEVEMIR] (100 UNITS/ML) SYG SC SCH ×2 (08:52→21:19)
[2018-11-27] MEDS: FOLIC ACID 1 MG TAB PO SCH (08:53)
[2018-11-27] MEDS: TRIMETHOPRIM/SULFAMETHOX (DS) TAB PO SCH ×2 (08:53→21:19)
[2018-11-27] MEDS: FLUCONAZOLE 100 MG TAB PO SCH (08:53)
[2018-11-27] MEDS: MULTIVITAMINS THERAPEUTIC TAB PO SCH (08:53)
[2018-11-27] MEDS: MEGESTROL (40 MG/ML) 10ML CUP PO SCH (08:53)
--- NOTE | 2018-11-27 13:55 | PN ---
DATE: 11/27/2018 SUBJECTIVE: The patient was seen, comfortable with no complaints. Appetite is good. Glucose levels have improved. I have lowered his insulin regimen slightly as he is now off steroids. PHYSICAL EXAMINATION: VITAL SIGNS: Temperature is 98.3, pulse 57, respirations 18, blood pressure 111/64, saturation 96% o n room air. GENERAL: No acute distress. HEENT: The patient is pale, cachectic. Vitiligo scattered throughout his body. CARDIOVASCULAR: S1, S2. Regular rate. LUNGS: Clear. ABDOMEN: Soft, nontender. EXTREMITIES: No clubbing, cyanosis or edema. LABORATORY DATA: White count jumped up to 13.5, hemoglobin 10, hematocrit 29, platelet count of 463, neutrophils 54%, lymphocytes 22%. Chemistry: Sodium 138, potassium 3.8, chloride 102, bicarb janel 26, BUN 20, creatinine 0.57, glucose of 80. Last glucose level of 246 then one before that was 102. MEDICATIONS: 1. Levemir 10 units b.i.d. 2. Aspart 4 units before meals. 3. Bactrim-DS 1 tab b.i.d. 4. Rocephin 1 gram q.24 hours. 5. Diflucan 100 mg daily. 6. Levaquin 750 daily. 7. Ambien 5 mg at bedtime p.r.n. 8. Protonix 40 mg daily. 9. Megace 400 b.i.d. 10. Accu-Chek as directed. 11. Thiamine 100 mg daily. 12. Folic acid 1 mg daily. 13. Multivitamin 1 tab daily. 14. Ativan p.r.n. 15. Insulin aspart per sliding scale. 16. Tylenol. 17. Zofran p.r.n. 18. Hypoglycemia protocol as directed. ASSESSMENT AND PLAN: This is 58-year-old male with history of alcoholic liver disease, acti ve drinker, diabetes mellitus, poorly controlled, noncompliance with medication recently with ongoing weight loss, cachexia, vitiligo, who presented with worsening shortness of breath, was found to have multifocal pneumonia and pneumococcal bacteremia. 1. Multifocal pneumonia, responding to the treatment. Repeat chest x-ray shows resolution. 2. Bacteremia, to complete a 2-week course of IV antibiotics, now on Rocephin and other oral antibio tics per ID. 3. Diabetes mellitus. Titrate the insulin down as now he is off steroids. We will follow and adjus tment will be made. 4. Moderate caloric malnutrition, now eating well. We will discontinue Megace and see how his appet ite. 5. Alcoholic cessation is a must. 6. Physical therapy as tolerated and out of bed activity as tolerated. 7. We are going to monitor electrolytes. 8. Anemia. Transfuse p.r.n. Clinically improving. Case was discussed with daughter at bedside. Discharge planning once completed 2 weeks of IV antibio tics. We will follow. Dictated By: GAYATHRI ROBERT/NTS Conf#: [id number] DID#: [id number] CC: ANA CRISITNA HILL MD; NIGHAT ROSALES MD;*End*
[2018-11-27 14:40] VITALS: BP 114/63; PULSE 87; RESP 18
--- NOTE | 2018-11-27 15:41 | CONS ---
Date/Time of Note Date/Time of Note DATE: 11/27/18 TIME: 15:40 Assessment/Plan Assessment/Plan Hospital Course No acute events overnight, no fevers, patient is comfortable on room air Microbiology: Sputum culture growing Margarita albicans Antimicrobials: Levaquin Rocephin fluconazole Bactrim Physical examination: Well-developed middle-aged man who is lying comfortably in bed head atraumatic normocephalic neck is supple chest rise symmetrical breath sounds with scattered rhonchi diminished bases. Heart: S1- S2. Abdomen soft bowel sounds present. Extremities without cyanosis edema. Assessment: 1. S/p sepsis with strep bacteremia on admission==> 2D echo revealed no vegetations 2. Multifocal pneumonia, resolving 3. S/p acute hypoxemic respiratory failure 4. Diabetes 5. Hypertension 6. Immunocompromised 7. History of chronic alcohol abuse Plan: Continues to improve, on antibiotics day #13, will change abx to oral Augmentin tomorrow Result Diagram: 11/27/18 0532 11/27/18 0532 Results 24hrs Laboratory Tests Test 11/26/18 17:15 11/26/18 21:20 11/27/18 05:32 11/27/18 07:52 Bedside Glucose 429 *H 172 102 White Blood Count 13.5 #H Red Blood Count 2.96 L Hemoglobin 10.0 L Hematocrit 29.3 L Mean Corpuscular Volume 99.0 Mean Corpuscular 33.8 H Hemoglobin Mean Corpuscular 34.1 Hemoglobin Concent Red Cell Distribution 15.2 H Width Platelet Count 463 #H Mean Platelet Volume 9.1 Immature Granulocytes % 5.900 H Neutrophils % Segmented Neutrophils 54 % (Manual) Band Neutrophils % 1 (Manual) Lymphocytes % Lymphocytes % (Manual) 22 Reactive Lymphocytes 8 H % (Manual) Monocytes % Monocytes % (Manual) 12 H Eosinophils % Basophils % Myelocytes % (Manual) 1 H Promyelocytes % (Manual) 2 H Nucleated Red Blood 0.0 Cells % Immature Granulocytes # 0.800 H Neutrophils # Neutrophils # (Manual) 7.3 Band Neutrophils # 0.1 Lymphocytes (Manual) 2.9 Lymphocytes # Reactive Lymphocytes # 1.0 H Monocytes # Monocytes # (Manual) 1.6 H Eosinophils # Basophils # Myelocytes # 0.1 H Promyelocytes # 0.2 H Nucleated Red Blood Cells # Platelet Estimate NORMAL Giant Platelets 5 H Polychromasia 1+ Hypochromasia 1+ Poikilocytosis 1+ Anisocytosis 1+ Microcytosis 1+ Macrocytosis 1+ Sodium Level 138 Potassium Level 3.8 Chloride Level 102 Carbon Dioxide Level 26 Anion Gap 10 Blood Urea Nitrogen 20 Creatinine 0.57 L Est Glomerular Filtrat > 60 Rate mL/min Glucose Level 80 # Calcium Level 9.0 Phosphorus Level 4.8 Magnesium Level 1.7 Total Bilirubin 0.3 Direct Bilirubin 0.00 Indirect Bilirubin 0.3 Aspartate Amino 49 #H Transf (AST/SGOT) Alanine 37 Aminotransferase (ALT/SG PT) Alkaline Phosphatase 271 H Total Protein 6.1 Albumin 2.9 L Globulin 3.20 Albumin/Globulin Ratio 0.90 Test 11/27/18 12:21 Bedside Glucose 246 H Consultation Date/Type/Reason Admit Date/Time Nov 14, 2018 at 04:59 Initial Consult Date Type of Consult id Exam/Review of Systems Vital Signs Vitals Vital Signs Date Temp Pulse Resp B/P (MAP) Pulse Ox O2 O2 Flow FiO2 Time Delivery Rate 11/27/18 98.5 87 18 114/63 98 14:40 (80) 11/27/18 21 04:31 11/26/18 Room Air 19:57 11/26/18 2.0 08:30 Intake and Output 11/26/18 11/26/18 11/27/18 1515:00 23:00 07:00 IntakeIntake Total 170 ml 120 ml OutputOutput Total 980 ml 1100 ml BalanceBalance -810 ml -980 ml Medications Medications Current Medications IV Flush (NS 3 ml) 3 ml PER PROTOCOL IV ; Start 11/14/18 at 07:00 Ondansetron HCl (Zofran Inj) 4 mg Q6H PRN IV NAUSEA AND/OR VOMITING; Start 1 01/15/18 at 07:00 Acetaminophen (Tylenol Tab) 650 mg Q6H PRN PO PAIN LEVEL 1-3 OR FEVER Last administered on 11/16/18at 08:39; Admin Dose 650 MG; Start 11/14/18 at 07:00 Diagnostic Test (Pha) (Accu-Chek) 1 ea 02 XX Last administered on 11/25/18at 02:00; Admin Dose 1 EA; Start 11/15/18 at 02:00 Insulin Aspart (Novolog Insulin Pen) NOVOLOG *MODERATE* ALGORITHM WITH MEALS BEDTIME SC Last administered on 11/27/18 12:33; Admin Dose 6 UNIT; Start 11/14/18 at 08:00 Miscellaneous Information 1 ea NOTE XX ; Start 11/14/18 at 07:00 Glucose (Glutose) 15 gm Q15M PRN PO DECREASED GLUCOSE; Start 11/14/18 at 07:00 Glucose (Glutose) 22.5 gm Q15M PRN PO DECREASED GLUCOSE; Start 11/14/18 at 07:00 Dextrose (D50w Syringe) 25 ml Q15M PRN IV DECREASED GLUCOSE Last administered on 11/15/18at 02:12; Admin Dose 25 ML; Start 11/14/18 at 07:00 Dextrose (D50w Syringe) 50 ml Q15M PRN IV DECREASED GLUCOSE; Start 11/14/18 at 07:00 Glucagon (Glucagen) 1 mg Q15M PRN IM DECREASED GLUCOSE; Start 11/14/18 at 07:00 Glucose (Glutose) 15 gm Q15M PRN BUCCAL DECREASED GLUCOSE; Start 11/14/18 at 07:00 Thiamine HCl (Vitamin B1) 100 mg DAILY PO Last administered on 11/27/18 08:50; Admin Dose 100 MG; Start 11/14/18 at 14:30 Folic Acid (Folic Acid) 1 mg DAILY PO Last administered on 11/27/18 08:53; Admin Dose 1 MG; Start 11/14/18 at 14:30 Multivitamins Therapeutic (Theragran) 1 tab DAILY PO Last administered on 11/27/18 08:53; Admin Dose 1 TAB; Start 11/14/18 at 14:30 Lorazepam (Ativan) 0.5 mg Q4H PRN IV anxiety, withdrawals; Start 11/14/18 at 14:30 Pantoprazole (Protonix Tab) 40 mg DAILY@06 PO Last administered on 11/27/18 05:19; Admin Dose 40 MG; Start 11/18/18 at 06:00 Zolpidem Tartrate (Ambien) 5 mg HS PRN PO INSOMNIA; Start 11/19/18 at 21:00 Fluconazole (Diflucan) 100 mg DAILY PO Last administered on 11/27/18 08:53; Admin Dose 100 MG; Start 11/26/18 at 09:00 Levofloxacin (Levaquin) 750 mg DAILY@06 PO Last administered on 1/4/19at 05:19; Admin Dose 750 MG; Start 11/26/18 at 06:00 Trimethoprim/ Sulfamethoxazole (Bactrim (Ds)) 1 tab BID PO Last administered on 11/27/18at 08:53; Admin Dose 1 TAB; Start 11/26/18 at 21:00 Ceftriaxone Sodium 50 ml @ 100 mls/hr Q24H IVPB Last administered on 11/26/18at 17:46; Admin Dose 100 MLS/HR; Start 11/26/18 at 17:00 Insulin Detemir (Levemir) 10 units BID SC ; Start 11/27/18 at 21:00 Insulin Aspart (Novolog Insulin Pen) 4 unit WITH MEALS SC Last administered on 11/27/18at 12:28; Admin Dose 4 UNIT; Start 11/27/18 at 12:20 RONAK MCCULLOUGH NP Nov 27, 2018 15:41
--- NOTE | 2018-11-27 15:48 | CONS ---
Date/Time of Note Date/Time of Note DATE: 11/27/18 TIME: 15:47 Consult Date/Type/Reason Admit Date/Time Nov 14, 2018 at 04:59 Initial Consult Date 11/18/18 Type of Consultation: Pulmonary ICU Subjective Patient stable. No new events. Objective Vital Signs Date Temp Pulse Resp B/P (MAP) Pulse Ox O2 O2 Flow FiO2 Time Delivery Rate 11/27/18 98.5 87 18 114/63 98 14:40 (80) 11/27/18 21 04:31 11/26/18 Room Air 19:57 11/26/18 2.0 08:30 Intake and Output 11/26/18 11/26/18 11/27/18 1515:00 23:00 07:00 IntakeIntake Total 170 ml 120 ml OutputOutput Total 980 ml 1100 ml BalanceBalance -810 ml -980 ml Exam GENERAL: Frail gentleman comfortable at rest no acute distress VITAL SIGNS: per chart NECK: Supple. No JVD or lymphadenopathy. CARDIAC EXAM: S1, S2. No added sounds or murmurs. CHEST: clear bilaterally, No added sounds, rales or wheezes ABDOMEN: Soft, nontender. No guarding or rebound. EXTREMITIES: No cyanosis, clubbing or edema. NEUROLOGIC: Generalized weakness. No focal deficits. Results/Medications Result Diagram: 11/27/18 0532 11/27/18 0532 Results 24 hrs Laboratory Tests Test 11/26/18 17:15 11/26/18 21:20 11/27/18 05:32 11/27/18 07:52 Bedside Glucose 429 *H 172 102 White Blood Count 13.5 #H Red Blood Count 2.96 L Hemoglobin 10.0 L Hematocrit 29.3 L Mean Corpuscular Volume 99.0 Mean Corpuscular 33.8 H Hemoglobin Mean Corpuscular 34.1 Hemoglobin Concent Red Cell Distribution 15.2 H Width Platelet Count 463 #H Mean Platelet Volume 9.1 Immature Granulocytes % 5.900 H Neutrophils % Segmented Neutrophils 54 % (Manual) Band Neutrophils % 1 (Manual) Lymphocytes % Lymphocytes % (Manual) 22 Reactive Lymphocytes 8 H % (Manual) Monocytes % Monocytes % (Manual) 12 H Eosinophils % Basophils % Myelocytes % (Manual) 1 H Promyelocytes % (Manual) 2 H Nucleated Red Blood 0.0 Cells % Immature Granulocytes # 0.800 H Neutrophils # Neutrophils # (Manual) 7.3 Band Neutrophils # 0.1 Lymphocytes (Manual) 2.9 Lymphocytes # Reactive Lymphocytes # 1.0 H Monocytes # Monocytes # (Manual) 1.6 H Eosinophils # Basophils # Myelocytes # 0.1 H Promyelocytes # 0.2 H Nucleated Red Blood Cells # Platelet Estimate NORMAL Giant Platelets 5 H Polychromasia 1+ Hypochromasia 1+ Poikilocytosis 1+ Anisocytosis 1+ Microcytosis 1+ Macrocytosis 1+ Sodium Level 138 Potassium Level 3.8 Chloride Level 102 Carbon Dioxide Level 26 Anion Gap 10 Blood Urea Nitrogen 20 Creatinine 0.57 L Est Glomerular Filtrat > 60 Rate mL/min Glucose Level 80 # Calcium Level 9.0 Phosphorus Level 4.8 Magnesium Level 1.7 Total Bilirubin 0.3 Direct Bilirubin 0.00 Indirect Bilirubin 0.3 Aspartate Amino 49 #H Transf (AST/SGOT) Alanine 37 Aminotransferase (ALT/SG PT) Alkaline Phosphatase 271 H Total Protein 6.1 Albumin 2.9 L Globulin 3.20 Albumin/Globulin Ratio 0.90 Test 11/27/18 12:21 Bedside Glucose 246 H Medications Current Medications IV Flush (NS 3 ml) 3 ml PER PROTOCOL IV ; Start 11/14/18 at 07:00 Ondansetron HCl (Zofran Inj) 4 mg Q6H PRN IV NAUSEA AND/OR VOMITING; Start 11/14/18 at 07:00 Acetaminophen (Tylenol Tab) 650 mg Q6H PRN PO PAIN LEVEL 1-3 OR FEVER Last administered on 11/16/18at 08:39; Admin Dose 650 MG; Start 11/14/18 at 07:00 Diagnostic Test (Pha) (Accu-Chek) 1 ea 02 XX Last administered on 11/25/18at 02:00; Admin Dose 1 EA; Start 11/15/18 at 02:00 Insulin Aspart (Novolog Insulin Pen) NOVOLOG *MODERATE* ALGORITHM WITH MEALS BEDTIME SC Last administered on 11/27/18at 12:33; Admin Dose 6 UNIT; Start 11/14/18 at 08:00 Miscellaneous Information 1 ea NOTE XX ; Start 11/14/18 at 07:00 Glucose (Glutose) 15 gm Q15M PRN PO DECREASED GLUCOSE; Start 11/14/18 at 07:00 Glucose (Glutose) 22.5 gm Q15M PRN PO DECREASED GLUCOSE; Start 11/14/18 at 07:00 Dextrose (D50w Syringe) 25 ml Q15M PRN IV DECREASED GLUCOSE Last administered on 11/15/18at 02:12; Admin Dose 25 ML; Start 11/14/18 at 07:00 Dextrose (D50w Syringe) 50 ml Q15M PRN IV DECREASED GLUCOSE; Start 11/14/18 at 07:00 Glucagon (Glucagen) 1 mg Q15M PRN IM DECREASED GLUCOSE; Start 11/14/18 at 07:00 Glucose (Glutose) 15 gm Q15M PRN BUCCAL DECREASED GLUCOSE; Start 11/14/18 at 07:00 Thiamine HCl (Vitamin B1) 100 mg DAILY PO Last administered on 11/27/18 08:50; Admin Dose 100 MG; Start 11/14/18 at 14:30 Folic Acid (Folic Acid) 1 mg DAILY PO Last administered on 11/27/18 08:53; Admin Dose 1 MG; Start 11/14/18 at 14:30 Multivitamins Therapeutic (Theragran) 1 tab DAILY PO Last administered on 11/27/18 08:53; Admin Dose 1 TAB; Start 11/14/18 at 14:30 Lorazepam (Ativan) 0.5 mg Q4H PRN IV anxiety, withdrawals; Start 11/14/18 at 14:30 Pantoprazole (Protonix Tab) 40 mg DAILY@06 PO Last administered on 11/27/18 05:19; Admin Dose 40 MG; Start 11/18/18 at 06:00 Zolpidem Tartrate (Ambien) 5 mg HS PRN PO INSOMNIA; Start 11/19/18 at 21:00 Fluconazole (Diflucan) 100 mg DAILY PO Last administered on 11/27/18 08:53; Admin Dose 100 MG; Start 11/26/18 at 09:00 Levofloxacin (Levaquin) 750 mg DAILY@06 PO Last administered on 11/27/18 05:19; Admin Dose 750 MG; Start 11/26/18 at 06:00 Trimethoprim/ Sulfamethoxazole (Bactrim (Ds)) 1 tab BID PO Last administered on 11/27/18 08:53; Admin Dose 1 TAB; Start 11/26/18 at 21:00 Ceftriaxone Sodium 50 ml @ 100 mls/hr Q24H IVPB Last administered on 1/3/19at 17:46; Admin Dose 100 MLS/HR; Start 11/26/18 at 17:00 Insulin Detemir (Levemir) 10 units BID SC ; Start 11/27/18 at 21:00 Insulin Aspart (Novolog Insulin Pen) 4 unit WITH MEALS SC Last administered on 11/27/18at 12:28; Admin Dose 4 UNIT; Start 11/27/18 at 12:20 Assessment/Plan Chief Complaint/Hosp Course IMP: 1. Acute hypoxemic respiratory failure 2. Pneumococcal pneumonia 3. Anemia RECS: 1. Abx per ID 2. Decrease 02 as tolerated. Continue physical therapy May require alf facility SANDY CATALAN MD, [facility] Nov 27, 2018 15:48
--- NOTE | 2018-11-27 16:01 | NUR ---
PT NOTE [facility] Patient: Too Orellana : 1960 Age/Sex: 58/M Unit#: [id number] Room/Bed: 2259/A User: Araceli Guido PTA Date: 11/27/18 16:01 Type: PT Technical Record Therapy day number 8 Subjective Denies pain Pain Scale NUMERIC Pain Intensity 0 (0-10) Patient Stated Goal for Pain Relief 0 (0-10) Pain Level Comment denied pain Transfer Training Start Time 15:20 Supine to Sit Modified Independent Transfer Sit to Stand Ability Modified Independent Bed Transfer Ability Modified Independent Additional Mobility Comments left sitting on bedside chair Transfer Training End Time 15:35 Total Transfer Training Time 15 min (8-127) Gait Training Start Time 15:35 Gait Assist Levels Modified Independent Assistive Devices None Front Wheel Walker Ambulation Distance 450 feet Additional Gait Comments steady, reciprocal pattern. 400' w/ AD and 50' w/o AD Gait Training End Time 16:01 Total Gait Training Treatment Time 26 min (8-127) Weight Bearing Assessment Label Bilat Lower Extremity Weight Bearing Status Full Weight Bearing Stair Climbing Ability Stand by Assist Number of Stairs 10 Stairs Additional Stairs Assist Comments x2 asc/desc w/ use of unilateral hand rails, reciprocal pattern Static Sitting Balance Good Dynamic Sitting Balance Good Standing Static Balance Good Dynamic Standing Balance Good Additional Balance Assessments Comments FWW Safety Judgement Good Activity Tolerance Good Equipment Present A pump Post Treatment Pain Intensity 0 0-10 Variance Documentation See note Total Treament Time 41 min (8-127) Total Minutes 41 Total Units 3 PT Technical Record Comment S: RN Deacon cleared pt for PT. Pt denied pain and agreeable to tx O: Received pt sleeping in semifowler. VC/TC to rou. See above for assist levels. Gait training x 400' w/ AD and 50' w/o AD. Per pt, pt uses FWW at home. Presented with steady, reciprocal pattern. Performed stair training x 10 steps x2 asc/desc w/ use of unilateral hand rails, reciprocal pattern. Returned pt back to room/bed. Requested to be seated at bedside chair. CAll light/phone within reach. Needs met A: Good tolerance to tx. Improved gait distance and assistance from supervised to modified independent throughout tx. Pt stable and good balance w/ FWW. P: Continue w/ POC and progress as tolerated. Spoke w/ evaluating PT, will reduce frequency to 3x/week. Will benefit from more balance exercises
[2018-11-27] MEDS: CEFTRIAXONE 1 GM/50 ML (PMX) 50 ML IVPB SCH (16:09)
[2018-11-27] MEDS ORDERED: INSULIN ASPART [NOVOLOG] 3 ML PEN SC SCH (17:35)
--- NOTE | 2018-11-27 17:47 | NUR ---
rn notes patient is alert and oriented X4, remains afebrile. no s/s of acute distress noted. no s/s of pain and discomfort. blood sugar checked as scheduled and covered accordingly. all due medicine given and all needs attended to. call light placed within reach and fall precautions observed well. will continue to monitor.
--- NOTE | 2018-11-27 19:18 | NUR ---
rn notes:- endorsed to night nurse to do skin assessment after transfer.
[2018-11-27 19:32] VITALS: BP 123/67; PULSE 85; RESP 17
[2018-11-28 01:54] VITALS: BP 94/54; PULSE 79; RESP 18
[2018-11-28] MEDS: ACCU-CHEK XX SCH (02:16)
[2018-11-28] MEDS: PANTOPRAZOLE (EC) 40 MG TAB PO SCH (05:34)
[2018-11-28] MEDS: LEVOFLOXACIN 750 MG TABLET PO SCH (05:35)
--- NOTE | 2018-11-28 05:41 | NUR ---
RN Notes Patient had no change in condition overnight. No complaints of pain or discomfort. No signs of pain observed. Patient's blood sugar covered according to sliding scale. Two am blood glucose elevated, MD aware. Patient has no symptoms of hypo/hyperglycemia. Hourly rounding provided and safety precautions maintained throughout shift. Patient's bed at lowest position and bed alarm activated for safety. Will continue to monitor and endorse to oncoming shift RN for continuity of care.
[2018-11-28 07:56] VITALS: BP 108/62; PULSE 71; RESP 18
[2018-11-28] MEDS: FLUCONAZOLE 100 MG TAB PO SCH (08:47)
[2018-11-28] MEDS: FOLIC ACID 1 MG TAB PO SCH (08:47)
[2018-11-28] MEDS: MULTIVITAMINS THERAPEUTIC TAB PO SCH (08:47)
[2018-11-28] MEDS: TRIMETHOPRIM/SULFAMETHOX (DS) TAB PO SCH (08:47)
[2018-11-28] MEDS: INSULIN DETEMIR [LEVEMIR] (100 UNITS/ML) SYG SC SCH (08:49)
[2018-11-28] MEDS: INSULIN ASPART [NOVOLOG] 3 ML PEN SC SCH ×6 (08:50→17:09)
[2018-11-28] MEDS: THIAMINE 100 MG TAB PO SCH (08:55)
--- NOTE | 2018-11-28 13:50 | PDOCDIS ---
Discharge Instructions CONDITION [id number] Patient Condition: [id number] Stable HOME CARE INSTRUCTIONS: [id number] Special Diet: [id number] CCHO ACTIVITY: [id number] Activity Restrictions: [id number] Slowly Increase Activity FOLLOW UP/APPOINTMENTS Follow-up Plan see prescriptions, follow up with PCP GAYATHRI HUNTER MD Nov 28, 2018 13:50
[2018-11-28] MEDS ORDERED: FLUC100T PO (13:53)
[2018-11-28] MEDS ORDERED: NOVO3I SC (13:53)
[2018-11-28] MEDS ORDERED: LEVEM SC (13:53)
[2018-11-28] MEDS ORDERED: THIA100T56 PO (13:53)
[2018-11-28] MEDS ORDERED: MULTI PO (13:53)
[2018-11-28] MEDS ORDERED: AMOX1TAB9 PO (13:53)
[2018-11-28 14:03] VITALS: BP 114/64; PULSE 77; RESP 18
--- NOTE | 2018-11-28 15:03 | CONS ---
Date/Time of Note Date/Time of Note DATE: 11/28/18 TIME: 15:02 Consult Date/Type/Reason Admit Date/Time Nov 14, 2018 at 04:59 Initial Consult Date 11/18/18 Type of Consultation: Pulmonary Subjective No events overnight. On room air. Objective Vital Signs Date Temp Pulse Resp B/P (MAP) Pulse Ox O2 O2 Flow FiO2 Time Delivery Rate 11/28/18 98.0 77 18 114/64 98 Room Air 14:03 (81) 11/27/18 21 04:31 11/26/18 2.0 08:30 Intake and Output 11/27/18 11/27/18 11/28/18 1515:00 23:00 07:00 IntakeIntake Total 240 ml 290 ml OutputOutput Total 200 ml 700 ml BalanceBalance 40 ml 290 ml -700 ml Exam HEENT: Neck supple; no JVD; no LAD CVS: RRR, S1 and S2 CHEST: Faint bibasilar rales ABD: Soft, NT, + BS EXT: No c/c/e Results/Medications Result Diagram: 11/28/18 0520 11/28/18 0520 Results 24 hrs Laboratory Tests Test 11/27/18 17:27 11/27/18 21:15 11/28/18 02:12 11/28/18 05:20 Bedside Glucose 220 184 287 H White Blood Count 9.8 # Red Blood Count 2.97 L Hemoglobin 10.0 L Hematocrit 28.7 L Mean Corpuscular Volume 96.6 Mean Corpuscular 33.7 H Hemoglobin Mean Corpuscular 34.8 Hemoglobin Concent Red Cell Distribution 16.1 H Width Platelet Count 395 Mean Platelet Volume 9.3 Immature Granulocytes % 4.300 H Neutrophils % 52.9 Lymphocytes % 33.1 Monocytes % 8.5 Eosinophils % 0.9 Basophils % 0.3 Nucleated Red Blood 0.0 Cells % Immature Granulocytes # 0.420 H Neutrophils # 5.2 Lymphocytes # 3.2 H Monocytes # 0.8 Eosinophils # 0.1 Basophils # 0.0 Nucleated Red Blood 0.0 Cells # Sodium Level 134 L Potassium Level 3.9 Chloride Level 102 Carbon Dioxide Level 24 Anion Gap 8 Blood Urea Nitrogen 18 Creatinine 0.56 L Est Glomerular Filtrat > 60 Rate mL/min Glucose Level 219 # Calcium Level 8.6 Phosphorus Level 4.1 Magnesium Level 1.8 Test 11/28/18 08:02 11/28/18 11:56 Bedside Glucose 226 H 170 Medications Current Medications IV Flush (NS 3 ml) 3 ml PER PROTOCOL IV ; Start 11/14/18 at 07:00 Ondansetron HCl (Zofran Inj) 4 mg Q6H PRN IV NAUSEA AND/OR VOMITING; Start 11/14/18 at 07:00 Acetaminophen (Tylenol Tab) 650 mg Q6H PRN PO PAIN LEVEL 1-3 OR FEVER Last administered on 11/16/18at 08:39; Admin Dose 650 MG; Start 11/14/18 at 07:00 Diagnostic Test (Pha) (Accu-Chek) 1 ea 02 XX Last administered on 11/28/18 02:16; Admin Dose 1 EA; Start 11/15/18 at 02:00 Insulin Aspart (Novolog Insulin Pen) NOVOLOG *MODERATE* ALGORITHM WITH MEALS BEDTIME SC Last administered on 11/28/18 12:24; Admin Dose 2 UNIT; Start 11/14/18 at 08:00 Miscellaneous Information 1 ea NOTE XX ; Start 11/14/18 at 07:00 Glucose (Glutose) 15 gm Q15M PRN PO DECREASED GLUCOSE; Start 11/14/18 at 07:00 Glucose (Glutose) 22.5 gm Q15M PRN PO DECREASED GLUCOSE; Start 11/14/18 at 07:00 Dextrose (D50w Syringe) 25 ml Q15M PRN IV DECREASED GLUCOSE Last administered on 11/15/18at 02:12; Admin Dose 25 ML; Start 11/14/18 at 07:00 Dextrose (D50w Syringe) 50 ml Q15M PRN IV DECREASED GLUCOSE; Start 11/14/18 at 07:00 Glucagon (Glucagen) 1 mg Q15M PRN IM DECREASED GLUCOSE; Start 11/14/18 at 07:00 Glucose (Glutose) 15 gm Q15M PRN BUCCAL DECREASED GLUCOSE; Start 11/14/18 at 07:00 Thiamine HCl (Vitamin B1) 100 mg DAILY PO Last administered on 11/28/18 08:55; Admin Dose 100 MG; Start 11/14/18 at 14:30 Folic Acid (Folic Acid) 1 mg DAILY PO Last administered on 11/28/18 08:47; Admin Dose 1 MG; Start 11/14/18 at 14:30 Multivitamins Therapeutic (Theragran) 1 tab DAILY PO Last administered on 11/28/18 08:47; Admin Dose 1 TAB; Start 11/14/18 at 14:30 Lorazepam (Ativan) 0.5 mg Q4H PRN IV anxiety, withdrawals; Start 11/14/18 at 14:30 Pantoprazole (Protonix Tab) 40 mg DAILY@06 PO Last administered on 11/28/18 05:34; Admin Dose 40 MG; Start 11/18/18 at 06:00 Zolpidem Tartrate (Ambien) 5 mg HS PRN PO INSOMNIA; Start 11/19/18 at 21:00 Fluconazole (Diflucan) 100 mg DAILY PO Last administered on 11/28/18 08:47; Admin Dose 100 MG; Start 11/26/18 at 09:00 Levofloxacin (Levaquin) 750 mg DAILY@06 PO Last administered on 11/28/18 05:35; Admin Dose 750 MG; Start 11/26/18 at 06:00 Trimethoprim/ Sulfamethoxazole (Bactrim (Ds)) 1 tab BID PO Last administered on 11/28/18 08:47; Admin Dose 1 TAB; Start 11/26/18 at 21:00 Ceftriaxone Sodium 50 ml @ 100 mls/hr Q24H IVPB Last administered on 11/27/18 16:09; Admin Dose 100 MLS/HR; Start 11/26/18 at 17:00 Insulin Detemir (Levemir) 10 units BID SC Last administered on 11/28/18 08:49; Admin Dose 10 UNITS; Start 11/27/18 at 21:00 Insulin Aspart (Novolog Insulin Pen) 4 unit WITH MEALS SC Last administered on 11/28/18 12:24; Admin Dose 4 UNIT; Start 11/27/18 at 12:20 Assessment/Plan Additional Assessment/Plan IMP: 1. s/p Acute hypoxemic respiratory failure 2. Pneumococcal pneumonia 3. Anemia RECS: 1. Abx per ID 2. Mobilize OOB/PT/OT 3. D/C planning TRESA BLANCA MD Nov 28, 2018 15:03
[2018-11-28] MEDS: CEFTRIAXONE 1 GM/50 ML (PMX) 50 ML IVPB SCH (16:55)
--- NOTE | 2018-11-28 18:03 | NUR ---
RN NOTE Patient with discharge orders. IV access removed. Tolerated well. No bleeding noted. Discharge instructions, discharge med recon, prescription and information explained, given and provided to patient and family. Patient and family verbalized understanding. No complaints of pain, no SOB or acute distress noted. Patient verbalized no concerns at this time. Discharged. clinical documentation spec made aware.
--- NOTE | 2018-11-28 19:27 | CONS ---
Date/Time of Note Date/Time of Note DATE: 11/28/18 TIME: 19:27 Assessment/Plan Assessment/Plan Hospital Course 1330 No acute events overnight,alert, comfortable on RA Microbiology: Sputum culture growing Margarita albicans Antimicrobials: Levaquin Rocephin fluconazole Bactrim Physical examination: Well-developed middle-aged man who is lying comfortably in bed head atraumatic normocephalic neck is supple chest rise symmetrical breath sounds with scattered rhonchi diminished bases. Heart: S1- S2. Abdomen soft bowel sounds present. Extremities without cyanosis edema. Assessment: 1. S/p sepsis with strep bacteremia on admission==> 2D echo revealed no vegetations 2. Multifocal pneumonia, resolving 3. S/p acute hypoxemic respiratory failure 4. Diabetes 5. Hypertension 6. Immunocompromised 7. History of chronic alcohol abuse Plan: Stable, ok dc on oral Augmentin for couple more days Result Diagram: 11/28/18 0520 11/28/18 0520 Results 24hrs Laboratory Tests Test 11/27/18 21:15 11/28/18 02:12 11/28/18 05:20 11/28/18 08:02 Bedside Glucose 184 287 H 226 H White Blood Count 9.8 # Red Blood Count 2.97 L Hemoglobin 10.0 L Hematocrit 28.7 L Mean Corpuscular Volume 96.6 Mean Corpuscular 33.7 H Hemoglobin Mean Corpuscular 34.8 Hemoglobin Concent Red Cell Distribution 16.1 H Width Platelet Count 395 Mean Platelet Volume 9.3 Immature Granulocytes % 4.300 H Neutrophils % 52.9 Lymphocytes % 33.1 Monocytes % 8.5 Eosinophils % 0.9 Basophils % 0.3 Nucleated Red Blood 0.0 Cells % Immature Granulocytes # 0.420 H Neutrophils # 5.2 Lymphocytes # 3.2 H Monocytes # 0.8 Eosinophils # 0.1 Basophils # 0.0 Nucleated Red Blood 0.0 Cells # Sodium Level 134 L Potassium Level 3.9 Chloride Level 102 Carbon Dioxide Level 24 Anion Gap 8 Blood Urea Nitrogen 18 Creatinine 0.56 L Est Glomerular Filtrat > 60 Rate mL/min Glucose Level 219 # Calcium Level 8.6 Phosphorus Level 4.1 Magnesium Level 1.8 Test 11/28/18 11:56 11/28/18 16:48 Bedside Glucose 170 260 H Consultation Date/Type/Reason Admit Date/Time Nov 14, 2018 at 04:59 Initial Consult Date Type of Consult id Exam/Review of Systems Vital Signs Vitals Vital Signs Date Temp Pulse Resp B/P (MAP) Pulse Ox O2 O2 Flow FiO2 Time Delivery Rate 11/28/18 98.0 77 18 114/64 98 Room Air 14:03 (81) 11/27/18 21 04:31 11/26/18 2.0 08:30 Intake and Output 11/27/18 11/27/18 11/28/18 1515:00 23:00 07:00 IntakeIntake Total 240 ml 290 ml OutputOutput Total 200 ml 700 ml BalanceBalance 40 ml 290 ml -700 ml RONAK MCCULLOUGH NP Nov 28, 2018 19:27
--- NOTE | 2018-11-29 01:11 | DS ---
DATE OF ADMISSION: 11/14/2018 DATE OF DISCHARGE: 11/28/2018 REASON FOR ADMISSION: Sepsis, multifocal pneumonia. HOSPITAL COURSE: The patient is a 58-year-old male, very well known to me with history of a lcohol abuse, alcoholic liver disease, diabetes mellitus, poorly controlled, as he is noncompliant wi th his insulin, also history of pancreatitis, and thrombocytopenia who drinks heavily every day. He does not eat much and does not take his insulin. The patient also unfortunately developed vitiligo a nd now presented to the hospital after a few days. He is not feeling well. He has episodes of nause a, vomiting, cough and progressive worsening shortness of breath. He presents [facility] the [facility] with the above symptoms. Glucose was high at 517. A chest x-ray showed bilateral pneumonia. CT pulmonary angiogram shows no evidence of pulmonary embolism. There is dense bilateral lower lobe consolidation with nodular infiltrate, right upper lobe and right middle lobe compatible with multifo shirley pneumonia, fatty liver disease, pancreatic calcification compatible with chronic pancreatitis. T he patient was hypoxic. Lactic acid was high at 2.9, all suggestive of sepsis. Due to pneumonia, th e patient ultimately was admitted. He was started on broad-spectrum antibiotic. He ____ was found t o have strep pneumonia bacteremia, also was worried about PCP pneumonia due to high requirement of hi gh flow oxygen, on 100% FIO2, but ultimately PCP was negative. HIV negative. The patient is immunoc ompromised. He was treated with insulin. He initially ate poorly and slowly as he has improved, his chest x-ray is now clearing. Repeat blood cultures on 11/15 were negative and the respiratory cultu re came back Margarita albicans. Overall, the patient is better now. He was weaned off of the oxygen successfully. Now, his appetite is good. DISCHARGE MEDICATIONS: The patient can be discharged today with the following medications: 1. Diflucan 100 mg daily for 5 days. 2. Augmentin 500 b.i.d. for 5 days. 3. Multivitamin 1 tab daily. 4. Thiamine 100 mg daily. 5. Insulin NovoLog 6 units before meals. 6. Toujeo 20 units at bedtime, as the family has those medications at home. FINAL DIAGNOSES: 1. Sepsis. 2. Multifocal pneumonia. 3. Strep pneumonia bacteremia. 4. Diabetes mellitus, poorly controlled with hemoglobin A1c of 10.6. 5. Anemia. 6. Alcoholic liver disease. 7. Anemia, likely from alcohol suppression, bone marrow suppression from alcohol use. 8. History of thrombocytopenia, resolved. I discussed with him all the time alcohol cessation and c ompliant with insulin. 9. Acute hypoxemic respiratory failure. DIET: ADA 1800, no added salt. ACTIVITY: As tolerated. The patient currently walks with a front-wheeled walker. Case discussed wi th family members on a routine basis. DISPOSITION: The patient to be discharged in fair condition. PROGNOSIS: Again, if he continues to drink, his prognosis is poor and if he stops drinking, his prog nosis is good. Dictated By: GAYATHRI HUNTER MD JL/NTS Conf#: [id number] DID#: [id number] CC: ANA CRISTINA HILL MD;*End*
== END 2018-11-28 18:10 | disposition home or self-care (01) | DRG 871 ==
LOC: E/R 22:30 → ICU 11-14 04:59 → CANRESERV 11-14 07:07 → EDBEDREQ 11-14 07:12 → EDBEDREQSVC 11-14 07:12 → ICU 11-14 09:33 → 6WM 11-16 15:01 → PP2 11-26 16:51
PROVIDERS: ADMIT Internal Medicine; ATTEND Internal Medicine
DX: A40.3 Sepsis due to Streptococcus pneumoniae (principal); J96.01 Acute respiratory failure with hypoxia; R65.20 Severe sepsis without septic shock; J13 Pneumonia due to Streptococcus pneumoniae; E44.0 Moderate protein-calorie malnutrition; Z68.1 Body mass index [BMI] 19.9 or less, adult; R64 Cachexia; F10.10 Alcohol abuse, uncomplicated; D89.9 Disorder involving the immune mechanism, unspecified; E11.65 Type 2 diabetes mellitus with hyperglycemia; K70.9 Alcoholic liver disease, unspecified; D64.89 Other specified anemias; L80 Vitiligo; E87.6 Hypokalemia; R62.7 Adult failure to thrive; E83.42 Hypomagnesemia; Z79.4 Long term (current) use of insulin; Z91.14 Patient's other noncompliance with medication regimen
CPT/HCPCS: 36415; 36600; 71045; 71275; 76705; 80048; 80053; 80307; 81001; 82105; 82803; 82947; 82962; 83036; 83605; 83615; 83690; 83735; 84100; 85025; 86703; 87015; 87040; 87070; 87081; 87086; 87281; 90686; 93005; 93306; 96361; 96372; 96374; 96375; 97110; 97116; 97161; 97530; J0295; J0692; J0696; J1450; J1644; J1815; J1956; J2060; J2405; J2543; J2765; J2920; J3370; J3475; J3480; J7030; J7050; J7060; Q9967

== ENCOUNTER 2019-02-04 15:43 | Inpatient (IN) | payer MEDICAID ==
[~2019-02-04] VITALS: Ht 165.1 cm; Wt 50.0 kg
[~2019-02-04 15:43] MED LIST changes: +AMOX1TAB9 PO; -FAMO-96 PO; +FLUC100T PO; +LEVEM SC; +MULTI PO; +NOVO3I SC; +THIA100T56 PO
--- NOTE | 2019-02-04 16:09 | ERD ---
ER Documentation Chief Complaint Chief Complaint abdominal pain x 3 days HPI 58-year-old male history of diabetes, DKA, hypertension, hyperlipidemia, chronic abdominal pain, pancreatitis and chronic alcohol abuse presents to the ED complaining of a 3-day history of worsening sharp and achy, epigastric abdominal pain that radiates to the right upper quadrant with nausea and vomiting. Admits to ongoing alcohol use and poor compliance with medication. No hematemesis, hematochezia or melena. Occasional palpitations but denies chest pain or shortness of breath. Denies headache, focal weakness or numbness. No URI symptoms or cough. No fevers or chills. ROS All systems reviewed and are negative except as per history of present illness. Medications Home Meds Active Scripts Pantoprazole* (Protonix*) 40 Mg Tablet.dr, 40 MG PO DAILY for 30 Days, TAB Prov:GAYATHRI CRUM MD 02/06/19 Hydrocodone Bit-Acetaminophen (Hydrocodone Bit-APAP) 5-325MG Tablet, 1 TAB PO Q6H PRN for PAIN LEVEL 4-6, #20 TAB Prov:GAYATHRI CRUM MD 02/06/19 Insulin Detemir (Levemir) 100 Unit/1 Ml Vial, 20 UNITS SC QHS for 30 Days, #30 VIAL Prov:GAYATHRI CRUM MD 11/28/18 Insulin Aspart* (Novolog Insulin Pen*) 100 Unit/Ml Soln, 6 UNIT SC WITH MEALS for 30 Days, #30 Prov:GAYATHRI CRUM MD 11/28/18 Discontinued Scripts Amoxicillin/Potassium Clav (Amox-Clav 500-125 mg Tablet) 500-125 mg Tab, 1 TAB PO BID for 5 Days, #10 TAB Prov:GAYATHRI CRUM MD 11/28/18 Multivitamins* (Theragran*) 1 Tab Tab, 1 TAB PO DAILY for 30 Days, #30 TAB Prov:GAYATHRI CRUM MD 11/28/18 Thiamine* (Vitamin B-1*) 100 Mg Tablet, 100 MG PO DAILY for 30 Days, #30 TAB Prov:GAYATHRI CRUM MD 11/28/18 Fluconazole* (Diflucan*) 100 Mg Tablet, 100 MG PO DAILY for 5 Days, #5 TAB Prov:GAYATHRI CRUM MD 11/28/18 Allergies Allergies: Coded Allergies: No Known Drug Allergy (Verified Allergy, Unknown, 02/04/19) PMhx/Soc Reviewed in chart. As per HPI. History of Surgery: No Anesthesia Reaction: No Hx Neurological Disorder: No Hx Respiratory Disorders: No Hx Cardiac Disorders: No Hx Psychiatric Problems: No Hx Miscellaneous Medical Probl: Yes Hx Alcohol Use: Yes (pt states x3 beers per day) Hx Substance Use: No Hx Tobacco Use: No FmHx No family history relevant to presenting complaint Physical Exam Vitals Vital Signs Date Temp Pulse Resp B/P (MAP) Pulse Ox O2 O2 Flow FiO2 Time Delivery Rate 02/04/19 77 14 159/96 100 Room Air 18:56 (117) 02/04/19 105 20 140/82 98 Room Air 17:00 (101) 02/04/19 97.6 89 20 125/81 97 15:45 (96) Physical Exam Const: Moderate distress Head: Atraumatic Eyes: Normal Conjunctiva ENT: Normal External Ears, Nose and Mouth. Neck: Full range of motion. No meningismus. Resp: Clear to auscultation bilaterally Cardio: Regular rate and rhythm, no murmurs Abd: Soft, moderate epigastric tenderness, no rebound or guarding, non distended. Normal bowel sounds Skin: No petechiae or rashes Back: No midline or flank tenderness Ext: No cyanosis, or edema Neur: Awake and alert Psych: Anxious but not depressed. Result Diagram: 02/06/195 02/06/195 Results 24 hrs Laboratory Tests Test 02/04/19 16:08 02/04/19 16:11 02/04/19 16:20 02/04/19 17:30 Bedside Glucose 421 mg/dL Blood Gas Blood venous Specimen Source Arterial Blood 02/04/2019 5:22: Date Drawn 48 PM Arterial Blood VENOUS LINE Gas Puncture Site Abhijit Test N/A Venous Blood pH 7.359 Venous Blood 43.7 mmHG pCO2 (Temp Corrected ) Venous Blood 41.9 mmHG pO2 (Temp Corrected ) Venous Blood 24.1 mmol/L HCO3 Venous Blood 72.7 mmHG Oxygen Saturation Venous Blood -1.5 mmol/L Base Excess Venous Blood 15.1 g/dl Total Hemoglobin Venous Blood 72.1 % Oxyhemoglobin Venous Blood 0.3 % Methemoglobin Carboxyhemoglob 0.5 % in Blood Gas 37.0 C Temperature Blood Gas ROOM AIR Modality FiO2 21.0 % Blood Gas M.D. Notified Whom Blood Gas 02/04/2019 5:31: Notified Time 16 PM White Blood 7.4 10^3/ul Count Red Blood Count 4.10 10^6/ul Hemoglobin 13.7 g/dl Hematocrit 38.2 % Mean 93.2 fl Corpuscular Volume Mean 33.4 pg Corpuscular Hemoglobin Mean 35.9 g/dl Corpuscular Hemoglobin Conc ent Red Cell 12.4 % Distribution Width Platelet Count 126 10^3/UL Mean Platelet 9.6 fl Volume Immature 0.400 % Granulocytes % Neutrophils % % Segmented 38 % Neutrophils % (Manual) Lymphocytes % % Lymphocytes % 39 % (Manual) Reactive 16 % Lymphocytes % (Manual) Monocytes % % Monocytes % 5 % (Manual) Eosinophils % % Basophils % % Basophils % 2 % (Manual) Nucleated Red 0.0 /100WBC Blood Cells % Immature 0.030 10^3/ul Granulocytes # Neutrophils # 10^3/ul Lymphocytes 2.8 10^3/ul (Manual) Lymphocytes # 10^3/ul Reactive 1.1 10^3/ul Lymphocytes # Monocytes # 10^3/ul Monocytes # 0.3 10^3/ul (Manual) Eosinophils # 10^3/ul Basophils # 10^3/ul Basophils # 0.1 10^3/ul (Manual) Nucleated Red 10^3/ul Blood Cells # Platelet NORMAL Estimate Giant Platelets 1 % Polychromasia 1+ Sodium Level 135 mmol/L Potassium Level 3.9 mmol/L Chloride Level 91 mmol/L Carbon Dioxide 20 mmol/L Level Anion Gap 24 Blood Urea 6 mg/dl Nitrogen Creatinine 0.35 mg/dl Est Glomerular > 60 mL/min Filtrat Rate mL/min Glucose Level 449 mg/dl Calcium Level 10.1 mg/dl Phosphorus 4.2 mg/dl Level Magnesium Level 1.5 mg/dl Total Bilirubin 0.6 mg/dl Direct 0.00 mg/dl Bilirubin Indirect 0.6 mg/dl Bilirubin Aspartate Amino 89 IU/L Transf (AST/SGO T) Alanine 62 IU/L Aminotransferas e (ALT/SGPT) Alkaline 172 IU/L Phosphatase Troponin I < 0.012 ng/ml Total Protein 7.5 g/dl Albumin 4.8 g/dl Globulin 2.70 g/dl Albumin/Globuli 1.77 n Ratio Lipase 164 U/L Urine Color COLORLESS Urine Clarity CLEAR Urine pH 6.0 Urine Specific 1.007 [place] Urine Ketones TRACE mg/dL Urine Nitrite NEGATIVE mg/dL Urine Bilirubin NEGATIVE mg/dL Urine NEGATIVE mg/dL Urobilinogen Urine Leukocyte NEGATIVE Sade/ul Esterase Urine NEGATIVE mg/dL Hemoglobin Urine Glucose 3+ mg/dL Urine Total NEGATIVE mg/dl Protein Hemoglobin A1c 10.3 % Test 02/04/19 17:39 02/04/19 18:30 02/04/19 18:45 02/04/19 18:50 Bedside Glucose 322 mg/dL 326 mg/dL Blood Gas Blood venous Specimen Source Arterial Blood 02/04/2019 6:32: Date Drawn 56 PM Arterial Blood VENOUS LINE Gas Puncture Site Abhijit Test N/A Venous Blood pH 7.335 Venous Blood 52.7 mmHG pCO2 (Temp Corrected ) Venous Blood 22.0 mmHG pO2 (Temp Corrected ) Venous Blood 27.5 mmol/L HCO3 Venous Blood 33.8 mmHG Oxygen Saturation Venous Blood 0.7 mmol/L Base Excess Venous Blood 14.5 g/dl Total Hemoglobin Venous Blood 33.5 % Oxyhemoglobin Venous Blood 0.6 % Methemoglobin Carboxyhemoglob 0.3 % in Blood Gas 37.0 C Temperature Blood Gas ROOM AIR Modality FiO2 21.0 % Blood Gas M.D. Notified Whom Blood Gas 02/04/2019 6:41: Notified Time 25 PM Sodium Level 138 mmol/L Potassium Level 4.0 mmol/L Chloride Level 93 mmol/L Carbon Dioxide 28 mmol/L Level Anion Gap 17 Blood Urea 5 mg/dl Nitrogen Creatinine 0.31 mg/dl Est Glomerular > 60 mL/min Filtrat Rate mL/min Glucose Level 328 mg/dl Calcium Level 9.9 mg/dl Current Medications Medications Dose Sig/Sariah Start Time Status Last (Trade) Ordered Route PRN Stop Time Admin Dose Reason Admin Ondansetron 4 mg ONCE STAT 02/04/19 DC 02/04/19 HCl (Zofran IV 16:11 16:28 Inj) 02/04/19 16:15 Famotidine 20 mg ONCE ONCE 02/04/19 DC 02/04/19 (Pepcid Iv) IV 16:30 16:29 02/04/19 16:31 Potassium 1,000 ml @ Q0M IV 02/04/19 DC Chloride/Sodi 0 mls/hr 17:01 um Chloride 02/04/19 19:01 Potassium 1,000 ml @ Q0M IV 02/04/19 DC Chloride/Dext 0 mls/hr 17:01 carlo/ Sod Cl 02/04/19 18:58 Potassium 1,000 ml @ Q0M IV 02/04/19 DC 02/04/19 Chloride/Sodi 0 mls/hr 17:01 18:51 um Chloride 02/04/19 19:01 Potassium 1,000 ml @ Q0M IV 02/04/19 DC Chloride/Dext 0 mls/hr 17:01 carlo/ Sod Cl 02/04/19 18:57 Sodium 1,000 ml @ Q0M IV 02/04/19 DC Chloride 0 mls/hr 17:01 02/04/19 19:01 1,000 ml @ Q0M IV 02/04/19 DC Dextrose/Sodi 0 mls/hr 17:01 um Chloride 02/05/19 06:04 Insulin 101 ml @ ER DKA 02/04/19 Cancel Human 5.05 mls/hr PROTOCOL IV 17:30 Regular 100 unit/ Sodium Chloride Lactated 500 ml @ ONCE ONCE 02/04/19 DC 02/04/19 Ringer's 500 mls/hr IV 17:30 17:32 02/04/19 18:29 HYPOGLYCEM 02/04/19 DC Miscellaneous HYPOGLYCEMIA PROTOCOL PRN 17:30 TREATMENT XX 02/06/19 17:54 Information .HYPOGLYCEMIA (* PROTOCOL Miscellaneous Pharmacy Order) Dextrose 50 ml Q15M PRN 02/04/19 DC (D50w IV 17:30 Syringe) .DECREASED 02/04/19 19:01 GLUCOSE Dextrose 25 ml Q15M PRN 02/04/19 DC (D50w IV 17:30 Syringe) .DECREASED 02/04/19 19:01 GLUCOSE Magnesium 100 ml @ ONCE ONCE 02/04/19 DC 02/04/19 Sulfate/ 100 mls/hr IVPB 17:30 17:58 Dextrose 02/04/19 18:29 Lactulose 20 gm ONCE ONCE 02/04/19 DC 02/04/19 (Enulose) PO 19:00 20:14 02/04/19 19:01 Ondansetron 4 mg Q6H PRN 02/04/19 DC 02/05/19 HCl (Zofran IV NAUSEA 19:00 08:30 Inj) AND/OR 02/06/19 17:54 VOMITING 650 mg Q6H PRN 02/04/19 DC 02/06/19 Acetaminophen PO PAIN 19:00 07:55 (Tylenol LEVEL 1-3 OR 02/06/19 17:54 Liquid) FEVER 1 tab Q6H PRN 02/04/19 DC Acetaminophen PO PAIN 19:00 / LEVEL 4-6 02/06/19 17:54 Hydrocodone Bitart ([place] (5/325)) Morphine 2 mg Q4H PRN 02/04/19 DC Sulfate IV PAIN 19:00 (morphine) LEVEL 7-10 02/05/19 11:33 Zolpidem 5 mg QHS PRN 02/04/19 DC Tartrate PO INSOMNIA 19:00 (Ambien) 02/06/19 17:54 Dextrose 50 ml Q15M PRN 02/04/19 DC (D50w IV For BS 50 19:00 Syringe) or less 02/06/19 17:54 Dextrose 25 ml Q15M PRN 02/04/19 DC (D50w IV BS 19:00 Syringe) between 50-70 02/06/19 17:54 Diagnostic 1 ea Q1H XX 02/04/19 DC 02/05/19 Test (Pha) 19:00 05:22 (Accu-Chek) 02/05/19 06:04 HYPOGLYCEM 02/04/19 DC Miscellaneous HYPOGLYCEMIA PROTOCOL PRN 19:00 TREATMENT XX 02/06/19 17:54 Information Hypoglycemia (* (BS < 70) Miscellaneous Pharmacy Order) Potassium 1,000 ml @ Q0M IV 02/04/19 DC Chloride/Sodi 0 mls/hr 18:48 um Chloride 02/05/19 06:04 Potassium 1,000 ml @ Q0M IV 02/04/19 DC 02/05/19 Chloride/Dext 0 mls/hr 18:48 02:37 carlo/ Sod Cl 02/05/19 06:04 Potassium 1,000 ml @ Q0M IV 02/04/19 DC Chloride/Sodi 0 mls/hr 18:48 um Chloride 02/05/19 06:04 Potassium 1,000 ml @ Q0M IV 02/04/19 DC 02/04/19 Chloride/Dext 0 mls/hr 18:48 21:00 carlo/ Sod Cl 02/05/19 06:04 Sodium 1,000 ml @ Q0M IV 02/04/19 DC Chloride 0 mls/hr 18:48 02/05/19 06:04 1,000 ml @ Q0M IV 02/04/19 DC Dextrose/Sodi 0 mls/hr 18:48 um Chloride 02/05/19 06:04 Insulin 101 ml @ DKA 02/04/19 DC 02/04/19 Human 5.05 mls/hr PROTOCOL IV 19:00 19:15 Regular 100 02/05/19 06:04 unit/ Sodium Chloride Please ONCE ONCE 02/04/19 DC Miscellaneous discontinue XX 19:00 ... 02/04/19 19:01 Information (* Miscellaneous Pharmacy Order) Procedures/MDM DOCUMENTS REVIEWED: ED nurse, prior ED, prior records IMAGING: Chest AP portable. Cardiac silhouette is normal. The costophrenic angles are clear. No effusions or infiltrates. No abnormalities of the bony thorax. My interpretation. MEDICAL DECISION MAKIN-year-old male history of diabetes, DKA, hypertension, hyperlipidemia, chronic abdominal pain, pancreatitis, chronic alcohol abuse and noncompliance to the ED complaining of a 3-day history of abdominal pain, nausea and vomiting. CBC is unremarkable for leukocytosis, anemia or thrombocytopenia. Chemistry reveals critical hyperglycemia with anion gap metabolic acidosis consistent with diabetic ketoacidosis. Liver function tests are unremarkable. No fever or signs of an occult infectious process including but not limited to urinary tract infection or pneumonia. Abdominal exam reveals epigastric tenderness likely secondary to gastritis/GERD but no rebound, guarding or signs of peritonitis. No evidence of pancreatitis as lipase is negative. Advanced abdominal imaging is deferred at this point. DKA protocol initiated with intravenous hydration and insulin drip. Patient will be admitted to the intensive care unit for further evaluation and management. admit to ICU for further evaluation and management. CRITICAL CARE TIME: Due to the high probability of sudden clinically significant hemodynamic, cardiovascular and metabolic deterioration, this patient with diabetic ketoacidosis required multiple, frequent reevaluations of vital signs and response to therapy. Additional critical care time was spent in extensive review of prior medical records, interpretation of relevant clinical data and arranging for admission and ongoing care with Dr. Crum. TOTAL CRITICAL CARE TIME: 35 minutes not including other separately reportable procedures. PATIENT CARE TRANSITIONED: Time: 17:55, Dr. Crum. Counseled patient regarding diagnosis, diagnostic results and plan for admissi on. Departure Diagnosis: Primary Impression: Diabetic ketoacidosis Diabetes mellitus type: other specified (including JOSSY) Diabetes mellitus complication detail: without coma Qualified Codes: E13.10 - Other specified diabetes mellitus with ketoacidosis without coma Additional Impressions: Abdominal pain, acute, epigastric Nausea and vomiting Vomiting type: unspecified Vomiting Intractability: unspecified Qualified Codes: R11.2 - Nausea with vomiting, unspecified Condition: Critical KEYANA COUCH MD Feb 04, 2019 16:09
[2019-02-04] MEDS ORDERED: ONDANSETRON 4 MG INJ IV STA (16:11)
[2019-02-04] MEDS ORDERED: FAMOTIDINE 20 MG INJ IV ONE (16:30)
[2019-02-04] MEDS ORDERED: D10/0.45% NACL + KCL 30 MEQ 1,000 ML IV SCH (17:01)
[2019-02-04] MEDS ORDERED: D10/0.45% NACL + KCL 40 MEQ 1,000 ML IV SCH ×2 (17:01→18:48)
[2019-02-04] MEDS ORDERED: SOD CHLORIDE 0.9% 1,000 ML IV SCH ×2 (17:01→18:48)
[2019-02-04] MEDS ORDERED: NS + KCL 40 MEQ 1,000 ML IV SCH ×2 (17:01→18:48)
[2019-02-04] MEDS ORDERED: NS + KCL 30 MEQ 1,000 ML IV SCH ×2 (17:01→18:48)
[2019-02-04] MEDS ORDERED: DEXTROSE 10 %/0.45 % NACL 1,000 ML IV SCH ×2 (17:01→18:48)
[2019-02-04] MEDS ORDERED: LACTATED RINGER'S 500 ML IV ONE (17:30)
[2019-02-04] MEDS ORDERED: MAGNESIUM SULFATE 1 GM/D5W 100 ML IVPB ONE (17:30)
[2019-02-04] MEDS ORDERED: DEXTROSE 50% 50 ML SYRINGE IV PRN ×4 (17:30→19:00)
[2019-02-04] MEDS ORDERED: INSULIN REGULAR, HUMAN 100 UNIT in SOD CHLORIDE 0.9% 100 ML IV SCH ×4 (17:30→19:00)
[2019-02-04] MEDS: ACCU-CHEK XX SCH ×6 (18:45→23:18)
[2019-02-04] MEDS ORDERED: ZOLPIDEM 5 MG TAB PO PRN (19:00)
[2019-02-04] MEDS ORDERED: ACETAMINOPHEN 650MG/20.3ML CUP PO PRN (19:00)
[2019-02-04] MEDS ORDERED: ONDANSETRON 4 MG INJ IV PRN (19:00)
[2019-02-04] MEDS ORDERED: LACTULOSE 30ML CUP PO ONE (19:00)
[2019-02-04] MEDS ORDERED: morphine 2 MG INJ IV PRN (19:00)
[2019-02-04] MEDS ORDERED: HYDROCODONE/APAP (5/325) TAB PO PRN (19:00)
--- NOTE | 2019-02-04 19:18 | HP ---
DATE OF ADMISSION: 02/04/2019 REASON FOR ADMISSION: DKA, alcohol abuse, right upper quadrant pain. HISTORY OF PRESENT ILLNESS: The patient is a 58-year-old male, very well known to me. He h as history of alcohol abuse, alcoholic liver disease, diabetes mellitus poorly controlled. This jose ent is noncompliant with his insulin. History of pancreatitis, thrombocytopenia. Unfortunately, he continues to drink alcohol daily. He takes his insulin sporadically. The patient was in usual state of health up until 1 day prior to admission, when he noticed right upper quadrant pain. Then, he no maria c to be more weak and had episodes of nausea and vomiting. [facility] and was found to be in DKA, overall mild, anion gap of 24. The patient w as started on fluid hydration, insulin drip, and he will be transferred to the intensive care unit. Initial vital signs upon presentation showed a temperature of 97.6, pulse 89, respirations 20, blood pressure 125/81, saturation 97%. Upon admission, the patient is in no distress, nontoxic looking, th in and frail overall, states that he has been drinking and taking again his insulin at times. The pa tient otherwise denies any fever or chills. Does report episodes of nausea and vomiting and right up per quadrant pain. Lipase was normal upon presentation The patient is admitted for further care. PAST MEDICAL HISTORY: Includes hypertension, diabetes mellitus, alcohol abuse, vitiligo, questionab le early liver cirrhosis, thrombocytopenia, chronic pancreatitis. SURGICAL HISTORY: None. ALLERGIES: NO DRUG ALLERGIES. FAMILY HISTORY: Noncontributory. SOCIAL HISTORY: Continues to drink beer on a daily basis. No history of tobacco or IV drug use. 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 He lives at home with his family. MEDICATIONS: Includes various meds, which include insulin and Levemir. The Levemir is 20 units at b edtime and insulin aspart 6 units with meals. The patient is not very compliant with the above. PHYSICAL EXAMINATION: VITAL SIGNS: Temperature 97.6, pulse 77, respirations 14, blood pressure 159/96, respirations 100%. GENERAL: In no acute distress. HEENT: Normocephalic, atraumatic, temporal wasting, frail. CARDIOVASCULAR: S1, S2, regular rate. LUNGS: Clear. ABDOMEN: Soft. Right upper quadrant tenderness is noted. EXTREMITIES: There is no clubbing, cyanosis, or edema. LABORATORY DATA: White count 7.4, hemoglobin 13.2, hematocrit 38, platelet count of 126, neutrophils 38%, lymphocytes 39%, reactive lymphocytes 16%. Chemistry: Sodium 135, potassium 3.9, chloride 91, bicarbonate 20, BUN is 16, creatinine 0.35, and glucose of 449. Last glucose level 226. AST 89, AL T 62, alkaline phosphatase 172. Magnesium is low at 1.5. No imaging tests. I did order a chest x-r ay and an abdominal ultrasound as well as an EKG. ASSESSMENT AND PLAN: This is a 58-year-old male with history of diabetes mellitus poorly co ntrolled, alcoholic liver disease, noncompliance with medications and insulin, cachexia, vitiligo, wi th recent hospitalization for multifocal pneumonia and pneumococcal bacteremia, now presents with vandana betic ketoacidosis. 1. Diabetic ketoacidosis, likely from ongoing drinking alcohol and not taking his insulin. The jose ent will be hydrated. Insulin drip will be started per diabetic ketoacidosis protocol. Will rule ou t an infectious process. Will obtain a chest x-ray. The patient will be pancultured. Keep him n.p. o. for now. 2. Diabetes mellitus. Currently, the patient will be placed on diabetic ketoacidosis protocol, insu shelia drip, transition to subcutaneous insulin soon. Follow up electrolytes. Monitor potassium, magne sium, phosphorus. 3. Moderate calorie protein malnutrition. Once diet was advanced, we will make sure he is on Glucer na, maximum nutritional support. 4. Renal: Monitor electrolytes. Replace magnesium and potassium. 5. Vitiligo, likely due to his immunocompromised state. ____ and follow up with dermatology as an o utpatient basis. 6. The patient will be placed on deep vein thrombosis prophylaxis and gastrointestinal prophylaxis, may hold Lovenox for now due to thrombocytopenia, alcoholic liver disease. Will monitor. Overall prognosis is poor if he continues to drink. We will follow. Dictated By: GAYATHRI ROBERT/BOBBI Conf#: [id number] DID#: [id number]
[2019-02-04] MEDS: D10/0.45% NACL + KCL 30 MEQ 1,000 ML IV SCH (21:00)
[2019-02-04 21:14] VITALS: PULSE 84
[2019-02-04 21:21] VITALS: BP 133/74; PULSE 79; RESP 13
[2019-02-04 21:54] VITALS: Ht 165.1 cm; Wt 50.0 kg
[2019-02-04 22:00] VITALS: BP 137/79; PULSE 83; RESP 12
[2019-02-04 23:00] VITALS: BP 122/77; PULSE 86; RESP 10
[2019-02-05] VITALS (9 sets, daily range): BP systolic 112–148; BP diastolic 58–86; PULSE 80–91; RESP 12–20
[2019-02-05] MEDS: ACCU-CHEK XX SCH ×6 (00:19→05:22)
[2019-02-05] MEDS: D10/0.45% NACL + KCL 30 MEQ 1,000 ML IV SCH (01:35)
[2019-02-05] MEDS ORDERED: GLUCAGON 1 MG INJ IM PRN (04:30)
[2019-02-05] MEDS ORDERED: GLUCOSE GEL 15 GRAM TUBE BUCCAL PRN (04:30)
[2019-02-05] MEDS ORDERED: GLUCOSE GEL 15 GRAM TUBE PO PRN ×2 (04:30)
[2019-02-05] MEDS ORDERED: DEXTROSE 50% 50 ML SYRINGE IV PRN ×2 (04:30)
[2019-02-05] MEDS: INSULIN GLARGINE [LANTus] (100 UNITS/ML) SYG SC SCH ×3 (04:57→21:09)
[2019-02-05] MEDS ORDERED: PANTOPRAZOLE 40 MG INJ IV SCH (06:00)
[2019-02-05] MEDS: INSULIN ASPART [NOVOLOG] 3 ML PEN SC SCH ×4 (07:50→21:07)
[2019-02-05] MEDS ORDERED: INSULIN GLARGINE [LANTus] (100 UNITS/ML) SYG SC SCH (08:00)
[2019-02-05] MEDS ORDERED: SOD CHLORIDE 0.9% 1,000 ML IV SCH (08:30)
[2019-02-05] MEDS ORDERED: morphine LIQ (10 MG/5 ML) CUP PO PRN (12:00)
[2019-02-05] MEDS ORDERED: MAGNESIUM SULFATE 4 GM/100 ML 100 ML IVPB ONE (13:00)
--- NOTE | 2019-02-05 17:56 | RADRPT ---
Vent Rate: 81 bpm RR Interval: 0 msec AR Interval: 134 msec QRS Duration: 96 msec QT Interval: 396 msec QTC Interval: 460 msec P-R-T [place]: 82 - 75 - 79 degrees Normal sinus rhythm Normal ECG Electronically Signed By: Álvaro Banks
--- NOTE | 2019-02-05 18:52 | PN ---
DATE: 02/05/2019 SUBJECTIVE: Overnight, the patient was in the intensive care unit on insulin drip which we tapered o ff, now on subcutaneous insulin. The patient was transferred to the medical/surgical floor as patien t's anion gap has closed. The patient is feeling well and he is tolerating his diet. Blood sugar is still running high. We will keep him 1 more day to adjust his insulin and discharge planning likely tomorrow. I had a long conversation with the patient and his regarding patient's need to stop drinking alcohol and be compliant with his insulin treatment. Otherwise, prognosis is poor. PHYSICAL EXAMINATION: VITAL SIGNS: Temperature 98.5, pulse ____, respirations 18, blood pressure 146/86, saturation 98%. GENERAL: No acute distress. HEENT: Normocephalic, atraumatic. The patient is frail, pale. CARDIOVASCULAR: S1, S2, regular rate. LUNGS: Clear. ABDOMEN: Soft, nontender. EXTREMITIES: No clubbing, cyanosis or edema. Pain in the right upper quadrant, resolved. LABORATORY DATA: White count 6.7, hemoglobin 13.2, hematocrit 37, platelet count of 127, neutrophils 49%, lymphs at 41%. Chemistry: Sodium 132, potassium 3.6, chloride 91, bicarbonate 28, BUN is 12, creatinine 0.44, glucose of 302, elevated. Last glucose of 312. Urinalysis just shows +3 glucose. IMAGING TESTS: Abdominal ultrasound revealed diffuse hepatic steatosis without intrahepatic biliary ductal dilatation. There is mild proximal CBD dilatation on the report, measuring 6.8 mm. The dista l common bile is not visualized. I recommend correlation with laboratory data if clinically warrante d. Followup MRI or ERCP could be obtained. No evidence of cholelithiasis or acute cholecystitis. T he patient is clinically doing better. MEDICATIONS: 1. Pepcid 20 twice a day. 2. Accu-Chek before and at bedtime. 3. Morphine p.r.n. 4. Normal saline at 100 mL an hour, which we will stop. 5. Hypoglycemia protocol. 6. Zofran. 7. Tylenol. 8. Hood. 9. Ambien. 10. The patient is on Lantus 12 units twice a day. ASSESSMENT AND PLAN: A 58-year-old male with history of diabetes mellitus, poorly controlle d, alcoholic liver disease, noncompliant with medication and insulin, also has cachexia, vitiligo, re cent hospitalization for multifocal pneumonia. 1. Respiratory. Chest x-ray is otherwise negative. O2 support as needed. 2. Status post diabetic ketoacidosis. Transition to subcutaneous insulin. We will increase insulin Lantus to 16 units twice a day and NovoLog 10 units before meals. The patient has been be getting a t least ____ at home previously. 3. Moderate caloric-protein malnutrition. Diet is advanced successfully. Add Glucerna to maximize nutrition support. 4. Overall cachexia and wasting. Again, the patient needs to stop drinking and eat his meals. 5. Renal. Monitor electrolytes. 6. Vitiligo likely due to some immunocompromised state. Follow up with dermatology is advised. 7. Continue deep vein thrombosis prophylaxis and gastrointestinal prophylaxis. 8. Out of bed activity as tolerated. 9. Disposition: Likely tomorrow. Case was discussed with both daughter and today. We will follow. Dictated By: GAYATHRI ROBERT/BOBBI Conf#: [id number] DID#: [id number]
[2019-02-06] MEDS ORDERED: ACCU-CHEK XX SCH (02:00)
[2019-02-06 02:30] VITALS: BP 143/82; PULSE 88; RESP 20
[2019-02-06 07:33] VITALS: BP 129/82; PULSE 81; RESP 18
[2019-02-06] MEDS ORDERED: FAMOTIDINE 20 MG TAB PO SCH (09:00)
[2019-02-06] MEDS: INSULIN ASPART [NOVOLOG] 3 ML PEN SC SCH ×4 (09:17→13:06)
[2019-02-06] MEDS: INSULIN GLARGINE [LANTus] (100 UNITS/ML) SYG SC SCH (09:19)
[2019-02-06 14:57] VITALS: BP 133/76; PULSE 85; RESP 18
--- NOTE | 2019-02-06 15:38 | PDOCDIS ---
Discharge Instructions CONDITION Eexst6Ep Patient Condition: [id number] Stable HOME CARE INSTRUCTIONS: Lamvq3Oz Diet Instructions: Ephrg1j carb controlled ACTIVITY: Tgasw0Cy Activity Restrictions: Vdfwb2o No Restrictions Slowly Increase Activity Rest between Activity Avoid heavy lifting Do not Drive Do not operate Machinery Avoid Heavy Housework [id number] Bathing Restrictions: Teewf0h Sponge Bath FOLLOW UP/APPOINTMENTS Follow-up Plan follow up with PCP, see prescriptions GAYATHRI HUNTER MD Feb 06, 2019 15:37
[2019-02-06] MEDS ORDERED: PANT40TA3 PO (15:40)
[2019-02-06] MEDS ORDERED: HYDR-3601 PO (15:40)
--- NOTE | 2019-02-06 23:03 | DS ---
DATE OF ADMISSION: 02/04/2019 DATE OF DISCHARGE: 02/06/2019 REASON FOR ADMISSION: DKA, alcohol abuse, right upper quadrant pain. HOSPITAL COURSE: The patient is a 58-year-old man well known to me with history of alcohol abuse, alcoholic liver disease, diabetes mellitus, poorly controlled, noncompliant with insulin has h istory of pancreatitis, thrombocytopenia, unfortunately continues to drink alcohol and not taking his insulin as prescribed. The patient now presents to the hospital complaining of right upper quadrant pain with associated nausea and vomiting. Upon presentation to the ER, the patient was found to be in DKA with an anion gap of 24. The patient was started on aggressive hydration and DKA protocol. H e was started on insulin drip in the intensive care unit. The patient's anion gap closed and various tests were done, including abdominal ultrasound which showed diffuse hepatic steatosis without intra hepatic biliary ductal dilatation, mild proximal CBD dilatation due to common bile duct not visualize d. Recommend correlation with laboratory data. The patient's abdominal pain has resolved and LFTs b asically improved. The patient was transferred to the medical/surgical floor in good condition. The patient can be discharged today, vitals are stable. The patient is ambulating. LABORATORY DATA: White count 4.9, hemoglobin 13.4, hematocrit 37, platelet count 123. Sodium 139, p otassium 3.4, chloride 100, bicarbonate 29, BUN is 10, creatinine 0.36 and glucose of 121. AST is 84 , ALT 51, total bilirubin 1.0 and alkaline phosphatase is normal at 110. DISCHARGE MEDICATIONS: The patient will be discharged with the following medications: 1. [place] 5/325 q.8h. p.r.n. for moderate pain. 2. Protonix 40 mg daily. 3. Basaglar 20 units at bedtime. 4. Insulin Humalog 6 units before meals. FINAL DIAGNOSES: 1. Diabetic ketoacidosis. 2. Diabetes mellitus, poorly controlled with hemoglobin A1c of 10. 3. Right upper quadrant pain. 4. Alcoholic intoxication. 5. Alcohol abuse. 6. 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 7. Thrombocytopenia. 8. Cachexia. 9. Vitiligo. The patient was instructed to follow up with PCP. Any change in condition call 911. Case was discus sed with family member. Alcohol cessation was discussed. DIET: ADA 1800. No added salt. ACTIVITY: As tolerated. Dictated By: GAYATHRI ROBERT/BOBBI Conf#: [id number] DID#: [id number]
== END 2019-02-06 17:54 | disposition home or self-care (01) | DRG 638 ==
LOC: E/R 15:43 → ICU 19:15 → MS1 02-05 06:32
PROVIDERS: ADMIT Internal Medicine; ATTEND Internal Medicine
PROC: 4A133R1 Monitoring of Arterial Saturation, Peripheral, Percutaneous Approach (ICD-10-PCS; principal; 2019-02-04)
DX: E11.10 Type 2 diabetes mellitus with ketoacidosis without coma (principal); E44.0 Moderate protein-calorie malnutrition; Z68.1 Body mass index [BMI] 19.9 or less, adult; F10.188 Alcohol abuse with other alcohol-induced disorder; E78.5 Hyperlipidemia, unspecified; I10 Essential (primary) hypertension; F10.129 Alcohol abuse with intoxication, unspecified; D63.8 Anemia in other chronic diseases classified elsewhere; K70.9 Alcoholic liver disease, unspecified; L80 Vitiligo; D69.6 Thrombocytopenia, unspecified; Z79.4 Long term (current) use of insulin; Z91.14 Patient's other noncompliance with medication regimen
CPT/HCPCS: 36415; 71045; 76705; 80048; 80053; 81003; 82803; 82962; 83036; 83690; 83735; 84100; 84443; 84484; 85025; 93005; 96374; 96375; C9113; J1815; J2405; J3475; J7030; J7120

== ENCOUNTER 2019-02-28 14:35 | Emergency (ER) | payer MEDICAID ==
[~2019-02-28] VITALS: Ht 177.8 cm; Wt 57.0 kg
[~2019-02-28 14:35] MED LIST changes: -AMOX1TAB9 PO; -FLUC100T PO; +HYDR-3601 PO; -MULTI PO; +PANT40TA3 PO; -THIA100T56 PO
[2019-02-28 14:51] VITALS: Ht 177.8 cm; Wt 57.0 kg
[2019-02-28] MEDS ORDERED: morphine 4 MG/ML VIAL IV STA (16:20)
[2019-02-28] MEDS ORDERED: ONDANSETRON 4 MG INJ IV STA (16:20)
--- NOTE | 2019-02-28 16:27 | ERD ---
ER Documentation Chief Complaint Chief Complaint c/o right sided flank pain rad to right lower abd x1 week. No dysuria or he HPI This is a 58-year-old male complains of right low back pain radiating around to the right lower quadrant for about 7-10 days is off-and-on sharp pain. No hematuria or dysuria no fever. No postprandial pain. No abdominal bloating no chest pain or shortness of breath ROS All systems reviewed and are negative except as per history of present illness. Medications Home Meds Active Scripts Pantoprazole* (Protonix*) 40 Mg Tablet.dr, 40 MG PO DAILY for 30 Days, TAB Prov:GAYATHRI HUNTER MD 02/06/19 Hydrocodone Bit-Acetaminophen (Hydrocodone Bit-APAP) 5-325MG Tablet, 1 TAB PO Q6H PRN for PAIN LEVEL 4-6, #20 TAB Prov:GAYATHRI HUNTER MD 02/06/19 Insulin Detemir (Levemir) 100 Unit/1 Ml Vial, 20 UNITS SC QHS for 30 Days, #30 VIAL Prov:GAYATHRI HUNTER MD 11/28/18 Insulin Aspart* (Novolog Insulin Pen*) 100 Unit/Ml Soln, 6 UNIT SC WITH MEALS for 30 Days, #30 Prov:GAYATHRI HUNTER MD 11/28/18 Allergies Allergies: Coded Allergies: No Known Drug Allergy (Verified Allergy, Unknown, 02/28/19) PMhx/Soc History of Surgery: No Anesthesia Reaction: No Hx Neurological Disorder: No Hx Respiratory Disorders: No Hx Cardiac Disorders: Yes (Hx: thrombocytopenia, HTN) Hx Psychiatric Problems: No Hx Miscellaneous Medical Probl: Yes (THROMBOCYTOPENA, NON-COMPLIANE) Hx Alcohol Use: No Hx Substance Use: No Hx Tobacco Use: No Smoking Status: Never smoker FmHx Family History: No coronary disease Physical Exam Vitals Vital Signs Date Temp Pulse Resp B/P (MAP) Pulse Ox O2 O2 Flow FiO2 Time Delivery Rate 02/28/19 72 19 109/82 100 Room Air 18:49 (91) 02/28/19 98.7 98 20 133/82 98 14:51 (99) Physical Exam Const: Well-developed, well-nourished Head: Atraumatic, normocephalic Eyes: Normal Conjunctiva, PERRLA, EOMI, normal sclera, no nystagmus ENT: Normal External Ears, Nose and Mouth, moist mucus membranes. Neck: Full range of motion. No meningismus, no lymphadenopathy. Resp: Clear to auscultation bilaterally, no wheezing, rhonchi, rales Cardio: Regular rate and rhythm, no murmurs, S1 S2 present Abd: Soft, non tender x 4, non distended. Normal bowel sounds, no guarding or rebound, no pulsitile abdominal masses or bruits Skin: No petechiae or rashes, no ecchymosis , no maculopapular rash Back: [Right flank tenderness mild Ext: No cyanosis, or edema, FROM x 4, normal inspection, neurovascularly intact x 4 Neur: Awake and alert, STR 5/5 x 4, sensation intact x 4, no focal findings, cerebellum intact Psych: Normal Mood and Affect Result Diagram: 02/28/19 1631 02/28/19 1631 Results 24 hrs Laboratory Tests Test 02/28/19 16:22 02/28/19 16:31 Bedside Glucose 138 mg/dL White Blood Count 6.8 10^3/ul Red Blood Count 4.12 10^6/ul Hemoglobin 13.4 g/dl Hematocrit 38.3 % Mean Corpuscular Volume 93.0 fl Mean Corpuscular Hemoglobin 32.5 pg Mean Corpuscular Hemoglobin Concent 35.0 g/dl Red Cell Distribution Width 12.1 % Platelet Count 201 10^3/UL Mean Platelet Volume 9.6 fl Immature Granulocytes % 0.300 % Neutrophils % 36.8 % Lymphocytes % 49.0 % Monocytes % 9.3 % Eosinophils % 3.7 % Basophils % 0.9 % Nucleated Red Blood Cells % 0.0 /100WBC Immature Granulocytes # 0.020 10^3/ul Neutrophils # 2.5 10^3/ul Lymphocytes # 3.3 10^3/ul Monocytes # 0.6 10^3/ul Eosinophils # 0.3 10^3/ul Basophils # 0.1 10^3/ul Nucleated Red Blood Cells # 0.0 10^3/ul Urine Color YELLOW Urine Clarity CLEAR Urine pH 5.0 Urine Specific [place] 1.033 Urine Ketones NEGATIVE mg/dL Urine Nitrite NEGATIVE mg/dL Urine Bilirubin NEGATIVE mg/dL Urine Urobilinogen 1+ mg/dL Urine Leukocyte Esterase NEGATIVE Sade/ul Urine Hemoglobin NEGATIVE mg/dL Urine Glucose 3+ mg/dL Urine Total Protein NEGATIVE mg/dl Sodium Level 142 mmol/L Potassium Level 3.6 mmol/L Chloride Level 102 mmol/L Carbon Dioxide Level 28 mmol/L Anion Gap 12 Blood Urea Nitrogen 10 mg/dl Creatinine 0.47 mg/dl Est Glomerular Filtrat Rate mL/min > 60 mL/min Glucose Level 118 mg/dl Calcium Level 10.3 mg/dl Total Bilirubin 1.1 mg/dl Direct Bilirubin 0.00 mg/dl Indirect Bilirubin 1.1 mg/dl Aspartate Amino Transf (AST/SGOT) 37 IU/L Alanine Aminotransferase (ALT/SGPT) 29 IU/L Alkaline Phosphatase 115 IU/L Total Protein 7.8 g/dl Albumin 4.7 g/dl Globulin 3.10 g/dl Albumin/Globulin Ratio 1.51 Current Medications Medications Dose Sig/Sariah Start Time Status Last (Trade) Ordered Route PRN Stop Time Admin Dose Reason Admin Morphine 4 mg ONCE STAT 02/28/19 DC 02/28/19 Sulfate IV 16:20 02/28/19 16:35 (morphine) 16:22 Ondansetron 4 mg ONCE STAT 02/28/19 DC 02/28/19 HCl (Zofran IV 16:20 02/28/19 16:35 Inj) 16:22 Procedures/MDM Ordering MD: DINA PILLAI DO Location: E/R Room/Bed: PROCEDURE: CT abdomen and pelvis without contrast. CLINICAL INDICATION: Right flank pain TECHNIQUE: Continues 2.5 mm axial images were obtained from the domes of the diaphragms to the inferior pubic rami. No oral or intravenous contrast was administered. The calculated dose length product (DLP) = 369.88 mGy-cm. Exam CTDlvol = 5.87 mGy. One or more of the following dose reduction techniques were used: Automated exposure control, adjustment of the mA and or KV according to patient size, or use of iterative reconstruction technique. One or more of the following dose reduction techniques were used: Automated exposure control, adjustment of the mA and or KV according to patient size, or use of iterative reconstruction technique. DICOM images are available. COMPARISON: None. FINDINGS: Lung bases are clear. No pleural pericardial fluid is seen. Liver, gallbladder, spleen, adrenals, and kidneys are within normal limits. There is no renal calculi or obstructive uropathy. As before there is extensive calcification noted throughout the pancreas suggesting chronic pancreatitis. No acute inflammation is seen. There is stable dilatation of the pancreatic duct and the possible pancreatic duct stone in the head. If indicated this can be better evaluated with MRI. Aorta is normal in caliber without aneurysmal dilatation. There are no pathologically enlarged mesenteric lymph nodes. Stomach and small bowel loops are within normal limits. There is no small bowel dilatation or obstruction. No free fluid, free air, abscess is noted in the upper abdomen CT pelvis: Images through the pelvis demonstrate no free fluid, free air, abscess. Bladder is partially distended. There is mild thickening of the bladder wall. Recommend correlation with urinalysis. Prostate and seminal vesicles are within normal limits. Evaluation of the colon demonstrates no diverticulosis, diverticulitis or acute colitis. There is moderate constipation throughout the colon. Normal appendix and terminal ileum are identified. No pathologically enlarged iliac chain lymph nodes are seen. There are no destructive bony lesions. IMPRESSION: 1. No free fluid, free air, abscess. 2. No renal calculi or obstructive uropathy. 3. Chronic pancreatitis with calcification throughout the pancreas. No acute inflammation is seen. There is stable dilatation of the pancreatic duct with possible pancreatic duct stone. If indicated this can be better evaluated with MRCP. 3. Normal appendix and terminal ileum. 4. Moderate constipation. No colitis. 5. Mild thickening of the bladder wall. Recommend correlation with urinalysis RPTAT: HH .Sharif Palm MD, Date Time Electronically viewed and signed by .Sharif Palm MD, on 02/28/2019 18:52 .W/ CC: DINA PILLAI DO [id number] Patient has no evidence of a right stone in the ureter but is clinically does seem like this. He has rapid onset of sharp pain in the right low back that radiates to the right lower quadrant. His pancreas study looks the same as it has in the past and he is not having pain that is consistent with his pink otitis as he had in the past this is completely different pain. Will treat with some Flomax and pain medication as needed and watch for worsening Departure Diagnosis: Primary Impression: Flank pain Condition: Stable DINA PILLAI DO Feb 28, 2019 16:27
[2019-02-28] MEDS ORDERED: HYDR-4011 PO (19:11)
[2019-02-28] MEDS ORDERED: TAMS-14 PO (19:11)
[2019-02-28 19:57] VITALS: BP 149/82; PULSE 69; RESP 18
== END 2019-02-28 19:59 | disposition home or self-care (01) ==
LOC: E/R 14:35
DX: R10.31 Right lower quadrant pain (principal); I10 Essential (primary) hypertension; E11.9 Type 2 diabetes mellitus without complications; Z79.4 Long term (current) use of insulin
CPT/HCPCS: 36415; 74176; 80053; 81003; 82962; 85025; 96374; 96375; J2270; J2405; Z7502

== ENCOUNTER 2019-03-08 21:11 | Emergency (ER) | payer MEDICAID ==
[~2019-03-08] VITALS: Ht 167.6 cm; Wt 65.0 kg
[~2019-03-08 21:11] MED LIST changes: +HYDR-4011 PO; +TAMS-14 PO
[2019-03-08 21:17] VITALS: Ht 167.6 cm; Wt 65.0 kg
[2019-03-08] MEDS ORDERED: morphine 4 MG/ML VIAL IV STA (22:21)
[2019-03-08] MEDS ORDERED: ONDANSETRON 4 MG INJ IV STA (22:21)
[2019-03-08] MEDS ORDERED: SOD CHLORIDE 0.9% 1,000 ML IV STA (22:21)
[2019-03-09] MEDS ORDERED: TRAM50TA2 PO (01:32)
[2019-03-09] MEDS ORDERED: VALA10004 PO (01:32)
--- NOTE | 2019-03-09 01:35 | ERD ---
ER Documentation Chief Complaint Chief Complaint right flank pain with nausea x 2weeks HPI This is a 58-year-old male right flank pain that begins in his back and management is found. He said he feels like a burning pain feels like his skin is burning. Denies fevers chills nausea vomiting. Denies any other current complaints. ROS All systems reviewed and are negative except as per history of present illness. Medications Home Meds Active Scripts valACYclovir HCl (Valtrex) 1,000 Mg Tablet, 1000 MG PO TID for 7 Days, TAB Prov:ANA CRISTINA SANTILLAN. 03/09/19 Tramadol HCl (Tramadol HCl) 50 Mg Tablet, 50 MG PO Q4 PRN for PAIN, #20 TAB Prov:ANA CRISTINA SANTILLAN. 03/09/19 Hydrocodone/Acetaminophen ([place] 5-325 Tablet) 1 Each Tablet, 1 TAB PO Q6H PRN for PAIN, #12 TAB Prov:SHIRAZ PILLAISTOLOS A. DO 02/28/19 Tamsulosin Hcl* (Flomax*) 0.4 Mg Cap.er.24h, 0.4 MG PO QPM, #7 CAP Prov:SHIRAZ PILLAISTIRAM Brown DO 02/28/19 Pantoprazole* (Protonix*) 40 Mg Tablet.dr, 40 MG PO DAILY for 30 Days, TAB Prov:GAYATHRI HUNTER MD 02/06/19 Hydrocodone Bit-Acetaminophen (Hydrocodone Bit-APAP) 5-325MG Tablet, 1 TAB PO Q6H PRN for PAIN LEVEL 4-6, #20 TAB Prov:GAYATHRI HUNTER MD 02/06/19 Insulin Detemir (Levemir) 100 Unit/1 Ml Vial, 20 UNITS SC QHS for 30 Days, #30 VIAL Prov:GAYATHRI HUNTER MD 11/28/18 Insulin Aspart* (Novolog Insulin Pen*) 100 Unit/Ml Soln, 6 UNIT SC WITH MEALS for 30 Days, #30 Prov:GAYATHRI HUNTER MD 11/28/18 Allergies Allergies: Coded Allergies: No Known Drug Allergy (Verified Allergy, Unknown, 02/28/19) PMhx/Soc History of Surgery: No Anesthesia Reaction: No Hx Neurological Disorder: No Hx Respiratory Disorders: No Hx Cardiac Disorders: Yes (Hx: thrombocytopenia, HTN) Hx Psychiatric Problems: No Hx Miscellaneous Medical Probl: Yes (THROMBOCYTOPENA, NON-COMPLIANE) Hx Alcohol Use: No Hx Substance Use: No Hx Tobacco Use: No Smoking Status: Unknown if ever smoked Physical Exam Vitals Vital Signs Date Temp Pulse Resp B/P (MAP) Pulse Ox O2 O2 Flow FiO2 Time Delivery Rate 03/08/19 98.7 89 18 133/68 100 21:17 (89) Physical Exam Const: No acute distress Head: Atraumatic Eyes: Normal Conjunctiva ENT: Normal External Ears, Nose and Mouth. Neck: Full range of motion. No meningismus. Resp: Clear to auscultation bilaterally Cardio: Regular rate and rhythm, no murmurs Abd: Soft, non tender, non distended. Normal bowel sounds Skin: Mild erythema and dermatomal distribution on the right flank Back: No midline or flank tenderness Ext: No cyanosis, or edema Neur: Awake and alert Psych: Normal Mood and Affect Result Diagram: 03/08/19222903/08/192229 Results 24 hrs Laboratory Tests Test 03/08/19 22:30 White Blood Count 7.7 10^3/ul Red Blood Count 4.34 10^6/ul Hemoglobin 14.1 g/dl Hematocrit 39.1 % Mean Corpuscular Volume 90.1 fl Mean Corpuscular Hemoglobin 32.5 pg Mean Corpuscular Hemoglobin Concent 36.1 g/dl Red Cell Distribution Width 11.9 % Platelet Count 212 10^3/UL Mean Platelet Volume 9.9 fl Immature Granulocytes % 0.300 % Neutrophils % 42.7 % Lymphocytes % 47.7 % Monocytes % 5.9 % Eosinophils % 2.6 % Basophils % 0.8 % Nucleated Red Blood Cells % 0.0 /100WBC Immature Granulocytes # 0.020 10^3/ul Neutrophils # 3.3 10^3/ul Lymphocytes # 3.7 10^3/ul Monocytes # 0.5 10^3/ul Eosinophils # 0.2 10^3/ul Basophils # 0.1 10^3/ul Nucleated Red Blood Cells # 0.0 10^3/ul Urine Color YELLOW Urine Clarity CLEAR Urine pH 5.0 Urine Specific [place] 1.018 Urine Ketones 1+ mg/dL Urine Nitrite NEGATIVE mg/dL Urine Bilirubin NEGATIVE mg/dL Urine Urobilinogen NEGATIVE mg/dL Urine Leukocyte Esterase NEGATIVE Sade/ul Urine Hemoglobin NEGATIVE mg/dL Urine Glucose 3+ mg/dL Urine Total Protein NEGATIVE mg/dl Sodium Level 134 mmol/L Potassium Level 3.9 mmol/L Chloride Level 91 mmol/L Carbon Dioxide Level 25 mmol/L Anion Gap 18 Blood Urea Nitrogen 6 mg/dl Creatinine 0.42 mg/dl Est Glomerular Filtrat Rate mL/min > 60 mL/min Glucose Level 338 mg/dl Calcium Level 9.7 mg/dl Total Bilirubin 0.9 mg/dl Direct Bilirubin 0.00 mg/dl Indirect Bilirubin 0.9 mg/dl Aspartate Amino Transf (AST/SGOT) 28 IU/L Alanine Aminotransferase (ALT/SGPT) 22 IU/L Alkaline Phosphatase 106 IU/L Total Protein 7.8 g/dl Albumin 4.8 g/dl Globulin 3.00 g/dl Albumin/Globulin Ratio 1.60 Lipase 144 U/L Current Medications Medications Dose Sig/Sariah Start Time Status Last (Trade) Ordered Route PRN Stop Time Admin Dose Reason Admin Sodium 1,000 ml @ Q1H STAT 03/08/19 DC 03/08/19 Chloride 1,000 mls/hr IV 22:21 22:26 03/08/19 23:20 Morphine 4 mg ONCE STAT 03/08/19 DC 03/08/19 Sulfate IV 22:21 22:26 (morphine) 03/08/19 22:22 Ondansetron 4 mg ONCE STAT 03/08/19 DC 03/08/19 HCl (Zofran IV 22:21 22:26 Inj) 03/08/19 22:22 Procedures/MDM Medical decision makin-year-old male with likely early zoster. At this point his pain is resolved. Patient be discharged home with tramadol and Valtrex. Follow-up with PCP. Return for worsening symptoms. CT was done to ru le out kidney stones or any renal pathology. Blood work looks stable. Departure Diagnosis: Primary Impression: Flank pain Condition: Stable Patient Instructions: Shingles (Herpes Zoster) Referrals: GAYATHRI HUNTER MD (PCP) ANA CRISTINA SANTILLAN Mar 09, 2019 01:35
[2019-03-09 01:50] VITALS: BP 140/79; PULSE 79; RESP 18
[2019-03-09] MEDS ORDERED: INSU300I SQ (02:32)
[2019-03-09] MEDS ORDERED: THIA100T56 PO (02:32)
[2019-03-09] MEDS ORDERED: NOVO3I SC (02:37)
== END 2019-03-09 01:50 | disposition home or self-care (01) ==
LOC: E/R 21:11
DX: R10.9 Unspecified abdominal pain (principal); R11.0 Nausea; I10 Essential (primary) hypertension; Z79.4 Long term (current) use of insulin
CPT/HCPCS: 36415; 74176; 80053; 81003; 83690; 85025; 96374; 96375; J2270; J2405; J7030; Z7502

== ENCOUNTER 2019-03-20 20:34 | Emergency (ER) | payer MEDICAID ==
[~2019-03-20] VITALS: Ht 172.7 cm; Wt 70.0 kg
[~2019-03-20 20:34] MED LIST changes: -HYDR-3601 PO; +INSU300I SQ; +THIA100T56 PO; +TRAM50TA2 PO; +VALA10004 PO
[2019-03-20 20:41] VITALS: Ht 172.7 cm; Wt 70.0 kg
[2019-03-20] MEDS ORDERED: morphine 4 MG/ML VIAL IV STA (21:51)
[2019-03-20] MEDS ORDERED: ONDANSETRON 4 MG INJ IV STA (21:51)
--- NOTE | 2019-03-20 23:34 | ERD ---
ER Documentation Chief Complaint Chief Complaint LEFT FLANK PAIN, RADIATES LEFT GROIN, 10/10 HPI This is a 58-year-old male with a history of alcohol use, presents with left- sided flank pain. The patient states that radiates down his groin. He denies any testicular swelling, he has not had any dysuria, of note he was seen here 2 weeks ago, and had signs of chronic otitis, but his work-up was otherwise unremarkable. He has not had a fever. He has not had any penile discharge. ROS All systems reviewed and are negative except as per history of present illness. Medications Home Meds Active Scripts valACYclovir HCl (Valtrex) 1,000 Mg Tablet, 1000 MG PO TID for 7 Days, TAB Prov:ANA CRISTINA SANTILLAN 03/09/19 Tramadol HCl (Tramadol HCl) 50 Mg Tablet, 50 MG PO Q4 PRN for PAIN, #20 TAB Prov:ANA CRISTINA SANTILLAN. 03/09/19 Hydrocodone/Acetaminophen ([place] 5-325 Tablet) 1 Each Tablet, 1 TAB PO Q6H PRN for PAIN, #12 TAB Prov:DINA PILLAI DO 02/28/19 Tamsulosin Hcl* (Flomax*) 0.4 Mg Cap.er.24h, 0.4 MG PO QPM, #7 CAP Prov:DINA PILLAI DO 02/28/19 Pantoprazole* (Protonix*) 40 Mg Tablet.dr, 40 MG PO DAILY for 30 Days, TAB Prov:GAYATHRI HUNTER MD 02/06/19 Insulin Detemir (Levemir) 100 Unit/1 Ml Vial, 20 UNITS SC QHS for 30 Days, #30 VIAL Prov:GAYATHRI HUNTER MD 11/28/18 Reported Medications Insulin Aspart* (Novolog Insulin Pen*) 100 Unit/Ml Soln, 24 UNIT SC WITH MEALS, EA 03/09/19 Thiamine* (Vitamin B-1*) 100 Mg Tablet, 100 MG PO DAILY, TAB 03/09/19 Insulin Glargine,Hum.rec.anlog (Toujeo Solostar) 300 Unit/1 Ml Insuln.pen, 3 UNIT SQ QHS, EA 03/09/19 Allergies Allergies: Coded Allergies: No Known Drug Allergy (Unverified Allergy, Unknown, 03/09/19) PMhx/Soc Medical and Surgical Hx: pt denies Surgical Hx History of Surgery: No Anesthesia Reaction: No Hx Neurological Disorder: No Hx Respiratory Disorders: No Hx Cardiac Disorders: Yes (HTN) Hx Psychiatric Problems: No Hx Miscellaneous Medical Probl: Yes (DM, THROMBOCYTOPENIA) Hx Alcohol Use: Yes (DAILY) Hx Substance Use: No Hx Tobacco Use: No Smoking Status: Former smoker Physical Exam Vitals Vital Signs Date Temp Pulse Resp B/P (MAP) Pulse Ox O2 O2 Flow FiO2 Time Delivery Rate 03/20/19 103 30 182/96 100 Room Air 21:40 (124) 03/20/19 96.8 113 18 155/91 98 20:41 (112) Physical Exam Const: No acute distress Head: Atraumatic Eyes: Normal Conjunctiva ENT: Normal External Ears, Nose and Mouth. Neck: Full range of motion. No meningismus. Resp: Clear to auscultation bilaterally Cardio: Regular rate and rhythm, no murmurs Abd: Soft, mild tenderness to left flank, no rebound or guarding, no McBurney's point tenderness, negative Maxwell sign non distended. Normal bowel sounds Skin: No petechiae or rashes Back: No midline or flank tenderness Ext: No cyanosis, or edema Neur: Awake and alert Psych: Normal Mood and Affect Result Diagram: 03/20/19214203/20/192142 Results 24 hrs Laboratory Tests Test 03/20/19 21:43 White Blood Count 8.9 10^3/ul Red Blood Count 4.66 10^6/ul Hemoglobin 15.0 g/dl Hematocrit 41.3 % Mean Corpuscular Volume 88.6 fl Mean Corpuscular Hemoglobin 32.2 pg Mean Corpuscular Hemoglobin Concent 36.3 g/dl Red Cell Distribution Width 12.3 % Platelet Count 149 10^3/UL Mean Platelet Volume 8.5 fl Immature Granulocytes % 0.200 % Neutrophils % % Lymphocytes % % Monocytes % % Eosinophils % % Basophils % % Nucleated Red Blood Cells % 0.0 /100WBC Immature Granulocytes # 0.020 10^3/ul Neutrophils # 10^3/ul Lymphocytes # 10^3/ul Monocytes # 10^3/ul Eosinophils # 10^3/ul Basophils # 10^3/ul Nucleated Red Blood Cells # 10^3/ul Urine Color YELLOW Urine Clarity CLEAR Urine pH 6.0 Urine Specific [place] 1.016 Urine Ketones 1+ mg/dL Urine Nitrite NEGATIVE mg/dL Urine Bilirubin NEGATIVE mg/dL Urine Urobilinogen 1+ mg/dL Urine Leukocyte Esterase NEGATIVE Sade/ul Urine Hemoglobin NEGATIVE mg/dL Urine Glucose 3+ mg/dL Urine Total Protein NEGATIVE mg/dl Sodium Level 137 mmol/L Potassium Level 3.2 mmol/L Chloride Level 88 mmol/L Carbon Dioxide Level 29 mmol/L Anion Gap 20 Blood Urea Nitrogen 4 mg/dl Creatinine 0.55 mg/dl Est Glomerular Filtrat Rate mL/min > 60 mL/min Glucose Level 90 mg/dl Calcium Level 10.8 mg/dl Total Bilirubin 0.8 mg/dl Direct Bilirubin 0.00 mg/dl Indirect Bilirubin 0.8 mg/dl Aspartate Amino Transf (AST/SGOT) 102 IU/L Alanine Aminotransferase (ALT/SGPT) 54 IU/L Alkaline Phosphatase 123 IU/L Troponin I < 0.012 ng/ml Total Protein 9.0 g/dl Albumin 5.2 g/dl Globulin 3.80 g/dl Albumin/Globulin Ratio 1.36 Lipase 201 U/L Current Medications Medications Dose Sig/Sariah Start Time Status Last (Trade) Ordered Route PRN Stop Time Admin Dose Reason Admin Morphine 4 mg ONCE STAT 03/20/19 DC 03/20/19 Sulfate IV 21:51 22:12 (morphine) 03/20/19 21:52 Ondansetron 4 mg ONCE STAT 03/20/19 DC 03/20/19 HCl (Zofran IV 21:51 22:12 Inj) 03/20/19 21:52 Procedures/MDM This is a 58-year-old male who presents for evaluation of abdominal pain and flank pain. On exam the patient had no peritoneal signs, is well-appearing and nontoxic, repeat of the lab work showed no acute abnormalities, and his CT scan today again showed chronic pancreatitis, he is still drinking alcohol, and had an extensive discussion with the patient and family regarding the fact that this could be worsening of symptoms, in addition to analgesia with NSAIDs, I recommended antiacid medications as well, and follow-up with his primary care doctor. Strict return precautions were given for fever, vomiting acute changes in his pain, or any other worsening symptoms. At discharge she was in no distress. EKG: Rate/Rhythm: Normal Sinus Rhythm QRS, ST, T-waves: No changes consistent w/ acute ischemia Impression: No evidence of ischemia or arrhythmia Departure Diagnosis: Primary Impression: Abdominal pain Abdominal location: unspecified location Qualified Codes: R10.9 - Unspecified abdominal pain Additional Impression: Chronic inflammation of pancreas Pancreatitis type: unspecified pancreatitis type Qualified Codes: K86.1 - Other chronic pancreatitis Condition: Stable HANNA HAGEN MD Mar 20, 2019 23:34
[2019-03-20] MEDS ORDERED: FAMO-96 PO (23:36)
[2019-03-21 00:10] VITALS: BP 160/91; PULSE 108; RESP 16
== END 2019-03-21 00:20 | disposition home or self-care (01) ==
LOC: E/R 20:34
DX: K86.1 Other chronic pancreatitis (principal); I10 Essential (primary) hypertension; E11.9 Type 2 diabetes mellitus without complications; Z79.4 Long term (current) use of insulin; Z87.891 Personal history of nicotine dependence
CPT/HCPCS: 36415; 74176; 80053; 81003; 83690; 84484; 85025; 93005; 96374; 96375; J2270; J2405; Z7502; Z7610

== ENCOUNTER 2019-04-06 17:30 | Emergency (ER) | payer MEDICAID ==
[~2019-04-06] VITALS: Wt 65.0 kg
[~2019-04-06 17:30] MED LIST changes: +FAMO-96 PO
[2019-04-06] MEDS ORDERED: SOD CHLORIDE 0.9% 1,000 ML IV STA (19:28)
[2019-04-06] MEDS ORDERED: DEXTROSE 5%-0.45% NACL 500 ML BAG IV ONE (19:30)
[2019-04-06] MEDS ORDERED: ACETAMINOPHEN 325 MG TAB PO ONE (19:30)
[2019-04-06] MEDS ORDERED: FOLIC ACID 1 MG TAB PO ONE (19:30)
[2019-04-06] MEDS ORDERED: THIAMINE 100 MG TAB PO ONE (19:30)
--- NOTE | 2019-04-06 19:36 | ERD ---
ER Documentation Chief Complaint Chief Complaint HAD POSSIBLE SYNCOPAL EPISODE WHILE IN BATHROOM. ETOH , SLOWER THAN NORMAL HPI This is a 58-year-old male who presents to the emergency room complaining of a syncopal episode. History is mostly provided by the son. The patient has a history of alcohol abuse and drinks regularly including today. He went to the bathroom by himself and the next thing that happened is his son heard a loud bang. The patient states that his legs gave out and he fell to the ground. He hit the back of his head and may have lost consciousness but is unsure. Patient was slightly slow to respond but has since returned to baseline. He does not take anticoagulant medication. He is describing left clavicle pain and right- sided rib pain. No shortness of breath. No neck pain no chest pain prior to syncopal episode and no shortness of breath prior to episode. He does have a mild throbbing occipital headache that is 2 out of 10 currently. ROS All systems reviewed and are negative except as per history of present illness. Medications Home Meds Active Scripts Famotidine* (Pepcid*) 20 Mg Tablet, 20 MG PO BID for 10 Days, TAB Prov:HANNA HAGEN MD 03/20/19 valACYclovir HCl (Valtrex) 1,000 Mg Tablet, 1000 MG PO TID for 7 Days, TAB Prov:ANA CRISTINA SANTILLAN 03/09/19 Tramadol HCl (Tramadol HCl) 50 Mg Tablet, 50 MG PO Q4 PRN for PAIN, #20 TAB Prov:ANA CRISTINA SANTILLAN 03/09/19 Hydrocodone/Acetaminophen ([place] 5-325 Tablet) 1 Each Tablet, 1 TAB PO Q6H PRN for PAIN, #12 TAB Prov:DINA PILLAI DO 02/28/19 Tamsulosin Hcl* (Flomax*) 0.4 Mg Cap.er.24h, 0.4 MG PO QPM, #7 CAP Prov:DINA PILLAI DO 02/28/19 Pantoprazole* (Protonix*) 40 Mg Tablet.dr, 40 MG PO DAILY for 30 Days, TAB Prov:GAYATHRI HUNTER MD 02/06/19 Insulin Detemir (Levemir) 100 Unit/1 Ml Vial, 20 UNITS SC QHS for 30 Days, #30 VIAL Prov:GAYATHRI HUNTER MD 11/28/18 Reported Medications Insulin Aspart* (Novolog Insulin Pen*) 100 Unit/Ml Soln, 24 UNIT SC WITH MEALS, EA 03/09/19 Thiamine* (Vitamin B-1*) 100 Mg Tablet, 100 MG PO DAILY, TAB 03/09/19 Insulin Glargine,Hum.rec.anlog (Toujeo Solostar) 300 Unit/1 Ml Insuln.pen, 3 UNIT SQ QHS, EA 03/09/19 Allergies Allergies: Coded Allergies: No Known Drug Allergy (Unverified Allergy, Unknown, 03/09/19) PMhx/Soc History of Surgery: No Anesthesia Reaction: No Hx Neurological Disorder: No Hx Respiratory Disorders: No Hx Cardiac Disorders: Yes (HTN) Hx Psychiatric Problems: No Hx Miscellaneous Medical Probl: Yes (DM, THROMBOCYTOPENIA) Hx Alcohol Use: Yes (DAILY) Hx Substance Use: No Hx Tobacco Use: No FmHx Family History: No diabetes Physical Exam Vitals Vital Signs Date Temp Pulse Resp B/P (MAP) Pulse Ox O2 O2 Flow FiO2 Time Delivery Rate 04/06/19 98.1 83 13 147/83 100 Nasal 22:12 (104) Cannula 04/06/19 98.1 88 12 126/84 100 Nasal 20:56 (98) Cannula 04/06/19 98.1 86 18 95/46 (62) 99 Nasal 19:50 Cannula 04/06/19 36.7 19:44 04/06/19 98.1 68 18 112/68 99 17:44 (83) Physical Exam Airway is intact Bilateral breath sounds Strong distal pulses No obvious deficits General: Cachectic male, no significant distress Head: Normocephalic, atraumatic Eyes: Pupils equally reactive, EOM intact ENT: Moist mucous membranes Neck: Supple, no lymphadenopathy, No midline tenderness, deformities, step-offs to the cervical spine, full active and passive range of motion without midline pain. Respiratory: Lungs clear bilaterally, no distress, no chest wall tenderness, no crepitus Cardiovascular: RRR, no murmurs, rubs, or gallops Abdominal: Soft, non-tender, non-distended, no peritoneal signs, pelvis is stable : Deferred MSK: No edema, no unilateral swelling, 5/5 strength, no midline tenderness deformities or step-offs to the thoracolumbar spine. No bony ab normalities to the left clavicle or left upper or right upper extremity. Neurologic: Alert and oriented, moving all extremities, normal speech, no focal weakness, no cerebellar signs Skin: No ecchymoses or bruising to the chest or abdomen Psych: Normal mood Result Diagram: 04/06/19193704/06/191937 Results 24 hrs Laboratory Tests Test 04/06/19 19:38 04/06/19 20:47 White Blood Count 7.2 10^3/ul Red Blood Count 4.54 10^6/ul Hemoglobin 14.9 g/dl Hematocrit 41.3 % Mean Corpuscular Volume 91.0 fl Mean Corpuscular Hemoglobin 32.8 pg Mean Corpuscular Hemoglobin Concent 36.1 g/dl Red Cell Distribution Width 13.0 % Platelet Count 139 10^3/UL Mean Platelet Volume 9.0 fl Immature Granulocytes % 0.300 % Neutrophils % 37.1 % Lymphocytes % 53.1 % Monocytes % 7.4 % Eosinophils % 1.1 % Basophils % 1.0 % Nucleated Red Blood Cells % 0.0 /100WBC Immature Granulocytes # 0.020 10^3/ul Neutrophils # 2.7 10^3/ul Lymphocytes # 3.8 10^3/ul Monocytes # 0.5 10^3/ul Eosinophils # 0.1 10^3/ul Basophils # 0.1 10^3/ul Nucleated Red Blood Cells # 0.0 10^3/ul Prothrombin Time 13.7 Sec Prothrombin Time Ratio 1.1 INR International Normalized Ratio 1.04 Activated Partial Thromboplast Time 25.3 Sec Sodium Level 136 mmol/L Potassium Level 3.7 mmol/L Chloride Level 89 mmol/L Carbon Dioxide Level 29 mmol/L Anion Gap 18 Blood Urea Nitrogen 5 mg/dl Creatinine 0.47 mg/dl Est Glomerular Filtrat Rate mL/min > 60 mL/min Glucose Level 313 mg/dl Calcium Level 9.9 mg/dl Troponin I < 0.012 ng/ml Bedside Glucose 304 mg/dL Current Medications Medications Dose Sig/Sariah Start Time Status Last (Trade) Ordered Route PRN Stop Time Admin Dose Reason Admin Sodium 1,000 ml @ Q1H STAT 04/06/19 DC 04/06/19 Chloride 1,000 mls/hr IV 19:28 20:49 04/06/19 20:27 650 mg ONCE ONCE 04/06/19 DC 04/06/19 Acetaminophen PO 19:30 19:44 (Tylenol 04/06/19 19:31 Tab) Thiamine 100 mg ONCE ONCE 04/06/19 DC 04/06/19 HCl PO 19:30 20:18 (Vitamin B1) 04/06/19 19:31 Folic Acid 1 mg ONCE ONCE 04/06/19 DC 04/06/19 (Folic Acid) PO 19:30 20:19 04/06/19 19:31 250 ml ONCE ONCE 04/06/19 DC 04/06/19 Dextrose/Sodi IV 19:30 19:45 um Chloride 04/06/19 19:31 (D5-1/2ns) Procedures/MDM EKG, MONITORS, & DIAGNOSTIC IMAGING: EKG: I reviewed and interpreted a 12-lead EKG. Rhythm: Normal sinus rhythm ST Changes: No contiguous ST segment elevations T waves: No contiguous T wave inversions Impression: No evidence of acute cardiac ischemia Chest x-ray: I reviewed and interpreted a 1 view of the chest Mediastinum: No enlargement Cardiac silhouette: No cardiomegaly Airspace: Clear lung gomez bilaterally without evidence of pneumothorax Bones: No evidence of fracture CT brain: No acute process per radiologist read LAB INTERPRETATION: I reviewed the laboratory testing and it shows mild dehydration, hyperglycemia without diabetic ketoacidosis MEDICAL DECISION MAKING: The patient's episode is likely consistent with mechanical fall versus alcohol- related fall versus syncope or near syncope. The patient had no prodrome of headache chest pain or shortness of breath to suggest serious etiology such as subarachnoid hemorrhage, aneurysm, arrhythmia, ACS. Patient's alcohol and chronic alcohol abuse are likely contributory. Patient will benefit from fluid resuscitation. I believe the patient will also benefit from multivitamin. The patient's syncope is low. Even so, the patient does not meet any significant high risk criteria for syncope. I believe outpatient management for this would be more than appropriate if laboratory testing and diagnostic imaging is otherwise unrevealing. ER COURSE: * Patient possibly with mild alcoholic ketoacidosis treated with dextrose, thiamine and folic acid. The patient remains well-appearing, diagnostic imaging without evidence of traumatic injury. * Pain well controlled. * Hyperglycemia without DKA. Patient can be safely discharged home with close primary care follow-up. He is with his son who can watch him. Head injury precautions discussed and understood. CONSULTATION: None DISPOSITION PLAN: The patient does not have an identifiable emergent medical condition that warrants inpatient hospitalization at this time. The patient is deemed safe for discharge with outpatient follow-up. We discussed follow up with the patient's primary care doctor within 24 to 48 hours as needed. We also discussed return to the emergency room for worsening symptoms or worsening condition. Outpatient referral: None required Discharge Medications: [id number] Tylenol as needed Departure Diagnosis: Primary Impression: Alcohol abuse Additional Impressions: Closed head injury Encounter type: initial encounter Qualified Codes: S09.90XA - Unspecified injury of head, initial encounter Dehydration Hyperglycemia Condition: Stable STEPHON BROWN MD April 06, 2019 19:36
[2019-04-06 23:00] VITALS: BP 138/87; PULSE 81; RESP 12
--- NOTE | 2019-04-09 14:49 | RADRPT ---
Vent Rate: 88 bpm RR Interval: 0 msec RI Interval: 140 msec QRS Duration: 92 msec QT Interval: 382 msec QTC Interval: 462 msec P-R-T Mcdonald: 81 - 77 - 74 degrees Normal sinus rhythm Normal ECG Electronically Signed By: [facility]
== END 2019-04-06 23:21 | disposition home or self-care (01) ==
LOC: E/R 17:30
DX: F10.10 Alcohol abuse, uncomplicated (principal); I10 Essential (primary) hypertension; S09.90XA Unspecified injury of head, initial encounter; E86.0 Dehydration; E11.65 Type 2 diabetes mellitus with hyperglycemia; W01.10XA Fall on same level from slipping, tripping and stumbling with subsequent striking against unspecified object, initial encounter; Y92.002 Bathroom of unspecified non-institutional (private) residence as the place of occurrence of the external cause; Z79.4 Long term (current) use of insulin
CPT/HCPCS: 36415; 70450; 71045; 80048; 82962; 84484; 85025; 85610; 85730; 93005; 96374; J7030; Z7502; Z7610

== ENCOUNTER 2019-05-15 17:54 | Observation (INO) | payer MEDICAID ==
[~2019-05-15] VITALS: Ht 175.3 cm; Wt 48.5 kg
[2019-05-15] MEDS ORDERED: LACTATED RINGER'S 1,000 ML IV STA (18:09)
[2019-05-15] MEDS ORDERED: SOD CHLORIDE 0.9% 1,000 ML IV STA (18:09)
--- NOTE | 2019-05-15 18:27 | ERD ---
ER Documentation Chief Complaint Chief Complaint RT FLANK PAIN RADIATING TO LOWER ABD X 3 DAYS HPI 58-year-old male with a history of diabetes presenting with right-sided flank pain radiating to his right lower abdomen for the past 1 month, worse over the past 3 days. He states the pain is stabbing, 10 out of 10, with no alleviating or exacerbating factors. He denies any associated constipation, diarrhea, hematuria, dysuria, chest pain, cough, fever or chills. ROS All systems reviewed and are negative except as per history of present illness. Medications Home Meds Active Scripts Famotidine* (Pepcid*) 20 Mg Tablet, 20 MG PO BID for 10 Days, TAB Prov:HANNA HAGEN MD 03/20/19 valACYclovir HCl (Valtrex) 1,000 Mg Tablet, 1000 MG PO TID for 7 Days, TAB Prov:ANA CRISTINA SANTILLAN 03/09/19 Tramadol HCl (Tramadol HCl) 50 Mg Tablet, 50 MG PO Q4 PRN for PAIN, #20 TAB Prov:ANA CRISTINA SANTILLAN 03/09/19 Hydrocodone/Acetaminophen ([place] 5-325 Tablet) 1 Each Tablet, 1 TAB PO Q6H PRN for PAIN, #12 TAB Prov:SHIRAZ PILLAISTIRAM Brown DO 02/28/19 Tamsulosin Hcl* (Flomax*) 0.4 Mg Cap.er.24h, 0.4 MG PO QPM, #7 CAP Prov:SHIRAZ PILLAISTIRAM Brown DO 02/28/19 Pantoprazole* (Protonix*) 40 Mg Tablet.dr, 40 MG PO DAILY for 30 Days, TAB Prov:GAYATHRI HUNTER MD 02/06/19 Insulin Detemir (Levemir) 100 Unit/1 Ml Vial, 20 UNITS SC QHS for 30 Days, #30 VIAL Prov:GAYATHRI HUNTER MD 11/28/18 Reported Medications Insulin Aspart* (Novolog Insulin Pen*) 100 Unit/Ml Soln, 24 UNIT SC WITH MEALS, EA 03/09/19 Thiamine* (Vitamin B-1*) 100 Mg Tablet, 100 MG PO DAILY, TAB 03/09/19 Insulin Glargine,Hum.rec.anlog (Toujeo Solostar) 300 Unit/1 Ml Insuln.pen, 3 UNIT SQ QHS, EA 03/09/19 Allergies Allergies: Coded Allergies: No Known Drug Allergy (Unverified Allergy, Unknown, 03/09/19) PMhx/Soc History of Surgery: No Anesthesia Reaction: No Hx Neurological Disorder: No Hx Respiratory Disorders: No Hx Cardiac Disorders: Yes (HTN) Hx Psychiatric Problems: No Hx Miscellaneous Medical Probl: Yes (DM, THROMBOCYTOPENIA) Hx Alcohol Use: Yes (DAILY) Hx Substance Use: No Hx Tobacco Use: No FmHx Family History: diabetes Physical Exam Vitals Vital Signs Date Temp Pulse Resp B/P (MAP) Pulse Ox O2 O2 Flow FiO2 Time Delivery Rate 05/15/19 94 18 184/101 99 Room Air 19:09 (128) 05/15/19 97.8 107 18 164/97 97 17:57 (119) Physical Exam Const: No acute distress. Very thin body habitus. Head: Atraumatic Eyes: Normal Conjunctiva ENT: Normal External Ears, Nose and Mouth. Neck: Full range of motion. No meningismus. Resp: Clear to auscultation bilaterally Cardio: Regular rate and rhythm, no murmurs. 2+ distal pulses Abd: Soft, non tender, non distended. Normal bowel sounds Skin: No petechiae or rashes Back: No midline tenderness. Right CVA tenderness present. Ext: No cyanosis, or edema Neur: Awake and alert Psych: Normal Mood and Affect Result Diagram: 05/15/19182805/15/191828 Results 24 hrs Laboratory Tests Test 05/15/19 18:05 05/15/19 18:28 05/15/19 18:29 Bedside Glucose > 595 mg/dL POC Venous Lactate 1.7 mmol/L White Blood Count 5.9 10^3/ul Red Blood Count 4.37 10^6/ul Hemoglobin 14.4 g/dl Hematocrit 39.9 % Mean Corpuscular Volume 91.3 fl Mean Corpuscular Hemoglobin 33.0 pg Mean Corpuscular 36.1 g/dl Hemoglobin Concent Red Cell Distribution Width 12.9 % Platelet Count 164 10^3/UL Mean Platelet Volume 9.5 fl Immature Granulocytes % 0.300 % Neutrophils % 48.3 % Lymphocytes % 38.5 % Monocytes % 11.3 % Eosinophils % 0.8 % Basophils % 0.8 % Nucleated Red Blood Cells % 0.0 /100WBC Immature Granulocytes # 0.020 10^3/ul Neutrophils # 2.9 10^3/ul Lymphocytes # 2.3 10^3/ul Monocytes # 0.7 10^3/ul Eosinophils # 0.1 10^3/ul Basophils # 0.1 10^3/ul Nucleated Red Blood Cells # 0.0 10^3/ul Sodium Level 129 mmol/L Potassium Level 4.1 mmol/L Chloride Level 85 mmol/L Carbon Dioxide Level 29 mmol/L Anion Gap 15 Blood Urea Nitrogen 6 mg/dl Creatinine 0.46 mg/dl Est Glomerular Filtrat Rate mL/min > 60 mL/min Glucose Level 608 mg/dl Calcium Level 9.5 mg/dl Total Bilirubin 1.0 mg/dl Direct Bilirubin 0.00 mg/dl Indirect Bilirubin 1.0 mg/dl Aspartate Amino Transf (AST/SGOT) 66 IU/L Alanine 50 IU/L Aminotransferase (ALT/SGPT) Alkaline Phosphatase 159 IU/L Total Protein 8.0 g/dl Albumin 4.8 g/dl Globulin 3.20 g/dl Albumin/Globulin Ratio 1.50 Lipase 234 U/L Current Medications Medications Dose Sig/Sariah Start Time Status Last (Trade) Ordered Route PRN Stop Time Admin Dose Reason Admin Sodium 1,000 ml @ Q1H STAT 05/15/19 DC 05/15/19 Chloride 1,000 mls/hr IV 18:09 19:17 05/15/19 19:08 Lactated 1,000 ml @ Q1H STAT 05/15/19 DC Ringer's 1,000 mls/hr IV 18:09 05/15/19 19:08 Insulin 10 unit ONCE ONCE 05/15/19 Aspart SC 20:00 (Novolog 05/15/19 20:01 Insulin Pen) Diagnostic 1 ea 2 HRS AFTER 05/15/19 Test (Pha) NOVOLOG ONCE 20:00 (Accu-Chek) XX 05/15/19 20:01 Procedures/MDM EMERGENT LABS AND DIAGNOSTIC STUDIES: Lab Results above were reviewed and interpreted by me. CBC: no anemia or evidence of infection CMP: No evidence of clinically significant electrolyte abnormality, acidosis, renal failure, hypoglycemia, liver disease, or biliary obstruction Lipase: no evidence of pancreatitis Lactate within normal limits without evidence of sepsis or tissue hypoperfusion UA: Pending 12-lead EKG was interpreted by Michelle Quiñones MD: Sinus tachycardia at 102 bpm Normal axis Normal intervals No acute ST or T wave changes suggestive of acute ischemia or STEMI. Radiology Results as interpreted by Radiology below were reviewed by Javier Quiñones MD: CT abdomen and pelvis does not show any acute abnormalities Chest x-ray shows no acute abnormalities Initial Nursing notes reviewed. Previous Medical Records requested via the Electronic Health Record. EMERGENCY DEPARTMENT COURSE / MEDICAL DECISION MAKING: Patient is presenting with acute on chronic severe right flank pain radiating to his right abdomen. Patient's vitals are notable for tachycardia and hypertension, however he is afebrile with no other signs of sepsis. CT of the abdomen and pelvis did not show any abnormalities that would explain his pain. However he was noted to be hyperglycemic on blood work with pseudohyponatremia. It is possible that his right flank pain is secondary to spasms due to his hyper glycemia and dehydration. Patient was treated with 2 L of IV fluids and insulin subcutaneously. I feel he would benefit from observation for further work-up and management of his blood sugar. Accepting Care Team: Current data and ongoing care discussed. Time: Time of admission Primary Provider: Dr. Hunter Pending studies: Departure Diagnosis: Primary Impression: Flank pain Additional Impression: Hyperglycemia Condition: ANNETTE Alcocer MD May 15, 2019 18:27
[2019-05-15] MEDS ORDERED: ONDANSETRON 4 MG INJ IV STA (19:42)
[2019-05-15] MEDS ORDERED: morphine 4 MG/ML VIAL IV STA (19:42)
[2019-05-15] MEDS ORDERED: ACCU-CHEK XX ONE (20:00)
[2019-05-15] MEDS ORDERED: INSULIN ASPART [NOVOLOG] 3 ML PEN SC ONE (20:00)
[2019-05-15] MEDS ORDERED: ACETAMINOPHEN 325 MG TAB PO PRN (20:00)
[2019-05-15] MEDS ORDERED: ONDANSETRON 4 MG INJ IV PRN (20:00)
[2019-05-16 00:57] VITALS: Ht 175.3 cm; Wt 48.5 kg
[2019-05-16 01:00] VITALS: BP 179/88; PULSE 83; RESP 18
[2019-05-16 02:00] VITALS: BP 163/74; PULSE 78; RESP 20
[2019-05-16] MEDS ORDERED: ACETAMINOPHEN 325 MG TAB PO PRN (02:00)
[2019-05-16] MEDS ORDERED: HYDROCODONE/APAP (5/325) TAB PO PRN (02:00)
[2019-05-16] MEDS ORDERED: morphine 2 MG INJ IV PRN (02:00)
[2019-05-16] MEDS ORDERED: ONDANSETRON 4 MG INJ IV PRN (02:00)
[2019-05-16] MEDS ORDERED: GLUCOSE GEL 15 GRAM TUBE PO PRN ×2 (02:30)
[2019-05-16] MEDS ORDERED: GLUCOSE GEL 15 GRAM TUBE BUCCAL PRN (02:30)
[2019-05-16] MEDS ORDERED: GLUCAGON 1 MG INJ IM PRN (02:30)
[2019-05-16] MEDS ORDERED: DEXTROSE 50% 50 ML SYRINGE IV PRN ×2 (02:30)
[2019-05-16] MEDS: AMLODIPINE 5 MG TAB PO SCH ×2 (02:31→08:31)
[2019-05-16] MEDS: SOD CHLORIDE 0.9% 1,000 ML IV SCH ×2 (02:34→12:01)
[2019-05-16] MEDS ORDERED: PANTOPRAZOLE (EC) 40 MG TAB PO SCH (06:00)
[2019-05-16] MEDS: INSULIN ASPART [NOVOLOG] 3 ML PEN SC SCH ×4 (08:30→12:02)
[2019-05-16 08:54] VITALS: BP 128/75; PULSE 94; RESP 18
--- NOTE | 2019-05-16 13:34 | PDOCDIS ---
Discharge Instructions CONDITION [id number] Patient Condition: [id number] Stable ACTIVITY: [id number] Activity Restrictions: Aaxis2s Slowly Increase Activity FOLLOW UP/APPOINTMENTS Follow-up Plan no alcohol, see prescriptions, follow up PCP within 1 week GAYATHRI HUNTER MD May 16, 2019 13:34
[2019-05-16] MEDS ORDERED: LEVEM SC (13:36)
[2019-05-16] MEDS ORDERED: NOVO3I SC (13:36)
[2019-05-16] MEDS ORDERED: PROP20TA4 PO (13:36)
[2019-05-16] MEDS ORDERED: LIPA1CAP4 PO (13:36)
--- NOTE | 2019-05-16 19:10 | HP ---
DATE OF ADMISSION: 05/15/2019 REASON FOR ADMISSION: Hyperglycemia, abdominal pain. HISTORY OF PRESENT ILLNESS: The patient is an unfortunate 58-year-old male, very well known to me with history of alcohol abuse, alcoholic liver disease, diabetes mellitus, poorly controlled o n insulin while he is not very compliant. He continues to drink alcohol and has previous admissions for acute pancreatitis, thrombocytopenia. The patient continues to drink and not take his insulin. Now presents with abdominal pain, more in the right flank area. In the ER, the patient was evaluated and underwent various tests. Labs revealed a normal CBC, but the glucose was remarkably high greate r than 595. There is no evidence of DKA. Lactic acid was 1.2, normal. Ultimately, the patient admi tted not taking his insulin and continues to drink alcohol. His LFTs were high. AST 66, alkaline ph osphatase 159. Lipase was normal actually at 234. The patient did undergo a CT of the abdomen and p rosemarie, which showed no acute abdominal pathology. No renal calculi or obstructive uropathy. His fin ding suggestive of chronic pancreatitis, moderate vascular calcification within the bilateral interna l iliac arteries expected for age. Urinalysis shows nitrites and leukocyte esterase are negati ve, but glucose +3. Ultimately, it was decided to admit the patient for further care for insulin adm inistration, fluid hydration, pain control and advance his diet as tolerated. The vital signs are st able throughout. Glucose levels improved. His last glucose levels are 118, 284, 181 and 91. The pa keven tolerated diet well today. The patient was admitted for further care. He denies any chest consuelo n, shortness of breath. Appetite is marginal as he likes to drink more than eat. PAST MEDICAL HISTORY: Includes hypertension, diabetes mellitus, alcohol abuse, vitiligo, early liver cirrhosis, thrombocytopenia, chronic pancreatitis. SURGICAL HISTORY: None. ALLERGIES: NO KNOWN DRUG ALLERGIES. FAMILY HISTORY: Noncontributory. SOCIAL HISTORY: The patient drinks beer routinely. No history of tobacco or IV drug use. 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 Lives with his family. MEDICATIONS: Include insulin and Levemir. The patient not very compliant. Also, he has vitamins. PHYSICAL EXAMINATION: VITAL SIGNS: Temperature 98, pulse 94, respirations 18, blood pressure 128/75, saturation 99%. GENERAL: No acute distress. HEENT: Normocephalic, atraumatic. Temporal wasting, thin, cachectic. CARDIOVASCULAR: S1, S2, regular rate. LUNGS: Clear. ABDOMEN: Soft, nontender. EXTREMITIES: No clubbing, cyanosis, or edema. Mild right flank pain and vitiligo scattered througho ut his body. His BMI is 15.8. LABORATORY: White count 5.3, hemoglobin 13.3, hematocrit 37, platelet count 144, neutrophils 49%, ly mphocytes 39%. Chemistry: Sodium 137, potassium 3.5, chloride 93, bicarbonate 25, BUN is 5, creatin ine 0.34. Last glucose level is 118. AST 56, ALT 42. Cholesterol 141, LDL 63, lipase was normal. TSH is pending. INR of 0.97. Urine culture negative. X-rays again, CT abdomen and pelvis as above. Chest x-ray shows no evidence of acute cardiopulmonary disease. ASSESSMENT AND PLAN: This is a 58-year-old male with history of diabetes mellitus, poorly c ontrolled, alcoholic liver disease, noncompliant with medications, cachexia and vitiligo, who present ed with right flank pain, was found to have severe hyperglycemia. 1. Severe hyperglycemia due to noncompliance. We will resume the patient's insulin. I advised the patient to take insulin regularly and close monitoring. 2. Cachexia. Try to maximize nutrition support. The patient was advised to use Glucerna at home. 3. Right flank pain, unclear etiology. Pain control will be provided. CAT scan is negative. No ev idence of stones. No evidence of UTI, etc. The patient tolerated diet well. We will place the jose ent on Protonix. We will follow. 4. Vitiligo, likely due to immunocompromised state and stress. Follow up with dermatology as an out patient basis. 5. Alcohol abuse. Cessation was advised and discussed in detail with the patient and family. 6. History of benign prostatic hypertrophy, on Flomax. 7. Disposition today as the patient is doing better. The patient instructed to follow with me withi n a week. Any change in condition, to call 911 or go to nearest emergency department. Dictated By: GAYATHRI ROBERT/BOBBI Conf#: [id number] DID#: [id number]
[2019-05-16] MEDS ORDERED: INSULIN GLARGINE [LANTus] (100 UNITS/ML) SYG SC SCH (20:00)
[2019-05-16] MEDS ORDERED: TAMSULOSIN (SR) 0.4 MG CAP PO SCH (21:00)
--- NOTE | 2019-05-17 07:05 | DS ---
DATE OF ADMISSION: 05/15/2019 DATE OF DISCHARGE: 05/16/2019 REASON FOR ADMISSION: Abdominal pain, hyperglycemia. HOSPITAL COURSE: The patient is a 58-year-old unfortunate male with history of diabetes peg litus, poorly controlled with history of noncompliance, also history of alcohol abuse, chronic pancre atitis, recurrent admissions for hypoglycemia and pancreatitis attack. The patient also is cachectic , not eating much and drinking mostly alcohol. He now presents to the hospital as he is not taking h is insulin, complaining of increased abdominal pain most notably in the right flank area. In the ER, the patient underwent CT scan which just showed chronic pancreatitis and moderate vascular calcifica tions. Ultimately, the patient was admitted, hydrated and placed on insulin due to initial presentat ion with glucose greater than 500. The patient's diet was advanced successfully. The patient now is doing better. DISCHARGE MEDICATIONS: The patient can be discharged with the following medications: 1. Creon tab t.i.d. meals. 2. [place] 5/325 q.8 p.r.n. for moderate pain. 3. Protonix 40 mg daily. 4. Insulin basaglar 24 units at bedtime. 5. Insulin NovoLog 8 units before meals. Continue his: 1. Multivitamins. 2. Thiamine. 3. Folic acid. I advised him to stop drinking and take Glucerna at home for maximum nutrition support. FINAL DIAGNOSES: 1. Abdominal pain. 2. Right flank pain. 3. Rule out gastritis. 4. Hyperglycemia. 5. Diabetes mellitus out of control. Hemoglobin A1c of 9.4. 6. Alcoholic liver disease. 7. Noncompliance. 8. Hypertension. 9. Cachexia and moderate malnutrition with a BMI of 18.3. We will also put him on propranolol 20 mg p.o. b.i.d. for his blood pressure, anxiety, possible jacob l hypertension. DIET: ADA diet. ACTIVITY: As tolerated. Again, alcohol cessation is a must, but he continues to drink. His prognosis is poor. Case was disc ussed with at bedside. Dictated By: GAYATHRI ROBERT/BOBBI Conf#: [id number] DID#: [id number]
== END 2019-05-16 14:30 | disposition home or self-care (01) ==
LOC: E/R 17:54 → PP2 19:48
PROVIDERS: ADMIT Internal Medicine; ATTEND Internal Medicine
DX: E11.65 Type 2 diabetes mellitus with hyperglycemia (principal); K85.20 Alcohol induced acute pancreatitis without necrosis or infection; K70.30 Alcoholic cirrhosis of liver without ascites; F10.10 Alcohol abuse, uncomplicated; I10 Essential (primary) hypertension; R64 Cachexia; N40.0 Benign prostatic hyperplasia without lower urinary tract symptoms; L80 Vitiligo; Z79.4 Long term (current) use of insulin
CPT/HCPCS: 36415; 71045; 74176; 80053; 80061; 81003; 82962; 83036; 83605; 83690; 84443; 85025; 85610; 87086; 93005; J1815; J2270; J2405; J7030; J7120; Z7500; Z7502; Z7610; G0378